=== PATIENT | male | born 1960 | race Hispanic/Latino ===

== ENCOUNTER 2017-04-28 13:05 | Inpatient (IN) | payer OTHER ==
--- NOTE | 2017-04-28 14:21 | ED PDOC ---
HPI:STROKE - Time Time: 14:00 - Historian Historian: Patient - Chief Complaint Chief Complaint: Weakness (Right hand weakness) - Onset Onset: This morning - Location Locate right:: Upper extremity - Notes: Notes:: 56y/o male (left hand dominant) presents to the ED complaining of right arm discomfort since he work up at around 7am. At first, patient thought he might have slept funny and it would wear off eventually but it didnt. States that he was planning to stay home today because of sore throat but came to the ED because of right hand weakness. Reports that he has difficulty picking a cup, holding his pants up or lifting anything. Denies weakness, numbness, difficulty in speaking or gait, visual deficits or any further medical complaints. NIHSS Stroke Scale - Date/Time Evaluation Performed Date Performed: 04/28/17 Time Performed: 14:00 When Was NIHSS Performed: Baseline - How Severe is the Stroke Level of Consciousness: 0=Alert LOC to Questions: 0=Both comments correct LOC to commands: 0=Obeys both correctly Best Gaze: 0=Normal Visual: 0=No visual loss Facial: 0=Normal Motor Arm - Left: 0=No drift Motor Arm - Right: 0=No drift Motor Leg - Left: 0=No drift Motor Leg - Right: 0=No drift Limb Ataxia: 1=Present Upper or Lower Sensory: 1=Mild to moderate loss Best Language: 0=No aphasia Dysarthia: 0=Normal articulation Extinction & Inattention (Neglect): 0=Normal, no object Score: 2 Past Medical History Reviewed: Historical Data, Nursing Documentation, Vital Signs Vital Signs: Last Vital Signs Temp 97.0 F L 04/28/17 13:39 Pulse 94 H 04/28/17 13:39 Resp 20 04/28/17 13:39 BP 175/105 H 04/28/17 13:39 Pulse Ox 96 04/28/17 13:39 - Medical History PMH: Hypercholesterolemia - Surgical History Other surgeries: Eye surgery as a toddler - Family History Family History: States: Hypertension Other Family History: Heart Disease - Social History Current smoker - smoking cessation education provided: No Alcohol: None Drugs: Denies - Home Medications Home Medications: Ambulatory Orders Medication Instructions Recorded Aspirin [Aspirin EC] 325 mg PO DAILY 04/28/17 Cholecalciferol [Vitamin D 1000 IU] 1 tab PO DAILY 04/28/17 Cyanocobalamin [Vitamin B12 1000 1 tab PO DAILY 04/28/17 mcg Tab] - Allergies Allergies/Adverse Reactions: Allergies Allergy/AdvReac Type Severity Reaction Status Date / Time No Known Allergies Allergy Verified 04/28/17 13:38 Review of Systems ROS Statement: Except As Marked, All Systems Reviewed And Found Negative (As per HPI, otherwise negative) Constitutional: Negative for: Fever Eyes: Negative for: Vision Change ENT: Positive for: Other (sore throat) Musculoskeletal: Positive for: Arm Pain (Right arm discomfort) Neurological: Negative for: Weakness (Right arm ), Numbness (right arm), Change in Speech Physical Exam - Reviewed Nursing Documentation Reviewed: Yes Vital Signs Reviewed: Yes - Physical Exam Appears: Positive for: Non-toxic, No Acute Distress Head Exam: Positive for: ATRAUMATIC, NORMOCEPHALIC Skin: Positive for: Warm, Dry Eye Exam: Positive for: EOMI, PERRL ENT: Negative for: Pharyngeal Erythema, Tonsillar Exudate Neck: Positive for: Painless ROM, Supple Cardiovascular/Chest: Positive for: Regular Rate, Rhythm, Chest Non Tender. Negative for: Murmur Respiratory: Positive for: Normal Breath Sounds. Negative for: Respiratory Distress Gastrointestinal/Abdominal: Positive for: Soft. Negative for: Tenderness Back: Positive for: Normal Inspection. Negative for: Decreased ROM Extremity: Negative for: Tenderness, Deformity, Swelling Neurologic/Psych: Positive for: Alert, pharmaceutical sales specialist II-XII (intact), Oriented (x3), Motor /Sensory Deficits (RIGHT hand apraxia and pronator drift), Mood/Affect (normal mood and affect), Cerebellar Tests (RIGHT upper extremity finger to nose abnormal (to finger). Normal bilateral HTS.), Gait (normal). Negative for: Aphasia, Facial Droop - Laboratory Results Result Diagrams: 04/28/17 14:20 04/28/17 14:20 - ECG O2 Sat by Pulse Oximetry: 96 (RA) Pulse Ox Interpretation: Normal Medical Decision Making Medical Decision Making: Time: 14:09 Initial Impression: Right hand apraxia Differential Diagnosis: CVA, brain mass, electrolyte abnormality Plan: Type and Screen Head w/o contrast EKG Drug Screen Hemoglobin A1C Neurology Consult Urine Dipstick Chest x-ray Furniture Cleaner IV Insertion (Saline lock) Glucose, Blood, POC Nursing Swallow Screen Influenza A B Rapid Strep Group -- Case discussed with neurologist supervisor electronics assembly (Dr. Montenegro) and will see him in ER for further evaluation. Time: 15:17 Chest x-ray FINDINGS: LUNGS: No active pulmonary disease. PLEURA: No significant pleural effusion identified, no pneumothorax apparent. CARDIOVASCULAR: No radiographic findings to suggest acute or significant cardiovascular disease. OSSEOUS STRUCTURES: No significant abnormalities. VISUALIZED UPPER ABDOMEN: Normal. OTHER FINDINGS: None. IMPRESSION: No active disease. Time: 15:[address] FINDINGS: HEMORRHAGE: The current study reveals a large elliptical shaped parenchymal hematoma within the left posterior frontoparietal low bladder that extends from the centrum semiovale superiorly into the vertex. This hemorrhage measures approximately 4.0 x 4 .2 x 2.2 cm. The medial of 1/3 of this large presumed hematoma exhibits slightly lower attenuation as compared to the lateral 2/3 which are more hyperdense . Findings could represent more acute hemorrhage within the lateral margin of this large hematoma. Rule out underlying lesion such is a cavernoma, AVM or possibly a hemorrhagic mass. Aneurysm less likely in this location despite what appears represent a small amount of overlying subarachnoid hemorrhage. The location is atypical for a hypertensive hemorrhage and therefore less likely. Amyloid angiography the would also be less likely amyloid angiography given this younger age group. Follow-up pre and post-contrast MRI may be helpful to assess for underlying lesion. The hematoma surrounded by a rim of low-attenuation edema or necrotic brain tissue. There is a surrounding mass effect with overlying local sulcal effacement and mild compression/inferior displacement of the posterior aspect of the right lateral ventricle. Note these findings were discussed with Dr. Edwards at approximately at 3 20 p.m. with written down and read back verification. There appears to be a punctate calcifications left anterior frontal region The ventricles are slightly prominent suggesting mild central volume loss. BRAIN: As above. VENTRICLES: No obstructive hydrocephalus. CALVARIUM: Calvarium intact. PARANASAL SINUSES: Unremarkable as visualized. No significant inflammatory changes. MASTOID AIR CELLS: Unremarkable as visualized. No inflammatory changes. OTHER FINDINGS: None. IMPRESSION: There is a relatively large parenchymal hematoma left posterior frontoparietal white matter with what appears represent small amount of overlying subarachnoid hemorrhage. Rule out underlying lesion such is a cavernoma, AVM or hemorrhagic mass. See above discussion, for additional details and findings. There is a surrounding rim of low-attenuation edema and or necrotic brain tissue. The hemorrhage and its attendant surrounding edema to exert mass effect as described. Follow-up pre and post-contrast MRI of the brain recommended. The emergency room attending aware these findings. --Case was discussed with Dr. Montenegro again and patient will undergo MRI for further evaluation for internal bleeding -- Patient will be placed in ICU, discussed with Dr. Guzman (Medical Service) Time: 17:30 --Case discussed with Dr. Orourke --neurosurgery recommendation --pending MR results Scribe Attestation: Documented by Joaquin Hubbard acting as a scribe for Keiry Edwards MD. Scribe Attestation: All medical record entries made by the Scribe were at my direction and personally dictated by me. I have reviewed the chart and agree that the record accurately reflects my personal performance of the history, physical exam, medical decision making, and the department course for this patient. I have also personally directed, reviewed, and agree with the discharge instructions and disposition. Disposition - Disposition
[2017-04-28 14:51] LABS: BASO # 0.1 K/uL (0.0-0.2); BASO % 0.5 % (0.0-2.0); EOS % 0.1 % (0.0-4.0); HEMOGLOBIN 15.8 g/dL (12.0-18.0); LYMPH # 1.6 K/uL (1.0-4.3); LYMPH % 11.7 % (20.0-40.0); MEAN CELL VOLUME 88.7 fl (80.0-94.0); MEAN CORPUSCULAR HEMOGLOBIN 30.6 pg (27.0-31.0); MEAN CORPUSCULAR HGB CONC 34.5 g/dL (33.0-37.0); MONO # 0.7 K/uL (0.0-0.8); MONO % 5.2 % (0.0-10.0); NEUT # 11.3 K/uL (1.8-7.0); NEUT % 82.5 % (50.0-75.0); RBC 5.17 Mil/uL (4.40-5.90); RED CELL DISTRIBUTION WIDTH 13.2 % (11.5-14.5); WHITE BLOOD COUNT 13.7 K/uL (4.8-10.8)
[2017-04-28 15:03] LABS: ALB/GLOB RATIO 1.2 (1.0-2.1); ALBUMIN 4.2 g/dL (3.5-5.0); ALT/SGPT 46 U/L (21-72); AST/SGOT 28 U/L (17-59); BLOOD UREA NITROGEN 19 mg/dl (9-20); CALCIUM 9.3 mg/dL (8.4-10.2); GFR AFRICAN-AMERICAN > 60; GFR NON-AFRICAN AMERICAN > 60; HDL CHOLESTEROL 48 MG/DL (30-70)
[2017-04-28 15:06] LABS: LDL CHOLESTEROL 256 mg/dL (0-129)
[2017-04-28 15:13] LABS: PROTHROMBIN TIME 11.5 Seconds (9.8-13.1)
--- NOTE | 2017-04-28 15:19 | RAD ---
HISTORY: Code Stroke COMPARISON: No prior. FINDINGS: LUNGS: No active pulmonary disease. PLEURA: No significant pleural effusion identified, no pneumothorax apparent. CARDIOVASCULAR: No radiographic findings to suggest acute or significant cardiovascular disease. OSSEOUS STRUCTURES: No significant abnormalities. VISUALIZED UPPER ABDOMEN: Normal. OTHER FINDINGS: None. IMPRESSION: No active disease.
--- NOTE | 2017-04-28 15:32 | CP.PCM.CON ---
History of Present Illness - History of Present Illness History of Present Illness: Mr. Almaraz is a 56-year-old man with a past medical history of hypertension , dyslipidemia (not on meds), who presented to the ED after he woke up this morning with right side difficulty with fine motor movements and sensory deficits. CT scan of the head showed a moderate sized left parietal lobe hemorrhage with surrounding edema. The patient denied headache, nausea, vomiting , or other neurologic deficits. Review of Systems - Review of Systems All systems: reviewed and no additional remarkable complaints except Past Patient History - Past Social History Alcohol: None Drugs: Denies - CARDIAC Hx Hypercholesterolemia: Yes - PSYCHIATRIC Hx Substance Use: No Meds Allergies/Adverse Reactions: Allergies Allergy/AdvReac Type Severity Reaction Status Date / Time No Known Allergies Allergy Verified 04/28/17 13:38 Physical Exam - Constitutional Appears: Well - Head Exam Head Exam: ATRAUMATIC, NORMAL INSPECTION, NORMOCEPHALIC - Eye Exam Eye Exam: EOMI, Normal appearance, PERRL - Respiratory Exam Respiratory Exam: Clear to Auscultation Bilateral, NORMAL BREATHING PATTERN - Cardiovascular Exam Cardiovascular Exam: REGULAR RHYTHM - Neurological Exam Neurological exam: Alert, CN II-XII Intact, Oriented x3 Additional comments: Reflexes were brisk on the right side, sensation was diminished to light touch on the right side as compared with the left, fine motor movements and coordination were impaired on the right side, with pronator drift. NIHSS = 3 Results - Vital Signs Recent Vital Signs: Last Vital Signs Temp 97.0 F L 04/28/17 13:39 Pulse 94 H 04/28/17 13:39 Resp 20 04/28/17 13:39 BP 175/105 H 04/28/17 13:39 Pulse Ox 96 04/28/17 15:19 - Labs Result Diagrams: 04/28/17 14:20 04/28/17 14:20 Labs: Laboratory Results - last 24 hr 04/28/17 04/28/17 04/28/17 14:20 14:20 14:20 WBC 13.7 H RBC 5.17 Hgb 15.8 Hct 45.9 MCV 88.7 MCH 30.6 MCHC 34.5 RDW 13.2 Plt Count 227 MPV 9.0 Neut % (Auto) 82.5 H Lymph % (Auto) 11.7 L [place] % (Auto) 5.2 Eos % (Auto) 0.1 Baso % (Auto) 0.5 Neut # (Auto) 11.3 H Lymph # (Auto) 1.6 [place] # (Auto) 0.7 Eos # (Auto) 0.0 Baso # (Auto) 0.1 PT 11.5 INR 1.0 APTT 32.0 Sodium 140 Potassium 3.5 L Chloride 104 Carbon Dioxide 25 Anion Gap 15 BUN 19 Creatinine 1.0 Est GFR ( Amer) > 60 Est GFR (Non-Af Amer) > 60 POC Glucose (mg/dL) Random Glucose 96 Calcium 9.3 Phosphorus 2.8 Magnesium 2.0 Total Bilirubin 0.8 AST 28 ALT 46 Alkaline Phosphatase 81 Troponin I 0.0200 Total Protein 7.7 Albumin 4.2 Globulin 3.5 Albumin/Globulin Ratio 1.2 Triglycerides 110 Cholesterol 330 H LDL Cholesterol Direct 256 H HDL Cholesterol 48 Influenza Typ A,B (EIA) Grp A Beta Strep Ag 04/28/17 04/28/17 04/28/17 14:20 14:20 15:19 WBC RBC Hgb Hct MCV MCH MCHC RDW Plt Count MPV Neut % (Auto) Lymph % (Auto) [place] % (Auto) Eos % (Auto) Baso % (Auto) Neut # (Auto) Lymph # (Auto) [place] # (Auto) Eos # (Auto) Baso # (Auto) PT INR APTT Sodium Potassium Chloride Carbon Dioxide Anion Gap BUN Creatinine Est GFR ( Amer) Est GFR (Non-Af Amer) POC Glucose (mg/dL) 89 Random Glucose Calcium Phosphorus Magnesium Total Bilirubin AST ALT Alkaline Phosphatase Troponin I Total Protein Albumin Globulin Albumin/Globulin Ratio Triglycerides Cholesterol LDL Cholesterol Direct HDL Cholesterol Influenza Typ A,B (EIA) Negative for flu a/b Grp A Beta Strep Ag Negative Assessment & Plan (1) ICH (intracerebral hemorrhage) Assessment and Plan: There is a mixed density with surrounding edema and the bleed is in an atypical location for hypertensive bleeds. There is concern that this may be a mass with hemorrhage or a possible cavernoma. Amyloid is unlikely. I recommend the followin. Telemetry 2. MRI brain with and without contrast and MRA of the head/neck without contrast 3. Echocardiogram with bubble study 4. Avoid anticoagulation or antiplatelet agents (use SCD for DVT Px) 5. Consult neurosurgery 6. PT/OT eval and treat 7. Check HbA1c, Lipid panel, TSH, T3, T4, B12, vitamin D levels 8. Repeat CT scan in 24 hours or STAT if there is worsening of neurological exam or mental status Thank you. Status: Acute Priority: High
--- NOTE | 2017-04-28 15:33 | CT ---
PROCEDURE: CT scan brain dated 05/26/2017 HISTORY: Right hand weakness COMPARISON: No prior study available comparison. TECHNIQUE: Contiguous helical/transaxial computed tomography images were obtained through the head/brain without intravenous contrast. Radiation dose: Total exam DLP = 1244.27 mGy - cm. . This CT exam was performed using one or more of the following dose reduction techniques: Automated exposure control, adjustment of the mA and/or kV according to patient size, and/or use of iterative reconstruction technique. FINDINGS: HEMORRHAGE: The current study reveals a large elliptical shaped parenchymal hematoma within the left posterior frontoparietal low bladder that extends from the centrum semiovale superiorly into the vertex. This hemorrhage measures approximately 4.0 x 4 .2 x 2.2 cm. The medial of 1/3 of this large presumed hematoma exhibits slightly lower attenuation as compared to the lateral 2/3 which are more hyperdense . Findings could represent more acute hemorrhage within the lateral margin of this large hematoma. Rule out underlying lesion such is a cavernoma, AVM or possibly a hemorrhagic mass. Aneurysm less likely in this location despite what appears represent a small amount of overlying subarachnoid hemorrhage. The location is atypical for a hypertensive hemorrhage and therefore less likely. Amyloid angiography the would also be less likely amyloid angiography given this younger age group. Follow-up pre and post-contrast MRI may be helpful to assess for underlying lesion. The hematoma surrounded by a rim of low-attenuation edema or necrotic brain tissue. There is a surrounding mass effect with overlying local sulcal effacement and mild compression/inferior displacement of the posterior aspect of the right lateral ventricle. Note these findings were discussed with Dr. Edwards at approximately at 3 20 p.m. with written down and read back verification. There appears to be a punctate calcifications left anterior frontal region The ventricles are slightly prominent suggesting mild central volume loss. BRAIN: As above. VENTRICLES: No obstructive hydrocephalus. CALVARIUM: Calvarium intact. PARANASAL SINUSES: Unremarkable as visualized. No significant inflammatory changes. MASTOID AIR CELLS: Unremarkable as visualized. No inflammatory changes. OTHER FINDINGS: None. IMPRESSION: There is a relatively large parenchymal hematoma left posterior frontoparietal white matter with what appears represent small amount of overlying subarachnoid hemorrhage. Rule out underlying lesion such is a cavernoma, AVM or hemorrhagic mass. See above discussion, for additional details and findings. There is a surrounding rim of low-attenuation edema and or necrotic brain tissue. The hemorrhage and its attendant surrounding edema to exert mass effect as described. Follow-up pre and post-contrast MRI of the brain recommended. The emergency room attending aware these findings.
[2017-04-28] MEDS ORDERED: Gadodiamide 287 MG/ML VIAL (15ML) IV ONE (16:15)
[2017-04-28] MEDS ORDERED: Labetalol 5mg/ml (4ml) IVP PRN (18:53)
[2017-04-28] MEDS ORDERED: Labetalol 5mg/ml (4ml) IVP STA (20:57)
[2017-04-28] MEDS ORDERED: Labetalol 5mg/ml (4ml) ONE (21:10)
[2017-04-28] MEDS ORDERED: Benzocaine/Menthol (Cepacol) Lozenge PO PRN (21:47)
[2017-04-29 00:39] LABS: BARBITURATES, UR NEGATIVE (NEGATIVE); BENZODIAZEPINES, UR NEGATIVE (NEGATIVE); OPIATES, UR NEGATIVE (NEGATIVE); PHENCYCLIDINE, UR NEGATIVE (NEGATIVE)
[2017-04-29 05:48] LABS: BLOOD UREA NITROGEN 18 mg/dl (9-20); CALCIUM 9.3 mg/dL (8.4-10.2); GFR AFRICAN-AMERICAN > 60; GFR NON-AFRICAN AMERICAN > 60; HDL CHOLESTEROL 46 MG/DL (30-70)
[2017-04-29 05:53] LABS: HEMOGLOBIN 15.1 g/dL (12.0-18.0); MEAN CELL VOLUME 89.1 fl (80.0-94.0); MEAN CORPUSCULAR HEMOGLOBIN 30.4 pg (27.0-31.0); MEAN CORPUSCULAR HGB CONC 34.1 g/dL (33.0-37.0); RBC 4.97 Mil/uL (4.40-5.90); RED CELL DISTRIBUTION WIDTH 13.3 % (11.5-14.5); WHITE BLOOD COUNT 12.7 K/uL (4.8-10.8)
[2017-04-29 05:59] LABS: LDL CHOLESTEROL 248 mg/dL (0-129); T4 8.35 ug/dl (5.5-11.0)
[2017-04-29 06:13] LABS: T3 1.23 nmol/L (1.49-2.60)
--- NOTE | 2017-04-29 08:15 | PN ---
DATE: 04/28/2017 CRITICAL CARE PROGRESS NOTE The patient in ER, being admitted to ICU. REASON FOR CONSULTATION: Weakness right hand. HISTORY OF PRESENT ILLNESS: Mr. Almaraz is a 56-year-old male, left-handed with no significant medical history in the past and I am not taking any medications at home. Presented to Emergency Room with complaining of right hand weakness since he got up this morning around 07:00 a.m. In the ER, the patient was noted to have apraxia of the right hand. A CT head obtained showed hemorrhage/hemorrhagic mass within the left posterior, frontoparietal that extends from the centrum semiovale superiorly into the vertex, seen by Neurology. Recommended for MRI and MRA of the brain, admitted to ICU for further evaluation and follow up. REVIEW OF SYSTEMS: Denies fever, chills, cough, shortness of breath. No headache. No unsteady gait, weakness of the right hand with apraxia. PHYSICAL EXAMINATION: VITAL SIGNS: Temperature 97, heart rate 94, respiratory rate 20, blood pressure 175/105, pulse oximetry 96% on room air. HEAD, EYES, EARS, NOSE AND THROAT: Pupils are reactive. Conjunctivae pink. Sclerae are white. NECK: Supple. Trachea central. CHEST: Bilateral breath sounds clear to auscultation. HEART: Rhythm regular. S1, S2, normal intensity. No S3, S4 gallop. No audible murmur. ABDOMEN: Bowel sounds are present. Soft. Liver and spleen not palpable. Bladder not distended. EXTREMITIES: No clubbing, cyanosis, edema. NEUROLOGIC: Alert and oriented x3. Cranial nerves intact. Motor sensory deficit right hand with apraxia and pronator drift. Gait normal. Chest x-ray shows no acute infiltrate. EKG showed normal sinus rhythm, normal electrical axis. No ischemic changes. CT head: A large elliptical shaped parenchymal hematoma within the left posterior, frontoparietal that extends from the centrum semiovale superiorly into the vertex measures 4 x 4.2 x 2.2 centimeters. ASSESSMENT AND PLAN: A 56-year-old male presenting with right arm weakness. CT head shows a mixed density lesion with surrounding edema and bleed in the frontoparietal area, concerned about hemorrhagic or a mass with hemorrhage. Follow MRI and MRA report with anticoagulation or antiplatelet agents. Deep venous thrombosis prophylaxis with sequential compressive device, maintain systolic pressure 140-160. Follow up with hemoglobin A1c, lipid panel, TSH and vitamin D level. Repeat CAT scan in 24 hours.. Follow up urine drug screen and thyroid profile, may use Tylenol for headache p.r.n., currently on atorvastatin 20 mg daily. Marcell Márquez MD
--- NOTE | 2017-04-29 10:09 | CARD ---
APPROVED REPORT EKG Measurement Heart [id number] <Conclusion> Normal sinus rhythm Normal ECG
--- NOTE | 2017-04-29 11:51 | CP.PCM.CON ---
History of Present Illness - History of Present Illness History of Present Illness: dictated ? underlying tumor/malformation MRI inconclusive suggest f/u MRI in 3 weeks rec OT PT Mobilization Past Patient History - Past Social History Smoking Status: Never Smoked - CARDIAC Hx Cardiac Disorders: Yes (HTN) Hx Hypercholesterolemia: Yes Hx Hypertension: Yes - MUSCULOSKELETAL/RHEUMATOLOGICAL Hx Falls: No - PSYCHIATRIC Hx Substance Use: No - SURGICAL HISTORY Other/Comment: Eye surgery as a toddler - ANESTHESIA Hx Anesthesia: Yes Hx Anesthesia Reactions: No Hx Malignant Hyperthermia: No Meds Allergies/Adverse Reactions: Allergies Allergy/AdvReac Type Severity Reaction Status Date / Time No Known Allergies Allergy Verified 04/28/17 13:38 - Medications Medications: Current Medications Amlodipine Besylate (Norvasc) 5 mg PO DAILY [facility] Last Admin: 04/29/17 11:39 Dose: 5 mg Atorvastatin Calcium (Lipitor) 20 mg PO DAILY [facility] Last Admin: 04/29/17 09:47 Dose: 20 mg Benzocaine/Menthol (Cepacol Sore Throat) 1 corazon PO Q2 PRN PRN Reason: Sore Throat Last Admin: 04/28/17 22:08 Dose: 1 corazon Labetalol HCl (Trandate) 20 mg IVP ONCE PRN PRN Reason: Systolic Blood Pressure Results - Vital Signs Recent Vital Signs: Last Vital Signs Temp 98.2 F 04/29/17 08:34 Pulse 77 04/29/17 11:39 Resp 25 H 04/29/17 10:00 BP 160/91 H 04/29/17 11:39 Pulse Ox 100 04/29/17 10:00 - Labs Result Diagrams: 04/29/17 04:40 04/29/17 04:40 Labs: Laboratory Results - last 24 hr 04/28/17 04/28/17 04/28/17 00:18 14:02 14:20 WBC 13.7 H RBC 5.17 Hgb 15.8 Hct 45.9 MCV 88.7 MCH 30.6 MCHC 34.5 RDW 13.2 Plt Count 227 MPV 9.0 Neut % (Auto) 82.5 H Lymph % (Auto) 11.7 L Gates % (Auto) 5.2 Eos % (Auto) 0.1 Baso % (Auto) 0.5 Neut # (Auto) 11.3 H Lymph # (Auto) 1.6 Gates # (Auto) 0.7 Eos # (Auto) 0.0 Baso # (Auto) 0.1 PT INR APTT Sodium Potassium Chloride Carbon Dioxide Anion Gap BUN Creatinine Est GFR ( Amer) Est GFR (Non-Af Amer) POC Glucose (mg/dL) Random Glucose Hemoglobin A1c 5.1 Calcium Phosphorus Magnesium Total Bilirubin AST ALT Alkaline Phosphatase Troponin I Total Protein Albumin Globulin Albumin/Globulin Ratio Triglycerides Cholesterol LDL Cholesterol Direct HDL Cholesterol Vitamin B12 Thyroxine (T4) Total T3 TSH 3rd Generation Urine Opiates Screen Negative Urine Methadone Screen Negative Ur Barbiturates Screen Negative Ur Phencyclidine Scrn Negative Ur Amphetamines Screen Negative U Benzodiazepines Scrn Negative U Oth Cocaine Metabols Negative U Cannabinoids Screen Negative Influenza Typ A,B (EIA) Grp A Beta Strep Ag Blood Type Antibody Screen BBK History Checked 04/28/17 04/28/17 04/28/17 14:20 14:20 14:20 WBC RBC Hgb Hct MCV MCH MCHC RDW Plt Count MPV Neut % (Auto) Lymph % (Auto) Gates % (Auto) Eos % (Auto) Baso % (Auto) Neut # (Auto) Lymph # (Auto) Gates # (Auto) Eos # (Auto) Baso # (Auto) PT 11.5 INR 1.0 APTT 32.0 Sodium 140 Potassium 3.5 L Chloride 104 Carbon Dioxide 25 Anion Gap 15 BUN 19 Creatinine 1.0 Est GFR ( Amer) > 60 Est GFR (Non-Af Amer) > 60 POC Glucose (mg/dL) Random Glucose 96 Hemoglobin A1c Calcium 9.3 Phosphorus 2.8 Magnesium 2.0 Total Bilirubin 0.8 AST 28 ALT 46 Alkaline Phosphatase 81 Troponin I 0.0200 Total Protein 7.7 Albumin 4.2 Globulin 3.5 Albumin/Globulin Ratio 1.2 Triglycerides 110 Cholesterol 330 H LDL Cholesterol Direct 256 H HDL Cholesterol 48 Vitamin B12 Thyroxine (T4) Total T3 TSH 3rd Generation Urine Opiates Screen Urine Methadone Screen Ur Barbiturates Screen Ur Phencyclidine Scrn Ur Amphetamines Screen U Benzodiazepines Scrn U Oth Cocaine Metabols U Cannabinoids Screen Influenza Typ A,B (EIA) Negative for flu a/b Grp A Beta Strep Ag Blood Type Antibody Screen BBK History Checked 04/28/17 04/28/17 04/28/17 14:20 15:15 15:19 WBC RBC Hgb Hct MCV MCH MCHC RDW Plt Count MPV Neut % (Auto) Lymph % (Auto) Gates % (Auto) Eos % (Auto) Baso % (Auto) Neut # (Auto) Lymph # (Auto) Gates # (Auto) Eos # (Auto) Baso # (Auto) PT INR APTT Sodium Potassium Chloride Carbon Dioxide Anion Gap BUN Creatinine Est GFR ( Amer) Est GFR (Non-Af Amer) POC Glucose (mg/dL) 89 Random Glucose Hemoglobin A1c Calcium Phosphorus Magnesium Total Bilirubin AST ALT Alkaline Phosphatase Troponin I Total Protein Albumin Globulin Albumin/Globulin Ratio Triglycerides Cholesterol LDL Cholesterol Direct HDL Cholesterol Vitamin B12 Thyroxine (T4) Total T3 TSH 3rd Generation Urine Opiates Screen Urine Methadone Screen Ur Barbiturates Screen Ur Phencyclidine Scrn Ur Amphetamines Screen U Benzodiazepines Scrn U Oth Cocaine Metabols U Cannabinoids Screen Influenza Typ A,B (EIA) Grp A Beta Strep Ag Negative Blood Type O NEGATIVE Antibody Screen Negative BBK History Checked No verified bt 04/28/17 04/29/17 04/29/17 17:30 04:40 04:40 WBC 12.7 H RBC 4.97 Hgb 15.1 Hct 44.3 MCV 89.1 MCH 30.4 MCHC 34.1 RDW 13.3 Plt Count 224 MPV Neut % (Auto) Lymph % (Auto) Gates % (Auto) Eos % (Auto) Baso % (Auto) Neut # (Auto) Lymph # (Auto) Gates # (Auto) Eos # (Auto) Baso # (Auto) PT INR APTT Sodium 141 Potassium 4.1 Chloride 105 Carbon Dioxide 27 Anion Gap 13 BUN 18 Creatinine 1.0 Est GFR ( Amer) > 60 Est GFR (Non-Af Amer) > 60 POC Glucose (mg/dL) Random Glucose 101 Hemoglobin A1c Calcium 9.3 Phosphorus Magnesium Total Bilirubin AST ALT Alkaline Phosphatase Troponin I Total Protein Albumin Globulin Albumin/Globulin Ratio Triglycerides 81 D Cholesterol 319 H LDL Cholesterol Direct 248 H HDL Cholesterol 46 Vitamin B12 756 566 Thyroxine (T4) 8.35 Total T3 1.23 L TSH 3rd Generation 0.65 1.04 Urine Opiates Screen Urine Methadone Screen Ur Barbiturates Screen Ur Phencyclidine Scrn Ur Amphetamines Screen U Benzodiazepines Scrn U Oth Cocaine Metabols U Cannabinoids Screen Influenza Typ A,B (EIA) Grp A Beta Strep Ag Blood Type Antibody Screen BBK History Checked
--- NOTE | 2017-04-29 14:39 | CP.PCM.PN ---
Subjective - Date & Time of Evaluation Date of Evaluation: 04/29/17 Time of Evaluation: 14:37 - Subjective Subjective: Mr. Almaraz was seen and examined today at bedside. He continues to have right arm, mostly hand, weakness. There were no acute events overnight. Objective - Vital Signs/Intake and Output Vital Signs (last 24 hours): Temp Pulse Resp BP Pulse Ox 98.0 F 85 19 160/91 H 99 04/29/17 13:42 04/29/17 13:42 04/29/17 13:42 04/29/17 13:42 04/29/17 13:42 Intake and Output: 04/29/17 04/29/17 06:59 18:59 Intake Total 240 Output Total 600 300 Balance -360 -300 - Medications Medications: Current Medications Amlodipine Besylate (Norvasc) 5 mg PO DAILY [facility] Last Admin: 04/29/17 11:39 Dose: 5 mg Atorvastatin Calcium (Lipitor) 20 mg PO DAILY [facility] Last Admin: 04/29/17 09:47 Dose: 20 mg Benzocaine/Menthol (Cepacol Sore Throat) 1 corazon PO Q2 PRN PRN Reason: Sore Throat Last Admin: 04/28/17 22:08 Dose: 1 corazon Labetalol HCl (Trandate) 20 mg IVP ONCE PRN PRN Reason: Systolic Blood Pressure - Labs Labs: 04/29/17 04:40 04/29/17 04:40 PT 11.5 Seconds (9.8-13.1) 04/28/17 14:20 INR 1.0 (0.9-1.2) 04/28/17 14:20 APTT 32.0 Seconds (25.6-37.1) 04/28/17 14:20 - Neurological Exam Additional comments: Exam is unchanged from yesterday's evaluation. Assessment and Plan (1) ICH (intracerebral hemorrhage) Assessment & Plan: There may be an underlying mass, but currently it is difficult to determine due to the bleed. A repeat MRI of the brain is recommended in 3-4 weeks. There has not been any reported seizure activity, so we will hold off on starting Keppra for now. Continue statin, control BP to normal range. Status: Acute
--- NOTE | 2017-04-29 15:38 | CT ---
PROCEDURE: CT HEAD WITHOUT CONTRAST. HISTORY: left lobe hemorrhage COMPARISON: CT head dated 04/28/2017. TECHNIQUE: Axial computed tomography images were obtained through the head/brain without intravenous contrast. Radiation dose: Total exam DLP = 2038.6 mGy-cm. This CT exam was performed using one or more of the following dose reduction techniques: Automated exposure control, adjustment of the mA and/or kV according to patient size, and/or use of iterative reconstruction technique. FINDINGS: There is similar appearance of the left parietal parenchymal hemorrhage and areas of adjacent subarachnoid hemorrhage. Surrounding edema has slightly increased. Mass effect from the hemorrhage/edema causes similar sulcal effacement and mild bowing of the posterior falx. No new hemorrhage or other significant interval change is identified. IMPRESSION: Slightly increased edema surrounding the grossly stable left parietal parenchymal hemorrhage. Focal areas of adjacent subarachnoid hemorrhage are similar. No new hemorrhage or other significant interval change is identified.
--- NOTE | 2017-04-29 16:09 | MRI ---
PROCEDURE: MRI BRAIN WITH AND WITHOUT CONTRAST HISTORY: Left parietal lobe hemorrhage COMPARISON: Noncontrast head CT 04/28/2017 TECHNIQUE: Multiplanar, multisequence MR images of the brain were obtained with and without intravenous contrast enhancement. FINDINGS: HEMORRHAGE: There is redemonstration of a 4.5 x 2.3 x 4.7 cm acute hematoma in the left parietal lobe with surrounding vasogenic edema and local mass effect with effacement of the cortical sulci without midline shift or herniation. There is also mild subarachnoid hemorrhage in the inferior parietal lobe. DWI: No evidence of an acute or early subacute infarction. BRAIN PARENCHYMA: There are scattered T2/FLAIR hyperintense foci in the right parietal and left inferior frontal subcortical white matter. There is no territorial infarction. The midline sagittal structures are normal. ENHANCEMENT: No abnormal intracranial enhancement. VENTRICLES: The ventricles are normal in size, shape and configuration. CRANIUM: There is normal bone marrow signal pattern. ORBITS: Grossly unremarkable. PARANASAL SINUSES/MASTOIDS: Predominantly clear. There is a small retention cyst/ polyp in the right maxillary sinus. VASCULAR SYSTEM: There are normal signal voids in the larger intracranial arteries. OTHER FINDINGS: None . IMPRESSION: 1. 4.5 x 2.3 x 4.7 cm acute hematoma with mild surrounding vasogenic edema and local mass effect in the left parietal lobe without evidence of midline shift or herniation. 2. Small left inferior parietal subarachnoid hemorrhage. 3. Right parietal subcortical and left inferior parietal subcortical white matter changes are strictly nonspecific and could represent gliosis or early chronic microangiopathic changes. A preliminary report was provided by [employer] [facility].
--- NOTE | 2017-04-29 16:10 | MRI ---
PROCEDURE: MR Angiography of the neck without contrast HISTORY: Left lobar hemorrhage. COMPARISON: None available. TECHNIQUE: 3D [id number] angiography of the neck was performed. Rotating maximum intensity projection images of the cervical carotid and vertebral arteries were generated. The origins of the common carotid arteries were not visualized, which is a limitation inherent to the non-contrast time of flight technique. FINDINGS: RIGHT CAROTID ARTERIES: Common Carotid Artery: Normal. Carotid Bifurcation: Normal. Internal Carotid Artery:Normal. External Carotid Artery (proximal branches): Normal. LEFT CAROTID ARTERIES: Common Carotid Artery: Normal. Carotid Bifurcation: Normal. Internal Carotid Artery:Normal. External Carotid Artery (proximal branches): Normal. VERTEBRAL ARTERIES: Right Vertebral Artery: The right vertebral artery is hypoplastic and patent, an anatomic variant. Left Vertebral Artery: Normal. OTHER FINDINGS: None. IMPRESSION: No hemodynamically significant stenosis in the internal carotid arteries. Hypoplastic right vertebral artery, an anatomic variant. A preliminary report was provided by [employer] [facility].
--- NOTE | 2017-04-29 16:11 | CP.CCUPN ---
CCU Subjective - Physician Review Events Since Last Encounter (Free Text): 04/29/17 16:10 feeling better today, right hand weakness. CCU Objective - Vital Signs / Intake & Output Vital Signs (Last 4 hours): Vital Signs Temp Pulse Resp BP Pulse Ox 04/29/17 16:00 98.2 F 78 15 152/90 H 97 04/29/17 14:00 76 13 151/88 H 97 04/29/17 13:42 98.0 F 85 19 160/91 H 99 Intake and Output (Last 8hrs): Intake & Output 04/29/17 04/29/17 04/29/17 06:59 14:59 22:59 Intake Total 0 Output Total 300 300 400 Balance -300 -300 -400 Weight 240 lb Intake: IV 0 Output: Urine 300 300 400 Urine, Voided 300 300 400 - Physical Exam Head: Positive for: Atraumatic, Normocephalic Pupils: Positive for: PERRL Extroacular Muscles: Positive for: EOMI Conjunctiva: Positive for: Normal Mouth: Positive for: Moist Mucous Membranes Respiratory/Chest: Positive for: Clear to Auscultation, Good Air Exchange Cardiovascular: Positive for: Regular Rate and Rhythm Abdomen: Negative for: Tenderness, Distention Neurological: Positive for: GCS=15, CN II-XII Intact Psychiatric: Positive for: Alert, Oriented x 3 - Medications Active Medications: Active Medications Generic Name Dose Route Start Last Admin Trade Name Freq PRN Reason Stop Dose Admin Amlodipine Besylate 5 mg 04/29/17 10:30 04/29/17 11:39 Norvasc PO 5 mg DAILY ALONDRA Administration Atorvastatin Calcium 20 mg 04/29/17 09:00 04/29/17 09:47 Lipitor PO 20 mg DAILY ALONDRA Administration Benzocaine/Menthol 1 corazon 04/28/17 21:47 04/28/17 22:08 Cepacol Sore Throat PO 1 corazon Q2 PRN Administration Sore Throat Labetalol HCl 20 mg 04/28/17 18:53 Trandate IVP ONCE PRN Systolic Blood Pressure - Patient Studies Lab Studies: Lab Studies 04/29/17 04/29/17 04/29/17 Range/Units 08:00 04:40 04:40 WBC (4.8-10.8) K/uL RBC (4.40-5.90) Mil/uL Hgb (12.0-18.0) g/dL Hct (35.0-51.0) % MCV (80.0-94.0) fl MCH (27.0-31.0) pg MCHC (33.0-37.0) g/dL RDW (11.5-14.5) % Plt Count (130-400) K/uL Sodium (132-148) mmol/l Potassium (3.6-5.0) MMOL/L Chloride (98-107) mmol/L Carbon Dioxide (22-30) mmol/L Anion Gap (10-20) BUN (9-20) mg/dl Creatinine (0.8-1.5) mg/dl Est GFR ( Amer) Est GFR (Non-Af Amer) Random Glucose (75-110) mg/dL Hemoglobin A1c 5.2 (4.2-6.5) % Calcium (8.4-10.2) mg/dL Triglycerides (0-149) mg/DL Cholesterol (0-199) mg/dL LDL Cholesterol Direct (0-129) mg/dL HDL Cholesterol (30-70) MG/DL Vitamin B12 (239-931) pg/mL 25-OH Vitamin D Total 28.7 L (30.0-100.0) NG/ML Thyroxine (T4) (5.5-11.0) ug/dl Total T3 (1.49-2.60) nmol/L TSH 3rd Generation (0.46-4.68) mIU/ML Urine Opiates Screen (NEGATIVE) Urine Methadone Screen (NEGATIVE) Ur Barbiturates Screen (NEGATIVE) Ur Phencyclidine Scrn (NEGATIVE) Ur Amphetamines Screen (NEGATIVE) U Benzodiazepines Scrn (NEGATIVE) U Oth Cocaine Metabols (NEGATIVE) U Cannabinoids Screen (NEGATIVE) Blood Type Blood Type Confirm O NEGATIVE Antibody Screen 04/29/17 04/29/17 04/28/17 Range/Units 04:40 04:40 17:30 WBC 12.7 H (4.8-10.8) K/uL RBC 4.97 (4.40-5.90) Mil/uL Hgb 15.1 (12.0-18.0) g/dL Hct 44.3 (35.0-51.0) % MCV 89.1 (80.0-94.0) fl MCH 30.4 (27.0-31.0) pg MCHC 34.1 (33.0-37.0) g/dL RDW 13.3 (11.5-14.5) % Plt Count 224 (130-400) K/uL Sodium 141 (132-148) mmol/l Potassium 4.1 (3.6-5.0) MMOL/L Chloride 105 (98-107) mmol/L Carbon Dioxide 27 (22-30) mmol/L Anion Gap 13 (10-20) BUN 18 (9-20) mg/dl Creatinine 1.0 (0.8-1.5) mg/dl Est GFR ( Amer) > 60 Est GFR (Non-Af Amer) > 60 Random Glucose 101 (75-110) mg/dL Hemoglobin A1c (4.2-6.5) % Calcium 9.3 (8.4-10.2) mg/dL Triglycerides 81 D (0-149) mg/DL Cholesterol 319 H (0-199) mg/dL LDL Cholesterol Direct 248 H (0-129) mg/dL HDL Cholesterol 46 (30-70) MG/DL Vitamin B12 566 756 (239-931) pg/mL 25-OH Vitamin D Total (30.0-100.0) NG/ML Thyroxine (T4) 8.35 (5.5-11.0) ug/dl Total T3 1.23 L (1.49-2.60) nmol/L TSH 3rd Generation 1.04 0.65 (0.46-4.68) mIU/ML Urine Opiates Screen (NEGATIVE) Urine Methadone Screen (NEGATIVE) Ur Barbiturates Screen (NEGATIVE) Ur Phencyclidine Scrn (NEGATIVE) Ur Amphetamines Screen (NEGATIVE) U Benzodiazepines Scrn (NEGATIVE) U Oth Cocaine Metabols (NEGATIVE) U Cannabinoids Screen (NEGATIVE) Blood Type Blood Type Confirm Antibody Screen 04/28/17 04/28/17 04/28/17 Range/Units 15:15 14:02 00:18 WBC (4.8-10.8) K/uL RBC (4.40-5.90) Mil/uL Hgb (12.0-18.0) g/dL Hct (35.0-51.0) % MCV (80.0-94.0) fl MCH (27.0-31.0) pg MCHC (33.0-37.0) g/dL RDW (11.5-14.5) % Plt Count (130-400) K/uL Sodium (132-148) mmol/l Potassium (3.6-5.0) MMOL/L Chloride (98-107) mmol/L Carbon Dioxide (22-30) mmol/L Anion Gap (10-20) BUN (9-20) mg/dl Creatinine (0.8-1.5) mg/dl Est GFR ( Amer) Est GFR (Non-Af Amer) Random Glucose (75-110) mg/dL Hemoglobin A1c 5.1 (4.2-6.5) % Calcium (8.4-10.2) mg/dL Triglycerides (0-149) mg/DL Cholesterol (0-199) mg/dL LDL Cholesterol Direct (0-129) mg/dL HDL Cholesterol (30-70) MG/DL Vitamin B12 (239-931) pg/mL 25-OH Vitamin D Total (30.0-100.0) NG/ML Thyroxine (T4) (5.5-11.0) ug/dl Total T3 (1.49-2.60) nmol/L TSH 3rd Generation (0.46-4.68) mIU/ML Urine Opiates Screen Negative (NEGATIVE) Urine Methadone Screen Negative (NEGATIVE) Ur Barbiturates Screen Negative (NEGATIVE) Ur Phencyclidine Scrn Negative (NEGATIVE) Ur Amphetamines Screen Negative (NEGATIVE) U Benzodiazepines Scrn Negative (NEGATIVE) U Oth Cocaine Metabols Negative (NEGATIVE) U Cannabinoids Screen Negative (NEGATIVE) Blood Type O NEGATIVE Blood Type Confirm Antibody Screen Negative Laboratory Results - last 24 hr 04/28/17 04/28/17 04/28/17 00:18 14:02 15:15 WBC RBC Hgb Hct MCV MCH MCHC RDW Plt Count Sodium Potassium Chloride Carbon Dioxide Anion Gap BUN Creatinine Est GFR ( Amer) Est GFR (Non-Af Amer) Random Glucose Hemoglobin A1c 5.1 Calcium Triglycerides Cholesterol LDL Cholesterol Direct HDL Cholesterol Vitamin B12 25-OH Vitamin D Total Thyroxine (T4) Total T3 TSH 3rd Generation Urine Opiates Screen Negative Urine Methadone Screen Negative Ur Barbiturates Screen Negative Ur Phencyclidine Scrn Negative Ur Amphetamines Screen Negative U Benzodiazepines Scrn Negative U Oth Cocaine Metabols Negative U Cannabinoids Screen Negative Blood Type O NEGATIVE Blood Type Confirm Antibody Screen Negative 04/28/17 04/29/17 04/29/17 17:30 04:40 04:40 WBC 12.7 H RBC 4.97 Hgb 15.1 Hct 44.3 MCV 89.1 MCH 30.4 MCHC 34.1 RDW 13.3 Plt Count 224 Sodium 141 Potassium 4.1 Chloride 105 Carbon Dioxide 27 Anion Gap 13 BUN 18 Creatinine 1.0 Est GFR ( Amer) > 60 Est GFR (Non-Af Amer) > 60 Random Glucose 101 Hemoglobin A1c Calcium 9.3 Triglycerides 81 D Cholesterol 319 H LDL Cholesterol Direct 248 H HDL Cholesterol 46 Vitamin B12 756 566 25-OH Vitamin D Total Thyroxine (T4) 8.35 Total T3 1.23 L TSH 3rd Generation 0.65 1.04 Urine Opiates Screen Urine Methadone Screen Ur Barbiturates Screen Ur Phencyclidine Scrn Ur Amphetamines Screen U Benzodiazepines Scrn U Oth Cocaine Metabols U Cannabinoids Screen Blood Type Blood Type Confirm Antibody Screen 04/29/17 04/29/17 04/29/17 04:40 04:40 08:00 WBC RBC Hgb Hct MCV MCH MCHC RDW Plt Count Sodium Potassium Chloride Carbon Dioxide Anion Gap BUN Creatinine Est GFR ( Amer) Est GFR (Non-Af Amer) Random Glucose Hemoglobin A1c 5.2 Calcium Triglycerides Cholesterol LDL Cholesterol Direct HDL Cholesterol Vitamin B12 25-OH Vitamin D Total 28.7 L Thyroxine (T4) Total T3 TSH 3rd Generation Urine Opiates Screen Urine Methadone Screen Ur Barbiturates Screen Ur Phencyclidine Scrn Ur Amphetamines Screen U Benzodiazepines Scrn U Oth Cocaine Metabols U Cannabinoids Screen Blood Type Blood Type Confirm O NEGATIVE Antibody Screen Fingerstick Blood Sugar Results: 89 Critical Care Progress Note - Nutrition Nutrition: Nutrition Category Date Time Status Heart Healthy Diet [DIET] Diets 04/28/17 Dinner Active Assessment/Plan (1) ICH (intracerebral hemorrhage) Assessment and plan: 56-year-old man with a past medical history of hypertension, dyslipidemia (not on meds). p/w moderate sized left parietal lobe hemorrhage with surrounding edema. Neuro: Alert and oriented 3. Intracerebral hemorrhage and left parietal lobe is currently stable based on repeat head CT. No neurosurgical intervention indicated currently. Patient will need follow-up MRI in 3-4 weeks to rule out suspected underlying mass. Pulm: Breathing spontaneously on room air CV: Hemodynamically stable. Controlling hypertension by starting low-dose Norvasc. Hem: No acute issues Renal: No acute issues Endo: Hemoglobin A1c indicative of diabetes. Start on short acting sliding scale for coverage. Will consult endocrinology for long-term management of diabetes. GI: heart healthy diet, carbohydrate consistent diet. ID: no acute issues DVT proph - SCD's, can start a/c DVT proph if no further changes in head CT. GI proph - not currently indicated Code status - full code Critical Care Time spent 35 minutes Multi-disciplinary rounds were performed with house staff, nursing, speech therapy, respiratory therapy, pharmacy and nutrition with integrated input from the primary team/attending and other consulting services. The documented time is cumulative and includes review of patient data/exams/labs/chart review and examination of the patient on rounds and throughout the day; time is exclusive of any procedures or teaching time. Current Visit: Yes Status: Acute Priority: High
--- NOTE | 2017-04-29 16:14 | MRI ---
PROCEDURE: Magnetic Resonance Angiography Brain HISTORY: Left lobar hemorrhage COMPARISON: None available. TECHNIQUE: 3D time of flight MR angiography of the intracranial arteries was performed. Rotating maximum intensity projection images were generated. FINDINGS: INTERNAL CAROTID ARTERIES: Normal flow related signal. The skull base, petrous, cavernous and supraclinoid segments are bilaterally widely patient. ANTERIOR CEREBRAL ARTERIES: Normal flow related signal. The left A1 segment is hypoplastic, an anatomic variant. A1 and A2 segments are widely patent. Smaller distal branches unremarkable, as visualized. MIDDLE CEREBRAL ARTERIES: Normal flow related signal. M1 and M2 segments are widely patent. Perisylvian branches grossly symmetric. POSTERIOR CIRCULATION: Basilar Artery: Normal flow related signal. Distal Vertebral Arteries: Normal flow related signal. The right vertebral artery is hypoplastic, an anatomic variant. Posterior Cerebral Arteries: Normal flow related signal. Posterior Inferior Cerebellar Arteries: Normal flow related signal. ANEURYSM/ VASCULAR MALFORMATIONS: None. OTHER FINDINGS: None. IMPRESSION: No evidence of occlusion, definite significant stenosis or saccular aneurysm. A preliminary report was provided by [employer] [facility].
--- NOTE | 2017-04-29 20:04 | CP.PCM.HP ---
<Alvaro Schmitz - Last Filed: 04/29/17 20:12> History of Present Illness - History of Present Illness History of Present Illness: 56 YO M w/ h/o DM, HLD presented to the ED after he started having problems with fine movements of his right hand and some sensory deficits. He was found to have moderate sized left parietal lobe hemorrhage. Patient denies chest headache, nausea, vomiting, head trauma. Present on Admission - Present on Admission Any Indicators Present on Admission: No Past Patient History - Past Social History Smoking Status: Never Smoked - CARDIAC Hx Cardiac Disorders: Yes (HTN) Hx Hypercholesterolemia: Yes Hx Hypertension: Yes - MUSCULOSKELETAL/RHEUMATOLOGICAL Hx Falls: No - PSYCHIATRIC Hx Substance Use: No - SURGICAL HISTORY Other/Comment: Eye surgery as a toddler - ANESTHESIA Hx Anesthesia: Yes Hx Anesthesia Reactions: No Hx Malignant Hyperthermia: No Meds Home Medications: Home Medication List Medication Instructions Recorded Confirmed Type Atorvastatin [Lipitor] 20 mg PO DAILY tab 05/02/17 Rx Benzocaine/Menthol [Cepacol Sore 1 corazon PO Q2 PRN corazon 05/02/17 Rx Throat] Heparin 5,000 units SC Q12 vial 05/02/17 Rx amLODIPine [Norvasc] 10 mg PO DAILY tab 05/02/17 Rx Allergies/Adverse Reactions: Allergies Allergy/AdvReac Type Severity Reaction Status Date / Time No Known Allergies Allergy Verified 05/02/17 15:29 Physical Exam - Constitutional Appears: No Acute Distress - Head Exam Head Exam: NORMAL INSPECTION - Eye Exam Eye Exam: Normal appearance - Respiratory Exam Respiratory Exam: Clear to Auscultation Bilateral, NORMAL BREATHING PATTERN. absent: Rhonchi, Wheezes - Cardiovascular Exam Cardiovascular Exam: REGULAR RHYTHM, +S1, +S2 - GI/Abdominal Exam GI & Abdominal Exam: Normal Bowel Sounds, Soft. absent: Tenderness - Extremities Exam Extremities exam: Negative for: calf tenderness - Neurological Exam Neurological exam: Alert, CN II-XII Intact, Oriented x3 Additional comments: Decreased sensation over right side. Decreased fine motor skill and coordination Results - Vital Signs Recent Vital Signs: Last Vital Signs Temp 98.1 F 04/29/17 16:00 Pulse 75 04/29/17 16:00 Resp 15 04/29/17 16:00 BP 146/108 H 04/29/17 16:00 Pulse Ox 97 04/29/17 16:00 - Labs Result Diagrams: 04/29/17 04:40 04/29/17 04:40 Labs: Laboratory Results - last 24 hr 04/28/17 04/29/17 04/29/17 00:18 04:40 04:40 WBC 12.7 H RBC 4.97 Hgb 15.1 Hct 44.3 MCV 89.1 MCH 30.4 MCHC 34.1 RDW 13.3 Plt Count 224 Sodium 141 Potassium 4.1 Chloride 105 Carbon Dioxide 27 Anion Gap 13 BUN 18 Creatinine 1.0 Est GFR ( Amer) > 60 Est GFR (Non-Af Amer) > 60 Random Glucose 101 Hemoglobin A1c Calcium 9.3 Triglycerides 81 D Cholesterol 319 H LDL Cholesterol Direct 248 H HDL Cholesterol 46 Vitamin B12 566 25-OH Vitamin D Total Thyroxine (T4) 8.35 Total T3 1.23 L TSH 3rd Generation 1.04 Urine Opiates Screen Negative Urine Methadone Screen Negative Ur Barbiturates Screen Negative Ur Phencyclidine Scrn Negative Ur Amphetamines Screen Negative U Benzodiazepines Scrn Negative U Oth Cocaine Metabols Negative U Cannabinoids Screen Negative Blood Type Confirm 04/29/17 04/29/17 04/29/17 04:40 04:40 08:00 WBC RBC Hgb Hct MCV MCH MCHC RDW Plt Count Sodium Potassium Chloride Carbon Dioxide Anion Gap BUN Creatinine Est GFR ( Amer) Est GFR (Non-Af Amer) Random Glucose Hemoglobin A1c 5.2 Calcium Triglycerides Cholesterol LDL Cholesterol Direct HDL Cholesterol Vitamin B12 25-OH Vitamin D Total 28.7 L Thyroxine (T4) Total T3 TSH 3rd Generation Urine Opiates Screen Urine Methadone Screen Ur Barbiturates Screen Ur Phencyclidine Scrn Ur Amphetamines Screen U Benzodiazepines Scrn U Oth Cocaine Metabols U Cannabinoids Screen Blood Type Confirm O NEGATIVE Assessment & Plan - Assessment and Plan (Free Text) Assessment: 56-year-old man with a past medical history of hypertension, hyperlipidemia presents with moderate sized left parietal lobe hemorrhage with surrounding edema. 1) Intracerebral hemorrhage - C/W ICU recommendations - Neurology consult appreciated - MRI recommended in 3-4 weeks to r/o mass under the area of bleeding. - BP control with Norvasc 5mg - Lipitor 20mg daily - F/U with Echo and bubble study 2) DVT prophylaxis - Only SCD for now <Guzman,Carrillo K - Last Filed: 05/02/17 16:34> Results - Vital Signs Recent Vital Signs: Last Vital Signs Temp 98 F 05/02/17 12:00 Pulse 98 H 05/02/17 12:00 Resp 16 05/02/17 12:00 BP 118/97 H 05/02/17 12:00 Pulse Ox 95 05/02/17 12:00 - Labs Result Diagrams: 05/01/17 04:30 05/01/17 04:30 Assessment & Plan - Assessment and Plan (Free Text) Assessment: Patient was personally seen and examined by me in rounds with residents. Available labs and diagnostic data reviewed. Case, Patient's condition and management plan discussed with residents in rounds. Agree with resident's documentation. Plan: As ordered. Carrillo Guzman MD Plan: Patient was personally seen and examined by me in rounds with residents. Available labs and diagnostic data reviewed. Case, Patient's condition and management plan discussed with residents in rounds. Agree with resident's documentation. Plan: As ordered. Carrillo Guzman MD
[2017-04-30 05:24] LABS: HEMOGLOBIN 15.3 g/dL (12.0-18.0); MEAN CELL VOLUME 90.4 fl (80.0-94.0); MEAN CORPUSCULAR HEMOGLOBIN 30.5 pg (27.0-31.0); MEAN CORPUSCULAR HGB CONC 33.7 g/dL (33.0-37.0); RBC 5.01 Mil/uL (4.40-5.90); RED CELL DISTRIBUTION WIDTH 13.3 % (11.5-14.5); WHITE BLOOD COUNT 12.6 K/uL (4.8-10.8)
[2017-04-30 05:47] LABS: ALB/GLOB RATIO 1.1 (1.0-2.1); ALBUMIN 3.9 g/dL (3.5-5.0); ALT/SGPT 36 U/L (21-72); AST/SGOT 27 U/L (17-59); BLOOD UREA NITROGEN 19 mg/dl (9-20); CALCIUM 9.2 mg/dL (8.4-10.2); GFR AFRICAN-AMERICAN > 60; GFR NON-AFRICAN AMERICAN > 60
--- NOTE | 2017-04-30 09:04 | CP.PCM.PN ---
<Alvaro Schmitz - Last Filed: 04/30/17 09:10> Subjective - Date & Time of Evaluation Date of Evaluation: 04/30/17 Time of Evaluation: 08:51 - Subjective Subjective: - 56 YO M seen resting comfortably in the chair. States he is feeling well. He is optimistic. Denies any chest pain, headache, nausea, or vomiting. Objective - Vital Signs/Intake and Output Vital Signs (last 24 hours): Temp Pulse Resp BP Pulse Ox 98.2 F 86 19 167/90 H 95 04/30/17 08:49 04/30/17 08:49 04/30/17 08:49 04/30/17 08:49 04/30/17 08:49 Intake and Output: 04/30/17 04/30/17 06:59 18:59 Intake Total 10 Balance 10 - Medications Medications: Current Medications Amlodipine Besylate (Norvasc) 5 mg PO DAILY [facility] Last Admin: 04/30/17 08:33 Dose: 5 mg Atorvastatin Calcium (Lipitor) 20 mg PO DAILY [facility] Last Admin: 04/30/17 08:33 Dose: 20 mg Benzocaine/Menthol (Cepacol Sore Throat) 1 corazon PO Q2 PRN PRN Reason: Sore Throat Last Admin: 04/28/17 22:08 Dose: 1 corazon Labetalol HCl (Trandate) 20 mg IVP ONCE PRN PRN Reason: Systolic Blood Pressure - Labs Labs: 04/30/17 04:50 04/30/17 04:50 PT 11.5 Seconds (9.8-13.1) 04/28/17 14:20 INR 1.0 (0.9-1.2) 04/28/17 14:20 APTT 32.0 Seconds (25.6-37.1) 04/28/17 14:20 - Constitutional Appears: No Acute Distress - Head Exam Head Exam: NORMAL INSPECTION - Respiratory Exam Respiratory Exam: Clear to Ausculation Bilateral. absent: Rhonchi, Wheezes - Cardiovascular Exam Cardiovascular Exam: REGULAR RHYTHM, +S1, +S2 - GI/Abdominal Exam GI & Abdominal Exam: Soft, Normal Bowel Sounds. absent: Tenderness - Extremities Exam Extremities Exam: Normal Capillary Refill, Normal Inspection - Neurological Exam Neurological Exam: Alert, Awake, CN II-XII Intact, Oriented x3 Additional comments: Decreased sensation over right side. Decreased fine motor skills and coordination - Skin Skin Exam: Normal Color, Warm Assessment and Plan - Assessment and Plan (Free Text) Assessment: 56-year-old man with a past medical history of hypertension, hyperlipidemia presents with moderate sized left parietal lobe hemorrhage with surrounding edema. 1) Intracerebral hemorrhage - C/W ICU recommendations - Neurology consult appreciated - MRI recommended in 3-4 weeks to r/o mass under the area of bleeding. - BP control with Norvasc 5mg - Lipitor 20mg daily - F/U with Echo and bubble study - C/W PT, possible transfer out of ICU. 2) DVT prophylaxis - Only SCD for now <Guzman,Carrillo K - Last Filed: 05/02/17 16:35> Objective - Vital Signs/Intake and Output Vital Signs (last 24 hours): Temp Pulse Resp BP Pulse Ox 98 F 98 H 16 118/97 H 95 05/02/17 12:00 05/02/17 12:00 05/02/17 12:00 05/02/17 12:00 05/02/17 12:00 Intake and Output: 05/02/17 05/02/17 06:59 18:59 Intake Total 10 240 Output Total 300 Balance -290 240 - Medications Medications: Current Medications Amlodipine Besylate (Norvasc) 10 mg PO DAILY [facility] Last Admin: 05/02/17 08:39 Dose: 10 mg Atorvastatin Calcium (Lipitor) 20 mg PO DAILY [facility] Last Admin: 05/02/17 08:40 Dose: 20 mg Benzocaine/Menthol (Cepacol Sore Throat) 1 corazon PO Q2 PRN PRN Reason: Sore Throat Last Admin: 04/28/17 22:08 Dose: 1 corazon Heparin Sodium (Porcine) (Heparin) 5,000 units SC Q12 ALONDRA PRN Reason: Protocol Last Admin: 05/02/17 08:40 Dose: 5,000 units Labetalol HCl (Trandate) 20 mg IVP Q6 PRN PRN Reason: Other - Labs Labs: 05/01/17 04:30 05/01/17 04:30 PT 11.5 Seconds (9.8-13.1) 04/28/17 14:20 INR 1.0 (0.9-1.2) 04/28/17 14:20 APTT 32.0 Seconds (25.6-37.1) 04/28/17 14:20 Assessment and Plan - Assessment and Plan (Free Text) Assessment: Patient was personally seen and examined by me in rounds with residents. Available labs and diagnostic data reviewed. Case, Patient's condition and management plan discussed with residents in rounds. Agree with resident's documentation. Plan: As ordered. Carrillo Guzman MD
--- NOTE | 2017-04-30 09:04 | CON ---
DATE: 04/29/2017 HISTORY OF PRESENT ILLNESS: Mr. Almaraz is a 56-year-old gentleman really with no past medical history, who woke up yesterday morning and noted weakness and apraxia of his right upper extremity. When it was not going away, he presented himself to the [place] ER, there he was found to have a left intracerebral hemorrhage. Neurosurgical evaluation was requested. Interviewing him today, he confirmed the above history. Really at this point, other than the obvious right upper extremity problems, reports no problems. No nausea, vomiting, or headache etc. PAST MEDICAL HISTORY: Basically negative. Medications, allergies, social history are reviewed in the chart. PHYSICAL EXAMINATION: GENERAL: He is bright, awake, and alert. Speech and mental status are basically normal. HEENT: Pupils are equal and reactive. EOMs are full. NEUROLOGIC: Cranial nerves are intact. He does have a profound right-sided pronator drift. He does have probably 4+/5 weakness throughout the right upper extremity. He has severe apraxia of the right hand. Right lower extremity is actually not too bad and certainly the left side is intact. He has increased reflexes on the right, upgoing plantar. CT and subsequently MRI confirmed a moderate size left intraparenchymal hemorrhage. Unfortunately, probably right the motor strip. There is no significant mass effect. At the best of my reading, the gadolinium images and the MRA were basically negative. IMPRESSION AND PLAN: As far as treating the hemorrhages certainly recommend expected management, the initiation of aggressive Physical Therapy, Occupational Therapy, mobilization etc. The other issue of course is the etiology certainly there could be either an underlying malformation or a tumor. My recommendation would be to repeat the MRI with gadolinium in 3 weeks' time, this could give hopefully enough time for the flap to liquefy and somewhat resorb and give us a chance to evaluate any possibility of an underlying lesion. All the above was explained to the patient. Olaf Orourke MD
[2017-04-30] MEDS ORDERED: Labetalol 5mg/ml (4ml) IVP PRN (09:24)
--- NOTE | 2017-04-30 10:52 | CP.PCM.PN ---
Subjective - Date & Time of Evaluation Date of Evaluation: 04/30/17 Time of Evaluation: 10:50 - Subjective Subjective: Mr. Almaraz was seen and examined at the bedside in ICU. He is alert, oriented in all spheres. He denies any headache, dizziness, lightheadedness, nause, or vomiting. He is able to follow simple commands with right arm weakness improved with strength of 4/5 with no arm drift. His blood pressure was elevated 169/110. repeat blood pressure was 169/105. CT scan of the head showed slightly increased edema surrounding grossly stable left parietal parenchymal hemorrhage. Focal areas of adjacent subarachnoid hemorrhage is similar. There is no new hemorrhage or other signifies interval change identified. There was no untoward events overnight. Objective - Vital Signs/Intake and Output Vital Signs (last 24 hours): Temp Pulse Resp BP Pulse Ox 98.2 F 86 19 167/90 H 95 04/30/17 08:49 04/30/17 08:49 04/30/17 08:49 04/30/17 08:49 04/30/17 08:49 Intake and Output: 04/30/17 04/30/17 06:59 18:59 Intake Total 10 Balance 10 - Medications Medications: Current Medications Amlodipine Besylate (Norvasc) 10 mg PO DAILY [facility] Atorvastatin Calcium (Lipitor) 20 mg PO DAILY [facility] Last Admin: 04/30/17 08:33 Dose: 20 mg Benzocaine/Menthol (Cepacol Sore Throat) 1 corazon PO Q2 PRN PRN Reason: Sore Throat Last Admin: 04/28/17 22:08 Dose: 1 corazon Labetalol HCl (Trandate) 20 mg IVP Q6 PRN PRN Reason: Other - Labs Labs: 04/30/17 04:50 04/30/17 04:50 PT 11.5 Seconds (9.8-13.1) 04/28/17 14:20 INR 1.0 (0.9-1.2) 04/28/17 14:20 APTT 32.0 Seconds (25.6-37.1) 04/28/17 14:20 - Constitutional Appears: No Acute Distress - Head Exam Head Exam: NORMAL INSPECTION - Neurological Exam Neurological Exam: Alert, Awake, CN II-XII Intact, Oriented x3 Neuro motor strength exam: Left Upper Extremity: 5, Right Upper Extremity: 4, Left Lower Extremity: 5, Right Lower Extremity: 4 Additional comments: Right side weakness improve with sensation remains intact. Assessment and Plan (1) ICH (intracerebral hemorrhage) Assessment & Plan: Case discussed with Dr. Montenegro, continue all current medical, physical, and occupational therapies. Recommend to increase Amlodipine 5 mg PO daily to 10 mg PO daily with Labetatlol 20 mg IVP Q 6 hrs PRN for systolic above 160 and diastolic above 110. Recommend repeat CT scan of the head without contrast today. Status: Acute
--- NOTE | 2017-04-30 11:29 | CARD ---
APPROVED REPORT EXAM: Three-dimensional, Two-dimensional and M-mode echocardiogram with Doppler and color Doppler. Other Information Quality : GoodRhythm : PVC's INDICATION ICD: CERBRAL HEMORRAGE Echo Enhancing Agent Indication: Rule Out Septal Defect Agent/Amount Used: Agitated Saline 2D DIMENSIONS IVSd1.44 (0.7-1.1cm)LVDd4.42 (3.9-5.9cm) LVOT Diameter2.43 (1.8-2.4cm)PWd1.15 (0.7-1.1cm) IVSs1.67 (0.8-1.2cm)LVDs3.65 (2.5-4.0cm) FS (%) 17.5 %PWs1.50 (0.8-1.2cm) M-Mode DIMENSIONS Left Atrium (MM)3.81 (2.5-4.0cm)IVSd1.54 (0.7-1.1cm) Aortic Root3.42 (2.2-3.7cm)LVDd6.15 (4.0-5.6cm) Aortic Cusp Exc.2.06 (1.5-2.0cm)PWd1.12 (0.7-1.1cm) IVSs2.03 cmFS (%) 32 % LVDs4.16 (2.0-3.8cm)PWs1.96 cm Mitral Valve MV E Mnxwdnqr13.2cm/sMV DECEL [id number] A Zuiesxcp43.2cm/s MV UNR23csO/A ratio0.9MVA (PHT)2.29cm2 TDI Lateral E' Peak V12.39cm/sMedial E' Peak V8.39cm/sE/Lateral E'4.4 E/Medial E'6.5 LEFT VENTRICLE The left ventricle is normal in size. There is normal left ventricular wall thickness. Left ventricle systolic function is low normal. The Ejection Fraction is 50-55%. The anterior and septal bryan appear mildly hypokinetic. The other segments of the left ventricle have good contraction. Transmitral Doppler flow pattern is Grade I-abnormal relaxation pattern. No left ventricle thrombus noted on this study. There is no ventricular septal defect visualized. There is no left ventricular aneurysm. There is no mass noted in the left ventricle. RIGHT VENTRICLE The right ventricle is normal size. There is normal right ventricular wall thickness. The right ventricular systolic function is normal. ATRIA The left atrium size is normal. There is no thrombus suspected in the left atrium. The right atrium size is normal. The interatrial septum is intact with no evidence for an atrial septal defect. Agitated saline bubbles and color doppler studies did not show an atrial septal defect. AORTIC VALVE The aortic valve is normal in structure. No aortic regurgitation is present. There is no aortic valvular stenosis. MITRAL VALVE The mitral valve is normal in structure. There is no evidence of mitral valve prolapse. There is no mitral valve stenosis. There is no mitral valve regurgitation noted. TRICUSPID VALVE The tricuspid valve is normal in structure. There is no tricuspid valve regurgitation noted. There is no tricuspid valve prolapse or vegetation. There is no tricuspid valve stenosis. PULMONIC VALVE The pulmonic valve is not well visualized. doppler studies of the left ventricle were not performed GREAT VESSELS The aortic root is normal in size. The IVC was not visualized. PERICARDIAL EFFUSION The pericardium appears normal. There is no pleural effusion. <Conclusion> The study is of fair quality. The left ventricle is normal in size and wall thickness. Left ventricle systolic function is low normal. The Ejection Fraction is 50-55%. The left atrium, right ventricle and right atrium are normal in size. The mitral, aortic and tricuspid valves are normal.
--- NOTE | 2017-04-30 14:50 | CP.CCUPN ---
CCU Subjective - Physician Review Subjective (Free Text): All Physician notes ad Nursing notes reviewed: Awake and responsive, observed sitting OOB in chair and able to ambulate ab out the ICU without difficulty. Denies any headaches, dizziness, new focal weakness , palpitations, nausea or visual changes. e remains on Levophed at 15 mcg/min. Other Vitals and I/Os reviewed. SBP still high at times , up to 160-170, with HR 80s; no fever spikes noted. ROS: No other pertinent negs or positives on 10+ system review PMSFH: All other historical Nursing and physician documentation reviewed to date; no new pertinent info noted relevant to current medical problems. CT Brain yesterday reviewed: no new change in the hemorrhagic area, but area of edema appears slightly larger. IMPRESSION / MAJOR PROBLEMS NOW: 1. ICH 2 occult Tumor vs AVM 2. Cerebral edema 3. Accelerated HTN PLAN: 1. Serial Brain imaging; Neurochecks, HOB elevation, BP control to avoid SBP levels over 140-150. 2. Physical Therapy as tolerated. 3. Stable for Tele bed for further observation and mgmt. CCU Objective - Vital Signs / Intake & Output Vital Signs (Last 4 hours): Vital Signs Temp Pulse Resp BP Pulse Ox 04/30/17 12:00 97.7 F 70 17 133/82 98 Intake and Output (Last 8hrs): Intake & Output 04/29/17 04/30/17 04/30/17 22:59 06:59 14:59 Intake Total 10 0 Output Total 400 Balance -390 0 Intake: IV 10 0 Output: Urine 400 Urine, Voided 400 Other: # Voids Urine, Voided 1 # Bowel Movements 1 - Physical Exam Head: Positive for: Atraumatic, Normocephalic Pupils: Positive for: PERRL Extroacular Muscles: Positive for: EOMI Conjunctiva: Positive for: Normal Mouth: Positive for: Moist Mucous Membranes Respiratory/Chest: Positive for: Clear to Auscultation, Good Air Exchange Cardiovascular: Positive for: Regular Rate and Rhythm Abdomen: Negative for: Tenderness, Distention Lower Extremity: Positive for: NORMAL PULSES. Negative for: Edema, CALF TENDERNESS, Cyanosis Neurological: Positive for: GCS=15, CN II-XII Intact. Negative for: Motor Func Grossly Intact (RUE Motor 3-4 over 5.) Psychiatric: Positive for: Alert, Oriented x 3 - Medications Active Medications: Active Medications Generic Name Dose Route Start Last Admin Trade Name Freq PRN Reason Stop Dose Admin Amlodipine Besylate 10 mg 05/01/17 09:00 Norvasc PO DAILY ALONDRA Atorvastatin Calcium 20 mg 04/29/17 09:00 04/30/17 08:33 Lipitor PO 20 mg DAILY ALONDRA Administration Benzocaine/Menthol 1 corazon 04/28/17 21:47 04/28/17 22:08 Cepacol Sore Throat PO 1 corazon Q2 PRN Administration Sore Throat Labetalol HCl 20 mg 04/30/17 09:24 Trandate IVP Q6 PRN Other - Patient Studies Lab Studies: Microbiology Studies 04/28/17 14:20 Group A Strep Throat Culture - Final Throat NORMAL SAPROPHYTIC CLAUDINE. CULTURE NEGATIVE FOR BETA STREP GROUP A. Lab Studies 04/30/17 04/30/17 Range/Units 04:50 04:50 WBC 12.6 H (4.8-10.8) K/uL RBC 5.01 (4.40-5.90) Mil/uL Hgb 15.3 (12.0-18.0) g/dL Hct 45.3 (35.0-51.0) % MCV 90.4 (80.0-94.0) fl MCH 30.5 (27.0-31.0) pg MCHC 33.7 (33.0-37.0) g/dL RDW 13.3 (11.5-14.5) % Plt Count 203 (130-400) K/uL Sodium 139 (132-148) mmol/l Potassium 4.0 (3.6-5.0) MMOL/L Chloride 104 (98-107) mmol/L Carbon Dioxide 26 (22-30) mmol/L Anion Gap 13 (10-20) BUN 19 (9-20) mg/dl Creatinine 0.9 (0.8-1.5) mg/dl Est GFR ( Amer) > 60 Est GFR (Non-Af Amer) > 60 Random Glucose 99 (75-110) mg/dL Calcium 9.2 (8.4-10.2) mg/dL Total Bilirubin 1.5 H (0.2-1.3) mg/dl AST 27 (17-59) U/L ALT 36 (21-72) U/L Alkaline Phosphatase 67 (38-126) U/L Total Protein 7.3 (6.3-8.2) G/DL Albumin 3.9 (3.5-5.0) g/dL Globulin 3.4 (2.2-3.9) gm/dL Albumin/Globulin Ratio 1.1 (1.0-2.1) Laboratory Results - last 24 hr 04/30/17 04/30/17 04:50 04:50 WBC 12.6 H RBC 5.01 Hgb 15.3 Hct 45.3 MCV 90.4 MCH 30.5 MCHC 33.7 RDW 13.3 Plt Count 203 Sodium 139 Potassium 4.0 Chloride 104 Carbon Dioxide 26 Anion Gap 13 BUN 19 Creatinine 0.9 Est GFR ( Amer) > 60 Est GFR (Non-Af Amer) > 60 Random Glucose 99 Calcium 9.2 Total Bilirubin 1.5 H AST 27 ALT 36 Alkaline Phosphatase 67 Total Protein 7.3 Albumin 3.9 Globulin 3.4 Albumin/Globulin Ratio 1.1 Fingerstick Blood Sugar Results: 89 Review of Systems - Review of Systems All systems: reviewed and no additional remarkable complaints except (as above) Critical Care Progress Note - Nutrition Nutrition: Nutrition Category Date Time Status Heart Healthy Diet [DIET] Diets 04/28/17 Dinner Active
--- NOTE | 2017-04-30 15:54 | CT ---
PROCEDURE: CT HEAD WITHOUT CONTRAST. HISTORY: Follow -up intracranial hemorrhage COMPARISON: 04/29/2017. TECHNIQUE: Axial computed tomography images were obtained through the head/brain without intravenous contrast. This CT exam was performed using one or more of the following dose reduction techniques: Automated exposure control, adjustment of the mA and/or kV according to patient size, and/or use of iterative reconstruction technique. FINDINGS: HEMORRHAGE: Since the prior examination, there has been no significant interval change in the size and appearance of known 4.6 x 2.8 cm acute parenchymal hematoma in the left posterior parietal lobe with significant surrounding vasogenic edema, effacement of ipsilateral cortical sulci and 2 mm shift from left to right. There is also mass effect on the atrium of the left lateral ventricle. BRAIN: There is no extra-axial fluid collection or territorial infarction. VENTRICLES: No hydrocephalus. CALVARIUM: There is no calvarial fracture or extracranial soft tissue swelling.. PARANASAL SINUSES: Predominantly clear. MASTOID AIR CELLS: Predominantly clear. OTHER FINDINGS: None. IMPRESSION: Little interval change in the size and appearance of known 4.6 x 2.8 cm acute parenchymal hematoma in the left posterior parietal lobe with significant surrounding vasogenic edema, regional mass effect and 2 mm midline shift from left to right. No hydrocephalus.
[2017-05-01 05:38] LABS: MEAN CELL VOLUME 90.1 fl (80.0-94.0); MEAN CORPUSCULAR HGB CONC 33.3 g/dL (33.0-37.0); RED CELL DISTRIBUTION WIDTH 13.1 % (11.5-14.5); WHITE BLOOD COUNT 10.4 K/uL (4.8-10.8)
[2017-05-01 05:47] LABS: ALB/GLOB RATIO 1.3 (1.0-2.1); ALBUMIN 3.8 g/dL (3.5-5.0); ALT/SGPT 40 U/L (21-72); AST/SGOT 23 U/L (17-59); BLOOD UREA NITROGEN 22 mg/dl (9-20); GFR AFRICAN-AMERICAN > 60; GFR NON-AFRICAN AMERICAN > 60
--- NOTE | 2017-05-01 08:34 | CP.PCM.PN ---
<Alvaro Schmitz - Last Filed: 05/01/17 11:57> Subjective - Date & Time of Evaluation Date of Evaluation: 05/01/17 Time of Evaluation: 08:34 - Subjective Subjective: Patient seen and doing well. Denies chest pain, SOB, nausea, vomiting, diarrhea. - CT from, yesterday showed very little change in size of the parenchymal hematoma 4.5 x 2.8 cm Objective - Vital Signs/Intake and Output Vital Signs (last 24 hours): Temp Pulse Resp BP Pulse Ox 98.5 F 74 18 136/88 97 05/01/17 06:00 05/01/17 06:00 05/01/17 06:00 05/01/17 06:00 05/01/17 06:00 Intake and Output: 05/01/17 05/01/17 06:59 18:59 Intake Total 60 Balance 60 - Medications Medications: Current Medications Amlodipine Besylate (Norvasc) 10 mg PO DAILY [facility] Atorvastatin Calcium (Lipitor) 20 mg PO DAILY [facility] Last Admin: 04/30/17 08:33 Dose: 20 mg Benzocaine/Menthol (Cepacol Sore Throat) 1 corazon PO Q2 PRN PRN Reason: Sore Throat Last Admin: 04/28/17 22:08 Dose: 1 corazon Heparin Sodium (Porcine) (Heparin) 5,000 units SC Q12 ALONDRA PRN Reason: Protocol Labetalol HCl (Trandate) 20 mg IVP Q6 PRN PRN Reason: Other - Labs Labs: 05/01/17 04:30 05/01/17 04:30 PT 11.5 Seconds (9.8-13.1) 04/28/17 14:20 INR 1.0 (0.9-1.2) 04/28/17 14:20 APTT 32.0 Seconds (25.6-37.1) 04/28/17 14:20 - Constitutional Appears: No Acute Distress - Head Exam Head Exam: NORMAL INSPECTION - Eye Exam Eye Exam: Normal appearance - Respiratory Exam Respiratory Exam: Clear to Ausculation Bilateral, NORMAL BREATHING PATTERN. absent: Rhonchi, Wheezes - GI/Abdominal Exam GI & Abdominal Exam: Soft, Normal Bowel Sounds. absent: Tenderness - Extremities Exam Extremities Exam: Normal Inspection. absent: Calf Tenderness - Back Exam Back Exam: NORMAL INSPECTION - Neurological Exam Neurological Exam: Alert, Awake, Oriented x3 Additional comments: Decreased sensation over right side. Decreased fine motor skill and coordination Assessment and Plan - Assessment and Plan (Free Text) Assessment: 56-year-old man with a past medical history of hypertension, hyperlipidemia presents with moderate sized left parietal lobe hemorrhage with surrounding edema. 1) Intracerebral hemorrhage - C/W ICU recommendations - Neurology consult appreciated - MRI recommended in 3-4 weeks to r/o mass under the area of bleeding. - BP control with Norvasc 10 mg daily. Avoid SBP level over 140-150 - Lipitor 20mg daily -Echo : EF of 50-55% No thrombi noted. - C/W PT, possible transfer to telemetry 2) DVT prophylaxis - Heparin 5,000 Q12 <Carrillo Guzman K - Last Filed: 05/02/17 16:48> Objective - Vital Signs/Intake and Output Vital Signs (last 24 hours): Temp Pulse Resp BP Pulse Ox 98 F 98 H 16 118/97 H 95 05/02/17 12:00 05/02/17 12:00 05/02/17 12:00 05/02/17 12:00 05/02/17 12:00 Intake and Output: 05/02/17 05/02/17 06:59 18:59 Intake Total 10 240 Output Total 300 Balance -290 240 - Medications Medications: Current Medications Amlodipine Besylate (Norvasc) 10 mg PO DAILY [facility] Last Admin: 05/02/17 08:39 Dose: 10 mg Atorvastatin Calcium (Lipitor) 20 mg PO DAILY [facility] Last Admin: 05/02/17 08:40 Dose: 20 mg Benzocaine/Menthol (Cepacol Sore Throat) 1 corazon PO Q2 PRN PRN Reason: Sore Throat Last Admin: 04/28/17 22:08 Dose: 1 corazon Heparin Sodium (Porcine) (Heparin) 5,000 units SC Q12 ALONDRA PRN Reason: Protocol Last Admin: 05/02/17 08:40 Dose: 5,000 units Labetalol HCl (Trandate) 20 mg IVP Q6 PRN PRN Reason: Other - Labs Labs: 05/01/17 04:30 05/01/17 04:30 PT 11.5 Seconds (9.8-13.1) 04/28/17 14:20 INR 1.0 (0.9-1.2) 04/28/17 14:20 APTT 32.0 Seconds (25.6-37.1) 04/28/17 14:20 Assessment and Plan - Assessment and Plan (Free Text) Assessment: Patient was personally seen and examined by me in rounds with residents. Available labs and diagnostic data reviewed. Case, Patient's condition and management plan discussed with residents in rounds. Agree with resident's documentation. Plan: As ordered. Carrillo Guzman MD
--- NOTE | 2017-05-01 09:21 | CP.PCM.PN ---
Subjective - Date & Time of Evaluation Date of Evaluation: 05/01/17 Time of Evaluation: 09:19 - Subjective Subjective: Mr. Almaraz was seen and examined at the bedside in ICU. He is alert, oriented in all spheres. He denies any headache, dizziness, lightheadedness, blurred vision, or diplopia. He still has a lazy eyes on his right eye. He is able to follow all commands with his right side weaker than the left. He is able to sit up on a chair in stable posture. CT of the head 04/30/2017 showed little interval change in the size and appearance of known 4.6x 2.8 cm acute parenchymal hematoma in the left posterior parietal lobe with significant surrounding vasogenic edema, regional mass effect, and 2 mm midline shift from left to right, No hydrocephalus. There was no untoward events overnight. Objective - Vital Signs/Intake and Output Vital Signs (last 24 hours): Temp Pulse Resp BP Pulse Ox 97.7 F 80 15 128/85 97 05/01/17 08:00 05/01/17 08:53 05/01/17 08:00 05/01/17 08:53 05/01/17 08:00 Intake and Output: 05/01/17 05/01/17 06:59 18:59 Intake Total 60 120 Balance 60 120 - Medications Medications: Current Medications Amlodipine Besylate (Norvasc) 10 mg PO DAILY [facility] Last Admin: 05/01/17 08:53 Dose: 10 mg Atorvastatin Calcium (Lipitor) 20 mg PO DAILY [facility] Last Admin: 05/01/17 08:53 Dose: 20 mg Benzocaine/Menthol (Cepacol Sore Throat) 1 corazon PO Q2 PRN PRN Reason: Sore Throat Last Admin: 04/28/17 22:08 Dose: 1 corazon Heparin Sodium (Porcine) (Heparin) 5,000 units SC Q12 ALONDRA PRN Reason: Protocol Labetalol HCl (Trandate) 20 mg IVP Q6 PRN PRN Reason: Other - Labs Labs: 05/01/17 04:30 05/01/17 04:30 PT 11.5 Seconds (9.8-13.1) 04/28/17 14:20 INR 1.0 (0.9-1.2) 04/28/17 14:20 APTT 32.0 Seconds (25.6-37.1) 04/28/17 14:20 - Constitutional Appears: No Acute Distress - Head Exam Head Exam: NORMAL INSPECTION - Neurological Exam Neurological Exam: Alert, Awake, Oriented x3 Neuro motor strength exam: Left Upper Extremity: 5, Right Upper Extremity: 4, Left Lower Extremity: 5, Right Lower Extremity: 4 Additional comments: Neurological unchanged from previous examination. Assessment and Plan (1) ICH (intracerebral hemorrhage) Assessment & Plan: Case discussed with Dr. Montenegro, continue all current medical, physical, and occupational therapies. With the intracerebral hematoma stable, patient can be downgraded to telemetry. Status: Acute
--- NOTE | 2017-05-02 09:40 | CP.PCM.PN ---
Subjective - Date & Time of Evaluation Date of Evaluation: 05/02/17 Time of Evaluation: 09:40 - Subjective Subjective: Mr. Almaraz was seen and examined at the bedside in ICU. He is alert, oriented in all spheres. He denies any headache, dizziness, lightheadedness, blurred vision, or diplopia. He still has a lazy eyes on his right eye. He is able to answer questions appropriately with a clear speech.He is able to follow all commands with his right arm drift which was not present yesterday. He is able to sit up on a chair in stable posture.There was no untoward events overnight. Objective - Vital Signs/Intake and Output Vital Signs (last 24 hours): Temp Pulse Resp BP Pulse Ox 97.0 F L 88 10 L 138/80 94 L 05/02/17 08:00 05/02/17 08:39 05/02/17 08:00 05/02/17 08:39 05/02/17 08:00 Intake and Output: 05/02/17 05/02/17 06:59 18:59 Intake Total 10 240 Output Total 300 Balance -290 240 - Medications Medications: Current Medications Amlodipine Besylate (Norvasc) 10 mg PO DAILY [facility] Last Admin: 05/02/17 08:39 Dose: 10 mg Atorvastatin Calcium (Lipitor) 20 mg PO DAILY [facility] Last Admin: 05/02/17 08:40 Dose: 20 mg Benzocaine/Menthol (Cepacol Sore Throat) 1 corazon PO Q2 PRN PRN Reason: Sore Throat Last Admin: 04/28/17 22:08 Dose: 1 corazon Heparin Sodium (Porcine) (Heparin) 5,000 units SC Q12 ALONDRA PRN Reason: Protocol Last Admin: 05/02/17 08:40 Dose: 5,000 units Labetalol HCl (Trandate) 20 mg IVP Q6 PRN PRN Reason: Other - Labs Labs: 05/01/17 04:30 05/01/17 04:30 PT 11.5 Seconds (9.8-13.1) 04/28/17 14:20 INR 1.0 (0.9-1.2) 04/28/17 14:20 APTT 32.0 Seconds (25.6-37.1) 04/28/17 14:20 - Constitutional Appears: No Acute Distress - Head Exam Head Exam: NORMAL INSPECTION - Neurological Exam Neurological Exam: Alert, Awake, Oriented x3 Neuro motor strength exam: Left Upper Extremity: 5, Right Upper Extremity: 3, Left Lower Extremity: 5, Right Lower Extremity: 4 Additional comments: He is able to answer questions appropriately with a clear speech.He is able to follow all commands with his right arm drift which was not present yesterday. He is able to sit up on a chair in stable posture. Assessment and Plan (1) ICH (intracerebral hemorrhage) Assessment & Plan: Case discussed with Dr. Montenegro, continue all current medical, physical, and occupational therapies. Recommend repeat CT scan of the head without contrast due to right arm drift. Recommend blood pressure control and if repeat CT scan is stable , may transfer patient to a rehab. Status: Acute
--- NOTE | 2017-05-02 10:42 | CT ---
PROCEDURE: CT HEAD WITHOUT CONTRAST. HISTORY: follow up ICH, new onset of arm drift COMPARISON: CT head dated 04/30/2017. TECHNIQUE: Axial computed tomography images were obtained through the head/brain without intravenous contrast. Radiation dose: Total exam DLP = 1036.6 mGy-cm. This CT exam was performed using one or more of the following dose reduction techniques: Automated exposure control, adjustment of the mA and/or kV according to patient size, and/or use of iterative reconstruction technique. FINDINGS: HEMORRHAGE: No significant change in size in appearance of known left parietal parenchymal hematoma with surrounding vasogenic edema and effacement of the ipsilateral cortical sulci. Stable trace [id number] midline shift. BRAIN: No extra-axial fluid collection or territorial infarction. VENTRICLES: No hydrocephalus. CALVARIUM: Unremarkable. PARANASAL SINUSES: Unremarkable as visualized. No significant inflammatory changes. MASTOID AIR CELLS: Unremarkable as visualized. No inflammatory changes. OTHER FINDINGS: None. IMPRESSION: No significant interval change in size in appearance of left parietal parenchymal hematoma with surrounding edema.
--- NOTE | 2017-05-02 11:51 | CP.PCM.DIS ---
<Bryant Zuniga - Last Filed: 05/02/17 15:54> Provider - Provider Date of Admission: 04/28/17 15:29 Attending physician: Carrillo Guzman MD Time Spent in preparation of Discharge (in minutes): 30 Diagnosis - Discharge Diagnosis (1) ICH (intracerebral hemorrhage) Status: Chronic Priority: High Comment: Likely chronic. Stable. Control BP (2) Right arm weakness Status: Chronic Comment: Needs OT/PT (3) HTN (hypertension) Status: Chronic Comment: Control HBP. C/W Current treatment Hospital Course - Lab Results Lab Results: Micro Results 04/28/17 19:37 Naris MRSA Culture (Admit) - Final MRSA NOT DETECTED 04/28/17 14:20 Throat Group A Strep Throat Culture - Final NORMAL SAPROPHYTIC CLAUDINE. CULTURE NEGATIVE FOR BETA STREP GROUP A. Most Recent Lab Values WBC 10.4 K/uL (4.8-10.8) 05/01/17 04:30 RBC 5.00 Mil/uL (4.40-5.90) 05/01/17 04:30 Hgb 15.0 g/dL (12.0-18.0) 05/01/17 04:30 Hct 45.1 % (35.0-51.0) 05/01/17 04:30 MCV 90.1 fl (80.0-94.0) 05/01/17 04:30 MCH 30.0 pg (27.0-31.0) 05/01/17 04:30 MCHC 33.3 g/dL (33.0-37.0) 05/01/17 04:30 RDW 13.1 % (11.5-14.5) 05/01/17 04:30 Plt Count 192 K/uL (130-400) 05/01/17 04:30 MPV 9.0 fl (7.2-11.7) 04/28/17 14:20 Neut % (Auto) 82.5 % (50.0-75.0) H 04/28/17 14:20 Lymph % (Auto) 11.7 % (20.0-40.0) L 04/28/17 14:20 Howard % (Auto) 5.2 % (0.0-10.0) 04/28/17 14:20 Eos % (Auto) 0.1 % (0.0-4.0) 04/28/17 14:20 Baso % (Auto) 0.5 % (0.0-2.0) 04/28/17 14:20 Neut # (Auto) 11.3 K/uL (1.8-7.0) H 04/28/17 14:20 Lymph # (Auto) 1.6 K/uL (1.0-4.3) 04/28/17 14:20 Howard # (Auto) 0.7 K/uL (0.0-0.8) 04/28/17 14:20 Eos # (Auto) 0.0 K/uL (0.0-0.7) 04/28/17 14:20 Baso # (Auto) 0.1 K/uL (0.0-0.2) 04/28/17 14:20 PT 11.5 Seconds (9.8-13.1) 04/28/17 14:20 INR 1.0 (0.9-1.2) 04/28/17 14:20 APTT 32.0 Seconds (25.6-37.1) 04/28/17 14:20 Sodium 139 mmol/l (132-148) 05/01/17 04:30 Potassium 4.0 MMOL/L (3.6-5.0) 05/01/17 04:30 Chloride 104 mmol/L (98-107) 05/01/17 04:30 Carbon Dioxide 24 mmol/L (22-30) 05/01/17 04:30 Anion Gap 15 (10-20) 05/01/17 04:30 BUN 22 mg/dl (9-20) H 05/01/17 04:30 Creatinine 1.0 mg/dl (0.8-1.5) 05/01/17 04:30 Est GFR ( Amer) > 60 05/01/17 04:30 Est GFR (Non-Af Amer) > 60 05/01/17 04:30 POC Glucose (mg/dL) 89 mg/dL (65-110) 04/28/17 15:19 Random Glucose 92 mg/dL (75-110) 05/01/17 04:30 Hemoglobin A1c 5.2 % (4.2-6.5) 04/29/17 04:40 Calcium 9.0 mg/dL (8.4-10.2) 05/01/17 04:30 Phosphorus 2.8 mg/dl (2.5-4.5) 04/28/17 14:20 Magnesium 2.0 MG/DL (1.6-2.3) 04/28/17 14:20 Total Bilirubin 1.6 mg/dl (0.2-1.3) H 05/01/17 04:30 AST 23 U/L (17-59) 05/01/17 04:30 ALT 40 U/L (21-72) 05/01/17 04:30 Alkaline Phosphatase 63 U/L (38-126) 05/01/17 04:30 Troponin I 0.0200 ng/mL (0.00-0.120) 04/28/17 14:20 Total Protein 6.7 G/DL (6.3-8.2) 05/01/17 04:30 Albumin 3.8 g/dL (3.5-5.0) 05/01/17 04:30 Globulin 2.9 gm/dL (2.2-3.9) 05/01/17 04:30 Albumin/Globulin Ratio 1.3 (1.0-2.1) 05/01/17 04:30 Triglycerides 81 mg/DL (0-149) D 04/29/17 04:40 Cholesterol 319 mg/dL (0-199) H 04/29/17 04:40 LDL Cholesterol Direct 248 mg/dL (0-129) H 04/29/17 04:40 HDL Cholesterol 46 MG/DL (30-70) 04/29/17 04:40 Vitamin B12 566 pg/mL (239-931) 04/29/17 04:40 25-OH Vitamin D Total 28.7 NG/ML (30.0-100.0) L 04/29/17 04:40 Thyroxine (T4) 8.35 ug/dl (5.5-11.0) 04/29/17 04:40 Total T3 1.23 nmol/L (1.49-2.60) L 04/29/17 04:40 TSH 3rd Generation 1.04 mIU/ML (0.46-4.68) 04/29/17 04:40 Urine Opiates Screen Negative (NEGATIVE) 04/28/17 00:18 Urine Methadone Screen Negative (NEGATIVE) 04/28/17 00:18 Ur Barbiturates Screen Negative (NEGATIVE) 04/28/17 00:18 Ur Phencyclidine Scrn Negative (NEGATIVE) 04/28/17 00:18 Ur Amphetamines Screen Negative (NEGATIVE) 04/28/17 00:18 U Benzodiazepines Scrn Negative (NEGATIVE) 04/28/17 00:18 U Oth Cocaine Metabols Negative (NEGATIVE) 04/28/17 00:18 U Cannabinoids Screen Negative (NEGATIVE) 04/28/17 00:18 Influenza Typ A,B (EIA) Negative for flu a/b (NEGATIVE) 04/28/17 14:20 Grp A Beta Strep Ag Negative (NEGATIVE) 04/28/17 14:20 Blood Type O NEGATIVE 04/28/17 15:15 Blood Type Confirm O NEGATIVE 04/29/17 08:00 Antibody Screen Negative 04/28/17 15:15 BBK History Checked No verified bt 04/28/17 15:15 - Hospital Course Hospital Course: 56-year-old man with a past medical history of hypertension, dyslipidemia, who presented to the ED with c/o right side difficulty with fine motor movements and sensory deficits. CT scan of the head showed a moderate sized left parietal lobe hemorrhage with surrounding edema. Patient remained stable during his hosp stayed and was evaluated by Neurology. Follow up CT Head today showed a stable hemorrhage that is not increasing in size and patient is stable to transfer to acute rehab unit for rehabilitation OT/PT. Discharge Exam - Head Exam Head Exam: NORMAL INSPECTION - Eye Exam Eye Exam: EOMI, PERRL - Neck Exam Neck exam: Full Rom - Respiratory Exam Respiratory Exam: Clear to PA & Lateral, NORMAL BREATHING PATTERN - Cardiovascular Exam Cardiovascular Exam: REGULAR RHYTHM, +S1, +S2 - GI/Abdominal Exam GI & Abdominal Exam: Normal Bowel Sounds, Unremarkable - Extremities Exam Extremities exam: normal capillary refill - Neurological Exam Neurological exam: Alert, Motor Sensory Deficit (R/foreamr and hand), Oriented x3 - Psychiatric Exam Psychiatric exam: Normal Affect, Normal Mood - Skin Skin Exam: Normal Color, Warm Discharge Plan - Follow Up Plan Condition: GOOD Disposition: REHAB FACILITY/REHAB UNIT Patient education suggested?: Yes Additional Instructions: Patient transferred to acute rehab for further treatment. <Carrillo Guzman - Last Filed: 05/02/17 16:56> Provider - Provider Date of Admission: 04/28/17 15:29 Attending physician: Carrillo Guzman MD Hospital Course - Lab Results Lab Results: Micro Results 04/28/17 19:37 Naris MRSA Culture (Admit) - Final MRSA NOT DETECTED 04/28/17 14:20 Throat Group A Strep Throat Culture - Final NORMAL SAPROPHYTIC CLAUDINE. CULTURE NEGATIVE FOR BETA STREP GROUP A. Most Recent Lab Values WBC 10.4 K/uL (4.8-10.8) 05/01/17 04:30 RBC 5.00 Mil/uL (4.40-5.90) 05/01/17 04:30 Hgb 15.0 g/dL (12.0-18.0) 05/01/17 04:30 Hct 45.1 % (35.0-51.0) 05/01/17 04:30 MCV 90.1 fl (80.0-94.0) 05/01/17 04:30 MCH 30.0 pg (27.0-31.0) 05/01/17 04:30 MCHC 33.3 g/dL (33.0-37.0) 05/01/17 04:30 RDW 13.1 % (11.5-14.5) 05/01/17 04:30 Plt Count 192 K/uL (130-400) 05/01/17 04:30 MPV 9.0 fl (7.2-11.7) 04/28/17 14:20 Neut % (Auto) 82.5 % (50.0-75.0) H 04/28/17 14:20 Lymph % (Auto) 11.7 % (20.0-40.0) L 04/28/17 14:20 Howard % (Auto) 5.2 % (0.0-10.0) 04/28/17 14:20 Eos % (Auto) 0.1 % (0.0-4.0) 04/28/17 14:20 Baso % (Auto) 0.5 % (0.0-2.0) 04/28/17 14:20 Neut # (Auto) 11.3 K/uL (1.8-7.0) H 04/28/17 14:20 Lymph # (Auto) 1.6 K/uL (1.0-4.3) 04/28/17 14:20 Howard # (Auto) 0.7 K/uL (0.0-0.8) 04/28/17 14:20 Eos # (Auto) 0.0 K/uL (0.0-0.7) 04/28/17 14:20 Baso # (Auto) 0.1 K/uL (0.0-0.2) 04/28/17 14:20 PT 11.5 Seconds (9.8-13.1) 04/28/17 14:20 INR 1.0 (0.9-1.2) 04/28/17 14:20 APTT 32.0 Seconds (25.6-37.1) 04/28/17 14:20 Sodium 139 mmol/l (132-148) 05/01/17 04:30 Potassium 4.0 MMOL/L (3.6-5.0) 05/01/17 04:30 Chloride 104 mmol/L (98-107) 05/01/17 04:30 Carbon Dioxide 24 mmol/L (22-30) 05/01/17 04:30 Anion Gap 15 (10-20) 05/01/17 04:30 BUN 22 mg/dl (9-20) H 05/01/17 04:30 Creatinine 1.0 mg/dl (0.8-1.5) 05/01/17 04:30 Est GFR ( Amer) > 60 05/01/17 04:30 Est GFR (Non-Af Amer) > 60 05/01/17 04:30 POC Glucose (mg/dL) 89 mg/dL (65-110) 04/28/17 15:19 Random Glucose 92 mg/dL (75-110) 05/01/17 04:30 Hemoglobin A1c 5.2 % (4.2-6.5) 04/29/17 04:40 Calcium 9.0 mg/dL (8.4-10.2) 05/01/17 04:30 Phosphorus 2.8 mg/dl (2.5-4.5) 04/28/17 14:20 Magnesium 2.0 MG/DL (1.6-2.3) 04/28/17 14:20 Total Bilirubin 1.6 mg/dl (0.2-1.3) H 05/01/17 04:30 AST 23 U/L (17-59) 05/01/17 04:30 ALT 40 U/L (21-72) 05/01/17 04:30 Alkaline Phosphatase 63 U/L (38-126) 05/01/17 04:30 Troponin I 0.0200 ng/mL (0.00-0.120) 04/28/17 14:20 Total Protein 6.7 G/DL (6.3-8.2) 05/01/17 04:30 Albumin 3.8 g/dL (3.5-5.0) 05/01/17 04:30 Globulin 2.9 gm/dL (2.2-3.9) 05/01/17 04:30 Albumin/Globulin Ratio 1.3 (1.0-2.1) 05/01/17 04:30 Triglycerides 81 mg/DL (0-149) D 04/29/17 04:40 Cholesterol 319 mg/dL (0-199) H 04/29/17 04:40 LDL Cholesterol Direct 248 mg/dL (0-129) H 04/29/17 04:40 HDL Cholesterol 46 MG/DL (30-70) 04/29/17 04:40 Vitamin B12 566 pg/mL (239-931) 04/29/17 04:40 25-OH Vitamin D Total 28.7 NG/ML (30.0-100.0) L 04/29/17 04:40 Thyroxine (T4) 8.35 ug/dl (5.5-11.0) 04/29/17 04:40 Total T3 1.23 nmol/L (1.49-2.60) L 04/29/17 04:40 TSH 3rd Generation 1.04 mIU/ML (0.46-4.68) 04/29/17 04:40 Urine Opiates Screen Negative (NEGATIVE) 04/28/17 00:18 Urine Methadone Screen Negative (NEGATIVE) 04/28/17 00:18 Ur Barbiturates Screen Negative (NEGATIVE) 04/28/17 00:18 Ur Phencyclidine Scrn Negative (NEGATIVE) 04/28/17 00:18 Ur Amphetamines Screen Negative (NEGATIVE) 04/28/17 00:18 U Benzodiazepines Scrn Negative (NEGATIVE) 04/28/17 00:18 U Oth Cocaine Metabols Negative (NEGATIVE) 04/28/17 00:18 U Cannabinoids Screen Negative (NEGATIVE) 04/28/17 00:18 Influenza Typ A,B (EIA) Negative for flu a/b (NEGATIVE) 04/28/17 14:20 Grp A Beta Strep Ag Negative (NEGATIVE) 04/28/17 14:20 Blood Type O NEGATIVE 04/28/17 15:15 Blood Type Confirm O NEGATIVE 04/29/17 08:00 Antibody Screen Negative 04/28/17 15:15 BBK History Checked No verified bt 04/28/17 15:15
[2017-05-02 14:28] VITALS: BP 118/97; PULSE 98; RESP 16; TEMP 98; O2SAT 95
== END 2017-05-02 14:25 | DRG 64 ==
LOC: H.ER 13:05 → H.ERHOLD 15:29 → H.ICU/CCU 18:44
PROVIDERS: ADMIT Internal Medicine; ATTEND Internal Medicine
DX: I61.1 Nontraumatic intracerebral hemorrhage in hemisphere, cortical (principal); G93.6 Cerebral edema; I60.9 Nontraumatic subarachnoid hemorrhage, unspecified; E78.00 Pure hypercholesterolemia, unspecified; E78.5 Hyperlipidemia, unspecified; I10 Essential (primary) hypertension; J02.9 Acute pharyngitis, unspecified; R48.2 Apraxia

== ENCOUNTER 2017-05-02 14:38 | Inpatient (IN) | payer OTHER ==
[2017-05-02 14:57] VITALS: BMI 30.8
[2017-05-02] MEDS ORDERED: Benzocaine/Menthol (Cepacol) Lozenge PO PRN (15:59)
--- NOTE | 2017-05-02 16:33 | CP.PCM.CON ---
History of Present Illness - History of Present Illness History of Present Illness: Dr Zapata PMR consultation on Jose Almaraz born 1960 who has been admitted to [facility] acute inpatient rehabilitation following a left CVA with right HP, predominantly UE. He has had no other similar events in the past. He is left hand dominant. He works and is active. Denies toxic habits as well. Risk factors included HTN, DM, HLD Review of Systems - Constitutional Constitutional: absent: Anorexia, Chills, Daytime Sleepiness - EENT Eyes: absent: Blurred Vision, Change in Vision Ears: absent: Ear Discharge, Ear Pain Nose/Mouth/Throat: absent: Nasal Congestion - Cardiovascular Cardiovascular: absent: Chest Pain - Respiratory Respiratory: absent: Dyspnea, Hemoptysis - Gastrointestinal Gastrointestinal: absent: Abdominal Pain - Musculoskeletal Musculoskeletal: absent: Arthralgias, Back Pain - Integumentary Integumentary: absent: Bleeding Lesions - Neurological Neurological: Abnormal Gait, Weakness (right UE). absent: Abnormal Hearing, Abnormal Movements, Confusion Past Patient History - Past Medical History & Family History Past Medical History?: Yes - Past Social History Smoking Status: Never Smoked Drugs: Denies Home Situation {Lives}: With Family - CARDIAC Hx Hypercholesterolemia: Yes Hx Hypertension: Yes - PULMONARY Hx Respiratory Disorders: No - NEUROLOGICAL Hx Neurological Disorder: No - HEENT Hx HEENT Problems: No - RENAL Hx Chronic Kidney Disease: No - ENDOCRINE/METABOLIC Hx Endocrine Disorders: No - HEMATOLOGICAL/ONCOLOGICAL Hx Blood Disorders: No - INTEGUMENTARY Hx Dermatological Problems: No - MUSCULOSKELETAL/RHEUMATOLOGICAL Hx Musculoskeletal Disorders: No Hx Falls: No - GASTROINTESTINAL Hx Gastrointestinal Disorders: No - GENITOURINARY/GYNECOLOGICAL Hx Genitourinary Disorders: No - PSYCHIATRIC Hx Psychophysiologic Disorder: No Hx Substance Use: No - SURGICAL HISTORY Hx Surgeries: Yes Other/Comment: Eye surgery as a toddler - ANESTHESIA Hx Anesthesia: Yes Hx Anesthesia Reactions: No Hx Malignant Hyperthermia: No Meds Allergies/Adverse Reactions: Allergies Allergy/AdvReac Type Severity Reaction Status Date / Time No Known Allergies Allergy Verified 05/02/17 15:29 - Medications Medications: Current Medications Amlodipine Besylate (Norvasc) 10 mg PO DAILY [facility] Atorvastatin Calcium (Lipitor) 20 mg PO DAILY [facility] Benzocaine/Menthol (Cepacol Sore Throat) 1 corazon PO Q2 PRN PRN Reason: Sore Throat Heparin Sodium (Porcine) (Heparin) 5,000 units SC Q12 ALON[facility] PRN Reason: Protocol Physical Exam - Constitutional Appears: Well, Non-toxic, No Acute Distress - Head Exam Head Exam: ATRAUMATIC, NORMAL INSPECTION, NORMOCEPHALIC - Eye Exam Eye Exam: EOMI - ENT Exam ENT Exam: Mucous Membranes Moist - Respiratory Exam Respiratory Exam: NORMAL BREATHING PATTERN - Cardiovascular Exam Cardiovascular Exam: REGULAR RHYTHM - GI/Abdominal Exam GI & Abdominal Exam: absent: Distended, Firm - Extremities Exam Extremities exam: Positive for: full ROM, normal inspection. Negative for: pedal edema - Neurological Exam Neurological exam: Alert, CN II-XII Intact, Oriented x3 - Psychiatric Exam Psychiatric exam: Normal Affect, Normal Mood - Skin Skin Exam: Dry Results - Vital Signs Recent Vital Signs: Last Vital Signs Temp 97.3 F L 05/02/17 15:41 Pulse 84 05/02/17 15:41 Resp 18 05/02/17 15:41 BP 147/90 05/02/17 15:41 Pulse Ox 95 05/02/17 15:41 Assessment & Plan - Assessment and Plan (Free Text) Assessment: PT/OT to continue to help increase functional independence Team conference for d/c planning Pain: controlled Vascular: no evidence of DVT GI: No evidence of constipation or diarrhea Patient is an excellent acute rehabilitation candidate and will have focused PT , OT and recreational therapy to help facilitate a safe and appropriate d/c plan impairment code: 02.1
--- NOTE | 2017-05-02 16:51 | PCM.OPOC ---
Physiatry Overall Plan of Care - Overall Plan of Care Estimated Length of Stay in Weeks: 2 Rehab Impairment: Mobility, Gait Etiologic Diagnosis: Cerebrovascular Accident Rehab/Medical Prognosis: Good - Anticipated Interventions Physical Therapy:: Yes Occupational Therapy:: Yes Speech Therapy:: No Recreational Therapy:: Yes - Therapy Goals Bed Mobility: Independent Ambulation: Independent Functional Positional Changes:: Independent - Discharge Plan Discharge Destination: Home
[2017-05-03] MEDS: Pantoprazole 40 mg EC Tab PO SCH (08:34)
--- NOTE | 2017-05-03 11:34 | HP ---
CHIEF COMPLAINT: Admitted from medical floor ICU after suffering intracranial bleed. HISTORY OF PRESENT ILLNESS: This is a 56-year-old male known case of hypertension who was admitted to Intensive Care Unit with intraparenchymal intracranial bleed and also subdural bleed. The patient was monitored in the Intensive Care Unit, multiple CAT scan and Neurology, Neurosurgery consultations were done. The patient was observed and then the patient was transferred to acute rehab unit for further optimization. REVIEW OF SYSTEMS: Positive for weakness of right side with incoordination of movement. Review of systems otherwise is negative for headache, dizziness, syncope, loss of consciousness, chest pain, shortness of breath, nausea, vomiting, diarrhea, constipation or any new joint or extremity pain. Review of systems for all other organ system is unremarkable. PAST MEDICAL HISTORY: Remarkable for hypertension and intracranial bleed. PAST SURGICAL HISTORY: Unremarkable. PERSONAL HISTORY: The patient is currently nonsmoker, nondrinker, no substance abuse. MEDICATIONS: The patient is on medications as per reconciliation sheet, which was reviewed and ordered. ALLERGIES: THE PATIENT IS NOT ALLERGIC TO ANY MEDICATION. FAMILY HISTORY: Noncontributory. PHYSICAL EXAMINATION: GENERAL: A well-built, well-nourished 56-year-old male, in no acute distress. VITAL SIGNS: Temperature afebrile, pulse 77, respirations 18, and blood pressure 130/80. HEENT: Pupils reactive to light. No JVD. No thyromegaly. No lymphadenopathy. No nystagmus. Normocephalic, atraumatic skull. HEART: S1 and S2. Normal and regular. No significant murmur, gallop or rub is heard. LUNGS: Shows good bilateral air entry. No rales or rhonchi. ABDOMEN: Soft, nontender. No organomegaly. No fluid. Bowel sounds are plus and normal. EXTREMITIES: No edema. No calf swelling. No tenderness. No acute ischemia. CENTRAL NERVOUS SYSTEM: The patient has persistent right-sided weakness. CHART CHANGER exam is essentially unchanged. DIAGNOSTIC DATA: Available diagnostic data reviewed. ADMITTING IMPRESSION: Acute intracranial bleed and hypertension. PLAN: Plan as ordered. Case and plan discussed with the patient. Carrillo Guzman MD
--- NOTE | 2017-05-03 16:20 | CP.PCM.CON ---
History of Present Illness - History of Present Illness History of Present Illness: Neurology Consultation Note: Mr. Almaraz is a 56-year-old man with a past medical history of hypertension , dyslipidemia (not on meds), who is currently in acute rehab, but initially was seen by me during his hospital admission for intracerebral hemorrhage. He had woken up with with right side difficulty with fine motor movements and sensory deficits. CT scan of the head showed a moderate sized left parietal lobe hemorrhage with surrounding edema. Review of Systems - Review of Systems All systems: reviewed and no additional remarkable complaints except Past Patient History - Past Medical History & Family History Past Medical History?: Yes - Past Social History Smoking Status: Never Smoked Drugs: Denies Home Situation {Lives}: With Family - CARDIAC Hx Hypercholesterolemia: Yes Hx Hypertension: Yes - PULMONARY Hx Respiratory Disorders: No - NEUROLOGICAL Hx Neurological Disorder: No - HEENT Hx HEENT Problems: No - RENAL Hx Chronic Kidney Disease: No - ENDOCRINE/METABOLIC Hx Endocrine Disorders: No - HEMATOLOGICAL/ONCOLOGICAL Hx Blood Disorders: No - INTEGUMENTARY Hx Dermatological Problems: No - MUSCULOSKELETAL/RHEUMATOLOGICAL Hx Musculoskeletal Disorders: No Hx Falls: No - GASTROINTESTINAL Hx Gastrointestinal Disorders: No - GENITOURINARY/GYNECOLOGICAL Hx Genitourinary Disorders: No - PSYCHIATRIC Hx Psychophysiologic Disorder: No Hx Substance Use: No - SURGICAL HISTORY Hx Surgeries: Yes Other/Comment: Eye surgery as a toddler - ANESTHESIA Hx Anesthesia: Yes Hx Anesthesia Reactions: No Hx Malignant Hyperthermia: No Meds Allergies/Adverse Reactions: Allergies Allergy/AdvReac Type Severity Reaction Status Date / Time No Known Allergies Allergy Verified 05/02/17 15:29 - Medications Medications: Current Medications Amlodipine Besylate (Norvasc) 10 mg PO DAILY [facility] Last Admin: 05/03/17 08:34 Dose: 10 mg Atorvastatin Calcium (Lipitor) 20 mg PO DAILY [facility] Last Admin: 18 08:34 Dose: 20 mg Benzocaine/Menthol (Cepacol Sore Throat) 1 corazon PO Q2 PRN PRN Reason: Sore Throat Heparin Sodium (Porcine) (Heparin) 5,000 units SC Q12 [facility] PRN Reason: Protocol Last Admin: 05/03/17 08:34 Dose: 5,000 units Labetalol HCl (Trandate) 200 mg PO Q6 PRN PRN Reason: SBP >160, DBP >105. Pantoprazole Sodium (Protonix Ec Tab) 40 mg PO DAILY [facility] Last Admin: 05/03/17 08:34 Dose: 40 mg Physical Exam - Constitutional Appears: Well - Head Exam Head Exam: ATRAUMATIC, NORMAL INSPECTION, NORMOCEPHALIC - Eye Exam Eye Exam: EOMI, Normal appearance, PERRL - ENT Exam ENT Exam: Mucous Membranes Moist, Normal Exam - Respiratory Exam Respiratory Exam: Clear to Auscultation Bilateral, NORMAL BREATHING PATTERN - Cardiovascular Exam Cardiovascular Exam: REGULAR RHYTHM, +S1, +S2 - Rectal Exam Rectal Exam: Deferred - Neurological Exam Neurological exam: Abnormal Gait, Alert, CN II-XII Intact, Oriented x3 Additional comments: Reflexes brisk in RUE and RLE. Fine motor deficits and difficulty with coordination on the RUE. Upgoing plantar response on the right. - Psychiatric Exam Psychiatric exam: Normal Affect, Normal Mood - Skin Skin Exam: Dry, Intact, Normal Color, Warm Results - Vital Signs Recent Vital Signs: Last Vital Signs Temp 97.5 F L 05/03/17 09:29 Pulse 81 05/03/17 09:29 Resp 21 05/03/17 09:29 BP 148/87 05/03/17 10:12 Pulse Ox 98 05/03/17 09:29 Assessment & Plan (1) ICH (intracerebral hemorrhage) Assessment and Plan: Continue current medications for risk factor control. Treat underlying medical conditions (HTN), per primary care. SCD for DVT Px. PT/OT treatment plans. Thank you. Status: Chronic Priority: High
[2017-05-04] MEDS: Pantoprazole 40 mg EC Tab PO SCH (08:54)
--- NOTE | 2017-05-04 10:26 | PN ---
DATE: 05/04/2017 SUBJECTIVE: The patient is seen and examined. Interim events noted. The patient remains in acute rehab unit. The patient feels okay. Denies any specific complaint. No chest pain. No shortness of breath. Right arm weakness persist. PHYSICAL EXAMINATION: GENERAL: The patient is in no acute distress. VITAL SIGNS: Stable. HEART: S1 and S2, normal and regular. LUNGS: Good bilateral air exchange. ABDOMEN: Soft and nontender. EXTREMITIES: No edema. No calf swelling. No tenderness. No acute ischemia. CENTRAL NERVOUS SYSTEM: Essentially unchanged. The patient has persistent right-sided weakness. DIAGNOSTIC DATA: Available diagnostic data reviewed. Neurology consult and followup noted and appreciated. PLAN: Overall, the patient is essentially same. in acute rehab unit. Plan as ordered. Carrillo Guzman MD
[2017-05-05] MEDS: Pantoprazole 40 mg EC Tab PO SCH (09:08)
--- NOTE | 2017-05-05 10:39 | PN ---
DATE: 05/05/2017 SUBJECTIVE: The patient is seen and examined. Interim events noted. Consults noted and appreciated. Neurology followup and intervention noted and appreciated. The patient remains in Acute Rehab Unit. Feels okay. Denies any specific complaint. Feels that he has sensation while in his right upper extremity. PHYSICAL EXAMINATION: GENERAL: The patient is in no acute distress. VITAL SIGNS: Stable. HEART: S1 and S2, normal and regular. LUNGS: Good bilateral air exchange. GASTROINTESTINAL: Abdomen is soft and nontender. EXTREMITIES: No edema and no calf swelling. No tenderness. No acute ischemia. CENTRAL NERVOUS SYSTEM: Exam is essentially unchanged. DIAGNOSTIC DATA: Available diagnostic data reviewed. IMPRESSION AND PLAN: Overall, the patient's general medical condition is slowly improving. Plan as ordered. Crarillo Guzman MD
--- NOTE | 2017-05-05 12:50 | CP.PCM.PN ---
Subjective - Date & Time of Evaluation Date of Evaluation: 05/05/17 Time of Evaluation: 12:45 - Subjective Subjective: Ms. Almaraz was seen and examined at the bedside. He is alert, oriented in all spheres. He denies any headache, dizziness, lightheadedness, nausea, or vomiting. He remains with right arm drift. He is able to participate during his therapy session. There was no untoward events overnight. Objective - Vital Signs/Intake and Output Vital Signs (last 24 hours): Temp Pulse Resp BP Pulse Ox 98.1 F 90 19 150/90 95 05/05/17 09:37 05/05/17 09:37 05/05/17 09:37 05/05/17 09:37 05/05/17 09:37 - Medications Medications: Current Medications Amlodipine Besylate (Norvasc) 10 mg PO DAILY [facility] Last Admin: 05/05/17 09:08 Dose: 10 mg Atorvastatin Calcium (Lipitor) 20 mg PO HS [facility] Benzocaine/Menthol (Cepacol Sore Throat) 1 corazon PO Q2 PRN PRN Reason: Sore Throat Heparin Sodium (Porcine) (Heparin) 5,000 units SC Q12 [facility] PRN Reason: Protocol Last Admin: 05/05/17 09:07 Dose: 5,000 units Labetalol HCl (Trandate) 200 mg PO Q6 PRN PRN Reason: SBP >160, DBP >105. Pantoprazole Sodium (Protonix Ec Tab) 40 mg PO DAILY [facility] Last Admin: 05/05/17 09:08 Dose: 40 mg - Constitutional Appears: No Acute Distress - Head Exam Head Exam: NORMAL INSPECTION - Neurological Exam Neurological Exam: Alert, Awake Neuro motor strength exam: Left Upper Extremity: 5, Right Upper Extremity: 3, Left Lower Extremity: 5, Right Lower Extremity: 5 Additional comments: Neurological unchanged from previous examination. Assessment and Plan (1) ICH (intracerebral hemorrhage) Assessment & Plan: Case discussed with Dr. Lomeli, continue all current medical, physical, and occupational therapies. Recommend blood pressure control. Status: Chronic
[2017-05-06] MEDS: Pantoprazole 40 mg EC Tab PO SCH (08:19)
--- NOTE | 2017-05-06 10:18 | PN ---
DATE: 05/06/2017 SUBJECTIVE: The patient is seen and examined. Interim events noted. Consults noted and appreciated. Neurology followup and interventions noted and appreciated. The patient feels okay. No new complaint. Physical therapy . PHYSICAL EXAMINATION: GENERAL: The patient is in no acute distress. VITAL SIGNS: Stable. Exam is essentially unchanged. LABORATORY DATA: Available diagnostic data is reviewed. IMPRESSION AND PLAN: Overall, the patient is clinically stable. Plan as ordered. Carrillo Guzman MD
--- NOTE | 2017-05-06 13:16 | PSY.TMCNF ---
Nursing - Vital Signs Vital Signs (Last 8 hours): Vital Signs 05/06/17 05/06/17 05/06/17 07:56 08:19 08:33 Temperature 96.8 F L Pulse Rate 69 69 83 Respiratory 20 Rate Blood Pressure 159/96 H 159/96 H O2 Sat by Pulse 97 98 Oximetry Pain: 0 - Medications/Other Issues Comment: Pt at low nutritional risk. no goals. Follow-up due on 05/14/2017 - Bladder Management Bladder Pattern: Normal Voiding Method: Toilet, Urinal - Bowel Management Bowel Pattern: Normal - Goals/Time Frame Comments: Pt was seen awake and alert sitting in his wheelchair in his room. Pt agreeable to go to the recreation room. Pt was brought to the room and agreeable to evaluation session. Pt was able to identify his leisure interests such as reading, watching television, and working. 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 Pt reported that he works inconsistent hours and does not have much leisure interests. Pt agreeable to participate in leisure task and was oriented to connect four task. Pt required contact guard assist throughout the entire task for fine motor control and stability as pt was encouraged to utilize R hand to complete task. Pt demonstrated decrease fine motor gripping and picking up connect four pieces with R hand. Pt completed task and returned back to his room. Placed call eugene within reach. Physical Therapy - Bed Mobility Bed Mobility: Supervision, Verbal Cues Comment: occ vc for sequencing w/ RUE/RLE during bed mob, manish w/o rails for support CS - Transfers Sit to Stand: Supervision, Verbal Cues, Contact Guard - Ambulation Level of Assistance: Verbal Cues, Contact Guard Distance (ft.): 150 Assistive Devices: N/A - Stair Negotiation Stairs: Level of Assistance: Verbal Cues, Contact Guard Number of Stairs: 12 Stairs: Assistive Devices: Left Handrail - Standing Balance Static Stand: Supervision Dynamic Stand: Contact Guard Assist, Minimal Assistance - Pain Pain (assessed during therapy session): 0 Comment: N/A - Insight/Carryover Insight/Carryover: Fair - Patient/Family Education Comment: CVA recovery related topics, activity pacing, safety, fxnl mob, balance , rehab goals, POC - Assessment/Plan Assessment: Pt was oriented to the benefits and purpose of participating in recreation therapy sessions throughout stay on unit. Pt presents with decrease hand-eye coordination and fine motor skills with the R hand. Pt required CGA during connect four task for stability. Pt would benefit from participating in recreation therapy sessions throughout stay on unit. - Goals Timeframe: 10 days Goals: mod I x 2 flight of steps with single rail. 500 feet on all surfaces with mod I without device. I without device with all transfers including car. I with all bed/mat mobility - Provider Therapist: Rosa M Breen PT DPT License Number: [id number] Occupational Therapy - Arousal/Attention/Orientation Patient Orientation: Person, Place, Time, Appropriate to Age, Appropriate to Situation - ADL/IADL Self Feeding: Verbal Cues, Set-up Help Grooming: Verbal Cues, Set-up Help, Moderate Assistance Dressing-Upper Extremity: Moderate Assistance Dressing-Lower Extremity: Maximum Assistance - Sitting Balance Static Sitting: Supervision Dynamic Sitting: Requires supervision, Contact Guard Assist - Transfers Wheelchair to Bed Transfers: Verbal Cues, Set-up Help, Contact Guard - Pain Pain (assessed during therapy session): 0 Comment: N/A - Insight/Carryover Insight/Carryover: Fair - Patient/Family Education Comment: CVA recovery related topics, activity pacing, safety, fxnl mob, balance , rehab goals, POC - Assessment/Plan Assessment: Pt was oriented to the benefits and purpose of participating in recreation therapy sessions throughout stay on unit. Pt presents with decrease hand-eye coordination and fine motor skills with the R hand. Pt required CGA during connect four task for stability. Pt would benefit from participating in recreation therapy sessions throughout stay on unit. - Goals Timeframe: 10 days Goals: mod I x 2 flight of steps with single rail. 500 feet on all surfaces with mod I without device. I without device with all transfers including car. I with all bed/mat mobility - Provider Therapist: Nicole Fay Speech Therapy - Plan Assessment: Pt was oriented to the benefits and purpose of participating in recreation therapy sessions throughout stay on unit. Pt presents with decrease hand-eye coordination and fine motor skills with the R hand. Pt required CGA during connect four task for stability. Pt would benefit from participating in recreation therapy sessions throughout stay on unit. Recreational Therapy - Participation Participation: Participates in Individual and/or Group Sessions - Attendance Attendance: 3-5 times per week - Activities Leisure Activities: Television - Socialization Level of Socialization: Initiates/interacts freely with care givers and peer - Diversional Time Diversional Time: television, reading - Assessment Assessment/Plan: Pt was oriented to the benefits and purpose of participating in recreation therapy sessions throughout stay on unit. Pt presents with decrease hand-eye coordination and fine motor skills with the R hand. Pt required CGA during connect four task for stability. Pt would benefit from participating in recreation therapy sessions throughout stay on unit. Problems Currently Limiting Participation: decrease R hand-eye coordination, decrease R fine motor control, decrease leisure awareness level Goals and Time Frame: Pt will be encouraged to participate in 1:1 and group recreation therapy sessions 3-5x week to improve R hand fine motor, leisure awareness level, arousal level, and command following. - Provider Therapist: Kira Figueroa, FORESTRY SUPERVISOR #[id number] Nutrition - Current Diet Current Diet/ Supplement/ Feedings: Heart healthy diet - Appetite Percent Meal Consumed: 75-100% - Assessment/Goals/Time Frame Assessment/Goals/Time Frame: Pt at low nutritional risk. no goals. Follow-up due on 05/14/2017 - Provider Provider: Alanna Leigh RD Case Management - Discharge Plan Discharge Plan: Home alone Rehabilitation Plan - Treatment Plan Treatment Plan: Physical Therapy, Occupational Therapy, Dietary, Patient/Family Education - Discharge Plan Estimated Date of Discharge: 05/14/17 Discharge to: Home
--- NOTE | 2017-05-06 13:56 | CP.PCM.PN ---
Subjective - Date & Time of Evaluation Date of Evaluation: 05/06/17 Time of Evaluation: 13:55 - Subjective Subjective: Patient seen in the PT gym, remains doing well, strong, but with a decrease in function pending insurance authorization for hopefully a few more days prior to d/c home Objective - Vital Signs/Intake and Output Vital Signs (last 24 hours): Temp Pulse Resp BP Pulse Ox 96.8 F L 69 20 159/96 H 98 05/06/17 09:00 05/06/17 09:00 05/06/17 09:00 05/06/17 09:00 05/06/17 08:33 - Medications Medications: Current Medications Amlodipine Besylate (Norvasc) 10 mg PO DAILY [facility] Last Admin: 05/06/17 08:19 Dose: 10 mg Atorvastatin Calcium (Lipitor) 20 mg PO HS [facility] Last Admin: 05/05/17 21:27 Dose: 20 mg Benzocaine/Menthol (Cepacol Sore Throat) 1 corazon PO Q2 PRN PRN Reason: Sore Throat Heparin Sodium (Porcine) (Heparin) 5,000 units SC Q12 [facility] PRN Reason: Protocol Last Admin: 05/06/17 08:19 Dose: 5,000 units Labetalol HCl (Trandate) 200 mg PO Q6 PRN PRN Reason: SBP >160, DBP >105. Pantoprazole Sodium (Protonix Ec Tab) 40 mg PO DAILY [facility] Last Admin: 05/06/17 08:19 Dose: 40 mg
[2017-05-07 07:57] VITALS: BP 154/93; RESP 18; TEMP 97.9; O2SAT 97
[2017-05-07] MEDS: Pantoprazole 40 mg EC Tab PO SCH (08:48)
--- NOTE | 2017-05-07 10:33 | PN ---
DATE: 05/07/2017 SUBJECTIVE: The patient seen and examined. Interim events noted. Consults noted and appreciated. Rehab consult and followup and team conference report reviewed. The patient essentially feel same. Still has incoordination on right side. No new complaint. No chest pain or shortness of breath. No specific issue reported by nursing staff. PHYSICAL EXAMINATION: GENERAL: The patient is in no acute distress. VITAL SIGNS: Stable. HEART: S1 and S2, normal and regular. LUNGS: Good bilateral air exchange. ABDOMEN: Soft and nontender. EXTREMITIES: No edema. No calf swelling. No tenderness. No acute ischemia. CENTRAL NERVOUS SYSTEM: Exam is essentially unchanged. DIAGNOSTIC DATA: Available diagnostic data reviewed. ASSESSMENT AND PLAN: Overall, the patient's general medical condition is essentially . Plan as ordered. Carrillo Guzman MD
--- NOTE | 2017-05-07 11:52 | CP.PCM.PN ---
Subjective - Date & Time of Evaluation Date of Evaluation: 05/07/17 Time of Evaluation: 11:49 - Subjective Subjective: Mr. Almaraz was seen and examined during therapy session. He is alert, oriented in all spheres. He is able to answer questions appropriately and follow commands. He remains with Right arm drift and weakness. He was able to dress independently but unable to do so this morning. he participates during his therapy. There was no untoward events overnight. Objective - Vital Signs/Intake and Output Vital Signs (last 24 hours): Temp Pulse Resp BP Pulse Ox 97.9 F 74 18 154/93 H 97 05/07/17 07:56 05/07/17 08:48 05/07/17 07:56 05/07/17 08:48 05/07/17 07:56 - Medications Medications: Current Medications Amlodipine Besylate (Norvasc) 10 mg PO DAILY [facility] Last Admin: 05/07/17 08:48 Dose: 10 mg Atorvastatin Calcium (Lipitor) 20 mg PO HS [facility] Last Admin: 05/06/17 21:27 Dose: 20 mg Benzocaine/Menthol (Cepacol Sore Throat) 1 corazon PO Q2 PRN PRN Reason: Sore Throat Heparin Sodium (Porcine) (Heparin) 5,000 units SC Q12 [facility] PRN Reason: Protocol Last Admin: 05/07/17 08:48 Dose: 5,000 units Labetalol HCl (Trandate) 200 mg PO Q6 PRN PRN Reason: SBP >160, DBP >105. Pantoprazole Sodium (Protonix Ec Tab) 40 mg PO DAILY [facility] Last Admin: 05/07/17 08:48 Dose: 40 mg - Constitutional Appears: No Acute Distress - Head Exam Head Exam: NORMAL INSPECTION - Neurological Exam Neurological Exam: Alert, Awake, Oriented x3 Neuro motor strength exam: Left Upper Extremity: 5, Right Upper Extremity: 3, Left Lower Extremity: 5, Right Lower Extremity: 4 Additional comments: He is alert, oriented, but with a decline of his right upper extremity strength. Sensation remain intact. Assessment and Plan (1) ICH (intracerebral hemorrhage) Assessment & Plan: Case discussed with Dr. Lomeli, continue all current medical, physical, and occupational therapies. Recommend to repeat CT of the head without contrast to evaluate brain pathology. Status: Chronic
--- NOTE | 2017-05-07 16:35 | CP.PCM.PN ---
Subjective - Date & Time of Evaluation Date of Evaluation: 05/07/17 Time of Evaluation: 16:34 - Subjective Subjective: Patient seen in the room family present making good gains, still with functional apraxic issues with ADL and gait continue current care Objective - Vital Signs/Intake and Output Vital Signs (last 24 hours): Temp Pulse Resp BP Pulse Ox 97.9 F 74 18 154/93 H 97 05/07/17 07:56 05/07/17 08:48 05/07/17 07:56 05/07/17 08:48 05/07/17 07:56 - Medications Medications: Current Medications Amlodipine Besylate (Norvasc) 10 mg PO DAILY [facility] Last Admin: 05/07/17 08:48 Dose: 10 mg Atorvastatin Calcium (Lipitor) 20 mg PO HS [facility] Last Admin: 05/06/17 21:27 Dose: 20 mg Benzocaine/Menthol (Cepacol Sore Throat) 1 corazon PO Q2 PRN PRN Reason: Sore Throat Heparin Sodium (Porcine) (Heparin) 5,000 units SC Q12 [facility] PRN Reason: Protocol Last Admin: 05/07/17 08:48 Dose: 5,000 units Labetalol HCl (Trandate) 200 mg PO Q6 PRN PRN Reason: SBP >160, DBP >105. Pantoprazole Sodium (Protonix Ec Tab) 40 mg PO DAILY [facility] Last Admin: 05/07/17 08:48 Dose: 40 mg
[2017-05-07 16:53] VITALS: PULSE 88
[2017-05-07] MEDS ORDERED: levETIRAcetam 1,000 MG in Sodium Chloride 0.9% 100 ML IVPB STA (17:36)
--- NOTE | 2017-05-07 17:42 | CT ---
PROCEDURE: CT HEAD WITHOUT CONTRAST. HISTORY: change of neuro status COMPARISON: None available. TECHNIQUE: Axial computed tomography images were obtained through the head/brain without intravenous contrast. Radiation dose: Total exam DLP = 882.23 mGy-cm. This CT exam was performed using one or more of the following dose reduction techniques: Automated exposure control, adjustment of the mA and/or kV according to patient size, and/or use of iterative reconstruction technique. FINDINGS: HEMORRHAGE: Left frontoparietal intraparenchymal hemorrhage is reduced in volume measuring 3.8 x 2.1 x 3.8 cm (transverse by anteroposterior by superoinferior dimensions) as compared to 3.9 x 2.6 x 4.4 cm. A significant volume of the hemorrhage is markedly diminished in density with a core remaining hyperdense measuring 2.3 cm greatest dimension. No definitive new intracranial hemorrhage is appreciable. Local edema has likely slightly increased with no interval change in a minimal rightward midline shift. Effacement of the of the majority left cerebral sulci is stable. Basilar cisterns remain widely patent. BRAIN: Remaining brain parenchyma is unremarkable exclusive of hemorrhage noted above. VENTRICLES: Unremarkable. No hydrocephalus. CALVARIUM: Unremarkable. PARANASAL SINUSES: Unremarkable as visualized. No significant inflammatory changes. MASTOID AIR CELLS: Unremarkable as visualized. No inflammatory changes. OTHER FINDINGS: None. IMPRESSION: Diminishing left frontal parietal intracranial hemorrhage with minimal rightward midline shift stable. Slight increase in overall local edema surrounding the hemorrhage. Continued clinical and CT monitoring advised.
[2017-05-07] MEDS ORDERED: Valproate 1,000 MG in Sodium Chloride 0.9% 100 ML IVPB ONE (17:51)
[2017-05-07 18:03] LABS: HEMOGLOBIN 14.9 g/dL (12.0-18.0); MEAN CELL VOLUME 89.4 fl (80.0-94.0); MEAN CORPUSCULAR HEMOGLOBIN 30.7 pg (27.0-31.0); MEAN CORPUSCULAR HGB CONC 34.4 g/dL (33.0-37.0); RBC 4.86 Mil/uL (4.40-5.90); RED CELL DISTRIBUTION WIDTH 13.2 % (11.5-14.5); WHITE BLOOD COUNT 11.8 K/uL (4.8-10.8)
--- NOTE | 2017-05-07 18:19 | PCM.RRT ---
<Meron Hubbard - Last Filed: 05/07/17 18:41> TRUCK SALES REPRESENTATIVE Nurse Assessment - Situation TRUCK SALES REPRESENTATIVE Responder Arrival Time: 17:35 Location: 6th Floor Room Number: [id number] TRUCK SALES REPRESENTATIVE Reason for Call: Hypertension (Seizure activity ) TRUCK SALES REPRESENTATIVE Called By: RN - IV IV Inserted during TRUCK SALES REPRESENTATIVE?: No - Respiratory Oxygen Delivery Method: Room Air - Stat Labs Ordered TRUCK SALES REPRESENTATIVE Stat Labs Ordered: CBC TRUCK SALES REPRESENTATIVE Other Labs Ordered: CMP, Mg, Phos, CPK CPR started during TRUCK SALES REPRESENTATIVE?: No I.Reason for TRUCK SALES REPRESENTATIVE - A) Acute Change in Patient: Subjective: TRUCK SALES REPRESENTATIVE was called due to Acute Seizure for 56 y/o male with moderate sized left parietal lobe hemorrhage with surrounding edema. Upon arrival, patient is having seizure, predominantly on right side but patient is alert, and awake. Patient was given stat dose of Ativan 2mg, Dexamethasone 8mg, Valporate 1000mg, keppra 1000mg. Patient's seizure stopped after 2mins and Ativan dose. Patient's recent CT head reviewed which shows improved hematoma but worsening edema and midline shift noted. Patient was transferred to ER-->ICU for overnight observation. End of TRUCK SALES REPRESENTATIVE Vs: 158/98, HR 96, Spo2 98, 97.3Tm. - Neurological Status (Select all that apply): Alert, Responsive, Oriented, Verbal, Follows Commands - Respiratory Oxygen Delivery Method: Room Air - Constitutional Additional Comments: Seizure, Partial tonic-clonic - Head Head Exam: ATRAUMATIC, NORMAL INSPECTION - Eyes Eye Exam: EOMI, Normal appearance, PERRL - Respiratory Exam Respiratory Exam: Clear to Ausculation Bilateral, NORMAL BREATHING PATTERN - Cardiovascular Exam Cardiovascular Exam: REGULAR RHYTHM - GI/Abdominal Exam GI & Abdominal Exam: Soft, Normal Bowel Sounds - Neurological Exam Neurological Exam: Alert, Awake, Oriented x3 - Extremities Exam Extremities Exam: Normal Capillary Refill <Teri Singer - Last Filed: 05/07/17 19:17> TRUCK SALES REPRESENTATIVE Nurse Assessment - Vital Signs Vital Signs: Rapid Response Vital Sign Blood Pressure 213/119 Pulse Rate 105 Respiratory Rate 18 Temperature 96.3 F Oxygen Saturation 100 - Vital Signs at end of TRUCK SALES REPRESENTATIVE Vital Signs at end of TRUCK SALES REPRESENTATIVE: Rapid Response End Vital Sign Blood Pressure 158/98 Pulse Rate 105 Respiratory Rate 18 Temperature 96.3 F O2 Sat by Pulse Oximetry 99 Attending/Attestation - Attestation I have personally seen and examined this patient.: Yes I have fully participated in the care of the patient.: Yes I have reviewed all pertinent clinical information, including history, physical exam and plan: Yes Notes (Text): TRUCK SALES REPRESENTATIVE called because of seizure. Pt is a 56 y/o gent with hx of Left Frontoparietal Hemorrhage , was in Acute Rehab for physical therapy, was doing fine until he suddenly had a seizure. Seizure was tonic clonic more on the right side of the body. Seizure lasted almost 2 minutes , resolved with Ativan 2mg IV Keppra [address] scan of brain showed decrease in size of the hemorrhage however noted increased edema and sl midline shift Discussed the case with Dr Lomeli ( Neurology) -rec loading pt with Depakote 1gram IV then 750mg q12, also rec to load Decadron 8mg IV then 2 mg q 12 She also rec that pt be transferred to ICU for monitoring overnight. I spoke with Dr Carrillo Guzman and notified him of event. Signed off case to Dr Traylor ED physician
[2017-05-07 18:38] LABS: ALB/GLOB RATIO 1.2 (1.0-2.1); ALT/SGPT 70 U/L (21-72); AST/SGOT 54 U/L (17-59); BLOOD UREA NITROGEN 23 mg/dl (9-20); CALCIUM 8.8 mg/dL (8.4-10.2); GFR AFRICAN-AMERICAN > 60; GFR NON-AFRICAN AMERICAN > 60
[2017-05-08] MEDS ORDERED: levETIRAcetam 500 MG in Sodium Chloride 0.9% 100 ML IVPB SCH (06:00)
== END 2017-05-07 18:20 | disposition short-term general hospital (02) | DRG 56 ==
PROVIDERS: ADMIT Internal Medicine; ATTEND Internal Medicine
PROC: F07Z9FZ Gait Training/Functional Ambulation Treatment using Assistive, Adaptive, Supportive or Protective Equipment (ICD-10-PCS; principal; 2017-05-02)
PROC: F08Z4FZ Home Management Treatment using Assistive, Adaptive, Supportive or Protective Equipment (ICD-10-PCS; 2017-05-02)
PROC: F07M6FZ Therapeutic Exercise Treatment of Musculoskeletal System - Whole Body using Assistive, Adaptive, Supportive or Protective Equipment (ICD-10-PCS; 2017-05-02)
DX: I69.151 Hemiplegia and hemiparesis following nontraumatic intracerebral hemorrhage affecting right dominant side (principal); G93.6 Cerebral edema; E78.00 Pure hypercholesterolemia, unspecified; I10 Essential (primary) hypertension; E78.5 Hyperlipidemia, unspecified; R27.8 Other lack of coordination

== ENCOUNTER 2017-05-07 18:28 | Inpatient (IN) | payer OTHER ==
[2017-05-07 18:28] VITALS: BMI 30.8
--- NOTE | 2017-05-07 19:32 | ED PDOC ---
HPI: Seizure Time Seen by Provider: 05/07/17 18:38 Chief Complaint (Provider): Seizure History Per: Patient History/Exam Limitations: no limitations Additional Complaint(s): Pt transferred to ED after DRILLING INSPECTOR was called secondary to seizure activity. Pt states he felt twitching in his face then seizure activity in his RUE. Repeat head CT and medication given prior to ED arrival. Pt denies JACKSON at this time. Past Medical History Reviewed: Nursing Documentation, Vital Signs - Medical History PMH: HTN, Hypercholesterolemia Denies: Chronic Kidney Disease - Family History Family History: States: Hypertension - Living Arrangements Living Arrangements: With Family - Home Medications Home Medications: Ambulatory Orders Medication Instructions Recorded Atorvastatin [Lipitor] 20 mg PO DAILY tab 05/02/17 Benzocaine/Menthol [Cepacol Sore 1 corazon PO Q2 PRN corazon 05/02/17 Throat] Heparin 5,000 units SC Q12 vial 05/02/17 Labetalol [Trandate] 5 mg IV Q6 PRN 05/02/17 amLODIPine [Norvasc] 10 mg PO DAILY tab 05/02/17 - Allergies Allergies/Adverse Reactions: Allergies Allergy/AdvReac Type Severity Reaction Status Date / Time No Known Allergies Allergy Verified 05/02/17 15:29 Review of Systems Constitutional: Negative for: Fever Eyes: Negative for: Vision Change Cardiovascular: Negative for: Chest Pain Respiratory: Negative for: Cough Gastrointestinal: Negative for: Vomiting Skin: Negative for: Rash, Lesions Neurological: Positive for: Seizures. Negative for: Weakness, Numbness, Incoordination, Change in Speech, Confusion, Altered Mental Status, Headache, Dizziness Physical Exam - Reviewed Nursing Documentation Reviewed: Yes Vital Signs Reviewed: Yes - Physical Exam Appears: Positive for: Well, No Acute Distress Head Exam: Positive for: ATRAUMATIC, NORMAL INSPECTION Skin: Positive for: Normal Color, Warm, Dry Eye Exam: Positive for: Normal appearance, EOMI, PERRL Neurologic/Psych: Positive for: Alert, in school suspension coordinator II-XII, Oriented Medical Decision Making Medical Decision Makin yo wiht new onset seizure. Accession No. : [id number] Patient Name / ID : BALLARDSILAS Eden / [id number] Exam Date : 05/07/2017 16:41:48 ( Approved ) Study Comment : Sex / Age : M / 56Y Creator : Jose Gloria MD Dictator : Jose Gloria MD Shellfish Grower : Sightseeing Guide : Jose Gloria MD Approver2 : Report Date : 05/07/2017 17:35:58 My Comment : PROCEDURE: CT HEAD WITHOUT CONTRAST. HISTORY: change of neuro status COMPARISON: None available. TECHNIQUE: Axial computed tomography images were obtained through the head/brain without intravenous contrast. Radiation dose: Total exam DLP = 882.23 mGy-cm. This CT exam was performed using one or more of the following dose reduction techniques: Automated exposure control, adjustment of the mA and/or kV according to patient size, and/or use of iterative reconstruction technique. FINDINGS: HEMORRHAGE: Left frontoparietal intraparenchymal hemorrhage is reduced in volume measuring 3.8 x 2.1 x 3.8 cm (transverse by anteroposterior by superoinferior dimensions) as compared to 3.9 x 2.6 x 4.4 cm. A significant volume of the hemorrhage is markedly diminished in density with a core remaining hyperdense measuring 2.3 cm greatest dimension. No definitive new intracranial hemorrhage is appreciable. Local edema has likely slightly increased with no interval change in a minimal rightward midline shift. Effacement of the of the majority left cerebral sulci is stable. Basilar cisterns remain widely patent. BRAIN: Remaining brain parenchyma is unremarkable exclusive of hemorrhage noted above. VENTRICLES: Unremarkable. No hydrocephalus. CALVARIUM: Unremarkable. PARANASAL SINUSES: Unremarkable as visualized. No significant inflammatory changes. MASTOID AIR CELLS: Unremarkable as visualized. No inflammatory changes. OTHER FINDINGS: None. IMPRESSION: Diminishing left frontal parietal intracranial hemorrhage with minimal rightward midline shift stable. Slight increase in overall local edema surrounding the hemorrhage. Continued clinical and CT monitoring advised. Disposition - Clinical Impression Clinical Impression: New onset seizure - Patient ED Disposition Is Patient to be Admitted: Yes - Disposition Disposition Time: 19:39 Condition: GUARDED - Pt Status Changed To: Hospital Disposition Of: Inpatient - Admit Certification Admit to Inpatient:: After my assessment, the patient will require hospitalization for at least two midnights. This is because of the severity of symptoms shown, intensity of services needed, and/or the medical risk in this patient being treated as an outpatient. - POA Present On Arrival: None
--- NOTE | 2017-05-07 20:42 | CP.PCM.CON ---
History of Present Illness - History of Present Illness History of Present Illness: CC/Reason for ICU: new onset seizures in setting of prior L parietal hemorrhage HPI: This is a 56 y/o male that was admitted ~2/13 with R sided weakness and found to have a L parietal lobe hemorrhage. He was treated in the hospital and was in acute rehab for past several days. This evening, patient was noted to have what appears to be a simple partial seizure. He was having twitching of the R side of the face. When assessed by SECOND WATCH SERGEANT team, he was alert and awake. He was given Ativan IV, dexamthasone IV, and loaded with Valproate. Patient seizures resolved, and he was transferred to ER. Currently he has no c/c. Denies prior history of seizures. No new focal weakness (still has R hand weakness). No JACKSON. No CP, no SOB. MHx/SHx: HTN, HLD, DM2, hemorrhagic CVA; eye surg in the past Allergies: NDKA Medications: Per med rec Family Hx: HTN in family Social Hx: Lives with family, no tobacco currently, no significant EtOH Past Patient History - Past Medical History & Family History Past Medical History?: Yes - Past Social History Smoking Status: Never Smoked - CARDIAC Hx Hypercholesterolemia: Yes Hx Hypertension: Yes - PULMONARY Hx Respiratory Disorders: No - NEUROLOGICAL Hx Neurological Disorder: No - HEENT Hx HEENT Problems: No - RENAL Hx Chronic Kidney Disease: No - ENDOCRINE/METABOLIC Hx Diabetes Mellitus Type 2: Yes - HEMATOLOGICAL/ONCOLOGICAL Hx Blood Disorders: No - INTEGUMENTARY Hx Dermatological Problems: No - MUSCULOSKELETAL/RHEUMATOLOGICAL Hx Musculoskeletal Disorders: No Hx Falls: No - GASTROINTESTINAL Hx Gastrointestinal Disorders: No - GENITOURINARY/GYNECOLOGICAL Hx Genitourinary Disorders: No - PSYCHIATRIC Hx Psychophysiologic Disorder: No Hx Substance Use: No - SURGICAL HISTORY Hx Surgeries: Yes Other/Comment: Eye surgery as a toddler - ANESTHESIA Hx Anesthesia: Yes Hx Anesthesia Reactions: No Hx Malignant Hyperthermia: No Meds Allergies/Adverse Reactions: Allergies Allergy/AdvReac Type Severity Reaction Status Date / Time No Known Allergies Allergy Verified 05/02/17 15:29 - Medications Medications: Current Medications Acetaminophen (Tylenol 325mg Tab) 650 mg PO Q6H PRN PRN Reason: Fever >100.4 F Amlodipine Besylate (Norvasc) 10 mg PO DAILY [facility] Atorvastatin Calcium (Lipitor) 20 mg PO DAILY [facility] Dexamethasone (Decadron Inj) 2 mg IV Q12H ALON[facility] Valproate Sodium 750 mg/ (Sodium Chloride) 107.5 mls @ 100 mls/hr IVPB Q12H [facility] Pantoprazole Sodium (Protonix Inj) 40 mg IVP DAILY ALON[facility]A Physical Exam - Constitutional Appears: No Acute Distress - Head Exam Head Exam: ATRAUMATIC, NORMOCEPHALIC - Eye Exam Eye Exam: EOMI, PERRL - ENT Exam ENT Exam: Mucous Membranes Moist - Neck Exam Neck exam: Positive for: Full Rom - Respiratory Exam Respiratory Exam: Clear to Auscultation Bilateral, NORMAL BREATHING PATTERN - Cardiovascular Exam Cardiovascular Exam: REGULAR RHYTHM, +S1, +S2 - GI/Abdominal Exam GI & Abdominal Exam: Normal Bowel Sounds, Soft - Extremities Exam Extremities exam: Positive for: normal inspection Additional comments: RUE weakness pronounced, in RLE - Neurological Exam Neurological exam: Alert, CN II-XII Intact, Oriented x3 - Psychiatric Exam Psychiatric exam: Normal Affect, Normal Mood - Skin Skin Exam: Dry, Warm Results - Vital Signs Recent Vital Signs: Last Vital Signs Temp 98.7 F 05/07/17 20:19 Pulse 97 H 05/07/17 19:00 Resp 20 05/07/17 19:00 BP Pulse Ox 98 05/07/17 19:00 - Imaging and Cardiology CT scan - head Status: Image reviewed by me, Report reviewed by me Additional comment: L hemorrhage; some increase in edema Assessment & Plan (1) New onset seizure Assessment and Plan: 56 y/o male with recent hemorrhagic CVA (L) with weakness who is being admitted from rehab with new onset seizures. -ICU for o/n observation -Cont IV Valproate -PRN Ativan for breakthrough seizures IV -accucheck/SSI for ser gluc control -Cont scheduled medications for HTN, HLD -Neuro consult (Lomeli) in AM -SCD for DVT PPx Status: Acute
--- NOTE | 2017-05-07 20:43 | CP.PCM.HP ---
History of Present Illness - History of Present Illness History of Present Illness: 56 YO M w/ h/o DM, HLD presented to the ED after he started having problems with fine movements of his right hand and some sensory deficits. He was found to have moderate sized left parietal lobe hemorrhage. Patient denies chest headache, nausea, vomiting, head trauma. Past Patient History - Past Medical History & Family History Past Medical History?: Yes - Past Social History Smoking Status: Never Smoked - CARDIAC Hx Hypercholesterolemia: Yes Hx Hypertension: Yes - PULMONARY Hx Respiratory Disorders: No - NEUROLOGICAL Hx Neurological Disorder: No - HEENT Hx HEENT Problems: No - RENAL Hx Chronic Kidney Disease: No - ENDOCRINE/METABOLIC Hx Diabetes Mellitus Type 2: Yes - HEMATOLOGICAL/ONCOLOGICAL Hx Blood Disorders: No - INTEGUMENTARY Hx Dermatological Problems: No - MUSCULOSKELETAL/RHEUMATOLOGICAL Hx Musculoskeletal Disorders: No Hx Falls: No - GASTROINTESTINAL Hx Gastrointestinal Disorders: No - GENITOURINARY/GYNECOLOGICAL Hx Genitourinary Disorders: No - PSYCHIATRIC Hx Psychophysiologic Disorder: No Hx Substance Use: No - SURGICAL HISTORY Hx Surgeries: Yes Other/Comment: Eye surgery as a toddler - ANESTHESIA Hx Anesthesia: Yes Hx Anesthesia Reactions: No Hx Malignant Hyperthermia: No Meds Allergies/Adverse Reactions: Allergies Allergy/AdvReac Type Severity Reaction Status Date / Time No Known Allergies Allergy Verified 05/02/17 15:29 Results - Vital Signs Recent Vital Signs: Last Vital Signs Temp 98.7 F 05/07/17 20:19 Pulse 97 H 05/07/17 19:00 Resp 20 05/07/17 19:00 BP Pulse Ox 98 05/07/17 19:00
[2017-05-07] MEDS ORDERED: Dexamethasone 2 MG in Sodium Chloride 0.9% 50 ML IVPB SCH (21:00)
[2017-05-07] MEDS: Insulin Lispro (humaLOG) 100 Units/ml Inj SC SCH (22:09)
[2017-05-07] MEDS: Dexamethasone 4 mg/1 ml IV SCH (22:16)
[2017-05-08 05:41] LABS: BASO % 0.2 % (0.0-2.0); HEMOGLOBIN 15.2 g/dL (12.0-18.0); LYMPH % 11.6 % (20.0-40.0); MEAN CELL VOLUME 88.9 fl (80.0-94.0); MEAN CORPUSCULAR HEMOGLOBIN 31.1 pg (27.0-31.0); MEAN CORPUSCULAR HGB CONC 34.9 g/dL (33.0-37.0); MEAN PLATELET VOLUME 9.3 fl (7.2-11.7); MONO # 0.1 K/uL (0.0-0.8); MONO % 1.4 % (0.0-10.0); NEUT # 7.4 K/uL (1.8-7.0); NEUT % 86.8 % (50.0-75.0); NRBC % 0.2 % (0.0-0.0); RBC 4.89 Mil/uL (4.40-5.90); RED CELL DISTRIBUTION WIDTH 12.9 % (11.5-14.5); WHITE BLOOD COUNT 8.5 K/uL (4.8-10.8)
[2017-05-08 05:50] LABS: BLOOD UREA NITROGEN 23 mg/dl (9-20); CALCIUM 9.2 mg/dL (8.4-10.2); GFR AFRICAN-AMERICAN > 60; GFR NON-AFRICAN AMERICAN > 60
[2017-05-08] MEDS: Insulin Lispro (humaLOG) 100 Units/ml Inj SC SCH ×4 (06:54→22:17)
--- NOTE | 2017-05-08 08:27 | CP.PCM.PN ---
Subjective - Date & Time of Evaluation Date of Evaluation: 05/08/17 Time of Evaluation: 07:10 - Subjective Subjective: Patient evaluated with Dr Guzman during morning rounds. Overnight events noted. Patient had to be transferred to ICU from Rehab after 1 episode of seizures. As per patient he was alert and aware of everything during seizure. He noticed mostly right side involuntary movement of arm and leg. Denies dizziness, sphincter relaxation ,headache, CP, SOB. No acute distress at this time. Objective - Vital Signs/Intake and Output Vital Signs (last 24 hours): Temp Pulse Resp BP Pulse Ox 98.2 F 86 17 117/67 95 05/08/17 08:00 05/08/17 08:00 05/08/17 08:00 05/08/17 08:00 05/08/17 08:00 Intake and Output: 05/08/17 05/08/17 06:59 18:59 Intake Total 0 Output Total 250 Balance -250 - Medications Medications: Current Medications Acetaminophen (Tylenol 325mg Tab) 650 mg PO Q6H PRN PRN Reason: Fever >100.4 F Amlodipine Besylate (Norvasc) 10 mg PO DAILY [facility] Atorvastatin Calcium (Lipitor) 20 mg PO DAILY [facility] Dexamethasone (Decadron Inj) 2 mg IV Q12H [facility] Last Admin: 05/07/17 22:16 Dose: Not Given Valproate Sodium 750 mg/ (Sodium Chloride) 107.5 mls @ 100 mls/hr IVPB Q12H [facility] Insulin Human Lispro (Humalog) 0 units SC ACHS ALONDRA PRN Reason: Protocol Last Admin: 05/08/17 06:54 Dose: Not Given Lorazepam (Ativan) 2 mg IVP Q6 PRN PRN Reason: seizures Pantoprazole Sodium (Protonix Ec Tab) 40 mg PO DAILY ALONDRA - Labs Labs: 05/08/17 04:25 05/08/17 04:25 - Constitutional Appears: Non-toxic, No Acute Distress - Eye Exam Eye Exam: EOMI, PERRL - ENT Exam ENT Exam: Mucous Membranes Moist - Respiratory Exam Respiratory Exam: Clear to Ausculation Bilateral, NORMAL BREATHING PATTERN - Cardiovascular Exam Cardiovascular Exam: REGULAR RHYTHM, +S1, +S2. absent: Gallop - GI/Abdominal Exam GI & Abdominal Exam: Soft, Normal Bowel Sounds. absent: Tenderness - Neurological Exam Neurological Exam: Alert, Awake, Motor Sensory Deficit (R/UE weakness) - Psychiatric Exam Psychiatric exam: Normal Affect, Normal Mood - Skin Skin Exam: Normal Color, Warm Assessment and Plan - Assessment and Plan (Free Text) Assessment: 56 y/o transferred to ICU overnight after episode of seizure. Seizure episode Likely due to cerebral edema/hematoma c/w Depakote Repeat CT head showed slightly worsening edema, improved hematoma C/W Current plan Neurology consult appreciated Cerebral hemorrhage C/W Current plan Neuro consult appreciated
[2017-05-08] MEDS: Dexamethasone 4 mg/1 ml IV SCH ×2 (09:49→22:15)
[2017-05-08] MEDS: Pantoprazole 40 mg EC Tab PO SCH (09:52)
--- NOTE | 2017-05-08 10:13 | CP.CCUPN ---
CCU Subjective - Physician Review Subjective (Free Text): All Physician notes ad Nursing notes reviewed: Awake and responsive, no recurrent seizure activity noted overnight. Other Vitals and I/Os reviewed. ROS: No other pertinent negs or positives on 10+ system review PMSFH: All other historical Nursing and physician documentation reviewed to date; no new pertinent info noted relevant to current medical problems. CT Brain yesterday reviewed: no new change in the hemorrhagic area, but area of edema appears slightly larger. IMPRESSION / MAJOR PROBLEMS NOW: 1. New onset Seizure Disorder 2' to ICH 2. Localized Cerebral edema with midline shift 3. ICH 2 occult Tumor vs AVM 4. Recent Accelerated HTN during last admission. PLAN: 1. AED therapy with Depakote as per Neurology. Discuss Mannitol use with Neurology. 2. HOB elevation, neurochecks, Seizure precautions. 3. Serial Brain imaging, EEG. 2. Physical Therapy as tolerated. 3. Stable for Tele bed for further observation and mgmt. CCU Objective - Vital Signs / Intake & Output Vital Signs (Last 4 hours): Vital Signs Temp Pulse Resp BP Pulse Ox 05/08/17 09:52 89 126/84 05/08/17 08:00 98.2 F 86 17 117/67 95 Intake and Output (Last 8hrs): Intake & Output 05/07/17 05/08/17 05/08/17 22:59 06:59 14:59 Intake Total 0 Output Total 250 Balance -250 Weight 245 lb Intake: IV 0 Output: Urine 250 Urine, Voided 250 - Physical Exam Head: Positive for: Normocephalic Pupils: Positive for: PERRL Extroacular Muscles: Positive for: EOMI. Negative for: Gaze Palsy Conjunctiva: Positive for: Normal. Negative for: Icteric Mouth: Positive for: Moist Mucous Membranes Neck: Negative for: JVD Respiratory/Chest: Positive for: Clear to Auscultation Cardiovascular: Positive for: Regular Rate and Rhythm Abdomen: Positive for: Normal Bowel Sounds. Negative for: Tenderness, Distention, Mass/Organomegaly Lower Extremity: Positive for: NORMAL PULSES. Negative for: CALF TENDERNESS, Cyanosis Neurological: Positive for: GCS=15, CN II-XII Intact, Motor Func Grossly Intact (mild R leg weaker than RUE strength) Psychiatric: Positive for: Alert, Oriented x 3 - Medications Active Medications: Active Medications Generic Name Dose Route Start Last Admin Trade Name Freq PRN Reason Stop Dose Admin Acetaminophen 650 mg 05/07/17 20:11 Tylenol 325mg Tab PO Q6H PRN Fever >100.4 F Amlodipine Besylate 10 mg 05/08/17 09:00 05/08/17 09:52 Norvasc PO 10 mg DAILY ALONDRA Administration Atorvastatin Calcium 20 mg 05/08/17 09:00 05/08/17 09:53 Lipitor PO 20 mg DAILY ALONDRA Administration Dexamethasone 2 mg 05/07/17 21:00 05/08/17 09:49 Decadron Inj IV 2 mg Q12H ALONDRA Administration Valproate Sodium 750 mg/ 107.5 mls @ 100 mls/hr 05/08/17 09:00 Sodium Chloride IVPB Q12H [facility] Insulin Human Lispro 0 units 05/07/17 22:00 05/08/17 06:54 Humalog SC Not Given ACHS [facility] Protocol Lorazepam 2 mg 05/07/17 21:06 Ativan IVP Q6 PRN seizures Pantoprazole Sodium 40 mg 05/08/17 09:00 05/08/17 09:52 Protonix Ec Tab PO 40 mg DAILY ALONDRA Administration - Patient Studies Lab Studies: Lab Studies 05/08/17 05/08/17 05/08/17 Range/Units 06:24 04:25 04:25 WBC 8.5 (4.8-10.8) K/uL RBC 4.89 (4.40-5.90) Mil/uL Hgb 15.2 (12.0-18.0) g/dL Hct 43.5 (35.0-51.0) % MCV 88.9 (80.0-94.0) fl MCH 31.1 H (27.0-31.0) pg MCHC 34.9 (33.0-37.0) g/dL RDW 12.9 (11.5-14.5) % Plt Count 207 (130-400) K/uL MPV 9.3 (7.2-11.7) fl Neut % (Auto) 86.8 H (50.0-75.0) % Lymph % (Auto) 11.6 L (20.0-40.0) % [place] % (Auto) 1.4 (0.0-10.0) % Eos % (Auto) 0.0 (0.0-4.0) % Baso % (Auto) 0.2 (0.0-2.0) % Neut # (Auto) 7.4 H (1.8-7.0) K/uL Lymph # (Auto) 1.0 (1.0-4.3) K/uL [place] # (Auto) 0.1 (0.0-0.8) K/uL Eos # (Auto) 0.0 (0.0-0.7) K/uL Baso # (Auto) 0.0 (0.0-0.2) K/uL Sodium 139 (132-148) mmol/l Potassium 4.1 (3.6-5.0) MMOL/L Chloride 105 (98-107) mmol/L Carbon Dioxide 24 (22-30) mmol/L Anion Gap 14 (10-20) BUN 23 H (9-20) mg/dl Creatinine 0.9 (0.8-1.5) mg/dl Est GFR ( Amer) > 60 Est GFR (Non-Af Amer) > 60 POC Glucose (mg/dL) 109 (65-110) mg/dL Random Glucose 127 H (75-110) mg/dL Calcium 9.2 (8.4-10.2) mg/dL 05/07/17 Range/Units 21:46 WBC (4.8-10.8) K/uL RBC (4.40-5.90) Mil/uL Hgb (12.0-18.0) g/dL Hct (35.0-51.0) % MCV (80.0-94.0) fl MCH (27.0-31.0) pg MCHC (33.0-37.0) g/dL RDW (11.5-14.5) % Plt Count (130-400) K/uL MPV (7.2-11.7) fl Neut % (Auto) (50.0-75.0) % Lymph % (Auto) (20.0-40.0) % [place] % (Auto) (0.0-10.0) % Eos % (Auto) (0.0-4.0) % Baso % (Auto) (0.0-2.0) % Neut # (Auto) (1.8-7.0) K/uL Lymph # (Auto) (1.0-4.3) K/uL [place] # (Auto) (0.0-0.8) K/uL Eos # (Auto) (0.0-0.7) K/uL Baso # (Auto) (0.0-0.2) K/uL Sodium (132-148) mmol/l Potassium (3.6-5.0) MMOL/L Chloride (98-107) mmol/L Carbon Dioxide (22-30) mmol/L Anion Gap (10-20) BUN (9-20) mg/dl Creatinine (0.8-1.5) mg/dl Est GFR ( Amer) Est GFR (Non-Af Amer) POC Glucose (mg/dL) 107 (65-110) mg/dL Random Glucose (75-110) mg/dL Calcium (8.4-10.2) mg/dL Laboratory Results - last 24 hr 05/07/17 05/08/17 05/08/17 21:46 04:25 04:25 WBC 8.5 RBC 4.89 Hgb 15.2 Hct 43.5 MCV 88.9 MCH 31.1 H MCHC 34.9 RDW 12.9 Plt Count 207 MPV 9.3 Neut % (Auto) 86.8 H Lymph % (Auto) 11.6 L [place] % (Auto) 1.4 Eos % (Auto) 0.0 Baso % (Auto) 0.2 Neut # (Auto) 7.4 H Lymph # (Auto) 1.0 [place] # (Auto) 0.1 Eos # (Auto) 0.0 Baso # (Auto) 0.0 Sodium 139 Potassium 4.1 Chloride 105 Carbon Dioxide 24 Anion Gap 14 BUN 23 H Creatinine 0.9 Est GFR ( Amer) > 60 Est GFR (Non-Af Amer) > 60 POC Glucose (mg/dL) 107 Random Glucose 127 H Calcium 9.2 05/08/17 06:24 WBC RBC Hgb Hct MCV MCH MCHC RDW Plt Count MPV Neut % (Auto) Lymph % (Auto) [place] % (Auto) Eos % (Auto) Baso % (Auto) Neut # (Auto) Lymph # (Auto) [place] # (Auto) Eos # (Auto) Baso # (Auto) Sodium Potassium Chloride Carbon Dioxide Anion Gap BUN Creatinine Est GFR ( Amer) Est GFR (Non-Af Amer) POC Glucose (mg/dL) 109 Random Glucose Calcium Fingerstick Blood Sugar Results: 109 Review of Systems - Review of Systems All systems: reviewed and no additional remarkable complaints except (as above) Critical Care Progress Note - Nutrition Nutrition: Nutrition Category Date Time Status Diabetic [Consistent Carbohydrate] [DIET] Diets 05/07/17 Breakfast Active
--- NOTE | 2017-05-08 10:28 | CP.PCM.PN ---
Subjective - Date & Time of Evaluation Date of Evaluation: 05/08/17 Time of Evaluation: 10:23 - Subjective Subjective: Mr. Almaraz was seen and examined at the bedside in ICU. He is alert, oriented in all spheres. He denies any headache, dizziness, lightheadedness, nausea, or vomiting. He is able to follow simple commands. He claims of experiencing the rapid eye blinking prior to his seizure episode. DOCUMENT CONTROL MANAGER was called and was transferred to ICU for close monitoring. He remains with right arm weakness and arm drift, but the same strength with all three extremities. He is able to feed himself independently. CT scan of thew head showed diminishing left frontal parietal intracranial hemorrhage with minimal rightward midline shift stable. Slight increase in overall local edema surrounding the hemorrhage. Objective - Vital Signs/Intake and Output Vital Signs (last 24 hours): Temp Pulse Resp BP Pulse Ox 98.2 F 89 17 126/84 95 05/08/17 08:00 05/08/17 09:52 05/08/17 08:00 05/08/17 09:52 05/08/17 08:00 Intake and Output: 05/08/17 05/08/17 06:59 18:59 Intake Total 0 Output Total 250 Balance -250 - Medications Medications: Current Medications Acetaminophen (Tylenol 325mg Tab) 650 mg PO Q6H PRN PRN Reason: Fever >100.4 F Amlodipine Besylate (Norvasc) 10 mg PO DAILY [facility] Last Admin: 05/08/17 09:52 Dose: 10 mg Atorvastatin Calcium (Lipitor) 20 mg PO DAILY [facility] Last Admin: 05/08/17 09:53 Dose: 20 mg Dexamethasone (Decadron Inj) 2 mg IV Q12H [facility] Last Admin: 05/08/17 09:49 Dose: 2 mg Valproate Sodium 750 mg/ (Sodium Chloride) 107.5 mls @ 100 mls/hr IVPB Q12H [facility] Insulin Human Lispro (Humalog) 0 units SC ACHS [facility] PRN Reason: Protocol Last Admin: 05/08/17 06:54 Dose: Not Given Lorazepam (Ativan) 2 mg IVP Q6 PRN PRN Reason: seizures Pantoprazole Sodium (Protonix Ec Tab) 40 mg PO DAILY [facility] Last Admin: 05/08/17 09:52 Dose: 40 mg - Labs Labs: 05/08/17 04:25 05/08/17 04:25 - Constitutional Appears: Well, No Acute Distress - Head Exam Head Exam: NORMAL INSPECTION - Neurological Exam Neurological Exam: Alert, Awake, Oriented x3 Neuro motor strength exam: Left Upper Extremity: 5, Right Upper Extremity: 3, Left Lower Extremity: 5, Right Lower Extremity: 5 Additional comments: Neurological unchanged from previous examination. Assessment and Plan - Assessment and Plan (Free Text) Assessment: Seizure Case discussed with Dr. Lomeli, continue all current medical, physical, and occupational therapies. Pending EEG results. Recommend seizure precautions.
[2017-05-08] MEDS: Valproate 750 MG in Sodium Chloride 0.9% 100 ML IVPB SCH ×2 (10:46→22:16)
[2017-05-09 05:42] LABS: HEMOGLOBIN 14.5 g/dL (12.0-18.0); MEAN CELL VOLUME 88.9 fl (80.0-94.0); MEAN CORPUSCULAR HEMOGLOBIN 30.5 pg (27.0-31.0); MEAN CORPUSCULAR HGB CONC 34.3 g/dL (33.0-37.0); RBC 4.74 Mil/uL (4.40-5.90); RED CELL DISTRIBUTION WIDTH 13.3 % (11.5-14.5); WHITE BLOOD COUNT 12.1 K/uL (4.8-10.8)
[2017-05-09 06:02] LABS: BLOOD UREA NITROGEN 22 mg/dl (9-20); GFR AFRICAN-AMERICAN > 60; GFR NON-AFRICAN AMERICAN > 60
[2017-05-09] MEDS: Insulin Lispro (humaLOG) 100 Units/ml Inj SC SCH ×2 (07:45→11:58)
[2017-05-09] MEDS: Pantoprazole 40 mg EC Tab PO SCH (08:49)
[2017-05-09] MEDS: Valproate 750 MG in Sodium Chloride 0.9% 100 ML IVPB SCH (09:44)
[2017-05-09] MEDS: Dexamethasone 4 mg/1 ml IV SCH (09:45)
--- NOTE | 2017-05-09 10:02 | CP.PCM.PN ---
Subjective - Date & Time of Evaluation Date of Evaluation: 05/09/17 Time of Evaluation: 09:59 - Subjective Subjective: Mr. Almaraz was seen and examined at the bedside in ICU. He is alert, oriented in all spheres. He is able to answer all questions and follow simple commands. He denies any headache, dizziness, lightheadedness, nausea, or vomiting. He remains with right arm drift and good strength x 3 extremities. There was no untoward events overnight. Objective - Vital Signs/Intake and Output Vital Signs (last 24 hours): Temp Pulse Resp BP Pulse Ox 98.2 F 73 13 129/79 97 05/09/17 08:00 05/09/17 08:00 05/09/17 08:00 05/09/17 08:49 05/09/17 08:00 Intake and Output: 05/09/17 05/09/17 06:59 18:59 Intake Total 133 460 Output Total 1000 Balance -867 460 - Medications Medications: Current Medications Acetaminophen (Tylenol 325mg Tab) 650 mg PO Q6H PRN PRN Reason: Fever >100.4 F Amlodipine Besylate (Norvasc) 10 mg PO DAILY [facility] Last Admin: 05/09/17 08:49 Dose: 10 mg Atorvastatin Calcium (Lipitor) 20 mg PO DAILY [facility] Last Admin: 05/09/17 08:49 Dose: 20 mg Dexamethasone (Decadron) 2 mg PO Q12 [facility] Divalproex Sodium (Depakote Dr(*Bid*)) 750 mg PO BID [facility] Insulin Human Lispro (Humalog) 0 units SC ACHS [facility] PRN Reason: Protocol Last Admin: 05/09/17 07:45 Dose: Not Given Lorazepam (Ativan) 2 mg IVP Q6 PRN PRN Reason: seizures Pantoprazole Sodium (Protonix Ec Tab) 40 mg PO DAILY [facility] Last Admin: 05/09/17 08:49 Dose: 40 mg - Labs Labs: 05/09/17 04:20 05/09/17 04:20 - Constitutional Appears: No Acute Distress - Head Exam Head Exam: NORMAL INSPECTION - Neurological Exam Neurological Exam: Alert, Awake, Oriented x3 Neuro motor strength exam: Left Upper Extremity: 5, Right Upper Extremity: 2/1, Left Lower Extremity: 5, Right Lower Extremity: 5 Additional comments: Neurological unchanged from previous examination. Assessment and Plan (1) New onset seizure Assessment & Plan: Case discussed with Dr. Lomeli, continue all current medical, physical, and occupational therapies including AED. May transfer patient back to acute rehab. Recommend to monitor depakote level as needed. Status: Acute
--- NOTE | 2017-05-09 11:00 | CP.PCM.DIS ---
Provider - Provider Date of Admission: 05/07/17 19:27 Attending physician: Carrillo Guzman MD Consults: Neurology Time Spent in preparation of Discharge (in minutes): 30 Diagnosis - Discharge Diagnosis (1) New onset seizure Status: Acute Comment: C/W Depakote. Stable (2) Hemiparesis Status: Chronic Comment: Stable. Unchanged (3) HTN (hypertension) Status: Chronic Comment: Controlled (4) ICH (intracerebral hemorrhage) Status: Chronic Priority: High Comment: Stable. Decreased in size. Hospital Course - Lab Results Lab Results: Most Recent Lab Values WBC 12.1 K/uL (4.8-10.8) H 05/09/17 04:20 RBC 4.74 Mil/uL (4.40-5.90) 05/09/17 04:20 Hgb 14.5 g/dL (12.0-18.0) 05/09/17 04:20 Hct 42.2 % (35.0-51.0) 05/09/17 04:20 MCV 88.9 fl (80.0-94.0) 05/09/17 04:20 MCH 30.5 pg (27.0-31.0) 05/09/17 04:20 MCHC 34.3 g/dL (33.0-37.0) 05/09/17 04:20 RDW 13.3 % (11.5-14.5) 05/09/17 04:20 Plt Count 198 K/uL (130-400) 05/09/17 04:20 MPV 9.3 fl (7.2-11.7) 05/08/17 04:25 Neut % (Auto) 86.8 % (50.0-75.0) H 05/08/17 04:25 Lymph % (Auto) 11.6 % (20.0-40.0) L 05/08/17 04:25 [place] % (Auto) 1.4 % (0.0-10.0) 05/08/17 04:25 Eos % (Auto) 0.0 % (0.0-4.0) 05/08/17 04:25 Baso % (Auto) 0.2 % (0.0-2.0) 05/08/17 04:25 Neut # (Auto) 7.4 K/uL (1.8-7.0) H 05/08/17 04:25 Lymph # (Auto) 1.0 K/uL (1.0-4.3) 05/08/17 04:25 [place] # (Auto) 0.1 K/uL (0.0-0.8) 05/08/17 04:25 Eos # (Auto) 0.0 K/uL (0.0-0.7) 05/08/17 04:25 Baso # (Auto) 0.0 K/uL (0.0-0.2) 05/08/17 04:25 Sodium 141 mmol/l (132-148) 05/09/17 04:20 Potassium 4.0 MMOL/L (3.6-5.0) 05/09/17 04:20 Chloride 104 mmol/L (98-107) 05/09/17 04:20 Carbon Dioxide 26 mmol/L (22-30) 05/09/17 04:20 Anion Gap 15 (10-20) 05/09/17 04:20 BUN 22 mg/dl (9-20) H 05/09/17 04:20 Creatinine 0.9 mg/dl (0.8-1.5) 05/09/17 04:20 Est GFR ( Amer) > 60 05/09/17 04:20 Est GFR (Non-Af Amer) > 60 05/09/17 04:20 POC Glucose (mg/dL) 102 mg/dL (65-110) 05/08/17 16:41 Random Glucose 108 mg/dL (75-110) 05/09/17 04:20 Calcium 9.0 mg/dL (8.4-10.2) 05/09/17 04:20 - Hospital Course Hospital Course: 56 y/o M admitted for seizure episode to ICU. Patient repeat CT showed improvement of intracraneal hemorrhage with slightly worsening surrounding edema. No new motorsensory impairment developed. Patient stayed stable during this admission. Was started on seizure prophylaxis with Depakote, evaluated by Neurology who cleared patient to return to rehab today after medically stable and will c/w treatment. Discharge Exam - Head Exam Head Exam: NORMAL INSPECTION - Eye Exam Eye Exam: EOMI, PERRL - ENT Exam ENT Exam: Mucous Membranes Moist - Respiratory Exam Respiratory Exam: Clear to PA & Lateral, NORMAL BREATHING PATTERN, UNREMARKABLE. absent: Rhonchi - Cardiovascular Exam Cardiovascular Exam: REGULAR RHYTHM, +S1, +S2. absent: Gallop - GI/Abdominal Exam GI & Abdominal Exam: Normal Bowel Sounds, Soft. absent: Tenderness - Neurological Exam Neurological exam: Alert, Motor Sensory Deficit (R/arm weakness and drift), Oriented x3 - Psychiatric Exam Psychiatric exam: Normal Affect, Normal Mood - Skin Skin Exam: Normal Color, Warm Discharge Plan - Follow Up Plan Condition: STABLE Disposition: REHAB FACILITY/REHAB UNIT Instructions: Hypertension (DC), Seizures, Adult (DC), Intracerebral Hemorrhage (DC)
[2017-05-09 12:08] VITALS: TEMP 98.3; O2SAT 98
[2017-05-09 14:09] VITALS: BP 117/70; PULSE 84; RESP 16
[2017-05-09] MEDS ORDERED: Divalproex 250 mg DR(BID formulation) PO SCH (17:00)
== END 2017-05-09 15:00 | DRG 100 ==
LOC: H.ER 18:28 → H.ERHOLD 19:27 → H.ICU/CCU 22:30
PROVIDERS: ADMIT Internal Medicine; ATTEND Internal Medicine
DX: G40.109 Localization-related (focal) (partial) symptomatic epilepsy and epileptic syndromes with simple partial seizures, not intractable, without status epilepticus (principal); G93.6 Cerebral edema; E78.00 Pure hypercholesterolemia, unspecified; I10 Essential (primary) hypertension; I69.331 Monoplegia of upper limb following cerebral infarction affecting right dominant side

== ENCOUNTER 2017-05-12 18:41 | Inpatient (IN) | payer OTHER ==
[2017-05-12 18:41] VITALS: BMI 30.8
[2017-05-12 19:21] LABS: BASO % 0.2 % (0.0-2.0); HEMOGLOBIN 16.3 g/dL (12.0-18.0); LYMPH # 1.3 K/uL (1.0-4.3); LYMPH % 6.6 % (20.0-40.0); MEAN CELL VOLUME 88.7 fl (80.0-94.0); MEAN CORPUSCULAR HEMOGLOBIN 30.8 pg (27.0-31.0); MEAN CORPUSCULAR HGB CONC 34.8 g/dL (33.0-37.0); MEAN PLATELET VOLUME 9.5 fl (7.2-11.7); MONO # 1.4 K/uL (0.0-0.8); MONO % 7.3 % (0.0-10.0); NEUT % 85.9 % (50.0-75.0); NRBC % 0.1 % (0.0-0.0); PLATELET COUNT 154 K/uL (130-400); RED CELL DISTRIBUTION WIDTH 13.1 % (11.5-14.5); WHITE BLOOD COUNT 19.8 K/uL (4.8-10.8)
[2017-05-12 19:23] LABS: ALB/GLOB RATIO 1.1 (1.0-2.1); ALBUMIN 3.6 g/dL (3.5-5.0); ALT/SGPT 63 U/L (21-72); AST/SGOT 35 U/L (17-59); BLOOD UREA NITROGEN 22 mg/dl (9-20); CALCIUM 9.4 mg/dL (8.4-10.2); GFR AFRICAN-AMERICAN > 60; GFR NON-AFRICAN AMERICAN > 60
[2017-05-12 19:35] LABS: INR 1.1 (0.9-1.2); PARTIAL THROMBOPLASTIN TIME 27.6 Seconds (25.6-37.1); PROTHROMBIN TIME 12.6 Seconds (9.8-13.1)
[2017-05-12 19:45] LABS: B-TYPE NATRIURETIC PEPTIDE 334 pg/ml (0-900)
[2017-05-12] MEDS ORDERED: Heparin 25,000units in D5W 25,000 UNITS/250 ML BAG IV SCH ×2 (20:00→21:15)
[2017-05-12] MEDS ORDERED: Heparin 25,000units in D5W 25,000 UNITS/250 ML BAG IV ONE (20:13)
--- NOTE | 2017-05-12 20:21 | ED PDOC ---
HPI: Chest Pain Time Seen by Provider: 05/12/17 18:46 Chief Complaint (Nursing): Abnormal Labs History Per: Patient, Family History/Exam Limitations: no limitations Onset/Duration Of Symptoms: Days (1), Gradual Current Symptoms Are (Timing): Still Present Severity: Moderate Quality: Sharp Associated Symptoms: denies: Nausea, Dyspnea, Diaphoresis, Syncope Modifying Factors: None Exacerbating Factors: None Alleviating Factors: None Additional History Per: Patient, Family Additional Complaint(s): Patient transferred from acute rehab (6floor). Patient had a CT scan done that resulted positive for PE. Patient transferred to ED for admission to ICU. Patient denies any SOB or any medical complaints. Past Medical History Reviewed: Historical Data, Nursing Documentation, Vital Signs Vital Signs: Last Vital Signs Temp 97.9 F 05/12/17 20:08 Pulse 112 H 05/12/17 20:08 Resp 18 05/12/17 20:08 BP 129/75 05/12/17 20:08 Pulse Ox 98 05/12/17 20:59 - Medical History PMH: HTN, Hypercholesterolemia, Seizures Denies: Chronic Kidney Disease - Family History Family History: States: Unknown Family Hx, Hypertension - Living Arrangements Living Arrangements: With Family - Social History Current smoker - smoking cessation education provided: No - Home Medications Home Medications: Ambulatory Orders Medication Instructions Recorded amLODIPine [Norvasc] 10 mg PO DAILY tab 05/02/17 Dexamethasone [Decadron] 2 mg PO Q12 tab 05/09/17 Pantoprazole [Protonix EC Tab] 40 mg PO DAILY ect 05/09/17 Acetaminophen [Tylenol 325mg tab] 325 mg PO Q6 PRN 05/12/17 Atorvastatin [Lipitor] 20 mg PO HS 05/12/17 Divalproex [Depakote DR(*BID*)] 500 mg PO Q12 05/12/17 Heparin [Heparin (RENAL)] 5,000 unit SC Q12 05/12/17 LORazepam [Ativan] 2 mg PO Q6 PRN 05/12/17 Labetalol [Trandate] 100 mg PO Q8 PRN 05/12/17 - Allergies Allergies/Adverse Reactions: Allergies Allergy/AdvReac Type Severity Reaction Status Date / Time No Known Allergies Allergy Verified 05/12/17 20:15 Review of Systems ROS Statement: Except As Marked, All Systems Reviewed And Found Negative Constitutional: Negative for: Fever, Chills Cardiovascular: Positive for: Chest Pain. Negative for: Palpitations Respiratory: Positive for: Shortness of Breath. Negative for: Cough Gastrointestinal: Negative for: Nausea, Vomiting, Abdominal Pain Skin: Negative for: Rash Neurological: Negative for: Weakness, Numbness, Altered Mental Status, Headache Physical Exam - Reviewed Nursing Documentation Reviewed: Yes Vital Signs Reviewed: Yes - Physical Exam Appears: Positive for: No Acute Distress, Uncomfortable Head Exam: Positive for: ATRAUMATIC, NORMAL INSPECTION, NORMOCEPHALIC Eye Exam: Positive for: Normal appearance, EOMI, PERRL Neck: Positive for: Normal, Painless ROM, Supple Cardiovascular/Chest: Positive for: Chest Non Tender, Tachycardia. Negative for : Edema, Gallop, Murmur, Bradycardia, Irregularly Irregular Respiratory: Positive for: Normal Breath Sounds. Negative for: Decreased Breath Sounds, Accessory Muscle Use, Crackles, Rales, Rhonchi, Stridor, Wheezing , Respiratory Distress Pulses-Radial (L): 2+ Pulses-Radial (R): 2+ Gastrointestinal/Abdominal: Positive for: Normal Exam, Bowel Sounds, Soft. Negative for: Tenderness Back: Positive for: Normal Inspection. Negative for: L CVA Tenderness, R CVA Tenderness Extremity: Positive for: Normal ROM. Negative for: Tenderness, Pedal Edema, Calf Tenderness, Capillary Refill, Deformity, Swelling Neurologic/Psych: Positive for: Alert, projection engineer II-XII, Oriented, Mood/Affect (calm) . Negative for: Motor/Sensory Deficits, Cerebellar Tests, Aphasia, Facial Droop - Laboratory Results Result Diagrams: 05/12/17 19:05 05/12/17 19:05 - ECG ECG: Positive for: Interpreted By Me ECG Rhythm: Positive for: Normal QRS, Normal ST Segment, Sinus Tachycardia (115) . Negative for: ST/T Changes Interpretation Of Abn EKG: no evidence of ischemia O2 Sat by Pulse Oximetry: 98 Pulse Ox Interpretation: Normal - Progress ED Course And Treament: discussed with case with Dr guerra, Dr Almaraz and Dr moctezuma. given pt has a pe and cerebral bleed approx 2 weeks ago will start low dose heparin gtt no bolus per Dr guerra will keep aptt at 70. do neuro checks q1 and admit to icu, pt and family discussed the risks including life threatening bleeding in the brain but they agree to the treatment plan agreed to by Dr moctezuma, Dr galvez and Dr Almaraz. Re-evaluation Time: 20:22 Condition: Unchanged Disposition - Clinical Impression Clinical Impression: ICH (intracerebral hemorrhage), Pulmonary embolism - Patient ED Disposition Is Patient to be Admitted: Yes Counseled Patient/Family Regarding: Studies Performed, Diagnosis - Disposition Disposition Time: 20:24 Condition: CRITICAL - POA Present On Arrival: Deep Vein Thrombosis / PE
[2017-05-12 20:28] LABS: LYMPHOCYTE 7 % (20-50); MONOCYTE 5 % (0-10); NEUTROPHIL 88 % (42-75); PLATELET ESTIMATE NORMAL (NORMAL); TOTAL CELLS COUNTED 100
--- NOTE | 2017-05-12 21:09 | CP.PCM.CON ---
History of Present Illness - History of Present Illness History of Present Illness: CC/Reason for ICU: large b/l PE in setting of recent ICH HPI: This is a 56 y/o male that was admitted ~2/ with R sided weakness and found to have a L parietal lobe hemorrhage. He was in the TCU when he developed seizures over a week ago, and was transferred to ER. From there he was started on AEDs and IV steroids and admitted to ICU. He remained stable and was eventually transferred back to TCU. This afternoon, patient developed CP and SOB , and was found to have a b/l PE and was again sent to ED where he was eval by neurology and neurosurg, and decision was made to admit to ICU on heparin gtt. Currently, patient without CP/SOB. MHx/SHx: HTN, HLD, DM2, hemorrhagic CVA; eye surg in the past Allergies: NDKA Medications: Per med rec Family Hx: HTN in family Social Hx: Lives with family, no tobacco currently, no significant EtOH Past Patient History - Past Medical History & Family History Past Medical History?: Yes - Past Social History Smoking Status: Never Smoked - CARDIAC Hx Hypercholesterolemia: Yes Hx Hypertension: Yes - PULMONARY Hx Respiratory Disorders: No - NEUROLOGICAL Hx Seizures: Yes - HEENT Hx HEENT Problems: No - RENAL Hx Chronic Kidney Disease: No - ENDOCRINE/METABOLIC Hx Diabetes Mellitus Type 2: Yes - HEMATOLOGICAL/ONCOLOGICAL Hx Blood Disorders: No - INTEGUMENTARY Hx Dermatological Problems: No - MUSCULOSKELETAL/RHEUMATOLOGICAL Hx Musculoskeletal Disorders: No Hx Falls: No - GASTROINTESTINAL Hx Gastrointestinal Disorders: No - GENITOURINARY/GYNECOLOGICAL Hx Genitourinary Disorders: No - PSYCHIATRIC Hx Psychophysiologic Disorder: No Hx Substance Use: No - SURGICAL HISTORY Hx Surgeries: Yes Other/Comment: Eye surgery as a toddler - ANESTHESIA Hx Anesthesia: Yes Hx Anesthesia Reactions: No Hx Malignant Hyperthermia: No Meds Allergies/Adverse Reactions: Allergies Allergy/AdvReac Type Severity Reaction Status Date / Time No Known Allergies Allergy Verified 05/12/17 20:15 - Medications Medications: Current Medications Acetaminophen (Tylenol 325mg Tab) 650 mg PO Q6H PRN PRN Reason: Fever >100.4 F Amlodipine Besylate (Norvasc) 10 mg PO DAILY [facility] Atorvastatin Calcium (Lipitor) 20 mg PO HS [facility] Dexamethasone (Decadron) 2 mg PO Q12 [facility] Divalproex Sodium (Depakote Dr(*Bid*)) 500 mg PO Q12 [facility] Heparin Sodium/Dextrose (Heparin 25,000 Units/250ml In D5w) 25,000 units in 250 mls @ 10 mls/hr IV .Q24H [facility] PRN Reason: Protocol Last Admin: 05/12/17 20:18 Dose: 10 mls/hr Labetalol HCl (Trandate) 100 mg PO Q8 PRN PRN Reason: SBP above 160 mmhg Pantoprazole Sodium (Protonix Ec Tab) 40 mg PO DAILY [facility] Physical Exam - Constitutional Appears: No Acute Distress - Head Exam Head Exam: ATRAUMATIC - Eye Exam Eye Exam: EOMI, PERRL - ENT Exam ENT Exam: Mucous Membranes Moist - Neck Exam Neck exam: Positive for: Full Rom - Respiratory Exam Respiratory Exam: Clear to Auscultation Bilateral, NORMAL BREATHING PATTERN - Cardiovascular Exam Cardiovascular Exam: REGULAR RHYTHM, +S1, +S2 - GI/Abdominal Exam GI & Abdominal Exam: Normal Bowel Sounds, Soft - Extremities Exam Extremities exam: Positive for: full ROM Additional comments: R sided weakness - Neurological Exam Neurological exam: Alert, CN II-XII Intact, Oriented x3 Additional comments: R sided weakness in comparison to L side, but still 4+ - 5/5 - Psychiatric Exam Psychiatric exam: Normal Affect, Normal Mood - Skin Skin Exam: Dry, Warm Results - Vital Signs Recent Vital Signs: Last Vital Signs Temp 97.9 F 05/12/17 20:08 Pulse 112 H 05/12/17 20:08 Resp 18 05/12/17 20:08 BP 129/75 05/12/17 20:08 Pulse Ox 98 05/12/17 20:59 - Labs Result Diagrams: 05/12/17 19:05 05/12/17 19:05 Labs: Laboratory Results - last 24 hr 05/12/17 05/12/17 05/12/17 19:05 19:05 19:05 WBC 19.8 H D RBC 5.30 Hgb 16.3 Hct 47.0 MCV 88.7 MCH 30.8 MCHC 34.8 RDW 13.1 Plt Count 154 MPV 9.5 Neut % (Auto) 85.9 H Lymph % (Auto) 6.6 L [place] % (Auto) 7.3 Eos % (Auto) 0.0 Baso % (Auto) 0.2 Neut # (Auto) 17.0 H Lymph # (Auto) 1.3 [place] # (Auto) 1.4 H Eos # (Auto) 0.0 Baso # (Auto) 0.0 Neutrophils % (Manual) 88 H Lymphocytes % (Manual) 7 L Monocytes % (Manual) 5 Platelet Estimate Normal RBC Morphology Normal PT 12.6 INR 1.1 APTT 27.6 Sodium 141 Potassium 4.0 Chloride 100 Carbon Dioxide 25 Anion Gap 20 BUN 22 H Creatinine 1.1 Est GFR ( Amer) > 60 Est GFR (Non-Af Amer) > 60 Random Glucose 147 H Calcium 9.4 Total Bilirubin 1.2 AST 35 ALT 63 Alkaline Phosphatase 68 Troponin I 0.7400 H* NT-Pro-B Natriuret Pep 334 Total Protein 6.9 Albumin 3.6 Globulin 3.2 Albumin/Globulin Ratio 1.1 - EKG Data EKG Interpreted by: Myself EKG shows normal: Sinus rhythm Rate: Tachycardia - Imaging and Cardiology CT scan - chest Status: Report reviewed by me (b/l PE) Assessment & Plan (1) Pulmonary embolism Assessment and Plan: Assessment and Plan: 56 y/o male with 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 -ICU for o/n observation -Cont heparin IV with goal PTT of 70 -[place] neurochecks -Cont IV Valproate -Cont IV decadron q12h -accucheck/SSI for ser gluc control -Cont scheduled medications for HTN, HLD -Consult with Haven Sawyer in AM (notified) -GI PPx with Protonix, on treatment dose heparin Status: Acute Status: Acute (2) ICH (intracerebral hemorrhage) Status: Chronic Priority: High (3) Hemiparesis Status: Chronic (4) DM2 (diabetes mellitus, type 2) Status: Acute (5) HTN (hypertension) Status: Chronic (6) DVT prophylaxis Status: Acute
--- NOTE | 2017-05-12 22:03 | US ---
EXAM: US Duplex Right Lower Extremity Veins CLINICAL HISTORY: 56 years old, male; Signs and symptoms; Swelling of limb; Lower extremity, bilateral; Additional info: Pain and swelling TECHNIQUE: Real-time ultrasound scan of the veins of the right lower extremity with color Doppler flow, spectral waveform analysis and compression. COMPARISON: No relevant prior studies available. FINDINGS: Deep veins: Incomplete compressibility of mid to distal superficial femoral vein. Partial flow on color or spectral Doppler imaging. Superficial veins: No thrombosis. Soft tissues: No popliteal cyst. IMPRESSION: 1. DVT of RIGHT mid to distal superficial femoral vein. EXAM: US Duplex Left Lower Extremity Veins CLINICAL HISTORY: 56 years old, male; Signs and symptoms; Swelling of limb; Lower extremity, bilateral; Additional info: Pain and swelling TECHNIQUE: Real-time ultrasound scan of the veins of the left lower extremity with color Doppler flow, spectral waveform analysis and compression. COMPARISON: No relevant prior studies available. FINDINGS: Deep veins: Normal color and spectral Doppler flow. Normal compressibility. No deep vein thrombosis from common femoral to popliteal vein. Superficial veins: No thrombosis. Soft tissues: No popliteal cyst. IMPRESSION: 1. No evidence of DVT within LEFT lower extremity.
[2017-05-12] MEDS: Insulin Lispro (humaLOG) 100 Units/ml Inj SC SCH (23:00)
[2017-05-13 05:26] LABS: HEMOGLOBIN 16.3 g/dL (12.0-18.0); MEAN CELL VOLUME 89.7 fl (80.0-94.0); MEAN CORPUSCULAR HEMOGLOBIN 30.9 pg (27.0-31.0); MEAN CORPUSCULAR HGB CONC 34.5 g/dL (33.0-37.0); RBC 5.26 Mil/uL (4.40-5.90); RED CELL DISTRIBUTION WIDTH 13.3 % (11.5-14.5); WHITE BLOOD COUNT 15.5 K/uL (4.8-10.8)
[2017-05-13 05:37] LABS: BLOOD UREA NITROGEN 24 mg/dl (9-20); CALCIUM 9.2 mg/dL (8.4-10.2); GFR AFRICAN-AMERICAN > 60; GFR NON-AFRICAN AMERICAN > 60
[2017-05-13] MEDS: Divalproex 500 mg DR(BID formulation) PO SCH ×2 (08:14→21:30)
[2017-05-13] MEDS: Pantoprazole 40 mg EC Tab PO SCH (08:14)
--- NOTE | 2017-05-13 08:52 | CP.PCM.HP ---
History of Present Illness - History of Present Illness History of Present Illness: Patient seen at bedside with Dr Guzman during morning rounds. 56 y/o male PMHx of HTN, HLD, DM2 and CVA was transferred from [place] to ED with c/o new onset SOB and CP. Patient was found to have B/L PE and R/leg DVT on imaging studies and he was admitted to ICU. Previously patient was admitted ~2/13 with R sided weakness and found to have a L parietal lobe hemorrhage. He was in the acute Rehab when he developed seizures over a week ago, and was readmitted to ICU and he was started on AEDs and IV steroids. He remained stable and was eventually transferred back to rehab. Yesterday he was evaluated by Cardio and Neuro and was started on heparin gtt. Today patient is Currently in not acute distress and denies CP/SOB, calf pain, headaches, paresthesias. MHx/SHx: HTN, HLD, DM2, hemorrhagic CVA; eye surg in the past Allergies: NDKA Medications: Per med rec Family Hx: HTN in family Social Hx: Lives with family, no tobacco currently, no significant EtOH Present on Admission - Present on Admission Any Indicators Present on Admission: Yes History of DVT/PE: Yes Review of Systems - Review of Systems All systems: reviewed and no additional remarkable complaints except - Respiratory Respiratory: Dyspnea - Neurological Neurological: Focal Weakness (Chronic) Past Patient History - Past Medical History & Family History Past Medical History?: Yes - Past Social History Smoking Status: Never Smoked - CARDIAC Hx Cardiac Disorders: Yes Hx Hypercholesterolemia: Yes Hx Hypertension: Yes - PULMONARY Hx Respiratory Disorders: No - NEUROLOGICAL Hx Neurological Disorder: Yes Hx Seizures: Yes - HEENT Hx HEENT Problems: No - RENAL Hx Chronic Kidney Disease: No - ENDOCRINE/METABOLIC Hx Endocrine Disorders: Yes Hx Diabetes Mellitus Type 2: Yes - HEMATOLOGICAL/ONCOLOGICAL Hx Blood Disorders: No - INTEGUMENTARY Hx Dermatological Problems: No - MUSCULOSKELETAL/RHEUMATOLOGICAL Hx Musculoskeletal Disorders: No Hx Falls: No - GASTROINTESTINAL Hx Gastrointestinal Disorders: No - GENITOURINARY/GYNECOLOGICAL Hx Genitourinary Disorders: No - PSYCHIATRIC Hx Psychophysiologic Disorder: No - SURGICAL HISTORY Hx Surgeries: Yes Other/Comment: Eye surgery as a toddler - ANESTHESIA Hx Anesthesia: Yes Hx Anesthesia Reactions: No Hx Malignant Hyperthermia: No Meds Allergies/Adverse Reactions: Allergies Allergy/AdvReac Type Severity Reaction Status Date / Time No Known Allergies Allergy Verified 05/12/17 20:15 Physical Exam - Constitutional Appears: Non-toxic, No Acute Distress - Eye Exam Eye Exam: EOMI, PERRL - ENT Exam ENT Exam: Mucous Membranes Moist - Respiratory Exam Respiratory Exam: Clear to Auscultation Bilateral, NORMAL BREATHING PATTERN. absent: Decreased Breath Sounds, Rales, Wheezes - Cardiovascular Exam Cardiovascular Exam: REGULAR RHYTHM, +S1, +S2. absent: Gallop - GI/Abdominal Exam GI & Abdominal Exam: Normal Bowel Sounds, Soft. absent: Distended, Tenderness - Extremities Exam Extremities exam: Negative for: calf tenderness, joint swelling, pedal edema - Neurological Exam Neurological exam: Alert, Motor Sensory Deficit (R/arm drift and weakness present since previous admission), Normal Gait, Oriented x3 - Psychiatric Exam Psychiatric exam: Normal Affect, Normal Mood - Skin Skin Exam: Normal Color, Warm Results - Vital Signs Recent Vital Signs: Last Vital Signs Temp 97.9 F 05/13/17 08:00 Pulse 82 05/13/17 08:14 Resp 19 05/13/17 08:00 BP 126/93 H 05/13/17 08:14 Pulse Ox 99 05/13/17 08:00 - Labs Result Diagrams: 05/13/17 04:20 05/13/17 04:20 Labs: Laboratory Results - last 24 hr 05/12/17 05/12/17 05/12/17 19:05 19:05 19:05 WBC 19.8 H D RBC 5.30 Hgb 16.3 Hct 47.0 MCV 88.7 MCH 30.8 MCHC 34.8 RDW 13.1 Plt Count 154 MPV 9.5 Neut % (Auto) 85.9 H Lymph % (Auto) 6.6 L [place] % (Auto) 7.3 Eos % (Auto) 0.0 Baso % (Auto) 0.2 Neut # (Auto) 17.0 H Lymph # (Auto) 1.3 [place] # (Auto) 1.4 H Eos # (Auto) 0.0 Baso # (Auto) 0.0 Neutrophils % (Manual) 88 H Lymphocytes % (Manual) 7 L Monocytes % (Manual) 5 Platelet Estimate Normal RBC Morphology Normal PT 12.6 INR 1.1 APTT 27.6 Sodium 141 Potassium 4.0 Chloride 100 Carbon Dioxide 25 Anion Gap 20 BUN 22 H Creatinine 1.1 Est GFR ( Amer) > 60 Est GFR (Non-Af Amer) > 60 POC Glucose (mg/dL) Random Glucose 147 H Calcium 9.4 Total Bilirubin 1.2 AST 35 ALT 63 Alkaline Phosphatase 68 Troponin I 0.7400 H* NT-Pro-B Natriuret Pep 334 Total Protein 6.9 Albumin 3.6 Globulin 3.2 Albumin/Globulin Ratio 1.1 05/12/17 05/13/17 05/13/17 23:56 02:31 04:20 WBC 15.5 H RBC 5.26 Hgb 16.3 Hct 47.2 MCV 89.7 MCH 30.9 MCHC 34.5 RDW 13.3 Plt Count 145 MPV Neut % (Auto) Lymph % (Auto) [place] % (Auto) Eos % (Auto) Baso % (Auto) Neut # (Auto) Lymph # (Auto) [place] # (Auto) Eos # (Auto) Baso # (Auto) Neutrophils % (Manual) Lymphocytes % (Manual) Monocytes % (Manual) Platelet Estimate RBC Morphology PT INR APTT 61.0 H D Sodium Potassium Chloride Carbon Dioxide Anion Gap BUN Creatinine Est GFR ( Amer) Est GFR (Non-Af Amer) POC Glucose (mg/dL) 109 Random Glucose Calcium Total Bilirubin AST ALT Alkaline Phosphatase Troponin I NT-Pro-B Natriuret Pep Total Protein Albumin Globulin Albumin/Globulin Ratio 05/13/17 05/13/17 04:20 05:44 WBC RBC Hgb Hct MCV MCH MCHC RDW Plt Count MPV Neut % (Auto) Lymph % (Auto) [place] % (Auto) Eos % (Auto) Baso % (Auto) Neut # (Auto) Lymph # (Auto) [place] # (Auto) Eos # (Auto) Baso # (Auto) Neutrophils % (Manual) Lymphocytes % (Manual) Monocytes % (Manual) Platelet Estimate RBC Morphology PT INR APTT Sodium 142 Potassium 3.8 Chloride 102 Carbon Dioxide 29 Anion Gap 15 BUN 24 H Creatinine 1.0 Est GFR ( Amer) > 60 Est GFR (Non-Af Amer) > 60 POC Glucose (mg/dL) 86 Random Glucose 101 Calcium 9.2 Total Bilirubin AST ALT Alkaline Phosphatase Troponin I NT-Pro-B Natriuret Pep Total Protein Albumin Globulin Albumin/Globulin Ratio Assessment & Plan - Assessment and Plan (Free Text) Assessment: Pulmonary embolism/DVT Acute trponins elevated CT/LE US reports B/L PE and R/leg DVT ICU Cardio consult Neuro Consult C/W Heparin APTT today 40s F/U Lupus anticoagulant, AMY, RF Intracraneal hemorrhage/Edema C/W Current treatment No new neurologic signs F/U Neuro recs: Patient now on anticoag therapy for PE
[2017-05-13] MEDS ORDERED: Pantoprazole 40 mg EC Tab PO SCH (09:00)
--- NOTE | 2017-05-13 10:38 | CP.PCM.CON ---
History of Present Illness - History of Present Illness History of Present Illness: Asked to evaluate this 56 year old male who was in acute rehab subsequent to having had a hemorrhagic stroke which was followed by a seizure. He had noted a vague feeling of unusual fatigue without any chest or leg discomfort or shortness of breath. A CTA of the chest was performed which revealed multiple pulmonary emboli in the upper and lower lobes of both lungs. A subsequent venous duplex scan of the legs revealed residual clot present in the superficial femoral vein of the RLE. He has been started on heparin anticoagulation w/o the use of a bolus dose and placed in the ICU for close monitoring. He denies any other significant past history except for hypertension many years ago, but he had stopped taking medication for a number of years now. He denies any past history of lung disease and has never smoked cigarettes, but did have secondhand exposure growing up in a household with smoking parents. Past Patient History - Past Medical History & Family History Past Medical History?: Yes Pertinent Family History: Hypertension. No family history of bleeding disorder or blood clots. - Past Social History Smoking Status: Never Smoked Chewing Tobacco Use: No Cigar Use: No Alcohol: Social Drugs: Denies - CARDIAC Hx Hypercholesterolemia: Yes Hx Hypertension: Yes - PULMONARY Hx Respiratory Disorders: No - NEUROLOGICAL HX Cerebrovascular Accident: Yes (hemorrhagic) Hx Seizures: Yes - HEENT Hx HEENT Problems: No - RENAL Hx Chronic Kidney Disease: No - ENDOCRINE/METABOLIC Hx Diabetes Mellitus Type 2: Yes - HEMATOLOGICAL/ONCOLOGICAL Hx Blood Disorders: No - INTEGUMENTARY Hx Dermatological Problems: No - MUSCULOSKELETAL/RHEUMATOLOGICAL Hx Musculoskeletal Disorders: No Hx Falls: No - GASTROINTESTINAL Hx Gastrointestinal Disorders: No - GENITOURINARY/GYNECOLOGICAL Hx Genitourinary Disorders: No - PSYCHIATRIC Hx Psychophysiologic Disorder: No - SURGICAL HISTORY Other/Comment: Eye surgery as a toddler - ANESTHESIA Hx Anesthesia: Yes Hx Anesthesia Reactions: No Hx Malignant Hyperthermia: No Meds Allergies/Adverse Reactions: Allergies Allergy/AdvReac Type Severity Reaction Status Date / Time No Known Allergies Allergy Verified 05/12/17 20:15 - Medications Medications: Current Medications Acetaminophen (Tylenol 325mg Tab) 650 mg PO Q6H PRN PRN Reason: Fever >100.4 F Amlodipine Besylate (Norvasc) 10 mg PO DAILY [facility] Last Admin: 05/13/17 08:14 Dose: 10 mg Atorvastatin Calcium (Lipitor) 20 mg PO HS ALONDAR Dexamethasone (Decadron) 2 mg PO Q12 [facility] Last Admin: 05/13/17 08:13 Dose: 2 mg Divalproex Sodium (Depakote Dr(*Bid*)) 500 mg PO Q12 [facility] Last Admin: 05/13/17 08:14 Dose: 500 mg Heparin Sodium/Dextrose (Heparin 25,000 Units/250ml In D5w) 25,000 units in 250 mls @ 10 mls/hr IV .Q24H [facility]ON[facility]A PRN Reason: Protocol Last Admin: 05/12/17 20:18 Dose: 10 mls/hr Heparin Sodium/Dextrose (Heparin 25,000 Units/250ml In D5w) 25,000 units in 250 mls @ 10 mls/hr IV .Q24H [facility] PRN Reason: Protocol Insulin Human Lispro (Humalog) 0 units SC ACHS [facility] PRN Reason: Protocol Last Admin: 05/12/17 23:00 Dose: Not Given Labetalol HCl (Trandate) 100 mg PO Q8 PRN PRN Reason: SBP above 160 mmhg Pantoprazole Sodium (Protonix Ec Tab) 40 mg PO DAILY [facility] Last Admin: 05/13/17 08:14 Dose: 40 mg Physical Exam - Additional Findings Additional findings: Well nourished, well developed, in no acute distress. Appears comfortable during the exam. Cooperative with exam, memory is intact, speech is fluent. Pharynx is pink and moist. Neck is supple and trachea midline. No JVD or carotid bruit. No palpable lymphadenopathy. No dullness on chest percussion, no subcut emphysema, equal expansion. Breath sounds are well heard bilaterally w/o rales or rhonchi. No audible wheezing or bronchial breathing. No rub. Heart sounds are well heard, regular, w/o increased P2. Abdomen is soft and non-tender. Normal bowel sopunds. N o CVA tenderness. Peripheral pulses are present in all 4 extremities, slightly diminished in the RLE. No Gio's sign, no calf tenderness, no visible venous dilation. No edema or cyanosis. Results - Vital Signs Recent Vital Signs: Last Vital Signs Temp 97.9 F 05/13/17 08:00 Pulse 82 05/13/17 08:14 Resp 19 05/13/17 08:00 BP 126/93 H 02/27/18 08:14 Pulse Ox 99 05/13/17 08:00 - Labs Result Diagrams: 05/13/17 04:20 05/13/17 04:20 Labs: Laboratory Results - last 24 hr 05/12/17 05/12/17 05/12/17 19:05 19:05 19:05 WBC 19.8 H D RBC 5.30 Hgb 16.3 Hct 47.0 MCV 88.7 MCH 30.8 MCHC 34.8 RDW 13.1 Plt Count 154 MPV 9.5 Neut % (Auto) 85.9 H Lymph % (Auto) 6.6 L [place] % (Auto) 7.3 Eos % (Auto) 0.0 Baso % (Auto) 0.2 Neut # (Auto) 17.0 H Lymph # (Auto) 1.3 [place] # (Auto) 1.4 H Eos # (Auto) 0.0 Baso # (Auto) 0.0 Neutrophils % (Manual) 88 H Lymphocytes % (Manual) 7 L Monocytes % (Manual) 5 Platelet Estimate Normal RBC Morphology Normal PT 12.6 INR 1.1 APTT 27.6 Sodium 141 Potassium 4.0 Chloride 100 Carbon Dioxide 25 Anion Gap 20 BUN 22 H Creatinine 1.1 Est GFR ( Amer) > 60 Est GFR (Non-Af Amer) > 60 POC Glucose (mg/dL) Random Glucose 147 H Calcium 9.4 Total Bilirubin 1.2 AST 35 ALT 63 Alkaline Phosphatase 68 Troponin I 0.7400 H* NT-Pro-B Natriuret Pep 334 Total Protein 6.9 Albumin 3.6 Globulin 3.2 Albumin/Globulin Ratio 1.1 05/12/17 05/13/17 05/13/17 23:56 02:31 04:20 WBC 15.5 H RBC 5.26 Hgb 16.3 Hct 47.2 MCV 89.7 MCH 30.9 MCHC 34.5 RDW 13.3 Plt Count 145 MPV Neut % (Auto) Lymph % (Auto) [place] % (Auto) Eos % (Auto) Baso % (Auto) Neut # (Auto) Lymph # (Auto) [place] # (Auto) Eos # (Auto) Baso # (Auto) Neutrophils % (Manual) Lymphocytes % (Manual) Monocytes % (Manual) Platelet Estimate RBC Morphology PT INR APTT 61.0 H D Sodium Potassium Chloride Carbon Dioxide Anion Gap BUN Creatinine Est GFR ( Amer) Est GFR (Non-Af Amer) POC Glucose (mg/dL) 109 Random Glucose Calcium Total Bilirubin AST ALT Alkaline Phosphatase Troponin I NT-Pro-B Natriuret Pep Total Protein Albumin Globulin Albumin/Globulin Ratio 05/13/17 05/13/17 05/13/17 04:20 05:44 08:40 WBC RBC Hgb Hct MCV MCH MCHC RDW Plt Count MPV Neut % (Auto) Lymph % (Auto) [place] % (Auto) Eos % (Auto) Baso % (Auto) Neut # (Auto) Lymph # (Auto) [place] # (Auto) Eos # (Auto) Baso # (Auto) Neutrophils % (Manual) Lymphocytes % (Manual) Monocytes % (Manual) Platelet Estimate RBC Morphology PT INR APTT 45.2 H D Sodium 142 Potassium 3.8 Chloride 102 Carbon Dioxide 29 Anion Gap 15 BUN 24 H Creatinine 1.0 Est GFR ( Amer) > 60 Est GFR (Non-Af Amer) > 60 POC Glucose (mg/dL) 86 Random Glucose 101 Calcium 9.2 Total Bilirubin AST ALT Alkaline Phosphatase Troponin I NT-Pro-B Natriuret Pep Total Protein Albumin Globulin Albumin/Globulin Ratio 05/13/17 08:40 WBC RBC Hgb Hct MCV MCH MCHC RDW Plt Count MPV Neut % (Auto) Lymph % (Auto) [place] % (Auto) Eos % (Auto) Baso % (Auto) Neut # (Auto) Lymph # (Auto) [place] # (Auto) Eos # (Auto) Baso # (Auto) Neutrophils % (Manual) Lymphocytes % (Manual) Monocytes % (Manual) Platelet Estimate RBC Morphology PT INR APTT Sodium Potassium Chloride Carbon Dioxide Anion Gap BUN Creatinine Est GFR ( Amer) Est GFR (Non-Af Amer) POC Glucose (mg/dL) Random Glucose Calcium Total Bilirubin AST ALT Alkaline Phosphatase Troponin I 0.3520 H* NT-Pro-B Natriuret Pep Total Protein Albumin Globulin Albumin/Globulin Ratio Assessment & Plan (1) Pulmonary embolism Status: Acute Priority: High Comment: Multiple defects in both lungs. Sub-massive. No evidence of pulmonary infarction. Recommend echocardiogram. Troponins have been elevated. (2) Deep vein blood clot of right lower extremity Status: Acute Priority: High Comment: Residual clot found in superficial femoral vein of ther RLE. Recommenr IVC filter placement. - Date & Time Date: 05/13/17 Time: 10:37
--- NOTE | 2017-05-13 10:58 | CP.PCM.CON ---
History of Present Illness - History of Present Illness History of Present Illness: dictated no current rec from our sta,dpoint agree with IVC filter F/U MRI with gay 1 month Past Patient History - Past Medical History & Family History Past Medical History?: Yes - Past Social History Smoking Status: Never Smoked Chewing Tobacco Use: No Cigar Use: No Alcohol: Social Drugs: Denies - CARDIAC Hx Hypercholesterolemia: Yes Hx Hypertension: Yes - PULMONARY Hx Respiratory Disorders: No - NEUROLOGICAL HX Cerebrovascular Accident: Yes (hemorrhagic) Hx Seizures: Yes - HEENT Hx HEENT Problems: No - RENAL Hx Chronic Kidney Disease: No - ENDOCRINE/METABOLIC Hx Endocrine Disorders: Yes Hx Diabetes Mellitus Type 2: Yes - HEMATOLOGICAL/ONCOLOGICAL Hx Blood Disorders: No - INTEGUMENTARY Hx Dermatological Problems: No - MUSCULOSKELETAL/RHEUMATOLOGICAL Hx Musculoskeletal Disorders: No Hx Falls: No - GASTROINTESTINAL Hx Gastrointestinal Disorders: No - GENITOURINARY/GYNECOLOGICAL Hx Genitourinary Disorders: No - PSYCHIATRIC Hx Psychophysiologic Disorder: No - SURGICAL HISTORY Hx Surgeries: Yes Other/Comment: Eye surgery as a toddler - ANESTHESIA Hx Anesthesia: Yes Hx Anesthesia Reactions: No Hx Malignant Hyperthermia: No Meds Allergies/Adverse Reactions: Allergies Allergy/AdvReac Type Severity Reaction Status Date / Time No Known Allergies Allergy Verified 05/12/17 20:15 - Medications Medications: Current Medications Acetaminophen (Tylenol 325mg Tab) 650 mg PO Q6H PRN PRN Reason: Fever >100.4 F Amlodipine Besylate (Norvasc) 10 mg PO DAILY [facility] Last Admin: 05/13/17 08:14 Dose: 10 mg Atorvastatin Calcium (Lipitor) 20 mg PO HS ALONDRA Dexamethasone (Decadron) 2 mg PO Q12 [facility] Last Admin: 05/13/17 08:13 Dose: 2 mg Divalproex Sodium (Depakote Dr(*Bid*)) 500 mg PO Q12 [facility] Last Admin: 05/13/17 08:14 Dose: 500 mg Heparin Sodium/Dextrose (Heparin 25,000 Units/250ml In D5w) 25,000 units in 250 mls @ 10 mls/hr IV .Q24H [facility] PRN Reason: Protocol Last Admin: 05/12/17 20:18 Dose: 10 mls/hr Heparin Sodium/Dextrose (Heparin 25,000 Units/250ml In D5w) 25,000 units in 250 mls @ 10 mls/hr IV .Q24H [facility] PRN Reason: Protocol Insulin Human Lispro (Humalog) 0 units SC ACHS [facility] PRN Reason: Protocol Last Admin: 05/12/17 23:00 Dose: Not Given Labetalol HCl (Trandate) 100 mg PO Q8 PRN PRN Reason: SBP above 160 mmhg Pantoprazole Sodium (Protonix Ec Tab) 40 mg PO DAILY [facility] Last Admin: 05/13/17 08:14 Dose: 40 mg Results - Vital Signs Recent Vital Signs: Last Vital Signs Temp 97.9 F 05/13/17 08:00 Pulse 82 05/13/17 08:14 Resp 19 05/13/17 08:00 BP 126/93 H 05/13/17 08:14 Pulse Ox 99 05/13/17 08:00 - Labs Result Diagrams: 05/13/17 04:20 05/13/17 04:20 Labs: Laboratory Results - last 24 hr 05/12/17 05/12/17 05/12/17 19:05 19:05 19:05 WBC 19.8 H D RBC 5.30 Hgb 16.3 Hct 47.0 MCV 88.7 MCH 30.8 MCHC 34.8 RDW 13.1 Plt Count 154 MPV 9.5 Neut % (Auto) 85.9 H Lymph % (Auto) 6.6 L [place] % (Auto) 7.3 Eos % (Auto) 0.0 Baso % (Auto) 0.2 Neut # (Auto) 17.0 H Lymph # (Auto) 1.3 [place] # (Auto) 1.4 H Eos # (Auto) 0.0 Baso # (Auto) 0.0 Neutrophils % (Manual) 88 H Lymphocytes % (Manual) 7 L Monocytes % (Manual) 5 Platelet Estimate Normal RBC Morphology Normal PT 12.6 INR 1.1 APTT 27.6 Sodium 141 Potassium 4.0 Chloride 100 Carbon Dioxide 25 Anion Gap 20 BUN 22 H Creatinine 1.1 Est GFR ( Amer) > 60 Est GFR (Non-Af Amer) > 60 POC Glucose (mg/dL) Random Glucose 147 H Calcium 9.4 Total Bilirubin 1.2 AST 35 ALT 63 Alkaline Phosphatase 68 Troponin I 0.7400 H* NT-Pro-B Natriuret Pep 334 Total Protein 6.9 Albumin 3.6 Globulin 3.2 Albumin/Globulin Ratio 1.1 05/12/17 05/13/17 05/13/17 23:56 02:31 04:20 WBC 15.5 H RBC 5.26 Hgb 16.3 Hct 47.2 MCV 89.7 MCH 30.9 MCHC 34.5 RDW 13.3 Plt Count 145 MPV Neut % (Auto) Lymph % (Auto) [place] % (Auto) Eos % (Auto) Baso % (Auto) Neut # (Auto) Lymph # (Auto) [place] # (Auto) Eos # (Auto) Baso # (Auto) Neutrophils % (Manual) Lymphocytes % (Manual) Monocytes % (Manual) Platelet Estimate RBC Morphology PT INR APTT 61.0 H D Sodium Potassium Chloride Carbon Dioxide Anion Gap BUN Creatinine Est GFR ( Amer) Est GFR (Non-Af Amer) POC Glucose (mg/dL) 109 Random Glucose Calcium Total Bilirubin AST ALT Alkaline Phosphatase Troponin I NT-Pro-B Natriuret Pep Total Protein Albumin Globulin Albumin/Globulin Ratio 05/13/17 05/13/17 05/13/17 04:20 05:44 08:40 WBC RBC Hgb Hct MCV MCH MCHC RDW Plt Count MPV Neut % (Auto) Lymph % (Auto) [place] % (Auto) Eos % (Auto) Baso % (Auto) Neut # (Auto) Lymph # (Auto) [place] # (Auto) Eos # (Auto) Baso # (Auto) Neutrophils % (Manual) Lymphocytes % (Manual) Monocytes % (Manual) Platelet Estimate RBC Morphology PT INR APTT 45.2 H D Sodium 142 Potassium 3.8 Chloride 102 Carbon Dioxide 29 Anion Gap 15 BUN 24 H Creatinine 1.0 Est GFR ( Amer) > 60 Est GFR (Non-Af Amer) > 60 POC Glucose (mg/dL) 86 Random Glucose 101 Calcium 9.2 Total Bilirubin AST ALT Alkaline Phosphatase Troponin I NT-Pro-B Natriuret Pep Total Protein Albumin Globulin Albumin/Globulin Ratio 05/13/17 08:40 WBC RBC Hgb Hct MCV MCH MCHC RDW Plt Count MPV Neut % (Auto) Lymph % (Auto) [place] % (Auto) Eos % (Auto) Baso % (Auto) Neut # (Auto) Lymph # (Auto) [place] # (Auto) Eos # (Auto) Baso # (Auto) Neutrophils % (Manual) Lymphocytes % (Manual) Monocytes % (Manual) Platelet Estimate RBC Morphology PT INR APTT Sodium Potassium Chloride Carbon Dioxide Anion Gap BUN Creatinine Est GFR ( Amer) Est GFR (Non-Af Amer) POC Glucose (mg/dL) Random Glucose Calcium Total Bilirubin AST ALT Alkaline Phosphatase Troponin I 0.3520 H* NT-Pro-B Natriuret Pep Total Protein Albumin Globulin Albumin/Globulin Ratio
[2017-05-13] MEDS: Insulin Lispro (humaLOG) 100 Units/ml Inj SC SCH ×3 (12:00→21:35)
[2017-05-13] MEDS ORDERED: Heparin 25,000units in D5W 25,000 UNITS/250 ML BAG IV SCH (12:55)
--- NOTE | 2017-05-13 13:19 | CP.PCM.CON ---
History of Present Illness - History of Present Illness History of Present Illness: This is a 56 yrs old male who had a hemorrhagic stroke about 2 weeks ago.At the time his blood pressure was very high. He was placed in acute rehab for physical therapy. He then had shortness of breath and some chest pain, and chest CT found him to have diffuse pulmonary thrombi, but no infarction. He also had a venous doppler of the lower extremities and found to have DVT in the the right lower extremity. He was transferred back to the ICU and started on a iv heparin drip without a loading dose,. He seems stable at this time. He has not had any past h/o thombotic episodes, (but his sister had seperation of the placenta 2 times. ). Plans are being made to place a [place]me[place] filter on him. He had a past h/o htn, was given medications, but stopped taking them because his pressure was good for a while Past Patient History - Past Medical History & Family History Past Medical History?: Yes - Past Social History Smoking Status: Never Smoked Chewing Tobacco Use: No Cigar Use: No Alcohol: Social Drugs: Denies - CARDIAC Hx Hypercholesterolemia: Yes Hx Hypertension: Yes - PULMONARY Hx Respiratory Disorders: No - NEUROLOGICAL HX Cerebrovascular Accident: Yes (hemorrhagic) Hx Seizures: Yes - HEENT Hx HEENT Problems: No - RENAL Hx Chronic Kidney Disease: No - ENDOCRINE/METABOLIC Hx Diabetes Mellitus Type 2: Yes - HEMATOLOGICAL/ONCOLOGICAL Hx Blood Disorders: No - INTEGUMENTARY Hx Dermatological Problems: No - MUSCULOSKELETAL/RHEUMATOLOGICAL Hx Musculoskeletal Disorders: No Hx Falls: No - GASTROINTESTINAL Hx Gastrointestinal Disorders: No - GENITOURINARY/GYNECOLOGICAL Hx Genitourinary Disorders: No - PSYCHIATRIC Hx Psychophysiologic Disorder: No - SURGICAL HISTORY Other/Comment: Eye surgery as a toddler - ANESTHESIA Hx Anesthesia: Yes Hx Anesthesia Reactions: No Hx Malignant Hyperthermia: No Meds Allergies/Adverse Reactions: Allergies Allergy/AdvReac Type Severity Reaction Status Date / Time No Known Allergies Allergy Verified 05/12/17 20:15 - Medications Medications: Current Medications Acetaminophen (Tylenol 325mg Tab) 650 mg PO Q6H PRN PRN Reason: Fever >100.4 F Amlodipine Besylate (Norvasc) 10 mg PO DAILY [facility] Last Admin: 05/13/17 08:14 Dose: 10 mg Atorvastatin Calcium (Lipitor) 20 mg PO HS ALONDRA Dexamethasone (Decadron) 2 mg PO Q12 [facility] Last Admin: 05/13/17 08:13 Dose: 2 mg Divalproex Sodium (Depakote Dr(*Bid*)) 500 mg PO Q12 [facility] Last Admin: 05/13/17 08:14 Dose: 500 mg Heparin Sodium/Dextrose (Heparin 25,000 Units/250ml In D5w) 25,000 units in 250 mls @ 12 mls/hr IV .[id number] ALONDRA PRN Reason: Protocol Insulin Human Lispro (Humalog) 0 units SC ACHS [facility] PRN Reason: Protocol Last Admin: 05/12/17 23:00 Dose: Not Given Labetalol HCl (Trandate) 100 mg PO Q8 PRN PRN Reason: SBP above 160 mmhg Pantoprazole Sodium (Protonix Ec Tab) 40 mg PO DAILY [facility] Last Admin: 05/13/17 08:14 Dose: 40 mg Physical Exam - Additional Findings Additional findings: Physical exam; Alert, well oriented, in no acute distress. neck; Supple, no adenopath hest; Clear, no rales or rhonchi Heart; RSR, no murmur Lower extremities do not show swelling or increased temp. Results - Vital Signs Recent Vital Signs: Last Vital Signs Temp 98.2 F 05/13/17 12:00 Pulse 90 05/13/17 12:00 Resp 17 05/13/17 12:00 BP 146/110 H 05/13/17 12:00 Pulse Ox 95 05/13/17 12:00 - Labs Result Diagrams: 05/13/17 04:20 05/13/17 04:20 Labs: Laboratory Results - last 24 hr 05/12/17 05/12/17 05/12/17 19:05 19:05 19:05 WBC 19.8 H D RBC 5.30 Hgb 16.3 Hct 47.0 MCV 88.7 MCH 30.8 MCHC 34.8 RDW 13.1 Plt Count 154 MPV 9.5 Neut % (Auto) 85.9 H Lymph % (Auto) 6.6 L [place] % (Auto) 7.3 Eos % (Auto) 0.0 Baso % (Auto) 0.2 Neut # (Auto) 17.0 H Lymph # (Auto) 1.3 [place] # (Auto) 1.4 H Eos # (Auto) 0.0 Baso # (Auto) 0.0 Neutrophils % (Manual) 88 H Lymphocytes % (Manual) 7 L Monocytes % (Manual) 5 Platelet Estimate Normal RBC Morphology Normal PT 12.6 INR 1.1 APTT 27.6 Sodium 141 Potassium 4.0 Chloride 100 Carbon Dioxide 25 Anion Gap 20 BUN 22 H Creatinine 1.1 Est GFR ( Amer) > 60 Est GFR (Non-Af Amer) > 60 POC Glucose (mg/dL) Random Glucose 147 H Calcium 9.4 Total Bilirubin 1.2 AST 35 ALT 63 Alkaline Phosphatase 68 Troponin I 0.7400 H* NT-Pro-B Natriuret Pep 334 Total Protein 6.9 Albumin 3.6 Globulin 3.2 Albumin/Globulin Ratio 1.1 05/12/17 05/13/17 05/13/17 23:56 02:31 04:20 WBC 15.5 H RBC 5.26 Hgb 16.3 Hct 47.2 MCV 89.7 MCH 30.9 MCHC 34.5 RDW 13.3 Plt Count 145 MPV Neut % (Auto) Lymph % (Auto) [place] % (Auto) Eos % (Auto) Baso % (Auto) Neut # (Auto) Lymph # (Auto) [place] # (Auto) Eos # (Auto) Baso # (Auto) Neutrophils % (Manual) Lymphocytes % (Manual) Monocytes % (Manual) Platelet Estimate RBC Morphology PT INR APTT 61.0 H D Sodium Potassium Chloride Carbon Dioxide Anion Gap BUN Creatinine Est GFR ( Amer) Est GFR (Non-Af Amer) POC Glucose (mg/dL) 109 Random Glucose Calcium Total Bilirubin AST ALT Alkaline Phosphatase Troponin I NT-Pro-B Natriuret Pep Total Protein Albumin Globulin Albumin/Globulin Ratio 05/13/17 05/13/17 05/13/17 04:20 05:44 08:40 WBC RBC Hgb Hct MCV MCH MCHC RDW Plt Count MPV Neut % (Auto) Lymph % (Auto) [place] % (Auto) Eos % (Auto) Baso % (Auto) Neut # (Auto) Lymph # (Auto) [place] # (Auto) Eos # (Auto) Baso # (Auto) Neutrophils % (Manual) Lymphocytes % (Manual) Monocytes % (Manual) Platelet Estimate RBC Morphology PT INR APTT 45.2 H D Sodium 142 Potassium 3.8 Chloride 102 Carbon Dioxide 29 Anion Gap 15 BUN 24 H Creatinine 1.0 Est GFR ( Amer) > 60 Est GFR (Non-Af Amer) > 60 POC Glucose (mg/dL) 86 Random Glucose 101 Calcium 9.2 Total Bilirubin AST ALT Alkaline Phosphatase Troponin I NT-Pro-B Natriuret Pep Total Protein Albumin Globulin Albumin/Globulin Ratio 05/13/17 05/13/17 08:40 11:26 WBC RBC Hgb Hct MCV MCH MCHC RDW Plt Count MPV Neut % (Auto) Lymph % (Auto) [place] % (Auto) Eos % (Auto) Baso % (Auto) Neut # (Auto) Lymph # (Auto) [place] # (Auto) Eos # (Auto) Baso # (Auto) Neutrophils % (Manual) Lymphocytes % (Manual) Monocytes % (Manual) Platelet Estimate RBC Morphology PT INR APTT Sodium Potassium Chloride Carbon Dioxide Anion Gap BUN Creatinine Est GFR ( Amer) Est GFR (Non-Af Amer) POC Glucose (mg/dL) 103 Random Glucose Calcium Total Bilirubin AST ALT Alkaline Phosphatase Troponin I 0.3520 H* NT-Pro-B Natriuret Pep Total Protein Albumin Globulin Albumin/Globulin Ratio Assessment & Plan - Assessment and Plan (Free Text) Assessment: Impression; CVA hemorrhagic DVT right lower [id number] Diffuse pulmonary embolism Plan: Plan; I agree with the IVC filter placement as long as it is a retrievable filter. 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
[2017-05-13] MEDS: Heparin 25,000units in D5W 25,000 UNITS/250 ML BAG IV SCH ×2 (15:10→21:32)
--- NOTE | 2017-05-13 15:40 | CT ---
PROCEDURE: CT scan of the brain dated 05/07/2017 HISTORY: Evaluate bleeding. COMPARISON: Comparison made with prior study dated 05/07/2017 TECHNIQUE: Contiguous helical/transaxial computed tomography images were obtained through the head/brain without intravenous contrast. Radiation dose: Total exam DLP = 956.71 mGy-cm. This CT exam was performed using one or more of the following dose reduction techniques: Automated exposure control, adjustment of the mA and/or kV according to patient size, and/or use of iterative reconstruction technique. FINDINGS: HEMORRHAGE: The at current study reveals interval evolution previously noted parenchymal hematoma in the left posterior superior frontoparietal region. The hematoma has diminished in size and contents be acuity slightly. The hematoma surrounded by a large margin of vasogenic white matter edema which has increased in size and also undergone further demarcation. The hematoma and attendant edema continue to exert overlying mass effect with sulcal and effacement and fairly significant at inferior and medial compression of the right lateral ventricle more so along the posterior margin of. No significant midline shift. Note evidence of hydrocephalus. No new hemorrhages are seen. Re- demonstrated is a punctate density -calcification left anterior frontal region unchanged. . Previously noted few scattered tiny at deep and subcortical white matter lacunar type infarcts are less well seen as compared to high-resolution MRI. Additionally, there also appears to be some very minimal periventricular white matter ischemic changes also less well seen compared the prior MRI. Mild to moderate central volume loss not withstanding at aforementioned mass-effect. IMPRESSION: Interval slight on evolution left posterior superior frontoparietal hematoma which has diminished in size and common spicule leading slightly. The surrounding edema has increased in size and has undergone further demarcation. Moderate to fairly significant surrounding mass effect as detailed above. No new hemorrhages or hydrocephalus.
--- NOTE | 2017-05-13 17:38 | CP.PCM.CON ---
History of Present Illness - History of Present Illness History of Present Illness: Mr. Almaraz is a 56-year-old man, who is well known to me from his previous inpatient admission for the diagnosis of intracerebral hemorrhage. He was doing well in acute rehab, when he developed shortness of breath. CTA of the chest showed bilateral PE. He was taken to the ED and admitted to ICU on low dose heparin drip, with a plan for an IVC filter. Today, I saw the patient in the ICU and he was not complaining of headache, shortness of breath, chest pain , new weakness or new focal neurological deficits. There were no acute events overnight. Review of Systems - Review of Systems All systems: reviewed and no additional remarkable complaints except Past Patient History - Past Medical History & Family History Past Medical History?: Yes - Past Social History Smoking Status: Never Smoked Chewing Tobacco Use: No Cigar Use: No Alcohol: Social Drugs: Denies - CARDIAC Hx Hypercholesterolemia: Yes Hx Hypertension: Yes - PULMONARY Hx Respiratory Disorders: No - NEUROLOGICAL HX Cerebrovascular Accident: Yes (hemorrhagic) Hx Seizures: Yes - HEENT Hx HEENT Problems: No - RENAL Hx Chronic Kidney Disease: No - ENDOCRINE/METABOLIC Hx Diabetes Mellitus Type 2: Yes - HEMATOLOGICAL/ONCOLOGICAL Hx Blood Disorders: No - INTEGUMENTARY Hx Dermatological Problems: No - MUSCULOSKELETAL/RHEUMATOLOGICAL Hx Musculoskeletal Disorders: No Hx Falls: No - GASTROINTESTINAL Hx Gastrointestinal Disorders: No - GENITOURINARY/GYNECOLOGICAL Hx Genitourinary Disorders: No - PSYCHIATRIC Hx Psychophysiologic Disorder: No - SURGICAL HISTORY Other/Comment: Eye surgery as a toddler - ANESTHESIA Hx Anesthesia: Yes Hx Anesthesia Reactions: No Hx Malignant Hyperthermia: No Meds Allergies/Adverse Reactions: Allergies Allergy/AdvReac Type Severity Reaction Status Date / Time No Known Allergies Allergy Verified 05/12/17 20:15 - Medications Medications: Current Medications Acetaminophen (Tylenol 325mg Tab) 650 mg PO Q6H PRN PRN Reason: Fever >100.4 F Amlodipine Besylate (Norvasc) 10 mg PO DAILY [facility] Last Admin: 05/13/17 08:14 Dose: 10 mg Atorvastatin Calcium (Lipitor) 20 mg PO HS ALONDRA Dexamethasone (Decadron) 2 mg PO Q12 [facility] Last Admin: 05/13/17 08:13 Dose: 2 mg Divalproex Sodium (Depakote Dr(*Bid*)) 500 mg PO Q12 [facility] Last Admin: 05/13/17 08:14 Dose: 500 mg Heparin Sodium/Dextrose (Heparin 25,000 Units/250ml In D5w) 25,000 units in 250 mls @ 15 mls/hr IV .[id number] ALONDR[facility] PRN Reason: Protocol Last Admin: 05/13/17 15:10 Dose: 15 mls/hr Insulin Human Lispro (Humalog) 0 units SC ACHS [facility] PRN Reason: Protocol Last Admin: 05/13/17 17:05 Dose: Not Given Labetalol HCl (Trandate) 100 mg PO Q8 PRN PRN Reason: SBP above 160 mmhg Pantoprazole Sodium (Protonix Ec Tab) 40 mg PO DAILY [facility] Last Admin: 05/13/17 08:14 Dose: 40 mg Physical Exam - Neurological Exam Neurological exam: Abnormal Gait, Alert, CN II-XII Intact, Oriented x3 Additional comments: Right upper extremity pronator drift and fine motor deficits, similar to previous examination. Mild sensory changes. Otherwise exam is unchanged compared to previous inpatient exam. Reflexes are brisk on the right side. Results - Vital Signs Recent Vital Signs: Last Vital Signs Temp 97.6 F 05/13/17 16:00 Pulse 90 05/13/17 16:00 Resp 18 05/13/17 16:00 BP 137/107 H 05/13/17 16:00 Pulse Ox 98 05/13/17 16:00 - Labs Result Diagrams: 05/13/17 04:20 05/13/17 04:20 Labs: Laboratory Results - last 24 hr 05/12/17 05/12/17 05/12/17 19:05 19:05 19:05 WBC 19.8 H D RBC 5.30 Hgb 16.3 Hct 47.0 MCV 88.7 MCH 30.8 MCHC 34.8 RDW 13.1 Plt Count 154 MPV 9.5 Neut % (Auto) 85.9 H Lymph % (Auto) 6.6 L [place] % (Auto) 7.3 Eos % (Auto) 0.0 Baso % (Auto) 0.2 Neut # (Auto) 17.0 H Lymph # (Auto) 1.3 [place] # (Auto) 1.4 H Eos # (Auto) 0.0 Baso # (Auto) 0.0 Neutrophils % (Manual) 88 H Lymphocytes % (Manual) 7 L Monocytes % (Manual) 5 Platelet Estimate Normal RBC Morphology Normal PT 12.6 INR 1.1 APTT 27.6 Sodium 141 Potassium 4.0 Chloride 100 Carbon Dioxide 25 Anion Gap 20 BUN 22 H Creatinine 1.1 Est GFR ( Amer) > 60 Est GFR (Non-Af Amer) > 60 POC Glucose (mg/dL) Random Glucose 147 H Calcium 9.4 Total Bilirubin 1.2 AST 35 ALT 63 Alkaline Phosphatase 68 Troponin I 0.7400 H* NT-Pro-B Natriuret Pep 334 Total Protein 6.9 Albumin 3.6 Globulin 3.2 Albumin/Globulin Ratio 1.1 05/12/17 05/13/17 05/13/17 23:56 02:31 04:20 WBC 15.5 H RBC 5.26 Hgb 16.3 Hct 47.2 MCV 89.7 MCH 30.9 MCHC 34.5 RDW 13.3 Plt Count 145 MPV Neut % (Auto) Lymph % (Auto) [place] % (Auto) Eos % (Auto) Baso % (Auto) Neut # (Auto) Lymph # (Auto) [place] # (Auto) Eos # (Auto) Baso # (Auto) Neutrophils % (Manual) Lymphocytes % (Manual) Monocytes % (Manual) Platelet Estimate RBC Morphology PT INR APTT 61.0 H D Sodium Potassium Chloride Carbon Dioxide Anion Gap BUN Creatinine Est GFR ( Amer) Est GFR (Non-Af Amer) POC Glucose (mg/dL) 109 Random Glucose Calcium Total Bilirubin AST ALT Alkaline Phosphatase Troponin I NT-Pro-B Natriuret Pep Total Protein Albumin Globulin Albumin/Globulin Ratio 05/13/17 05/13/17 05/13/17 04:20 05:44 08:40 WBC RBC Hgb Hct MCV MCH MCHC RDW Plt Count MPV Neut % (Auto) Lymph % (Auto) [place] % (Auto) Eos % (Auto) Baso % (Auto) Neut # (Auto) Lymph # (Auto) [place] # (Auto) Eos # (Auto) Baso # (Auto) Neutrophils % (Manual) Lymphocytes % (Manual) Monocytes % (Manual) Platelet Estimate RBC Morphology PT INR APTT 45.2 H D Sodium 142 Potassium 3.8 Chloride 102 Carbon Dioxide 29 Anion Gap 15 BUN 24 H Creatinine 1.0 Est GFR ( Amer) > 60 Est GFR (Non-Af Amer) > 60 POC Glucose (mg/dL) 86 Random Glucose 101 Calcium 9.2 Total Bilirubin AST ALT Alkaline Phosphatase Troponin I NT-Pro-B Natriuret Pep Total Protein Albumin Globulin Albumin/Globulin Ratio 05/13/17 05/13/17 05/13/17 08:40 11:26 13:47 WBC RBC Hgb Hct MCV MCH MCHC RDW Plt Count MPV Neut % (Auto) Lymph % (Auto) [place] % (Auto) Eos % (Auto) Baso % (Auto) Neut # (Auto) Lymph # (Auto) [place] # (Auto) Eos # (Auto) Baso # (Auto) Neutrophils % (Manual) Lymphocytes % (Manual) Monocytes % (Manual) Platelet Estimate RBC Morphology PT INR APTT 36.7 D Sodium Potassium Chloride Carbon Dioxide Anion Gap BUN Creatinine Est GFR ( Amer) Est GFR (Non-Af Amer) POC Glucose (mg/dL) 103 Random Glucose Calcium Total Bilirubin AST ALT Alkaline Phosphatase Troponin I 0.3520 H* NT-Pro-B Natriuret Pep Total Protein Albumin Globulin Albumin/Globulin Ratio 05/13/17 16:50 WBC RBC Hgb Hct MCV MCH MCHC RDW Plt Count MPV Neut % (Auto) Lymph % (Auto) [place] % (Auto) Eos % (Auto) Baso % (Auto) Neut # (Auto) Lymph # (Auto) [place] # (Auto) Eos # (Auto) Baso # (Auto) Neutrophils % (Manual) Lymphocytes % (Manual) Monocytes % (Manual) Platelet Estimate RBC Morphology PT INR APTT Sodium Potassium Chloride Carbon Dioxide Anion Gap BUN Creatinine Est GFR ( Amer) Est GFR (Non-Af Amer) POC Glucose (mg/dL) 106 Random Glucose Calcium Total Bilirubin AST ALT Alkaline Phosphatase Troponin I NT-Pro-B Natriuret Pep Total Protein Albumin Globulin Albumin/Globulin Ratio - Imaging and Cardiology CT scan - head Status: Image reviewed by me, Report reviewed by me (CT head does not show worsening of bleed. There is slight improvement in hematoma, but more edema and more demarcation of edema. ) Assessment & Plan (1) ICH (intracerebral hemorrhage) Assessment and Plan: Will continue seizure prophylaxis with depakote. I discussed continuing heparin with no bolus and lower PTT goal, as the patient awaits possible IVC filter. Will repeat CT head to evaluate if there is any worsening in neurologic function, or the patient complains of headache. Will continue following along with the primary team. Status: Chronic Priority: High (2) Pulmonary embolism Assessment and Plan: Plan outlined by ICU team and will continue following from a neurological standpoint. Status: Acute Priority: High
--- NOTE | 2017-05-13 23:30 | PN ---
CRITICAL CARE PROGRESS NOTE DATE: 05/13/2017 LOCATION: The patient in ICU bed 421. TIME SPENT: 40 minutes. SUBJECTIVE: The patient is seen and evaluated at the bedside. Past medical, surgical, family and social history noted. A 56-year-old male with history of hypertension, admitted to [facility] with hemorrhagic stroke which was followed by a seizure episode. The patient has been worse in the TCU, noted being uncomfortable, but not associated with chest pain, palpitation or shortness of breath. Transferred to ER and CT angio showed bilateral multiple pulmonary emboli involving upper and lower extremities as per consultation with Neurology and Neuro surgery. The patient was started on IV heparin at 1000 units to maintain PTT rate control, admitted to ICU over night on IV heparin drip, remained normotensive, afebrile. This morning alert and awake, follows commands appropriate. Denies some headache, shortness of breath. No chest pain or palpitation, some abdominal discomfort and no diarrhea, no dysuria, no hematuria remains without residual weakness of upper and lower extremities. PHYSICAL EXAMINATION VITAL SIGNS: Temperature 98.2, heart rate of 90-94 regular, blood pressure 146/110 with mean arterial pressure 112, respiratory rate of 12-17 thoracoabdominal and saturation 95% to 98% on 2 liters nasal cannula. Intake and output not documented. Weight 245 pounds. HEAD, EYES, EARS, NOSE AND THROAT: Pupils reactive. Conjunctivae pink. Sclerae white. NECK: Supple. Trachea is central. CHEST: Bilateral breath sounds clear to auscultation. HEART: Rhythm regular. S1 and S2 normal intensity. No S3, S4, or gallop. No audible murmur. ABDOMEN: Bowel sounds are present. Soft. Liver and spleen not palpable. Bladder not distended. EXTREMITIES: No clubbing, cyanosis or edema. No palpable cord. DP palpable. NEUROLOGIC: Non-focal. LABORATORY DATA: WBC 15.5, hemoglobin 16.3, hematocrit 47.2 and platelet count of 145. PT 12.6, INR 1.1 and PTT 45.2 and 261 on heparin protocol. SMA-7; sodium 142, potassium 3.8, chloride 102, CO2 of 29, blood urea nitrogen 24, creatinine 1 and glucose 103. Troponin 0.7400 and 0.352, repeat, the third set pending. CURRENT MEDICATIONS: Heparin 25,000 units in 250 mL at 10 mL/hour, Tylenol 650 q. 6 p.r.n., Norvasc 10 mg p.o. daily, Lipitor 20 mg daily, Decadron 2 mg p.o. q. 12 hours, Accu-Chek with regular insulin coverage, labetalol 100 mg p.o. q. 8 p.r.n. for systolic pressure above 160, and 40 mg daily. Microbiology none reported. Echocardiogram report pending. Ultrasound of the extremity; DVT right mid to distal superficial femoral vein, evidence of DVT with in the left lower extremity with some pain. EKG; normal sinus rhythm. Tachycardia rate of 115. Normal electrical axis. No ST-T changes. IMPRESSION: 1. Neuro: Status post hemorrhagic stroke recent, remains without residual weakness alert and awake, oriented to name, place and time. 2. Pulmonary: Bilateral pulmonary emboli. Deep venous thrombosis of right leg, currently on heparin drip, seen by Pulmonary consult. Recommend inferior vena cava filter, discussed with family. Awaiting for input from interventional radiology. 3. Cardiac: Hypertension, controlled. Tachycardia stable. Elevated troponin, probably related to submassive myocardial infarction, awaiting echo report. Continue current medications. Maintain blood pressure below 160. 4. GI: No acute issues noted. 5. Hematology: Mild borderline leukocytosis probably reactive monitor further trend of leukocytosis. 6. Renal: No acute issues noted. Continue gastrointestinal prophylaxis. Marcell Márquez MD
--- NOTE | 2017-05-14 00:45 | CON ---
DATE: CARDIOLOGY CONSULTATION HISTORY OF PRESENT ILLNESS: The patient is a 56-year-old male who has a history of hypertension, was initially admitted on 04/28/2017 with left frontoparietal hemorrhagic stroke who was later sent to rehab and I was asked to evaluate the patient yesterday because of sinus tachycardia. The D-dimer was significantly elevated and the patient underwent CT angio of the chest, which was possible for bilateral pulmonary emboli. The patient was then transferred to the ER to be readmitted to the ICU. I have discussed the case with the primary physician, the neurologist as well as the emergency room team yesterday. The patient was started on intravenous heparin in a therapeutic regimen for PE without a bolus. The patient has no neuro symptoms. The patient denies any retrosternal chest pain. MEDICATIONS: Decadron 2 mg p.o. q.12 hours, Depakote 500 mg twice a day, intravenous heparin infusion and therapeutic regimen for PE, Lipitor 20 mg once a day, Norvasc 10 mg once a day, Protonix 40 mg p.o. once a day and labetalol 100 mg p.o. q. 8 hours p.r.n. REVIEW OF SYSTEMS: No reported tachycardia. No reported hypotension. In fact, the patient is still persistently hypertensive. PHYSICAL EXAMINATION: GENERAL: The patient is a middle-aged male who does not appear to be in acute distress. VITAL SIGNS: Most recent blood pressure 146/110, heart rate 90, temperature 98.2 and respirations 17. HEENT: No pallor or icterus. NECK: No JVD. CHEST: Clear. HEART: S1 and S2 regular. ABDOMEN: Soft. EXTREMITIES: No edema. NEUROLOGIC: Right hemiparesis. LABORATORY DATA: Today's CBC, WBC 15.5, hemoglobin 16.3, hematocrit 47.2 and platelet count 145,000. SMA-7, sodium 142, potassium 3.8, chloride 102, CO2 of 29, glucose 101, BUN 24 and creatinine 1.1. Troponin 0.74 and 0.352. EKG revealed sinus tachycardia at rate of 115. No ischemic EKG changes. Venous Doppler of lower extremity, no DVT within the left lower extremity. DVT of the right [id number] superficial femoral vein. ASSESSMENT: 1. Bilateral pulmonary embolism. 2. Hemorrhagic left frontoparietal cerebrovascular accident. 3. Uncontrolled hypertension. 4. Borderline troponin elevation most likely related to the acute pulmonary infarct rather than to myocardial injury. RECOMMENDATIONS: Continue current Decadron, Lipitor, Norvasc and labetalol. The patient will undergo repeat CT scan without contrast. In the meantime, I recommend IVC filter placement. Flakito Ruff MD
[2017-05-14 05:28] LABS: HEMOGLOBIN 16.7 g/dL (12.0-18.0); MEAN CELL VOLUME 89.6 fl (80.0-94.0); MEAN CORPUSCULAR HEMOGLOBIN 30.7 pg (27.0-31.0); MEAN CORPUSCULAR HGB CONC 34.3 g/dL (33.0-37.0); RBC 5.43 Mil/uL (4.40-5.90); RED CELL DISTRIBUTION WIDTH 13.5 % (11.5-14.5); WHITE BLOOD COUNT 14.7 K/uL (4.8-10.8)
[2017-05-14 05:39] LABS: ALBUMIN 3.6 g/dL (3.5-5.0); ALT/SGPT 74 U/L (21-72); AST/SGOT 37 U/L (17-59); BLOOD UREA NITROGEN 25 mg/dl (9-20); CALCIUM 9.4 mg/dL (8.4-10.2); GFR AFRICAN-AMERICAN > 60; GFR NON-AFRICAN AMERICAN > 60
[2017-05-14] MEDS: Insulin Lispro (humaLOG) 100 Units/ml Inj SC SCH ×4 (06:53→21:42)
--- NOTE | 2017-05-14 08:04 | CP.PCM.PN ---
Subjective - Date & Time of Evaluation Date of Evaluation: 05/14/17 Time of Evaluation: 07:00 - Subjective Subjective: Patient evaluated at bedside with Dr Guzman this morning. No acute distress. Only event overnight as per patient he started bleeding from IV ports after "blood thinner" dose was slightly increased yesterday. Disucssed with patient in detail today about the IVC filter procedure. Patient verbalized understanding. He has no new complains today Objective - Vital Signs/Intake and Output Vital Signs (last 24 hours): Temp Pulse Resp BP Pulse Ox 96 F L 88 16 137/94 H 100 05/14/17 04:00 05/14/17 06:00 05/14/17 06:00 05/14/17 06:00 05/14/17 06:00 Intake and Output: 05/14/17 05/14/17 06:59 18:59 Intake Total 430 Balance 430 - Medications Medications: Current Medications Acetaminophen (Tylenol 325mg Tab) 650 mg PO Q6H PRN PRN Reason: Fever >100.4 F Amlodipine Besylate (Norvasc) 10 mg PO DAILY [facility] Last Admin: 05/13/17 08:14 Dose: 10 mg Atorvastatin Calcium (Lipitor) 20 mg PO HS [facility] Last Admin: 05/13/17 21:30 Dose: 20 mg Dexamethasone (Decadron) 2 mg PO Q12 [facility] Last Admin: 05/13/17 21:30 Dose: 2 mg Divalproex Sodium (Depakote Dr(*Bid*)) 500 mg PO Q12 [facility] Last Admin: 05/13/17 21:30 Dose: 500 mg Heparin Sodium/Dextrose (Heparin 25,000 Units/250ml In D5w) 25,000 units in 250 mls @ 15 mls/hr IV .[id number] [facility] PRN Reason: Protocol Last Titration: 05/14/17 06:54 Dose: 16 mls/hr Insulin Human Lispro (Humalog) 0 units SC ACHS [facility] PRN Reason: Protocol Last Admin: 05/14/17 06:53 Dose: Not Given Labetalol HCl (Trandate) 100 mg PO Q8 PRN PRN Reason: SBP above 160 mmhg Pantoprazole Sodium (Protonix Ec Tab) 40 mg PO DAILY [facility] Last Admin: 05/13/17 08:14 Dose: 40 mg - Labs Labs: 05/14/17 04:30 05/14/17 04:30 PT 12.6 Seconds (9.8-13.1) 05/12/17 19:05 INR 1.1 (0.9-1.2) 05/12/17 19:05 APTT 81.3 Seconds (25.6-37.1) H D 05/14/17 04:30 - Constitutional Appears: Non-toxic, No Acute Distress - Eye Exam Eye Exam: EOMI, PERRL - ENT Exam ENT Exam: Mucous Membranes Moist - Respiratory Exam Respiratory Exam: Clear to Ausculation Bilateral, NORMAL BREATHING PATTERN. absent: Decreased Breath Sounds, Rales - Cardiovascular Exam Cardiovascular Exam: REGULAR RHYTHM, +S1, +S2. absent: Gallop - GI/Abdominal Exam GI & Abdominal Exam: Soft, Normal Bowel Sounds. absent: Tenderness - Extremities Exam Extremities Exam: absent: Calf Tenderness, Pedal Edema - Neurological Exam Neurological Exam: Alert, Awake, Motor Sensory Deficit (Chronic R/arm drift/ weakness), Oriented x3 - Psychiatric Exam Psychiatric exam: Normal Affect, Normal Mood - Skin Skin Exam: Normal Color, Warm Assessment and Plan - Assessment and Plan (Free Text) Assessment: B/L PE with R/leg DVT On heparin therapeutic dose APTT therapeutic at this time Elevated troponins improving For temporary IVC filter today placed by IR Pulmonology consult appreciated Hem-onc consult appreciated Intracraneal hemorrhage/edema Stable Repeat CT showed improvement of hemorrhage and slight worsening of edema. Please see full report Neuro on board. Will continue following recs No new motorsensory impairment
--- NOTE | 2017-05-14 08:49 | CP.PCM.PN ---
Subjective - Date & Time of Evaluation Date of Evaluation: 05/14/17 Time of Evaluation: 08:44 - Subjective Subjective: Discussed reason for IVC filter with the patient and his sister this morning. He remains clinically stable and on heparin drip. PTT is therapeutic, and there have been no untoward effects regarding his ICH as noted in his repeat CT done yesterday. He is comfortable at rest w/o and chest pain or SOB. SpO2 [id number]%, HR 80s RSR. No discomfort in the lower extremities. No swelling or cyanosis. No Gio's sign, pulses are slightly diminished on the right. He did have elevated troponin levels which have been decreasing. An echocardiogram has been completed yesterday, report is pending. He understands the reason for insertion of a temporary IVC filter and agrees to the procedure. Interventional radiology has been notified and will proceed. Objective - Vital Signs/Intake and Output Vital Signs (last 24 hours): Temp Pulse Resp BP Pulse Ox 97.4 F L 79 17 134/98 H 97 05/14/17 08:00 05/14/17 08:00 05/14/17 08:00 05/14/17 08:00 05/14/17 08:00 Intake and Output: 05/13/17 05/14/17 23:59 11:59 Intake Total 250 180 Balance 250 180 - Medications Medications: Current Medications Acetaminophen (Tylenol 325mg Tab) 650 mg PO Q6H PRN PRN Reason: Fever >100.4 F Amlodipine Besylate (Norvasc) 10 mg PO DAILY [facility] Last Admin: 05/13/17 08:14 Dose: 10 mg Atorvastatin Calcium (Lipitor) 20 mg PO HS [facility] Last Admin: 05/13/17 21:30 Dose: 20 mg Dexamethasone (Decadron) 2 mg PO Q12 [facility] Last Admin: 05/13/17 21:30 Dose: 2 mg Divalproex Sodium (Depakote Dr(*Bid*)) 500 mg PO Q12 [facility] Last Admin: 05/13/17 21:30 Dose: 500 mg Heparin Sodium/Dextrose (Heparin 25,000 Units/250ml In D5w) 25,000 units in 250 mls @ 15 mls/hr IV .[id number] [facility] PRN Reason: Protocol Last Titration: 05/14/17 06:54 Dose: 16 mls/hr Insulin Human Lispro (Humalog) 0 units SC ACHS [facility] PRN Reason: Protocol Last Admin: 05/14/17 06:53 Dose: Not Given Labetalol HCl (Trandate) 100 mg PO Q8 PRN PRN Reason: SBP above 160 mmhg Pantoprazole Sodium (Protonix Ec Tab) 40 mg PO DAILY [facility] Last Admin: 05/13/17 08:14 Dose: 40 mg - Labs Labs: 05/14/17 04:30 05/14/17 04:30 PT 12.6 Seconds (9.8-13.1) 05/12/17 19:05 INR 1.1 (0.9-1.2) 05/12/17 19:05 APTT 81.3 Seconds (25.6-37.1) H D 05/14/17 04:30 Assessment and Plan (1) Pulmonary embolism Status: Acute (2) Deep vein blood clot of right lower extremity Status: Acute
--- NOTE | 2017-05-14 09:35 | CON ---
DATE: 05/13/2017 HISTORY OF PRESENT ILLNESS: This is a patient known to me 56-year-old gentleman that presented 3 weeks ago with a left frontal intraparenchymal hemorrhage, who presented with right hemiparesis and incoordination. He had a workup to deduce the etiology, which was basically negative. Went to rehab, had a seizure, was returned back to rehab and now admitted for a DVT and questionable pulmonary embolism. Interviewing him today, there really has been no neurological changes that he feels little bit stronger, more coordination in his right upper extremity, walking, really nothing new from a neurological standpoint. Past medical history, medications, allergies, etc., are all reviewed in the EMR. PHYSICAL EXAMINATION: GENERAL: He is bright, awake, and alert. His speech is slightly slurred, slightly off, little bit of dysphasia, but certainly not very terrible and has little bit of right-sided dysmetria and apraxia, but fairly gross strength throughout. Gait of course is not tested. IMPRESSION AND PLAN: He is now being setup for an IVC filter, which I fully agree with. I do not think it is great idea to anticoagulate him. As I indicated before, I would recommended obtaining a new MRI in probably 3 or 4 weeks from now. He just had MRI done about a week ago, which unsurprisingly showed nothing other than a clot, which was essentially unchanged. Again, no evidence of underlying lesion. Thus again, I reiterate the recommendation for MRI of the brain with and without gadolinium to be performed in 3 or 4 weeks' time. Olaf Orourke MD
[2017-05-14] MEDS: Divalproex 500 mg DR(BID formulation) PO SCH ×2 (09:41→20:14)
[2017-05-14] MEDS: Pantoprazole 40 mg EC Tab PO SCH (09:41)
--- NOTE | 2017-05-14 09:51 | CP.PCM.PN ---
Subjective - Date & Time of Evaluation Date of Evaluation: 05/14/17 Time of Evaluation: 09:47 - Subjective Subjective: Pt is in no pain or shortness of breath. He is going to have a shelley filter placed today I suggest we start him on lovenox after the filter is placed. Objective - Vital Signs/Intake and Output Vital Signs (last 24 hours): Temp Pulse Resp BP Pulse Ox 97.4 F L 92 H 17 131/89 97 05/14/17 08:00 05/14/17 09:41 05/14/17 08:00 05/14/17 09:41 05/14/17 08:00 Intake and Output: 05/14/17 05/14/17 06:59 18:59 Intake Total 430 Balance 430 - Medications Medications: Current Medications Acetaminophen (Tylenol 325mg Tab) 650 mg PO Q6H PRN PRN Reason: Fever >100.4 F Amlodipine Besylate (Norvasc) 10 mg PO DAILY [facility] Last Admin: 05/14/17 09:41 Dose: 10 mg Atorvastatin Calcium (Lipitor) 20 mg PO HS [facility] Last Admin: 05/13/17 21:30 Dose: 20 mg Dexamethasone (Decadron) 2 mg PO Q12 [facility] Last Admin: 05/14/17 09:41 Dose: 2 mg Divalproex Sodium (Depakote Dr(*Bid*)) 500 mg PO Q12 [facility] Last Admin: 05/14/17 09:41 Dose: 500 mg Heparin Sodium/Dextrose (Heparin 25,000 Units/250ml In D5w) 25,000 units in 250 mls @ 15 mls/hr IV .[id number] [facility] PRN Reason: Protocol Last Titration: 05/14/17 06:54 Dose: 16 mls/hr Insulin Human Lispro (Humalog) 0 units SC ACHS [facility] PRN Reason: Protocol Last Admin: 05/14/17 06:53 Dose: Not Given Labetalol HCl (Trandate) 100 mg PO Q8 PRN PRN Reason: SBP above 160 mmhg Pantoprazole Sodium (Protonix Ec Tab) 40 mg PO DAILY [facility] Last Admin: 05/14/17 09:41 Dose: 40 mg - Labs Labs: 05/14/17 04:30 05/14/17 04:30 PT 12.6 Seconds (9.8-13.1) 05/12/17 19:05 INR 1.1 (0.9-1.2) 05/12/17 19:05 APTT 81.3 Seconds (25.6-37.1) H D 05/14/17 04:30
--- NOTE | 2017-05-14 09:52 | CP.PCM.PN ---
Subjective - Date & Time of Evaluation Date of Evaluation: 05/14/17 Time of Evaluation: 09:49 - Subjective Subjective: Mr. Almaraz was seen and examined at the bedside in ICU. He is alert, oriented in all spheres. He denies any headache, dizziness, lightheadedness. He is able to follow simple instructions, but remains with right upper extremity weakness, improving. He remains on Heparin drip for PE treatment with PTT within therapeutic. The patient is schedule for IVC filter today. He has ecchymosis noted in his right lower extremity, but able to move and sensation remains intact. CT of the head 05/13/2017 showed slight interval on evolution of the left posterior superiro frontoparietal hematoma which has diminished in size and common spicule leading slightly. The surrounding edema has increased in size and has undergone further demarcation. Moderate to fairly significant surrounding mass effect. No new hemorrhage or hydrocephalus There was no untoward events overnight. Objective - Vital Signs/Intake and Output Vital Signs (last 24 hours): Temp Pulse Resp BP Pulse Ox 97.4 F L 92 H 17 131/89 97 05/14/17 08:00 05/14/17 09:41 05/14/17 08:00 05/14/17 09:41 05/14/17 08:00 Intake and Output: 05/14/17 05/14/17 06:59 18:59 Intake Total 430 Balance 430 - Medications Medications: Current Medications Acetaminophen (Tylenol 325mg Tab) 650 mg PO Q6H PRN PRN Reason: Fever >100.4 F Amlodipine Besylate (Norvasc) 10 mg PO DAILY [facility] Last Admin: 05/14/17 09:41 Dose: 10 mg Atorvastatin Calcium (Lipitor) 20 mg PO HS [facility] Last Admin: 05/13/17 21:30 Dose: 20 mg Dexamethasone (Decadron) 2 mg PO Q12 [facility] Last Admin: 05/14/17 09:41 Dose: 2 mg Divalproex Sodium (Depakote Dr(*Bid*)) 500 mg PO Q12 [facility] Last Admin: 05/14/17 09:41 Dose: 500 mg Heparin Sodium/Dextrose (Heparin 25,000 Units/250ml In D5w) 25,000 units in 250 mls @ 15 mls/hr IV .[id number] [facility] PRN Reason: Protocol Last Titration: 05/14/17 06:54 Dose: 16 mls/hr Insulin Human Lispro (Humalog) 0 units SC ACHS [facility] PRN Reason: Protocol Last Admin: 05/14/17 06:53 Dose: Not Given Labetalol HCl (Trandate) 100 mg PO Q8 PRN PRN Reason: SBP above 160 mmhg Pantoprazole Sodium (Protonix Ec Tab) 40 mg PO DAILY [facility] Last Admin: 05/14/17 09:41 Dose: 40 mg - Labs Labs: 05/14/17 04:30 05/14/17 04:30 PT 12.6 Seconds (9.8-13.1) 05/12/17 19:05 INR 1.1 (0.9-1.2) 05/12/17 19:05 APTT 81.3 Seconds (25.6-37.1) H D 05/14/17 04:30 - Constitutional Appears: No Acute Distress - Head Exam Head Exam: NORMAL INSPECTION - Neurological Exam Neurological Exam: Alert, Awake, Oriented x3 Neuro motor strength exam: Left Upper Extremity: 5, Right Upper Extremity: 3, Left Lower Extremity: 5, Right Lower Extremity: 5 Additional comments: Neurological unchanged form previous examination. Assessment and Plan (1) ICH (intracerebral hemorrhage) Assessment & Plan: Case discussed with Dr. Montenegro, continue all current medical regimen including AED. Recommend to repeat CT of the head if there is change in mental status and after hematology order any anti- coagulants. Status: Chronic (2) Pulmonary embolism Assessment & Plan: Case discussed with Dr. Montenegro, continue all current medical regimen. WE will defer to hematology for managing anti- coagulants post IVC filter placement. Status: Acute
--- NOTE | 2017-05-14 11:16 | CARD ---
APPROVED REPORT EXAM: Two-dimensional and M-mode echocardiogram with Doppler and color Doppler. Other Information Quality : GoodRhythm : NSR INDICATION Pulmonary Embolism RV and LV function 2D DIMENSIONS IVSd1.16 (0.7-1.1cm)LVDd4.52 (3.9-5.9cm) LVOT Diameter2.50 (1.8-2.4cm)PWd0.96 (0.7-1.1cm) IVSs1.69 (0.8-1.2cm)LVDs3.19 (2.5-4.0cm) FS (%) 29.5 %PWs1.72 (0.8-1.2cm) M-Mode DIMENSIONS Left Atrium (MM)3.14 (2.5-4.0cm)IVSd1.75 (0.7-1.1cm) Aortic Root3.67 (2.2-3.7cm)LVDd3.74 (4.0-5.6cm) Aortic Cusp Exc.1.82 (1.5-2.0cm)PWd1.36 (0.7-1.1cm) IVSs2.06 cmFS (%) 30 % LVDs2.62 (2.0-3.8cm)PWs1.68 cm Mitral Valve E/A ratio0.0 TDI E/Lateral E'0.0E/Medial E'0.0 Tricuspid Valve TR Peak [id number] Peak Gr.25mmHg [id number] LEFT VENTRICLE The left ventricle is normal size. There is normal left ventricular wall thickness. The left ventricular function is normal. The left ventricular ejection fraction is 60% There is normal LV segmental wall motion. The left ventricular diastolic function is normal. No left ventricle thrombus noted on this study. There is no ventricular septal defect visualized. There is no left ventricular aneurysm. There is no mass noted in the left ventricle. RIGHT VENTRICLE The right ventricle is severely dilated. There is normal right ventricular wall thickness. Systolic function is severely reduced. ATRIA The left atrium size is normal. The right atrium size is normal. The interatrial septum is intact with no evidence for an atrial septal defect. AORTIC VALVE The aortic valve is normal in structure. No aortic regurgitation is present. There is no aortic valvular stenosis. There is no aortic valvular vegetation. MITRAL VALVE The mitral valve is normal in structure. There is no evidence of mitral valve prolapse. There is no mitral valve stenosis. There is no mitral valve regurgitation noted. TRICUSPID VALVE The tricuspid valve is normal in structure. There is mild tricuspid regurgitation. Right ventricular systolic pressure is estimated at 30-40 mmHg. There is no tricuspid valve prolapse or vegetation. There is no tricuspid valve stenosis. PULMONIC VALVE The pulmonary valve is normal in structure. There is no pulmonic valvular regurgitation. There is no pulmonic valvular stenosis. GREAT VESSELS The aortic root is normal in size. The ascending aorta is normal in size. not well seen PERICARDIAL EFFUSION The pericardium appears normal. There is no pleural effusion. <Conclusion> Normal LV systolic function Dilated Right Ventricle Severely Reduced RV Function Normal PA Pressure
--- NOTE | 2017-05-14 14:05 | CP.CCUPN ---
CCU Subjective - Physician Review Subjective (Free Text): MARKET RESEARCH ASSISTANT PROGRESS NOTE Patient examined, bloodwork and interim events reviewed: Awake and alert, denies any SOB or chest discomfort, hemodynamics have been stable and acceptable, no periods of hypoxemia noted on nasal oxygen. On heparin drip at 1800 Units this AM per hour. Other vitals and I/O s reviewed: afebrile, no fever spikes since admission. Allergies: NKDA Meds: Norvasc, Lipitor, Decadron, Depakote, Protonix ROS: No other pertinent negs or positives on 10+ system review. PMSFH: All other Nursing and physician documentation reviewed to date; no new pertinent info noted relevant to current medical problems. LABS: WBC= 14.7 HGB= 16.7 PLTs= 132K Na= 141 K= 4.2 HCO3=25 CL= 102 BUN/Cr= 25/0.9 BS= 115 IMPRESSION / MAJOR PROBLEMS NOW: 1. Acute bilateral PTE 2. New onset Seizure Disorder 2' to ICH 3. Localized Cerebral edema with midline shift 4. Recent Accelerated HTN during initial admission prior to Rehab PLAN: 1. Retrievable IVC filter placement with ongoing [id number] heparin drip. 2. AED therapy with Depakote as per Neurology. Discuss Mannitol use with Neurology in neuromental status worsens. 3. HOB elevation, neurochecks, Seizure precautions. CCU Objective - Vital Signs / Intake & Output Vital Signs (Last 4 hours): Vital Signs Temp Pulse Resp BP Pulse Ox 05/14/17 12:00 97.9 F 95 H 15 124/86 99 Intake and Output (Last 8hrs): Intake & Output 05/13/17 05/14/17 05/14/17 22:59 06:59 14:59 Intake Total 250 180 Balance 250 180 Intake: IV 250 180 - Physical Exam Head: Positive for: Normocephalic Pupils: Positive for: PERRL Extroacular Muscles: Positive for: EOMI Conjunctiva: Positive for: Normal. Negative for: Icteric Mouth: Positive for: Moist Mucous Membranes Neck: Positive for: Normal Range of Motion. Negative for: JVD Respiratory/Chest: Positive for: Clear to Auscultation. Negative for: Wheezes Cardiovascular: Positive for: Regular Rate and Rhythm, Normal S1, S2. Negative for: Murmurs, Rub Abdomen: Positive for: Normal Bowel Sounds. Negative for: Tenderness, Distention, Mass/Organomegaly Upper Extremity: Positive for: Other (mild RUE weakness) Lower Extremity: Negative for: Edema, CALF TENDERNESS, NORMAL PULSES, Cyanosis, Swelling, Erythema Neurological: Positive for: Speech Normal Skin: Positive for: Warm, Dry. Negative for: Rashes - Medications Active Medications: Active Medications Generic Name Dose Route Start Last Admin Trade Name Freq PRN Reason Stop Dose Admin Acetaminophen 650 mg 05/12/17 21:05 Tylenol 325mg Tab PO Q6H PRN Fever >100.4 F Amlodipine Besylate 10 mg 05/13/17 09:00 05/14/17 09:41 Norvasc PO 10 mg DAILY [facility]ONDRA Administration Atorvastatin Calcium 20 mg 05/12/17 22:00 05/13/17 21:30 Lipitor PO 20 mg HS ALONDRA Administration Dexamethasone 2 mg 05/13/17 09:00 05/14/17 09:41 Decadron PO 2 mg Q12 ALONDRA Administration Divalproex Sodium 500 mg 05/13/17 09:00 05/14/17 09:41 Depakote (*Bid*) PO 500 mg Q12 ALONDRA Administration Heparin Sodium/Dextrose 25,000 units in 250 mls @ 15 mls/hr 05/13/17 15:10 06:54 Heparin 25,000 Units/250ml In D5w IV 16 mls/hr .[id number] ALONDRA Titration Protocol Insulin Human Lispro 0 units 05/12/17 22:00 05/14/17 06:53 Humalog SC Not Given ACHS [facility] Protocol Labetalol HCl 100 mg 05/12/17 21:04 Trandate PO Q8 PRN SBP above 160 mmhg Pantoprazole Sodium 40 mg 05/13/17 09:00 05/14/17 09:41 Protonix Ec Tab PO 40 mg DAILY ALONDRA Administration - Patient Studies Lab Studies: Lab Studies 05/14/17 05/14/17 05/14/17 Range/Units 11:23 05:46 04:30 WBC (4.8-10.8) K/uL RBC (4.40-5.90) Mil/uL Hgb (12.0-18.0) g/dL Hct (35.0-51.0) % MCV (80.0-94.0) fl MCH (27.0-31.0) pg MCHC (33.0-37.0) g/dL RDW (11.5-14.5) % Plt Count (130-400) K/uL APTT 81.3 H D (25.6-37.1) Seconds Sodium (132-148) mmol/l Potassium (3.6-5.0) MMOL/L Chloride (98-107) mmol/L Carbon Dioxide (22-30) mmol/L Anion Gap (10-20) BUN (9-20) mg/dl Creatinine (0.8-1.5) mg/dl Est GFR ( Amer) Est GFR (Non-Af Amer) POC Glucose (mg/dL) 102 96 (65-110) mg/dL Random Glucose (75-110) mg/dL Calcium (8.4-10.2) mg/dL Total Bilirubin (0.2-1.3) mg/dl AST (17-59) U/L ALT (21-72) U/L Alkaline Phosphatase (38-126) U/L Total Protein (6.3-8.2) G/DL Albumin (3.5-5.0) g/dL Globulin (2.2-3.9) gm/dL Albumin/Globulin Ratio (1.0-2.1) AMY Screen (Negative) 05/14/17 05/14/17 05/13/17 Range/Units 04:30 04:30 20:37 WBC 14.7 H (4.8-10.8) K/uL RBC 5.43 (4.40-5.90) Mil/uL Hgb 16.7 (12.0-18.0) g/dL Hct 48.6 (35.0-51.0) % MCV 89.6 (80.0-94.0) fl MCH 30.7 (27.0-31.0) pg MCHC 34.3 (33.0-37.0) g/dL RDW 13.5 (11.5-14.5) % Plt Count 132 (130-400) K/uL APTT (25.6-37.1) Seconds Sodium 141 (132-148) mmol/l Potassium 4.2 (3.6-5.0) MMOL/L Chloride 102 (98-107) mmol/L Carbon Dioxide 25 (22-30) mmol/L Anion Gap 18 (10-20) BUN 25 H (9-20) mg/dl Creatinine 0.9 (0.8-1.5) mg/dl Est GFR ( Amer) > 60 Est GFR (Non-Af Amer) > 60 POC Glucose (mg/dL) 96 (65-110) mg/dL Random Glucose 115 H (75-110) mg/dL Calcium 9.4 (8.4-10.2) mg/dL Total Bilirubin 1.1 (0.2-1.3) mg/dl AST 37 (17-59) U/L ALT 74 H (21-72) U/L Alkaline Phosphatase 71 (38-126) U/L Total Protein 7.1 (6.3-8.2) G/DL Albumin 3.6 (3.5-5.0) g/dL Globulin 3.4 (2.2-3.9) gm/dL Albumin/Globulin Ratio 1.0 (1.0-2.1) AMY Screen (Negative) 05/13/17 05/13/17 05/13/17 Range/Units 20:30 16:50 13:47 WBC (4.8-10.8) K/uL RBC (4.40-5.90) Mil/uL Hgb (12.0-18.0) g/dL Hct (35.0-51.0) % MCV (80.0-94.0) fl MCH (27.0-31.0) pg MCHC (33.0-37.0) g/dL RDW (11.5-14.5) % Plt Count (130-400) K/uL APTT 57.7 H D 36.7 D (25.6-37.1) Seconds Sodium (132-148) mmol/l Potassium (3.6-5.0) MMOL/L Chloride (98-107) mmol/L Carbon Dioxide (22-30) mmol/L Anion Gap (10-20) BUN (9-20) mg/dl Creatinine (0.8-1.5) mg/dl Est GFR ( Amer) Est GFR (Non-Af Amer) POC Glucose (mg/dL) 106 (65-110) mg/dL Random Glucose (75-110) mg/dL Calcium (8.4-10.2) mg/dL Total Bilirubin (0.2-1.3) mg/dl AST (17-59) U/L ALT (21-72) U/L Alkaline Phosphatase (38-126) U/L Total Protein (6.3-8.2) G/DL Albumin (3.5-5.0) g/dL Globulin (2.2-3.9) gm/dL Albumin/Globulin Ratio (1.0-2.1) AMY Screen (Negative) 05/13/17 Range/Units 09:35 WBC (4.8-10.8) K/uL RBC (4.40-5.90) Mil/uL Hgb (12.0-18.0) g/dL Hct (35.0-51.0) % MCV (80.0-94.0) fl MCH (27.0-31.0) pg MCHC (33.0-37.0) g/dL RDW (11.5-14.5) % Plt Count (130-400) K/uL APTT (25.6-37.1) Seconds Sodium (132-148) mmol/l Potassium (3.6-5.0) MMOL/L Chloride (98-107) mmol/L Carbon Dioxide (22-30) mmol/L Anion Gap (10-20) BUN (9-20) mg/dl Creatinine (0.8-1.5) mg/dl Est GFR ( Amer) Est GFR (Non-Af Amer) POC Glucose (mg/dL) (65-110) mg/dL Random Glucose (75-110) mg/dL Calcium (8.4-10.2) mg/dL Total Bilirubin (0.2-1.3) mg/dl AST (17-59) U/L ALT (21-72) U/L Alkaline Phosphatase (38-126) U/L Total Protein (6.3-8.2) G/DL Albumin (3.5-5.0) g/dL Globulin (2.2-3.9) gm/dL Albumin/Globulin Ratio (1.0-2.1) AMY Screen Negative (Negative) Laboratory Results - last 24 hr 05/13/17 05/13/17 05/13/17 09:35 13:47 16:50 WBC RBC Hgb Hct MCV MCH MCHC RDW Plt Count APTT 36.7 D Sodium Potassium Chloride Carbon Dioxide Anion Gap BUN Creatinine Est GFR ( Amer) Est GFR (Non-Af Amer) POC Glucose (mg/dL) 106 Random Glucose Calcium Total Bilirubin AST ALT Alkaline Phosphatase Total Protein Albumin Globulin Albumin/Globulin Ratio AMY Screen Negative 05/13/17 05/13/17 05/14/17 20:30 20:37 04:30 WBC 14.7 H RBC 5.43 Hgb 16.7 Hct 48.6 MCV 89.6 MCH 30.7 MCHC 34.3 RDW 13.5 Plt Count 132 APTT 57.7 H D Sodium Potassium Chloride Carbon Dioxide Anion Gap BUN Creatinine Est GFR ( Amer) Est GFR (Non-Af Amer) POC Glucose (mg/dL) 96 Random Glucose Calcium Total Bilirubin AST ALT Alkaline Phosphatase Total Protein Albumin Globulin Albumin/Globulin Ratio AMY Screen 05/14/17 05/14/17 05/14/17 04:30 04:30 05:46 WBC RBC Hgb Hct MCV MCH MCHC RDW Plt Count APTT 81.3 H D Sodium 141 Potassium 4.2 Chloride 102 Carbon Dioxide 25 Anion Gap 18 BUN 25 H Creatinine 0.9 Est GFR ( Amer) > 60 Est GFR (Non-Af Amer) > 60 POC Glucose (mg/dL) 96 Random Glucose 115 H Calcium 9.4 Total Bilirubin 1.1 AST 37 ALT 74 H Alkaline Phosphatase 71 Total Protein 7.1 Albumin 3.6 Globulin 3.4 Albumin/Globulin Ratio 1.0 AMY Screen 05/14/17 11:23 WBC RBC Hgb Hct MCV MCH MCHC RDW Plt Count APTT Sodium Potassium Chloride Carbon Dioxide Anion Gap BUN Creatinine Est GFR ( Amer) Est GFR (Non-Af Amer) POC Glucose (mg/dL) 102 Random Glucose Calcium Total Bilirubin AST ALT Alkaline Phosphatase Total Protein Albumin Globulin Albumin/Globulin Ratio AMY Screen Fingerstick Blood Sugar Results: 96 Review of Systems - Review of Systems All systems: reviewed and no additional remarkable complaints except (as above) Critical Care Progress Note - Nutrition Nutrition: Nutrition Category Date Time Status Diabetic [Consistent Carbohydrate] [DIET] Diets 05/12/17 Breakfast Active Heart Healthy Diet [DIET] Diets 05/14/17 Dinner Active
[2017-05-14] MEDS ORDERED: Lidocaine 1% Inj (20ml) ONE (14:12)
[2017-05-14] MEDS ORDERED: Iodixanol 320 MG/ML 100 ML BOTTLE IV ONE ×3 (14:12→14:58)
--- NOTE | 2017-05-14 15:27 | PCM.SURG1 ---
Surgeon's Initial Post Op Note - Surgeon's Notes Surgeon: Antonino Hoffman MD Job Press Operator: None Type of Anesthesia: Local Pre-Operative Diagnosis: submassive PE/DVT, hemorrhagic stroke Operative Findings: patent right IJ vein. infrarenal retrievable filter placed Post-Operative Diagnosis: same Operation Performed: IVC filter insertion Specimen/Specimens Removed: n/a Estimated Blood Loss: EBL {In ML}: 25 Post-Op Condition: Good (follow up with IR in 3 months to discuss filter removal ) Date of Surgery/Procedure: 05/14/17 Time of Surgery/Procedure: 15:26
[2017-05-14] MEDS: Enoxaparin 80 mg Syringe SC SCH ×2 (16:52→20:14)
[2017-05-15 05:46] LABS: HEMOGLOBIN 16.2 g/dL (12.0-18.0); MEAN CELL VOLUME 89.6 fl (80.0-94.0); MEAN CORPUSCULAR HEMOGLOBIN 30.6 pg (27.0-31.0); MEAN CORPUSCULAR HGB CONC 34.1 g/dL (33.0-37.0); RBC 5.29 Mil/uL (4.40-5.90); RED CELL DISTRIBUTION WIDTH 13.3 % (11.5-14.5); WHITE BLOOD COUNT 14.4 K/uL (4.8-10.8)
[2017-05-15 05:55] LABS: ALB/GLOB RATIO 1.1 (1.0-2.1); ALBUMIN 3.5 g/dL (3.5-5.0); ALT/SGPT 77 U/L (21-72); AST/SGOT 33 U/L (17-59); BLOOD UREA NITROGEN 24 mg/dl (9-20); CALCIUM 9.2 mg/dL (8.4-10.2); GFR AFRICAN-AMERICAN > 60; GFR NON-AFRICAN AMERICAN > 60
--- NOTE | 2017-05-15 08:45 | CP.PCM.PN ---
Subjective - Date & Time of Evaluation Date of Evaluation: 05/15/17 Time of Evaluation: 08:40 - Subjective Subjective: Mr. Almaraz was seen and examined at the bedside in ICU. He remains alert, oriented in all spheres. He denies any headache, dizziness, lightheadedness, blurred vision, SOB. He does not have any new neuro deficits of any seizure activity. He is able to follow simple commands and dressing in his right jugular area is clean and dry. There was no untoward events overnight Objective - Vital Signs/Intake and Output Vital Signs (last 24 hours): Temp Pulse Resp BP Pulse Ox 98.1 F 74 8 L 123/77 99 05/15/17 08:00 05/15/17 08:00 05/15/17 08:00 05/15/17 08:00 05/15/17 08:00 - Medications Medications: Current Medications Acetaminophen (Tylenol 325mg Tab) 650 mg PO Q6H PRN PRN Reason: Fever >100.4 F Amlodipine Besylate (Norvasc) 10 mg PO DAILY [facility] Last Admin: 05/14/17 09:41 Dose: 10 mg Atorvastatin Calcium (Lipitor) 20 mg PO HS [facility] Last Admin: 05/14/17 21:00 Dose: 20 mg Dexamethasone (Decadron) 2 mg PO Q12 [facility] Last Admin: 05/14/17 20:14 Dose: 2 mg Divalproex Sodium (Depakote Dr(*Bid*)) 500 mg PO Q12 [facility] Last Admin: 05/14/17 20:14 Dose: 500 mg Enoxaparin Sodium (Lovenox) 80 mg SC Q12 [facility]ON[facility]A PRN Reason: Protocol Last Admin: 05/14/17 20:14 Dose: 80 mg Insulin Human Lispro (Humalog) 0 units SC ACHS [facility] PRN Reason: Protocol Last Admin: 05/14/17 21:42 Dose: Not Given Labetalol HCl (Trandate) 100 mg PO Q8 PRN PRN Reason: SBP above 160 mmhg Pantoprazole Sodium (Protonix Ec Tab) 40 mg PO DAILY [facility] Last Admin: 05/14/17 09:41 Dose: 40 mg - Labs Labs: 05/15/17 04:30 05/15/17 04:30 PT 12.6 Seconds (9.8-13.1) 05/12/17 19:05 INR 1.1 (0.9-1.2) 05/12/17 19:05 APTT 25.8 Seconds (25.6-37.1) D 05/14/17 16:31 - Constitutional Appears: No Acute Distress - Head Exam Head Exam: NORMAL INSPECTION - Neurological Exam Neurological Exam: Alert, Awake, Oriented x3 Neuro motor strength exam: Left Upper Extremity: 5, Right Upper Extremity: 3, Left Lower Extremity: 5, Right Lower Extremity: 5 Additional comments: Neurological unchanged from previous examination. Assessment and Plan (1) ICH (intracerebral hemorrhage) Assessment & Plan: Case discussed with Dr. Montenegro, continue all current medical regimen including AED's. Recommend blood pressure control and repeat CT of the head with any mental change or increase dose of anticoagulants. Status: Chronic (2) Pulmonary embolism Assessment & Plan: Case discussed with Dr. Montenegro,continue current dose of anticoagulant and follow any recommendations by hematology. Status: Acute
[2017-05-15] MEDS: Enoxaparin 80 mg Syringe SC SCH ×2 (09:04→21:13)
[2017-05-15] MEDS: Divalproex 500 mg DR(BID formulation) PO SCH ×2 (09:04→21:53)
[2017-05-15] MEDS: Pantoprazole 40 mg EC Tab PO SCH (09:06)
--- NOTE | 2017-05-15 09:09 | CP.PCM.PN ---
Subjective - Date & Time of Evaluation Date of Evaluation: 05/15/17 Time of Evaluation: 09:06 - Subjective Subjective: Pt's was started on lovenox at a slightly lower dose because of the h/o hemorrhagic CVA 2 weeks ago. He had a shelley filter placed yesterday. He has no symptoms related to the procedure and s stable from a neurology point of view. Objective - Vital Signs/Intake and Output Vital Signs (last 24 hours): Temp Pulse Resp BP Pulse Ox 98.1 F 82 8 L 139/99 H 99 05/15/17 08:00 05/15/17 09:04 05/15/17 08:00 05/15/17 09:04 05/15/17 08:00 - Medications Medications: Current Medications Acetaminophen (Tylenol 325mg Tab) 650 mg PO Q6H PRN PRN Reason: Fever >100.4 F Amlodipine Besylate (Norvasc) 10 mg PO DAILY [facility] Last Admin: 05/15/17 09:04 Dose: 10 mg Atorvastatin Calcium (Lipitor) 20 mg PO HS [facility] Last Admin: 05/14/17 21:00 Dose: 20 mg Dexamethasone (Decadron) 2 mg PO Q12 [facility] Last Admin: 05/15/17 09:04 Dose: 2 mg Divalproex Sodium (Depakote Dr(*Bid*)) 500 mg PO Q12 [facility] Last Admin: 05/15/17 09:04 Dose: 500 mg Enoxaparin Sodium (Lovenox) 80 mg SC Q12 [facility] PRN Reason: Protocol Last Admin: 05/15/17 09:04 Dose: 80 mg Insulin Human Lispro (Humalog) 0 units SC ACHS [facility] PRN Reason: Protocol Last Admin: 05/14/17 21:42 Dose: Not Given Labetalol HCl (Trandate) 100 mg PO Q8 PRN PRN Reason: SBP above 160 mmhg Pantoprazole Sodium (Protonix Ec Tab) 40 mg PO DAILY [facility] Last Admin: 05/15/17 09:06 Dose: 40 mg - Labs Labs: 05/15/17 04:30 05/15/17 04:30 PT 12.6 Seconds (9.8-13.1) 05/12/17 19:05 INR 1.1 (0.9-1.2) 05/12/17 19:05 APTT 25.8 Seconds (25.6-37.1) D 05/14/17 16:31
--- NOTE | 2017-05-15 09:24 | VASCULAR ---
PROCEDURE: INFERIOR VENA CAVA FILTER INSERTION CLINICAL HISTORY: 56-year-old male with sub massive PE/DVT and hemorrhagic stroke is referred to interventional radiology for inferior vena cava filter insertion. COMPARISON: Correlation is made to CT angiography of the pulmonary artery is and bilateral lower extremity duplex ultrasound performed 05/12/2017. PROCEDURE: 1. Insertion of IVC filter. PRE-PROCEDURE FINDINGS: 1. Patent right internal jugular vein. 2. Patent inferior vena cava without filling defects, IVC duplication or other caval anomaly. POST-PROCEDURE FINDINGS: 1. Successful deployment of infrarenal retrievable IVC filter. INTERVENTIONAL RADIOLOGIST: Antonino Hoffman M.D. (the attending was present for the entire procedure) ANESTHESIA: None. MEDICATION: Lidocaine 1% for local subcutaneous analgesia. CONTRAST: 100 mL contrast (Visipaque 320). COMPLICATIONS: None. RADIATION DOSE: Fluoroscopy Time: 226.9 seconds DAP: 139.29 mGy PROCEDURE DESCRIPTION AND FINDINGS: The risks, benefits, alternatives and possible complications of the procedure were fully discussed; all questions were answered and informed consent was obtained. The patient was brought into the interventional suite and a pre-procedure 'time-out' was performed. The patient was placed on the fluoroscopy table in the supine position. The right neck was prepped and draped in the usual sterile fashion. Maximum sterile barrier precautions were maintained throughout the entire procedure. Preliminary ultrasound images of the right neck vasculature demonstrate patency of the right internal jugular vein. Following subcutaneous infiltration of 1% lidocaine for local analgesia, under ultrasound guidance, a 21-gauge needle was advanced into the right internal jugular vein with real-time visualization of needle entry. The ultrasound images were permanently recorded and submitted to the PACS. A 0.018 guidewire was advanced centrally. A 5 Danish micropuncture sheath was advanced over the guidewire. The inner portion of the sheath and guidewire were removed and exchanged for a 0.035 guidewire. The outer micropuncture sheath was exchanged over the guidewire for a 5 Danish pigtail catheter. The right common iliac vein was selected and digital subtraction venography was performed which demonstrated a patent inferior vena cava without filling defects, evidence of IVC duplication or other caval anomaly. The renal vein inflow was identified bilaterally. The 5 Danish pigtail catheter was exchanged for the filter delivery sheath over the guidewire. The filter was deployed below the renal vein inflow. The sheath was then removed. Adequate hemostasis was achieved utilizing manual compression. A sterile adhesive dressing was applied. The patient tolerated the procedure well without immediate post-procedure complications and was transferred back to the floor in stable condition. IMPRESSION: SUCCESSFUL INSERTION OF INFRARENAL RETRIEVABLE IVC FILTER (ARGON OPTION ELITE)
--- NOTE | 2017-05-15 10:12 | PN ---
DATE: 05/15/2017 SUBJECTIVE: The patient is seen and examined. Interims events noted. Consults noted and appreciated. The patient . Denies any specific complaints. No chest pain. No shortness of breath. Right-sided weakness persists. PHYSICAL EXAMINATION: GENERAL: The patient is in no acute distress. VITAL SIGNS: Stable. HEART: S1 and S2, normal and regular. LUNGS: Good bilateral air exchange. ABDOMEN: Soft and nontender. No organomegaly. No fluids. Bowel sounds are plus and normal. EXTREMITIES: No edema. No calf swelling. No tenderness. No acute ischemia. QUANTITATIVE SOFTWARE ENGINEER: Essentially unchanged. DIAGNOSTIC DATA: Available diagnostic data is reviewed. Upon telemetry monitoring, there is not any significant arrhythmias. PLAN: Overall, the patient's medical condition is stable. Neurology . Cardiology followup and interventions noted and appreciated. Plan as ordered. Carrillo Guzman MD
[2017-05-15] MEDS: Insulin Lispro (humaLOG) 100 Units/ml Inj SC SCH ×3 (11:32→21:55)
--- NOTE | 2017-05-15 19:02 | PN ---
DATE: SUBJECTIVE: The patient underwent IVC filter placement today. He denies any headache or dizziness. PHYSICAL EXAMINATION: VITAL SIGNS: Blood pressure , heart rate 91, temperature 98.2 and respirations 19. HEENT: Normocephalic. CHEST: Clear. HEART: S1 and S2 regular. EXTREMITIES: No edema. LABORATORY DATA: Hemoglobin and hematocrit 16.1 and 47.4, white count 14.4 and platelet count 143,000. SMA-7 within normal limits except for BUN of 24. ASSESSMENT: 1. Hemorrhagic left parietal lobe cerebrovascular accident. 2. Bilateral pulmonary embolism status post inferior vena cava placement. RECOMMENDATIONS: Continue current Decadron 2 mg p.o. twice a day, Lipitor 20 mg once a day, therapeutic subcutaneous Lovenox 50 mg twice a day, Norvasc 10 mg once a day and labetalol at 100 mg p.o. q.8 hours. Flakito Ruff MD
[2017-05-16 06:24] LABS: BASO % 0.2 % (0.0-2.0); EOS % 0.1 % (0.0-4.0); HEMOGLOBIN 15.5 g/dL (12.0-18.0); LYMPH # 1.4 K/uL (1.0-4.3); LYMPH % 10.8 % (20.0-40.0); MEAN CELL VOLUME 88.2 fl (80.0-94.0); MEAN CORPUSCULAR HEMOGLOBIN 31.2 pg (27.0-31.0); MEAN CORPUSCULAR HGB CONC 35.3 g/dL (33.0-37.0); MEAN PLATELET VOLUME 10.2 fl (7.2-11.7); MONO % 7.4 % (0.0-10.0); NEUT # 10.7 K/uL (1.8-7.0); NEUT % 81.5 % (50.0-75.0); RBC 4.99 Mil/uL (4.40-5.90); RED CELL DISTRIBUTION WIDTH 13.3 % (11.5-14.5); WHITE BLOOD COUNT 13.1 K/uL (4.8-10.8)
[2017-05-16] MEDS: Insulin Lispro (humaLOG) 100 Units/ml Inj SC SCH ×3 (06:30→16:56)
--- NOTE | 2017-05-16 09:08 | CP.PCM.PN ---
Subjective - Date & Time of Evaluation Date of Evaluation: 05/16/17 Time of Evaluation: 09:05 - Subjective Subjective: Mr. Almaraz was seen and examined at the bedside. He remains alert, oriented in all spheres. He denies any headache, dizziness, lightheadedness, blurred vision, SOB. He does not have any new neuro deficits of any seizure activity. He is able to follow simple commands and able to feed himself.The dressing in his right jugular area is clean and dry. There was no untoward events overnight Objective - Vital Signs/Intake and Output Vital Signs (last 24 hours): Temp Pulse Resp BP Pulse Ox 97.7 F 75 18 134/67 97 05/16/17 08:36 05/16/17 08:36 05/16/17 08:36 05/16/17 08:36 05/16/17 08:36 - Medications Medications: Current Medications Acetaminophen (Tylenol 325mg Tab) 650 mg PO Q6H PRN PRN Reason: Fever >100.4 F Amlodipine Besylate (Norvasc) 10 mg PO DAILY [facility] Last Admin: 05/15/17 09:04 Dose: 10 mg Atorvastatin Calcium (Lipitor) 20 mg PO HS [facility] Last Admin: 05/15/17 21:12 Dose: 20 mg Dexamethasone (Decadron) 2 mg PO Q12 [facility] Last Admin: 05/15/17 21:12 Dose: 2 mg Divalproex Sodium (Depakote Dr(*Bid*)) 500 mg PO Q12 [facility] Last Admin: 05/15/17 21:53 Dose: 500 mg Enoxaparin Sodium (Lovenox) 80 mg SC Q12 [facility] PRN Reason: Protocol Last Admin: 05/15/17 21:13 Dose: 80 mg Insulin Human Lispro (Humalog) 0 units SC ACHS [facility] PRN Reason: Protocol Last Admin: 05/16/17 06:30 Dose: Not Given Labetalol HCl (Trandate) 100 mg PO Q8 PRN PRN Reason: SBP above 160 mmhg Pantoprazole Sodium (Protonix Ec Tab) 40 mg PO DAILY [facility] Last Admin: 05/15/17 09:06 Dose: 40 mg - Labs Labs: 05/16/17 04:45 05/15/17 04:30 PT 12.6 Seconds (9.8-13.1) 05/12/17 19:05 INR 1.1 (0.9-1.2) 05/12/17 19:05 APTT 34.6 Seconds (25.6-37.1) D 05/16/17 04:45 - Constitutional Appears: No Acute Distress - Head Exam Head Exam: NORMAL INSPECTION - Neurological Exam Neurological Exam: Alert, Awake, Oriented x3 Neuro motor strength exam: Left Upper Extremity: 5, Right Upper Extremity: 3, Left Lower Extremity: 5, Right Lower Extremity: 5 Additional comments: Neurological unchanged from previous examination. Assessment and Plan (1) ICH (intracerebral hemorrhage) Assessment & Plan: Case discussed with Dr. Montenegro, continue all current medica, physical, and occupational therapies. Recommend to repeat CT of the head once oral anticoagulant will be started or any change in mental status. Status: Chronic (2) Pulmonary embolism Assessment & Plan: Case discussed with Dr. Montenegro, continue current anticoagulant therapy and please defer to hematology all treatment for his anti-coagulant. Status: Acute
--- NOTE | 2017-05-16 09:24 | CP.PCM.PN ---
Subjective - Date & Time of Evaluation Date of Evaluation: 05/16/17 Time of Evaluation: 09:24 Objective - Vital Signs/Intake and Output Vital Signs (last 24 hours): Temp Pulse Resp BP Pulse Ox 97.7 F 75 18 134/67 97 05/16/17 08:36 05/16/17 08:36 05/16/17 08:36 05/16/17 08:36 05/16/17 08:36 - Medications Medications: Current Medications Acetaminophen (Tylenol 325mg Tab) 650 mg PO Q6H PRN PRN Reason: Fever >100.4 F Amlodipine Besylate (Norvasc) 10 mg PO DAILY [facility] Last Admin: 05/15/17 09:04 Dose: 10 mg Atorvastatin Calcium (Lipitor) 20 mg PO HS [facility] Last Admin: 05/15/17 21:12 Dose: 20 mg Dexamethasone (Decadron) 2 mg PO Q12 [facility] Last Admin: 05/15/17 21:12 Dose: 2 mg Divalproex Sodium (Depakote Dr(*Bid*)) 500 mg PO Q12 [facility] Last Admin: 05/15/17 21:53 Dose: 500 mg Enoxaparin Sodium (Lovenox) 80 mg SC Q12 [facility] PRN Reason: Protocol Last Admin: 05/15/17 21:13 Dose: 80 mg Insulin Human Lispro (Humalog) 0 units SC ACHS [facility] PRN Reason: Protocol Last Admin: 05/16/17 06:30 Dose: Not Given Labetalol HCl (Trandate) 100 mg PO Q8 PRN PRN Reason: SBP above 160 mmhg Pantoprazole Sodium (Protonix Ec Tab) 40 mg PO DAILY [facility] Last Admin: 05/15/17 09:06 Dose: 40 mg - Labs Labs: 05/16/17 04:45 05/15/17 04:30 PT 12.6 Seconds (9.8-13.1) 05/12/17 19:05 INR 1.1 (0.9-1.2) 05/12/17 19:05 APTT 34.6 Seconds (25.6-37.1) D 05/16/17 04:45 Assessment and Plan (1) Pulmonary embolism Status: Acute (2) Deep vein blood clot of right lower extremity Status: Acute
--- NOTE | 2017-05-16 10:03 | CP.PCM.PN ---
Subjective - Date & Time of Evaluation Date of Evaluation: 05/16/17 Time of Evaluation: 10:00 - Subjective Subjective: Pt is not in any distress at this time. no pain, no dizziness. he seems stable with the current dose of lovenox. I feel tomorrow we should start him on coumadin for a few days while he is in rehab. If he has no more intracranial blled he can be switched to eliquis.bleeding Objective - Vital Signs/Intake and Output Vital Signs (last 24 hours): Temp Pulse Resp BP Pulse Ox 97.7 F 75 18 134/67 97 05/16/17 08:36 05/16/17 08:36 05/16/17 08:36 05/16/17 08:36 05/16/17 08:36 - Medications Medications: Current Medications Acetaminophen (Tylenol 325mg Tab) 650 mg PO Q6H PRN PRN Reason: Fever >100.4 F Amlodipine Besylate (Norvasc) 10 mg PO DAILY [facility] Last Admin: 05/15/17 09:04 Dose: 10 mg Atorvastatin Calcium (Lipitor) 20 mg PO HS [facility] Last Admin: 05/15/17 21:12 Dose: 20 mg Dexamethasone (Decadron) 2 mg PO Q12 [facility] Last Admin: 05/15/17 21:12 Dose: 2 mg Divalproex Sodium (Depakote Dr(*Bid*)) 500 mg PO Q12 [facility] Last Admin: 05/15/17 21:53 Dose: 500 mg Enoxaparin Sodium (Lovenox) 80 mg SC Q12 [facility] PRN Reason: Protocol Last Admin: 05/15/17 21:13 Dose: 80 mg Insulin Human Lispro (Humalog) 0 units SC ACHS [facility] PRN Reason: Protocol Last Admin: 05/16/17 06:30 Dose: Not Given Labetalol HCl (Trandate) 100 mg PO Q8 PRN PRN Reason: SBP above 160 mmhg Pantoprazole Sodium (Protonix Ec Tab) 40 mg PO DAILY [facility] Last Admin: 05/15/17 09:06 Dose: 40 mg - Labs Labs: 05/16/17 04:45 05/15/17 04:30 PT 12.6 Seconds (9.8-13.1) 05/12/17 19:05 INR 1.1 (0.9-1.2) 05/12/17 19:05 APTT 34.6 Seconds (25.6-37.1) D 05/16/17 04:45
[2017-05-16] MEDS: Divalproex 500 mg DR(BID formulation) PO SCH (10:06)
[2017-05-16] MEDS: Enoxaparin 80 mg Syringe SC SCH (10:07)
[2017-05-16] MEDS: Pantoprazole 40 mg EC Tab PO SCH (10:08)
--- NOTE | 2017-05-16 10:43 | CP.PCM.DIS ---
Provider - Provider Date of Admission: 05/12/17 20:25 Attending physician: Carrillo Guzman MD Consults: Neurology Hem-Onc Pulmonology Cardiology IR Critical care Time Spent in preparation of Discharge (in minutes): 35 Diagnosis - Discharge Diagnosis (1) Deep vein blood clot of right lower extremity Status: Acute Priority: High Comment: Stable. C/W Anticaogulation (2) Pulmonary embolism Status: Acute Priority: High Comment: C/W Anticoagulation. Stable (3) ICH (intracerebral hemorrhage) Status: Chronic Priority: High Comment: Stable. c/w PT Hospital Course - Lab Results Lab Results: Micro Results 05/12/17 10:00 Nose MRSA Culture (Admit) - Final MRSA NOT DETECTED Most Recent Lab Values WBC 13.1 K/uL (4.8-10.8) H 05/16/17 04:45 RBC 4.99 Mil/uL (4.40-5.90) 05/16/17 04:45 Hgb 15.5 g/dL (12.0-18.0) 05/16/17 04:45 Hct 44.0 % (35.0-51.0) 05/16/17 04:45 MCV 88.2 fl (80.0-94.0) 05/16/17 04:45 MCH 31.2 pg (27.0-31.0) H 05/16/17 04:45 MCHC 35.3 g/dL (33.0-37.0) 05/16/17 04:45 RDW 13.3 % (11.5-14.5) 05/16/17 04:45 Plt Count 134 K/uL (130-400) 05/16/17 04:45 MPV 10.2 fl (7.2-11.7) 05/16/17 04:45 Neut % (Auto) 81.5 % (50.0-75.0) H 05/16/17 04:45 Lymph % (Auto) 10.8 % (20.0-40.0) L 05/16/17 04:45 Bartholomew % (Auto) 7.4 % (0.0-10.0) 05/16/17 04:45 Eos % (Auto) 0.1 % (0.0-4.0) 05/16/17 04:45 Baso % (Auto) 0.2 % (0.0-2.0) 05/16/17 04:45 Neut # (Auto) 10.7 K/uL (1.8-7.0) H 05/16/17 04:45 Lymph # (Auto) 1.4 K/uL (1.0-4.3) 05/16/17 04:45 Bartholomew # (Auto) 1.0 K/uL (0.0-0.8) H 05/16/17 04:45 Eos # (Auto) 0.0 K/uL (0.0-0.7) 05/16/17 04:45 Baso # (Auto) 0.0 K/uL (0.0-0.2) 05/16/17 04:45 Neutrophils % (Manual) 88 % (42-75) H 05/12/17 19:05 Lymphocytes % (Manual) 7 % (20-50) L 05/12/17 19:05 Monocytes % (Manual) 5 % (0-10) 05/12/17 19:05 Platelet Estimate Normal (NORMAL) 05/12/17 19:05 RBC Morphology Normal (NORMAL) 05/12/17 19:05 PT 12.6 Seconds (9.8-13.1) 05/12/17 19:05 INR 1.1 (0.9-1.2) 05/12/17 19:05 APTT 34.6 Seconds (25.6-37.1) D 05/16/17 04:45 Lupus Anticoagulant see note 05/13/17 09:35 LA PTT Screen 65 sec (<=40) H 05/13/17 09:35 dRVVT Mixing Study 64 sec (<=45) H 05/13/17 09:35 dRVVT Mix Interpret see note H 05/13/17 09:35 Hexagonal Phase Confirm Negative (Negative) 05/13/17 09:35 Sodium 139 mmol/l (132-148) 05/15/17 04:30 Potassium 4.2 MMOL/L (3.6-5.0) 05/15/17 04:30 Chloride 100 mmol/L (98-107) 05/15/17 04:30 Carbon Dioxide 27 mmol/L (22-30) 05/15/17 04:30 Anion Gap 16 (10-20) 05/15/17 04:30 BUN 24 mg/dl (9-20) H 05/15/17 04:30 Creatinine 1.0 mg/dl (0.8-1.5) 05/15/17 04:30 Est GFR ( Amer) > 60 05/15/17 04:30 Est GFR (Non-Af Amer) > 60 05/15/17 04:30 POC Glucose (mg/dL) 110 mg/dL (65-110) 05/15/17 21:21 Random Glucose 104 mg/dL (75-110) 05/15/17 04:30 Calcium 9.2 mg/dL (8.4-10.2) 05/15/17 04:30 Total Bilirubin 1.3 mg/dl (0.2-1.3) 05/15/17 04:30 AST 33 U/L (17-59) 05/15/17 04:30 ALT 77 U/L (21-72) H 05/15/17 04:30 Alkaline Phosphatase 62 U/L (38-126) 05/15/17 04:30 Troponin I 0.3520 ng/mL (0.00-0.120) H* 05/13/17 08:40 NT-Pro-B Natriuret Pep 334 pg/ml (0-900) 05/12/17 19:05 Total Protein 6.8 G/DL (6.3-8.2) 05/15/17 04:30 Albumin 3.5 g/dL (3.5-5.0) 05/15/17 04:30 Globulin 3.3 gm/dL (2.2-3.9) 05/15/17 04:30 Albumin/Globulin Ratio 1.1 (1.0-2.1) 05/15/17 04:30 Valproic Acid 69.9 ug/mL (50.0-100.0) 05/14/17 16:31 Rheumatoid Factor IgG <5 U (<=6) 05/13/17 09:35 Rheumatoid Factor IgA <5 U (<=6) 05/13/17 09:35 Rheumatoid Factor IgM <5 U (<=6) 05/13/17 09:35 AMY Screen Negative (Negative) 05/13/17 09:35 - Hospital Course Hospital Course: Patient evaluated with Dr Guzman during rounds. 57 y/o M was readmitted to hosp from rehab for R/leg DVT and B/L pulm embolism. Patient was treated with therapeutic dose of anticoagulation and reamined stable during his admission to ICU and Telemetry unit. He was revaluated by Neuro, Cardio, Pulm and evaluated by Hem-Onc. Patient underwent ICV filter as per presales consultant recs and no new IC bleeding or neuro deficit was observed. Today after cleared by consultants patient is going to be transferred back to rehab unit to continue PT, anticoagulation management and monitoring. Discharge Exam - Head Exam Head Exam: NORMAL INSPECTION - Eye Exam Eye Exam: EOMI, PERRL - ENT Exam ENT Exam: Mucous Membranes Moist - Respiratory Exam Respiratory Exam: Clear to PA & Lateral, NORMAL BREATHING PATTERN, UNREMARKABLE - Cardiovascular Exam Cardiovascular Exam: REGULAR RHYTHM, +S1, +S2. absent: Gallop - GI/Abdominal Exam GI & Abdominal Exam: Normal Bowel Sounds, Soft, Unremarkable. absent: Guarding , Rigid, Tenderness - Neurological Exam Neurological exam: Alert, Motor Sensory Deficit (R/arm drift/weakness unchanged) , Oriented x3 - Psychiatric Exam Psychiatric exam: Normal Affect, Normal Mood - Skin Skin Exam: Normal Color, Warm Discharge Plan - Follow Up Plan Condition: STABLE Disposition: REHAB FACILITY/REHAB UNIT Patient education suggested?: Yes
[2017-05-16 16:29] VITALS: BP 123/77; PULSE 80; RESP 20; TEMP 98.1; O2SAT 93
--- NOTE | 2017-05-16 18:28 | CARD ---
APPROVED REPORT EKG Measurement Heart [id number] <Conclusion> Sinus tachycardia Otherwise normal ECG
--- NOTE | 2017-05-16 19:12 | PN ---
DATE: SUBJECTIVE: The patient denies any dizziness, headache or chest pain. PHYSICAL EXAMINATION VITAL SIGNS: Blood pressure 143/80, heart rate 88, temperature 97.3 and respirations 18. HEENT: Normocephalic. CHEST: Clear. HEART: S1 and S2 regular. EXTREMITIES: No edema. LABORATORY DATA: Today's blood sugars are 95 and 140. Today's hemoglobin and hematocrit 15.5 and 44.0, white count 15.1 and platelet count 134,000. ASSESSMENT: 1. Hemorrhagic left parietal lobe cerebrovascular accident. 2. Bilateral pulmonary embolism. 3. Hypertension. 4. Seizure disorder. RECOMMENDATIONS: Continue current oral Decadron at 2 mg p.o. q. 12 hours. Continue Depakote 500 mg twice a day, Lipitor 20 mg once a day, Lovenox 50 mg subcutaneous twice a day, Trandate 100 mg p.o. q. 8 hours for systolic blood pressure of 160 and Norvasc 10 mg once a day. Flakito Ruff MD
== END 2017-05-16 19:25 | DRG 40 ==
LOC: H.ER 18:41 → H.ERHOLD 20:25 → H.ICU/CCU 22:40 → H.TEL 05-15 18:44
PROVIDERS: ADMIT Internal Medicine; ATTEND Internal Medicine
PROC: 06H03DZ Insertion of Intraluminal Device into Inferior Vena Cava, Percutaneous Approach (ICD-10-PCS; principal; 2017-05-14)
DX: I61.1 Nontraumatic intracerebral hemorrhage in hemisphere, cortical (principal); I26.99 Other pulmonary embolism without acute cor pulmonale; I82.411 Acute embolism and thrombosis of right femoral vein; G81.91 Hemiplegia, unspecified affecting right dominant side; E11.9 Type 2 diabetes mellitus without complications; D72.828 Other elevated white blood cell count; E78.00 Pure hypercholesterolemia, unspecified; E78.5 Hyperlipidemia, unspecified; G40.909 Epilepsy, unspecified, not intractable, without status epilepticus; I10 Essential (primary) hypertension; Z79.899 Other long term (current) drug therapy

== ENCOUNTER 2017-05-16 18:47 | Inpatient (IN) | payer OTHER ==
[2017-05-16 19:59] VITALS: BMI 32.3
[2017-05-16] MEDS: Insulin Lispro (humaLOG) 100 Units/ml Inj SC SCH (22:19)
[2017-05-16] MEDS: Enoxaparin 80 mg Syringe SC SCH (22:23)
[2017-05-16] MEDS: Divalproex 500 mg DR(BID formulation) PO SCH (22:23)
[2017-05-17] MEDS: Insulin Lispro (humaLOG) 100 Units/ml Inj SC SCH ×4 (06:31→21:31)
[2017-05-17] MEDS: Enoxaparin 80 mg Syringe SC SCH ×2 (10:00→21:18)
[2017-05-17] MEDS: Pantoprazole 40 mg EC Tab PO SCH (10:00)
[2017-05-17] MEDS: Divalproex 500 mg DR(BID formulation) PO SCH ×2 (10:00→21:17)
--- NOTE | 2017-05-17 10:40 | HP ---
ACUTE REHAB ADMISSION NOTE CHIEF COMPLAINT: Transfer from Intensive Care Unit and Telemetry Unit doctor being treated for pulmonary embolism and DVT. HISTORY OF PRESENT ILLNESS: This is 57-year-old male who previously had a history of hypertension was initially admitted to Intensive Care Unit with acute intracerebellar hemorrhage for which multiple consultations were done. The patient was stabilized and was transferred for acute rehab unit. The patient did have a seizure disorder and the patient was returned back to Intensive Care Unit and after stabilized and multiple other consultations the patient was stabilized and was transferred back to acute rehab unit. The patient developed DVT and pulmonary embolism. The patient was transferred back to Intensive Care Unit where the patient was evaluated, managed and treated and stabilized and transferred to Telemetry Unit and also for another day and now is transferred to acute rehab unit for further optimization of his condition and rehabilitation. REVIEW OF SYSTEMS: At this time is negative for headache, dizziness, syncope, loss of consciousness, chest pain, shortness of breath, nausea, vomiting, diarrhea, constipation, or knee, joint, or extremity pain. Review of systems is positive for persistent right-sided stroke. Review of systems of all other organ system is unremarkable. PAST MEDICAL HISTORY: Significant for hypertension, intracerebellar leak, pulmonary embolism, deep venous thrombosis, and seizure disorder. PAST SURGICAL HISTORY: Unremarkable. PERSONAL HISTORY: The patient is currently nonsmoker, nondrinker, and no substance abuse. CURRENT MEDICATIONS: The patient is on multiple medications, which is as per reconciliation sheet, which was reviewed and ordered. ALLERGIES: THE PATIENT IS NOT ALLERGIC TO ANY MEDICATION. FAMILY HISTORY: Noncontributory. PHYSICAL EXAMINATION GENERAL: A well-developed and well-nourished 57-year-old male in no acute distress. VITAL SIGNS: Temperature is afebrile, pulse is 77, respirations are 16, and blood pressure is 130/80. HEENT: Pupils are reactive to light. No JVD. No thyromegaly. No lymphadenopathy. No nystagmus. Normocephalic and atraumatic. HEART: S1 and S2 normal and regular. No significant murmur, gallop, or rub is heard. LUNGS: Good bilateral air exchange. No rales or rhonchi. ABDOMEN: Soft and nontender. No organomegaly. No bruits. Bowel sounds are normal. EXTREMITIES: No edema, no calf swelling, tenderness, or acute ischemia. CENTRAL NERVOUS SYSTEM: Exam is essentially unchanged. There is no new sign of any acute gross focal, motor or sensory deficit. The patient has persistent right-sided weakness mainly for fine motor movements. DIAGNOSTIC DATA: Available diagnostic data reviewed. ASSESSMENT: Overall the patient is medically stable, admitting depression, pulmonary embolism, deep venous thrombosis, seizure disorder of unknown origin, acute intracerebellar hemorrhage, and hypertension. PLAN: As ordered. Treatment plan discussed with the patient. Carrillo Guzman MD
--- NOTE | 2017-05-17 14:19 | CP.PCM.PN ---
Subjective - Date & Time of Evaluation Date of Evaluation: 05/17/17 Time of Evaluation: 14:16 - Subjective Subjective: Pt appears to be stable at this time. He is on lovenox and will be started on coumadin. Lovenox will be d/c as soon as coumadin is in the therapeutic level Pt has no complaints of weakness or pain Objective - Vital Signs/Intake and Output Vital Signs (last 24 hours): Temp Pulse Resp BP Pulse Ox 97.5 F L 84 20 143/80 97 05/17/17 08:21 05/17/17 10:00 05/17/17 08:21 05/17/17 10:00 05/17/17 08:21 - Medications Medications: Current Medications Acetaminophen (Tylenol 325mg Tab) 325 mg PO Q6 PRN PRN Reason: Fever >100.4 F Amlodipine Besylate (Norvasc) 10 mg PO DAILY [facility] Last Admin: 05/17/17 10:00 Dose: 10 mg Atorvastatin Calcium (Lipitor) 20 mg PO HS [facility] Last Admin: 05/16/17 22:23 Dose: 20 mg Dexamethasone (Decadron) 2 mg PO Q12 [facility] Last Admin: 05/17/17 10:00 Dose: 2 mg Divalproex Sodium (Depakote Dr(*Bid*)) 500 mg PO Q12 [facility] Last Admin: 05/17/17 10:00 Dose: 500 mg Enoxaparin Sodium (Lovenox) 80 mg SC Q12 [facility] PRN Reason: Protocol Last Admin: 05/17/17 10:00 Dose: 80 mg Insulin Human Lispro (Humalog) 0 units SC ACHS [facility] PRN Reason: Protocol Last Admin: 05/17/17 11:30 Dose: Not Given Labetalol HCl (Trandate) 100 mg PO Q8 PRN PRN Reason: SBP above 160 mmhg Pantoprazole Sodium (Protonix Ec Tab) 40 mg PO DAILY [facility] Last Admin: 05/17/17 10:00 Dose: 40 mg
--- NOTE | 2017-05-17 14:50 | CP.PCM.CON ---
History of Present Illness - History of Present Illness History of Present Illness: This 57 year old male was discharged from acute medicine to rehab. He had an ICH with subsequent seizure which was followed a short time later by pulmonary embolism. He had bilateral peripheral emboli and was cautiously started on heparin without any bolus dose. He has done well with this regimen and has been followed closely by neurology and hematology as well as myself. He has improved enough to be discharged back to rehab and appears comfortable, alert and gaining strength steadily. There has been no chest discomfort, cough or hemoptysis. His labs have been stable and a repeat CT of the brain appears to indicate a stable course thus far. Past Patient History - Past Medical History & Family History Past Medical History?: Yes - Past Social History Smoking Status: Never Smoked Chewing Tobacco Use: No Cigar Use: No Alcohol: Social Drugs: Denies - CARDIAC Hx Hypercholesterolemia: Yes Hx Hypertension: Yes - PULMONARY Hx Pulmonary Embolism: Yes (05/12/2017 upper/lower lobe) Other/Comment: 05/14/2017- IVC filter placed - NEUROLOGICAL HX Cerebrovascular Accident: Yes (hemorrhagic) Hx Seizures: Yes (05/07/17 - new onset) - HEENT Hx HEENT Problems: No - RENAL Hx Chronic Kidney Disease: No - ENDOCRINE/METABOLIC Hx Diabetes Mellitus Type 2: Yes - HEMATOLOGICAL/ONCOLOGICAL Hx Blood Disorders: No Hx Human Immunodeficiency Virus (HIV): No - INTEGUMENTARY Hx Dermatological Problems: No - MUSCULOSKELETAL/RHEUMATOLOGICAL Hx Musculoskeletal Disorders: No Hx Falls: No - GASTROINTESTINAL Hx Gastrointestinal Disorders: No - GENITOURINARY/GYNECOLOGICAL Hx Genitourinary Disorders: No - PSYCHIATRIC Hx Psychophysiologic Disorder: No Hx Substance Use: No - SURGICAL HISTORY Other/Comment: Eye surgery as a toddler. Retrievable IVC filter placement. - ANESTHESIA Hx Anesthesia: Yes Hx Anesthesia Reactions: No Hx Malignant Hyperthermia: No Meds Allergies/Adverse Reactions: Allergies Allergy/AdvReac Type Severity Reaction Status Date / Time No Known Allergies Allergy Verified 05/12/17 20:15 - Medications Medications: Current Medications Acetaminophen (Tylenol 325mg Tab) 325 mg PO Q6 PRN PRN Reason: Fever >100.4 F Amlodipine Besylate (Norvasc) 10 mg PO DAILY [facility] Last Admin: 05/17/17 10:00 Dose: 10 mg Atorvastatin Calcium (Lipitor) 20 mg PO HS [facility] Last Admin: 03/02/18 22:23 Dose: 20 mg Dexamethasone (Decadron) 2 mg PO Q12 [facility] Last Admin: 05/17/17 10:00 Dose: 2 mg Divalproex Sodium (Depakote Dr(*Bid*)) 500 mg PO Q12 [facility] Last Admin: 05/17/17 10:00 Dose: 500 mg Enoxaparin Sodium (Lovenox) 80 mg SC Q12 [facility] PRN Reason: Protocol Last Admin: 05/17/17 10:00 Dose: 80 mg Insulin Human Lispro (Humalog) 0 units SC ACHS [facility] PRN Reason: Protocol Last Admin: 05/17/17 11:30 Dose: Not Given Labetalol HCl (Trandate) 100 mg PO Q8 PRN PRN Reason: SBP above 160 mmhg Pantoprazole Sodium (Protonix Ec Tab) 40 mg PO DAILY [facility] Last Admin: 05/17/17 10:00 Dose: 40 mg Physical Exam - Additional Findings Additional findings: Weel nourished, well developed, in no distress. Awake, alert, cooperative with the exam. Pharynx is pink and moist. Neck is supple and trachea midline. No JVD. No dullness on chest percussion, equal expansion. Breath sounds are well heard in both lungs. No audible rales or wheezes. Rare rhonchi in dependant regions. No bronchial breath sounds, no egophony, no rub. Heart sounds well heard, regular rhythm. Abdomen soft and non-tender. No dependant edema, no calf tenderness or palpable venous cords. No cyanosis, peripheral pulses fairly well felt in all 4 extremities. Results - Vital Signs Recent Vital Signs: Last Vital Signs Temp 97.5 F L 05/17/17 08:21 Pulse 84 05/17/17 10:00 Resp 20 05/17/17 08:21 BP 143/80 05/17/17 10:00 Pulse Ox 97 05/17/17 08:21 - Labs Result Diagrams: 05/19/17 05:30 05/19/17 05:30 Labs: Laboratory Results - last 24 hr 05/16/17 05/17/17 21:26 05:47 POC Glucose (mg/dL) 138 H 95 Assessment & Plan (1) Deep vein blood clot of right lower extremity Status: Acute Priority: High (2) Pulmonary embolism Status: Acute Priority: High - Assessment and Plan (Free Text) Plan: Deiscussed with hematology and I am in agreement; warfarin may be a better choice for oral anticoagulation since there is a reversal agent if ever needed. - Date & Time Date: 05/17/17 Time: 14:47
[2017-05-17 14:54] LABS: INR 1.2 (0.9-1.2); PROTHROMBIN TIME 13.2 Seconds (9.8-13.1)
--- NOTE | 2017-05-17 15:19 | CP.PCM.CON ---
History of Present Illness - History of Present Illness History of Present Illness: Mr. Almaraz is a 57-year-old man, who is well known to me from the inpatient side, who was recently re-admitted to acute rehab after developing bilateral PE last week. The patient had recently suffered from a left frontal lobe intraparenchymal hemorrhage. There was suspected underlying mass effect as well, which was suspicious for an underlying tumor, but this was not present on MRI, when we repeated it. The degree of edema was out of proportion for a new intraparenchymal hemorrhage and the patient did not have significant risk factors for a bleed in an atypical location. However, the patient was stable and was started on low intensity heparin IV, and later transition to subcutaneous Lovenox prophylactic dose. The patient tolerated the anticoagulation well, and repeat CT head did not show expansion of the bleed. He was then transferred back to acute rehab, where I was reconsulted to evaluate the patient. Today, the patient states that he has improved in regards to the weakness on the right side and had some improvement in the coordination as well. He denied headache, visual changes, or other focal neurological deficits. Review of Systems - Review of Systems All systems: reviewed and no additional remarkable complaints except Past Patient History - Past Medical History & Family History Past Medical History?: Yes - Past Social History Smoking Status: Never Smoked - CARDIAC Hx Hypercholesterolemia: Yes Hx Hypertension: Yes - PULMONARY Hx Respiratory Disorders: No Hx Pulmonary Embolism: Yes (05/12/2017 upper/lower lobe) Other/Comment: 05/14/2017- IVC filter placed - NEUROLOGICAL HX Cerebrovascular Accident: Yes (hemorrhagic) Hx Seizures: Yes (05/07/17 - new onset) - HEENT Hx HEENT Problems: No - RENAL Hx Chronic Kidney Disease: No - ENDOCRINE/METABOLIC Hx Diabetes Mellitus Type 2: Yes - HEMATOLOGICAL/ONCOLOGICAL Hx Blood Disorders: No Hx AIDS: No Hx Human Immunodeficiency Virus (HIV): No - INTEGUMENTARY Hx Dermatological Problems: No - MUSCULOSKELETAL/RHEUMATOLOGICAL Hx Falls: No - GASTROINTESTINAL Hx Gastrointestinal Disorders: No - GENITOURINARY/GYNECOLOGICAL Hx Genitourinary Disorders: No - PSYCHIATRIC Hx Substance Use: No - SURGICAL HISTORY Other/Comment: Eye surgery as a toddler - ANESTHESIA Hx Anesthesia: Yes Hx Anesthesia Reactions: No Hx Malignant Hyperthermia: No Meds Allergies/Adverse Reactions: Allergies Allergy/AdvReac Type Severity Reaction Status Date / Time No Known Allergies Allergy Verified 05/12/17 20:15 - Medications Medications: Current Medications Acetaminophen (Tylenol 325mg Tab) 325 mg PO Q6 PRN PRN Reason: Fever >100.4 F Amlodipine Besylate (Norvasc) 10 mg PO DAILY [facility] Last Admin: 05/17/17 10:00 Dose: 10 mg Atorvastatin Calcium (Lipitor) 20 mg PO HS [facility] Last Admin: 05/16/17 22:23 Dose: 20 mg Dexamethasone (Decadron) 2 mg PO Q12 [facility] Last Admin: 05/17/17 10:00 Dose: 2 mg Divalproex Sodium (Depakote Dr(*Bid*)) 500 mg PO Q12 [facility] Last Admin: 05/17/17 10:00 Dose: 500 mg Enoxaparin Sodium (Lovenox) 80 mg SC Q12 [facility] PRN Reason: Protocol Last Admin: 05/17/17 10:00 Dose: 80 mg Insulin Human Lispro (Humalog) 0 units SC ACHS [facility] PRN Reason: Protocol Last Admin: 05/17/17 11:30 Dose: Not Given Labetalol HCl (Trandate) 100 mg PO Q8 PRN PRN Reason: SBP above 160 mmhg Pantoprazole Sodium (Protonix Ec Tab) 40 mg PO DAILY [facility] Last Admin: 05/17/17 10:00 Dose: 40 mg Physical Exam - Neurological Exam Neurological exam: Abnormal Gait, Altered, CN II-XII Intact, Oriented x3 Additional comments: Fine motor deficits noted of RUE. Reflexes are brisk with upgoing plantar responses on the right. Results - Vital Signs Recent Vital Signs: Last Vital Signs Temp 97.5 F L 05/17/17 08:21 Pulse 84 05/17/17 10:00 Resp 20 05/17/17 08:21 BP 143/80 05/17/17 10:00 Pulse Ox 97 05/17/17 08:21 - Labs Labs: Laboratory Results - last 24 hr 05/16/17 05/17/17 05/17/17 21:26 05:47 14:31 PT 13.2 H INR 1.2 POC Glucose (mg/dL) 138 H 95 Assessment & Plan (1) ICH (intracerebral hemorrhage) Assessment and Plan: The risk for expansion of the bleed is still present, and it may be dangerous to start full dose anticoagulation with coumadin; however, the situation may warrant starting anticoagulation at a lower dose to avoid re-aggravation of the injured parenchymal tissue. We may consider starting Eliquis (lower risk of ICH ) at a lower dose for DVT Px (2.5 mg BID). The problem with Eliquis may be that it is not as easily monitored as coumadin. I will discuss this with hematology. In the mean time, we will continue frequent neurological examinations and the patient will be closely observed during rehab. Status: Chronic Priority: High (2) New onset seizure Assessment and Plan: Continue current AED regimen with Depakote 500 mg Q12. Continue decadron at 2 mg BID and plan on tapering down to 1 mg BID, if tolerated. Will repeat CT head to ensure there is not a significant amount of increasing edema. Status: Acute
--- NOTE | 2017-05-17 15:47 | CON ---
DATE: CARDIOLOGY CONSULTATION REASON FOR CONSULTATION: Sinus tachycardia and bilateral pulmonary embolus. HISTORY OF PRESENT ILLNESS: The patient is a 57-year-old male who has a history of hypertension, who was initially admitted on 05/02/2017 because of left parietal lobe hemorrhage. I was consulted on 05/12/2017 because of sinus tachycardia. A diagnosis of bilateral pulmonary embolism was made on CT angio of the chest as well as venous thrombosis of the superficial system on the right leg. The patient was placed on therapeutic anticoagulation regimen for pulmonary embolism and underwent IVC filter placement and was transferred to acute rehab yesterday. The patient denies any chest pain. His sinus tachycardia has improved and he denies any worsening of his neuro symptoms including right upper and right lower extremity weakness. He denies any dizziness or headache and did not experience any speech difficulty. SOCIAL HISTORY: Nonsmoker. MEDICATIONS: Decadron 2 mg p.o. q.12 hours, Depakote 500 mg p.o. twice a day, Lipitor 20 mg once a day, Lovenox 80 mg subcutaneous twice a day, Norvasc 10 mg once a day, and Trandate 100 mg p.o. q.8 hours p.r.n. PHYSICAL EXAMINATION: GENERAL: The patient is a middle-aged male who does not appear to be in any distress. VITAL SIGNS: Blood pressure , pulse 84, temperature 97.5, and respirations 20. HEENT: Normocephalic. CHEST: Clear. HEART: S1 and S2 regular. ABDOMEN: Soft. EXTREMITIES: No edema. No calf tenderness. LABORATORY DATA: Yesterday's hemoglobin and hematocrit are 15.5 and 44.0, white count 15.1, and platelet count 134,000. The most recent SMA-7 on was within normal limits except for BUN of 24. Echocardiography study repeated yesterday with diagnosis of pulmonary embolus revealed normal left ventricular systolic function with dilated right ventricle and severely reduced right ventricular systolic function. ASSESSMENT: 1. Recent acute pulmonary embolus. 2. Severely reduced right ventricular systolic function. 3. Mild pulmonary hypertension. 4. Hemorrhagic left parietal lobe cerebrovascular accident. 5. Hypertension. RECOMMENDATIONS: Continue current Decadron 2 mg p.o. q.12 hours, Lipitor 20 mg once a day, subcutaneous Lovenox at 80 mg twice a day, Norvasc 10 mg once a day, and Trandate 100 mg q.8 hours. Continue current acute rehab. Flakito Ruff MD
[2017-05-18] MEDS: Insulin Lispro (humaLOG) 100 Units/ml Inj SC SCH ×4 (06:44→21:40)
--- NOTE | 2017-05-18 08:13 | PN ---
DATE: 05/18/2017 SUBJECTIVE: The patient is seen and examined. Interim events noted. Consults noted and appreciated. Hematology, Pulmonology, and Neurology consults and interventions noted and appreciated. The patient remains in Acute Rehab Unit. Feels okay. No new complaints. No chest pain. No shortness of breath. No dizziness . PHYSICAL EXAMINATION: GENERAL: The patient is in no acute distress. VITAL SIGNS: Stable. HEART: S1 and S2, normal and regular. LUNGS: Good bilateral air exchange. ABDOMEN: Soft and nontender. EXTREMITIES: No edema. No calf swelling. No tenderness. No acute ischemia. HEAD PASTRY CHEF: Essentially unchanged. DIAGNOSTIC DATA: Available diagnostic data reviewed. INR is 1.2. PLAN: Overall, the patient is clinically stable. Plan as ordered. Carrillo Guzman MD
[2017-05-18] MEDS: Pantoprazole 40 mg EC Tab PO SCH (08:33)
[2017-05-18] MEDS: Divalproex 500 mg DR(BID formulation) PO SCH ×2 (08:33→21:29)
[2017-05-18] MEDS: Enoxaparin 80 mg Syringe SC SCH ×2 (08:34→21:30)
--- NOTE | 2017-05-18 08:52 | CP.PCM.PN ---
Subjective - Date & Time of Evaluation Date of Evaluation: 05/18/17 Time of Evaluation: 08:50 - Subjective Subjective: Spoke with Dr Montenegro yesterday,andhe feels that since we are not yet sure if there is a tumor under the bleed hre would like the pt to be on parenteral anticoagulants. Will continue lovenox. Objective - Vital Signs/Intake and Output Vital Signs (last 24 hours): Temp Pulse Resp BP Pulse Ox 96.4 F L 56 L 19 132/83 97 05/18/17 08:16 05/18/17 08:16 05/18/17 08:16 05/18/17 08:34 05/18/17 08:16 - Medications Medications: Current Medications Acetaminophen (Tylenol 325mg Tab) 325 mg PO Q6 PRN PRN Reason: Fever >100.4 F Amlodipine Besylate (Norvasc) 10 mg PO DAILY [facility] Last Admin: 05/18/17 08:34 Dose: 10 mg Atorvastatin Calcium (Lipitor) 20 mg PO HS [facility] Last Admin: 05/17/17 21:17 Dose: 20 mg Dexamethasone (Decadron) 2 mg PO Q12 [facility] Last Admin: 05/18/17 08:33 Dose: 2 mg Divalproex Sodium (Depakote Dr(*Bid*)) 500 mg PO Q12 [facility] Last Admin: 05/18/17 08:33 Dose: 500 mg Enoxaparin Sodium (Lovenox) 80 mg SC Q12 [facility] PRN Reason: Protocol Last Admin: 05/18/17 08:34 Dose: 80 mg Insulin Human Lispro (Humalog) 0 units SC ACHS [facility] PRN Reason: Protocol Last Admin: 05/18/17 06:44 Dose: Not Given Labetalol HCl (Trandate) 100 mg PO Q8 PRN PRN Reason: SBP above 160 mmhg Pantoprazole Sodium (Protonix Ec Tab) 40 mg PO DAILY [facility] Last Admin: 05/18/17 08:33 Dose: 40 mg - Labs Labs: PT 13.2 Seconds (9.8-13.1) H 05/17/17 14:31 INR 1.2 (0.9-1.2) 05/17/17 14:31
--- NOTE | 2017-05-18 09:51 | CP.PCM.CON ---
History of Present Illness - History of Present Illness History of Present Illness: 57 year old readmitted for acute stroke, after intracranial Hge, Review of Systems - Musculoskeletal Musculoskeletal: Abnormal Gait, Limited Range of Motion Past Patient History - Past Medical History & Family History Past Medical History?: Yes - Past Social History Smoking Status: Never Smoked - CARDIAC Hx Hypercholesterolemia: Yes Hx Hypertension: Yes - PULMONARY Hx Respiratory Disorders: No Hx Pulmonary Embolism: Yes (05/12/2017 upper/lower lobe) Other/Comment: 05/14/2017- IVC filter placed - NEUROLOGICAL HX Cerebrovascular Accident: Yes (hemorrhagic) Hx Seizures: Yes (05/07/17 - new onset) - HEENT Hx HEENT Problems: No - RENAL Hx Chronic Kidney Disease: No - ENDOCRINE/METABOLIC Hx Diabetes Mellitus Type 2: Yes - HEMATOLOGICAL/ONCOLOGICAL Hx Blood Disorders: No Hx AIDS: No Hx Human Immunodeficiency Virus (HIV): No - INTEGUMENTARY Hx Dermatological Problems: No - MUSCULOSKELETAL/RHEUMATOLOGICAL Hx Falls: No - GASTROINTESTINAL Hx Gastrointestinal Disorders: No - GENITOURINARY/GYNECOLOGICAL Hx Genitourinary Disorders: No - PSYCHIATRIC Hx Substance Use: No - SURGICAL HISTORY Other/Comment: Eye surgery as a toddler - ANESTHESIA Hx Anesthesia: Yes Hx Anesthesia Reactions: No Hx Malignant Hyperthermia: No Meds Allergies/Adverse Reactions: Allergies Allergy/AdvReac Type Severity Reaction Status Date / Time No Known Allergies Allergy Verified 05/12/17 20:15 - Medications Medications: Current Medications Acetaminophen (Tylenol 325mg Tab) 325 mg PO Q6 PRN PRN Reason: Fever >100.4 F Amlodipine Besylate (Norvasc) 10 mg PO DAILY [facility] Last Admin: 05/18/17 08:34 Dose: 10 mg Atorvastatin Calcium (Lipitor) 20 mg PO HS [facility] Last Admin: 05/17/17 21:17 Dose: 20 mg Dexamethasone (Decadron) 2 mg PO Q12 [facility] Last Admin: 05/18/17 08:33 Dose: 2 mg Divalproex Sodium (Depakote Dr(*Bid*)) 500 mg PO Q12 [facility] Last Admin: 05/18/17 08:33 Dose: 500 mg Enoxaparin Sodium (Lovenox) 80 mg SC Q12 [facility] PRN Reason: Protocol Last Admin: 05/18/17 08:34 Dose: 80 mg Insulin Human Lispro (Humalog) 0 units SC ACHS [facility] PRN Reason: Protocol Last Admin: 05/18/17 06:44 Dose: Not Given Labetalol HCl (Trandate) 100 mg PO Q8 PRN PRN Reason: SBP above 160 mmhg Pantoprazole Sodium (Protonix Ec Tab) 40 mg PO DAILY [facility] Last Admin: 05/18/17 08:33 Dose: 40 mg Physical Exam - Head Exam Head Exam: ATRAUMATIC, NORMAL INSPECTION, NORMOCEPHALIC - Eye Exam Eye Exam: EOMI, Normal appearance, PERRL - ENT Exam ENT Exam: Mucous Membranes Moist, Normal Exam - Neck Exam Neck exam: Positive for: Normal Inspection - Respiratory Exam Respiratory Exam: Clear to Auscultation Bilateral, NORMAL BREATHING PATTERN - Cardiovascular Exam Cardiovascular Exam: REGULAR RHYTHM - GI/Abdominal Exam GI & Abdominal Exam: Normal Bowel Sounds, Soft. absent: Tenderness - Rectal Exam Rectal Exam: NORMAL INSPECTION - Exam Exam: Circumcision, NORMAL INSPECTION - Extremities Exam Extremities exam: Positive for: normal inspection - Back Exam Back exam: NORMAL INSPECTION - Neurological Exam Neurological exam: Abnormal Gait, CN II-XII Intact Additional comments: right sided weakness - Psychiatric Exam Psychiatric exam: Normal Affect - Skin Skin Exam: Dry, Normal Color, Warm Results - Vital Signs Recent Vital Signs: Last Vital Signs Temp 96.4 F L 05/18/17 08:16 Pulse 56 L 05/18/17 08:16 Resp 19 05/18/17 08:16 BP 132/83 05/18/17 08:34 Pulse Ox 97 05/18/17 08:16 - Labs Labs: Laboratory Results - last 24 hr 05/17/17 05/17/17 05/17/17 11:53 14:31 16:04 PT 13.2 H INR 1.2 POC Glucose (mg/dL) 89 111 H 05/17/17 21:22 PT INR POC Glucose (mg/dL) 94 Assessment & Plan (1) Apraxia Status: Acute (2) DM2 (diabetes mellitus, type 2) Status: Acute (3) DVT prophylaxis Status: Acute (4) Deep vein blood clot of right lower extremity Status: Acute Priority: High (5) New onset seizure Status: Acute (6) Pulmonary embolism Status: Acute Priority: High (7) HTN (hypertension) Status: Chronic (8) Hemiparesis Assessment and Plan: physical, occupational, rec and speech therapy covering for Dr jimenes to write overall plan of care Status: Chronic
--- NOTE | 2017-05-18 09:54 | PCM.OPOC ---
Physiatry Overall Plan of Care - Overall Plan of Care Estimated Length of Stay in Weeks: 3 Rehab Impairment: Mobility, Gait, Balance, Coordination Etiologic Diagnosis: Cerebrovascular Accident Rehab/Medical Prognosis: Fair - Therapy Goals Bed Mobility: Independent Ambulation: Independent Functional Positional Changes:: Independent - Functional Outcomes Functional Outcomes: fair - Discharge Plan Identification of Barriers to Discharge: Cognition Discharge Destination: Home
--- NOTE | 2017-05-18 18:19 | PN ---
DATE: SUBJECTIVE: The patient ambulated today with the help of the nurse. No chest pain. No dizziness. No headache. No shortness of breath. PHYSICAL EXAMINATION: VITAL SIGNS: Blood pressure 132/83, heart rate 56, temperature 96.4, and respirations 19. HEENT: Normocephalic. CHEST: Clear. HEART: S1 and S2 regular. EXTREMITIES: No edema. LABORATORY DATA: Today's blood sugar is 83. ASSESSMENT: 1. Recent left parietal lobe hemorrhage. 2. Bilateral pulmonary embolus. 3. Hypertension. 4. Seizure disorder. RECOMMENDATIONS: Continue current oral Decadron. Continue oral Depakote. Continue Lopressor. Continue therapeutic subcutaneous Lovenox and p.r.n. labetalol at 100 mg q.8 hours. Flakito Ruff MD
[2017-05-19 07:02] LABS: BLOOD UREA NITROGEN 23 mg/dl (9-20); CALCIUM 8.8 mg/dL (8.4-10.2); GFR AFRICAN-AMERICAN > 60; GFR NON-AFRICAN AMERICAN > 60
[2017-05-19 07:11] LABS: HEMOGLOBIN 14.7 g/dL (12.0-18.0); MEAN CELL VOLUME 89.6 fl (80.0-94.0); MEAN CORPUSCULAR HEMOGLOBIN 31.5 pg (27.0-31.0); MEAN CORPUSCULAR HGB CONC 35.1 g/dL (33.0-37.0); RBC 4.68 Mil/uL (4.40-5.90); RED CELL DISTRIBUTION WIDTH 13.5 % (11.5-14.5); WHITE BLOOD COUNT 10.3 K/uL (4.8-10.8)
[2017-05-19] MEDS: Insulin Lispro (humaLOG) 100 Units/ml Inj SC SCH ×4 (07:13→21:37)
[2017-05-19] MEDS: Pantoprazole 40 mg EC Tab PO SCH (08:43)
[2017-05-19] MEDS: Enoxaparin 80 mg Syringe SC SCH ×2 (08:43→21:37)
[2017-05-19] MEDS: Divalproex 500 mg DR(BID formulation) PO SCH ×2 (08:44→21:37)
--- NOTE | 2017-05-19 09:55 | CP.PCM.PN ---
Subjective - Date & Time of Evaluation Date of Evaluation: 05/19/17 Time of Evaluation: 09:53 - Subjective Subjective: CBC stable. No ecchymosis sen Pt walked a fair amount but had no shortness of breath or dizziness. His lower extremities are a little uncomfortable, but otherwise he feels fine Objective - Vital Signs/Intake and Output Vital Signs (last 24 hours): Temp Pulse Resp BP Pulse Ox 97.0 F L 56 L 20 150/76 98 05/18/17 19:56 05/18/17 19:56 05/18/17 19:56 05/19/17 08:44 05/18/17 19:56 - Medications Medications: Current Medications Acetaminophen (Tylenol 325mg Tab) 325 mg PO Q6 PRN PRN Reason: Fever >100.4 F Amlodipine Besylate (Norvasc) 10 mg PO DAILY [facility] Last Admin: 05/19/17 08:44 Dose: 10 mg Atorvastatin Calcium (Lipitor) 20 mg PO HS [facility] Last Admin: 05/18/17 21:29 Dose: 20 mg Dexamethasone (Decadron) 2 mg PO Q12 [facility] Last Admin: 05/19/17 08:43 Dose: 2 mg Divalproex Sodium (Depakote Dr(*Bid*)) 500 mg PO Q12 [facility] Last Admin: 05/19/17 08:44 Dose: 500 mg Enoxaparin Sodium (Lovenox) 80 mg SC Q12 [facility] PRN Reason: Protocol Last Admin: 05/19/17 08:43 Dose: 80 mg Insulin Human Lispro (Humalog) 0 units SC ACHS [facility] PRN Reason: Protocol Last Admin: 05/19/17 07:13 Dose: Not Given Labetalol HCl (Trandate) 100 mg PO Q8 PRN PRN Reason: SBP above 160 mmhg Pantoprazole Sodium (Protonix Ec Tab) 40 mg PO DAILY [facility] Last Admin: 05/19/17 08:43 Dose: 40 mg - Labs Labs: 05/19/17 05:30 05/19/17 05:30 PT 13.2 Seconds (9.8-13.1) H 05/17/17 14:31 INR 1.2 (0.9-1.2) 05/17/17 14:31
--- NOTE | 2017-05-19 09:56 | PN ---
DATE: 05/19/2017 SUBJECTIVE: The patient is seen and examined. Interim events noted. Consults noted and appreciated. Hematology and Cardiology followup and interventions noted and appreciated. The patient remains in Acute Rehab Unit. Denies any specific new complaints. No specific issue reported by nursing staff. PHYSICAL EXAMINATION: GENERAL: The patient is in no acute distress. VITAL SIGNS: Stable. HEART: S1 and S2, normal and regular. LUNGS: Good bilateral air exchange. ABDOMEN: Soft and nontender. EXTREMITIES: No edema. No calf swelling. No tenderness. No acute ischemia. CENTRAL NERVOUS SYSTEM: Exam is essentially unchanged and the patient remains with weakness on upper extremity on right side with more problems and weakness on fine motor movements. DIAGNOSTIC DATA: Available diagnostic data reviewed. IMPRESSION AND PLAN: Overall, the patient's general medical condition is essentially same. So far does not seem to have any acute complication from anticoagulation. Plan as ordered. Carrillo Guzman MD
--- NOTE | 2017-05-19 10:51 | CP.PCM.PN ---
Subjective - Date & Time of Evaluation Date of Evaluation: 05/19/17 Time of Evaluation: 10:48 - Subjective Subjective: Mr. Almaraz was seen and examined at the therapy room. He remains alert, oriented in all spheres. He denies any headache, dizziness, lightheadedness, shortness of breath, nausea, or vomiting. He is able to participate during his therapy session with right arm weakness. He is able to ambulate with minimal assistance. There was no untoward events overnight. Objective - Vital Signs/Intake and Output Vital Signs (last 24 hours): Temp Pulse Resp BP Pulse Ox 97.0 F L 56 L 20 150/76 98 05/18/17 19:56 05/18/17 19:56 05/18/17 19:56 05/19/17 08:44 05/18/17 19:56 - Medications Medications: Current Medications Acetaminophen (Tylenol 325mg Tab) 325 mg PO Q6 PRN PRN Reason: Fever >100.4 F Amlodipine Besylate (Norvasc) 10 mg PO DAILY [facility] Last Admin: 05/19/17 08:44 Dose: 10 mg Atorvastatin Calcium (Lipitor) 20 mg PO HS [facility] Last Admin: 05/18/17 21:29 Dose: 20 mg Dexamethasone (Decadron) 2 mg PO Q12 [facility] Last Admin: 05/19/17 08:43 Dose: 2 mg Divalproex Sodium (Depakote Dr(*Bid*)) 500 mg PO Q12 [facility] Last Admin: 05/19/17 08:44 Dose: 500 mg Enoxaparin Sodium (Lovenox) 80 mg SC Q12 [facility] PRN Reason: Protocol Last Admin: 05/19/17 08:43 Dose: 80 mg Insulin Human Lispro (Humalog) 0 units SC ACHS [facility] PRN Reason: Protocol Last Admin: 05/19/17 07:13 Dose: Not Given Labetalol HCl (Trandate) 100 mg PO Q8 PRN PRN Reason: SBP above 160 mmhg Pantoprazole Sodium (Protonix Ec Tab) 40 mg PO DAILY [facility] Last Admin: 05/19/17 08:43 Dose: 40 mg - Labs Labs: 05/19/17 05:30 05/19/17 05:30 PT 13.2 Seconds (9.8-13.1) H 05/17/17 14:31 INR 1.2 (0.9-1.2) 05/17/17 14:31 - Constitutional Appears: No Acute Distress - Head Exam Head Exam: NORMAL INSPECTION - Neurological Exam Neurological Exam: Alert, Awake, Oriented x3 Neuro motor strength exam: Left Upper Extremity: 5, Right Upper Extremity: 3, Left Lower Extremity: 5, Right Lower Extremity: 5 Additional comments: Neurological unchanged from previous examination. Assessment and Plan (1) New onset seizure Assessment & Plan: Case discussed with Dr. Lomeli, continue all current medical regimen including AED. Recommend monitoring valproic level. Status: Acute (2) Pulmonary embolism Assessment & Plan: Case discussed with Dr. Lomeli, continue current anticoagulant. Recommend hemalogy help is appreciated. Status: Acute (3) ICH (intracerebral hemorrhage) Assessment & Plan: Case discussed with Dr. Lomeli, continue current medical, physical, occupational, and speech therapies. Recommend to repeat MRI of the brain to evaluate ICH. Status: Chronic
--- NOTE | 2017-05-19 14:43 | PN ---
DATE: CARDIOLOGY FOLLOWUP SUBJECTIVE: The patient had physical therapy today. No reported dizziness, hypotension or tachycardia. The patient denies any shortness of breath. PHYSICAL EXAMINATION: VITAL SIGNS: Blood pressure of 150/76, heart rate of 65, temperature of 98.2, and respirations of 20. HEENT: Normocephalic. NECK: No JVD. CHEST: Clear. HEART: S1 and S2 regular. ABDOMEN: Soft. EXTREMITIES: No edema. LABORATORY DATA: Today's SMA-7 is within normal limits except for BUN of 23. Today's hemoglobin, hematocrit, white count and platelet count are within normal limits. ASSESSMENT: 1. Hemorrhagic left parietal lobe, cerebrovascular accident. 2. Bilateral pulmonary embolus. 3. Hypertension. RECOMMENDATIONS: Continue current Decadron 2 mg p.o. twice a day, Lipitor 20 mg once a day, therapeutic subcutaneous Lovenox 80 mg twice a day, and labetalol 100 mg p.o. q.8 hours p.r.n. Flaikto Ruff MD
[2017-05-20] MEDS: Insulin Lispro (humaLOG) 100 Units/ml Inj SC SCH ×4 (06:54→21:28)
--- NOTE | 2017-05-20 07:55 | PN ---
DATE: 05/20/2017 SUBJECTIVE: The patient is seen and examined. Interim events noted. Consults noted and appreciated. The patient remains in Acute Rehab Unit. Feels okay. No chest pain. No shortness of breath. No dizziness. Doing well with physical therapy. Fine motor movement improved. PHYSICAL EXAMINATION: GENERAL: The patient is in no acute distress. VITAL SIGNS: Stable. HEART: S1 and S2, normal and regular. LUNGS: Good bilateral air exchange. ABDOMEN: Soft and nontender. EXTREMITIES: No edema. No calf swelling. No tenderness. No acute ischemia. CENTRAL NERVOUS SYSTEM: Exam is essentially unchanged. improved. DIAGNOSTIC DATA: Available diagnostic data reviewed. ASSESSMENT AND PLAN: Overall, the patient's general medical condition is slowly improving. No sign of any complications so far. Plan as ordered. Carrillo Guzman MD
[2017-05-20] MEDS: Divalproex 500 mg DR(BID formulation) PO SCH ×2 (08:37→21:21)
[2017-05-20] MEDS: Enoxaparin 80 mg Syringe SC SCH ×2 (08:38→21:22)
[2017-05-20] MEDS: Pantoprazole 40 mg EC Tab PO SCH (08:38)
--- NOTE | 2017-05-20 11:03 | CP.PCM.PN ---
Subjective - Date & Time of Evaluation Date of Evaluation: 05/20/17 Time of Evaluation: 10:48 - Subjective Subjective: /seen on morning rounds. Interim events reviewed. He appears comfortable and offers no specific complaints. He appers to be progressing well with physical and occupational therapy.' He offers no complaints of chest discomfort or cough. No SOB or ARMSTRONG. Chest exam is normal on percussion and auscultation. Would not change therapy at this point. Follow up echocardiogram at a later date to check RV function and pressures. Objective - Vital Signs/Intake and Output Vital Signs (last 24 hours): Temp Pulse Resp BP Pulse Ox 96.4 F L 56 L 18 141/87 98 05/20/17 09:00 05/20/17 09:00 05/20/17 09:00 05/20/17 09:00 05/20/17 08:03 - Medications Medications: Current Medications Acetaminophen (Tylenol 325mg Tab) 325 mg PO Q6 PRN PRN Reason: Fever >100.4 F Amlodipine Besylate (Norvasc) 10 mg PO DAILY [facility] Last Admin: 05/20/17 08:37 Dose: 10 mg Atorvastatin Calcium (Lipitor) 20 mg PO HS [facility] Last Admin: 05/19/17 21:37 Dose: 20 mg Dexamethasone (Decadron) 2 mg PO Q12 [facility] Last Admin: 05/20/17 08:38 Dose: 2 mg Divalproex Sodium (Depakote Dr(*Bid*)) 500 mg PO Q12 [facility] Last Admin: 05/20/17 08:37 Dose: 500 mg Enoxaparin Sodium (Lovenox) 80 mg SC Q12 [facility] PRN Reason: Protocol Last Admin: 05/20/17 08:38 Dose: 80 mg Insulin Human Lispro (Humalog) 0 units SC ACHS [facility] PRN Reason: Protocol Last Admin: 05/20/17 06:54 Dose: Not Given Labetalol HCl (Trandate) 100 mg PO Q8 PRN PRN Reason: SBP above 160 mmhg Pantoprazole Sodium (Protonix Ec Tab) 40 mg PO DAILY [facility] Last Admin: 05/20/17 08:38 Dose: 40 mg - Labs Labs: 05/19/17 05:30 05/19/17 05:30 PT 13.2 Seconds (9.8-13.1) H 03/03/18 14:31 INR 1.2 (0.9-1.2) 05/17/17 14:31 Assessment and Plan (1) Deep vein blood clot of right lower extremity Status: Acute (2) Pulmonary embolism Status: Acute
--- NOTE | 2017-05-20 11:06 | CP.PCM.PN ---
Subjective - Date & Time of Evaluation Date of Evaluation: 05/20/17 Time of Evaluation: 11:03 - Subjective Subjective: Pt is doing well with the physical therapy. No shortness of breath, no lower extremity pain. No more seizures. Will continue the lovenox until I hear from Dr Us Objective - Vital Signs/Intake and Output Vital Signs (last 24 hours): Temp Pulse Resp BP Pulse Ox 96.4 F L 56 L 18 141/87 98 05/20/17 09:00 05/20/17 09:00 05/20/17 09:00 05/20/17 09:00 05/20/17 08:03 - Medications Medications: Current Medications Acetaminophen (Tylenol 325mg Tab) 325 mg PO Q6 PRN PRN Reason: Fever >100.4 F Amlodipine Besylate (Norvasc) 10 mg PO DAILY [facility] Last Admin: 05/20/17 08:37 Dose: 10 mg Atorvastatin Calcium (Lipitor) 20 mg PO HS [facility] Last Admin: 05/19/17 21:37 Dose: 20 mg Dexamethasone (Decadron) 2 mg PO Q12 [facility] Last Admin: 05/20/17 08:38 Dose: 2 mg Divalproex Sodium (Depakote Dr(*Bid*)) 500 mg PO Q12 [facility] Last Admin: 05/20/17 08:37 Dose: 500 mg Enoxaparin Sodium (Lovenox) 80 mg SC Q12 [facility] PRN Reason: Protocol Last Admin: 05/20/17 08:38 Dose: 80 mg Insulin Human Lispro (Humalog) 0 units SC ACHS [facility] PRN Reason: Protocol Last Admin: 05/20/17 06:54 Dose: Not Given Labetalol HCl (Trandate) 100 mg PO Q8 PRN PRN Reason: SBP above 160 mmhg Pantoprazole Sodium (Protonix Ec Tab) 40 mg PO DAILY [facility] Last Admin: 05/20/17 08:38 Dose: 40 mg - Labs Labs: 05/19/17 05:30 05/19/17 05:30 PT 13.2 Seconds (9.8-13.1) H 05/17/17 14:31 INR 1.2 (0.9-1.2) 05/17/17 14:31
--- NOTE | 2017-05-20 13:17 | PSY.TMCNF ---
Nursing - Vital Signs Vital Signs (Last 8 hours): Vital Signs 05/20/17 05/20/17 05/20/17 08:03 08:37 09:00 Temperature 96.4 F L 96.4 F L Pulse Rate 56 L 56 L Respiratory 18 18 Rate Blood Pressure 141/87 141/87 141/87 O2 Sat by Pulse 98 Oximetry Pain: 0 - Precautions: Precautions: Fall Prevention - Medications/Other Issues Comment: Pt at low nutritional risk. no goals. Follow-up due on 05/28/2017 - Consults Comment: Dr. Woods, Dr. Montenegro, Dr. Jama, Dr. Zapata - Toileting Toileting: Supervision - Bladder Management Bladder Pattern: Normal Voiding Method: Toilet Bladder Management: Supervision Frequency of Accidents: 0 - Bowel Management Bowel Pattern: Normal Bowel Management: Supervision Frequency of Accidents: 0 - Transfers Transfers: Contact Guard - ADL's ADL's: Supervision - Patient/Family Teaching Comments: CARE POST CVA , SEIZURE AND SAFETY PRECAUTIONS - Goals/Time Frame Comments: PER MULTIDISCIPLINARY CARE PLAN GOALS - Provider Provider: RENETTA BENNETTN RN CRRN Physical Therapy - Bed Mobility Bed Mobility: Supervision, Verbal Cues, Contact Guard - Transfers Wheelchair to Mat: Contact Guard Sit to Stand: Supervision, Verbal Cues, Contact Guard - Ambulation Level of Assistance: Contact Guard Distance (ft.): 150 Assistive Devices: N/A - Stair Negotiation Stairs: Level of Assistance: Contact Guard Number of Stairs: 12 Handrails: Left Stairs: Assistive Devices: Left Handrail - Standing Balance Static Stand: Supervision Dynamic Stand: Contact Guard Assist - Pain Pain (assessed during therapy session): 0 - Insight/Carryover Insight/Carryover: Fair - Patient/Family Education Comment: -adl, functional transfers/mobility training. -rehab/OT goals, plan of care. -hugo-techniques & pacing as related to upper/lower body self care. - w/c brake management for safe transfers/sit<->stand. -RUE management/ positioning, attention to RUE position. -activities to complete in room to improve bimanual intergration. Pt needs additional training to improve safety and overall carryover - Assessment/Plan Assessment: Pt is a 57 year old ambidexterous male with dx: L parietal hemorrhage. *Precautions: falls, cardiac, w/c alarms, R inattention/apraxia, impaired RUE sensation. Patient continues to make steady gains in functional transfers, mobility and self care. 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 Pt will continue to benefit from skilled Occpational Therapy to address standing balance, RUE apraxia/motor control, RUE gross/fine motor control, R inattention, sensory deficits to maximize function in sealf care, transfers/mobility, transfers and Iadl susing adaptive/compensatory strategies for safety for safe transition home with intermittent assist. Pt tends to bump into objects on R side during transfers, functional/w/c mobility and self care tasks. *Goal: Mod I for adls, transfers, mobility and light homemaking skills - Goals Timeframe: 8 days Goals: -FEEDING: Mod I. -GROOMING: Mod I. -UPPER BODY DRESSING: MOD I. - LOWER BODY DRESSING: Supervision and verbal cues. -TOILETING: Supervision and verbal cues. -W/C MANAGEMENT/PROPULSION: 150 feet+ with Mod I, manage B brakes with Mod I. -LIGHT HOMEMAKING TASKS: Supervision nad verbal cues. -GATHER/ RETRIEVE/TRANSPORT ITEMS <->closet, refrigerator, drawer, etc with Supervision/ DS. -INCREASE FUNCTIONAL FINE MOTOR TASKS as eveidenced by fastening laces, buttons, completing bimanula tasks with Distant Supervision and verbal cues. - BATHING: S/setup seated on shower bench/hand held shower - Provider Therapist: Rosa M Breen PT DPT License Number: [id number] Occupational Therapy - Arousal/Attention/Orientation Patient Orientation: Person, Place, Time, Appropriate to Age, Appropriate to Situation - ADL/IADL Self Feeding: Independent, Set-up Help Grooming: Supervision, Verbal Cues, Set-up Help Dressing-Upper Extremity: Supervision, Verbal Cues, Set-up Help Dressing-Lower Extremity: Verbal Cues, Set-up Help, Minimal Assistance Comment: Pt needs intermittent reminders to dress RUE and RLE first and to pace self to improve overall function - Sitting Balance Static Sitting: Independent without upper extremity support Dynamic Sitting: Reaches across midline, Reaches within base of support, Requires supervision Comment: unsupported - Transfers Wheelchair to Bed Transfers: Verbal Cues, Set-up Help, Contact Guard Toilet Transfers: Verbal Cues, Set-up Help, Contact Guard Comment: -shower: TBA. -ptwith occasional loss of balance when turning towards R side Or negotiating obstacles - Wheelchair Management Level of Assistance: Supervision, Verbal Cues, Set-up Help Distance (ft.): 150 - Upper Extremity Status Right Upper Extremity Comment: +incoordination, dysmetria. AROM is WFLS, strength 4/5 Left Upper Extremity Comment: AROM is WNLS, strength 5/5 - Pain Pain (assessed during therapy session): 0 - Insight/Carryover Insight/Carryover: Fair - Patient/Family Education Comment: -adl, functional transfers/mobility training. -rehab/OT goals, plan of care. -hugo-techniques & pacing as related to upper/lower body self care. - w/c brake management for safe transfers/sit<->stand. -RUE management/ positioning, attention to RUE position. -activities to complete in room to improve bimanual intergration. Pt needs additional training to improve safety and overall carryover - Assessment/Plan Assessment: Pt is a 57 year old ambidexterous male with dx: L parietal hemorrhage. *Precautions: falls, cardiac, w/c alarms, R inattention/apraxia, impaired RUE sensation. Patient continues to make steady gains in functional transfers, mobility and self care. 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 Pt will continue to benefit from skilled Occpational Therapy to address standing balance, RUE apraxia/motor control, RUE gross/fine motor control, R inattention, sensory deficits to maximize function in sealf care, transfers/mobility, transfers and Iadl susing adaptive/compensatory strategies for safety for safe transition home with intermittent assist. Pt tends to bump into objects on R side during transfers, functional/w/c mobility and self care tasks. *Goal: Mod I for adls, transfers, mobility and light homemaking skills - Goals Timeframe: 8 days Goals: -FEEDING: Mod I. -GROOMING: Mod I. -UPPER BODY DRESSING: MOD I. - LOWER BODY DRESSING: Supervision and verbal cues. -TOILETING: Supervision and verbal cues. -W/C MANAGEMENT/PROPULSION: 150 feet+ with Mod I, manage B brakes with Mod I. -LIGHT HOMEMAKING TASKS: Supervision nad verbal cues. -GATHER/ RETRIEVE/TRANSPORT ITEMS <->closet, refrigerator, drawer, etc with Supervision/ DS. -INCREASE FUNCTIONAL FINE MOTOR TASKS as eveidenced by fastening laces, buttons, completing bimanula tasks with Distant Supervision and verbal cues. - BATHING: S/setup seated on shower bench/hand held shower - Provider Therapist: Raina Baeza, OTR/L License Number: [id number] Speech Therapy - Plan Assessment: Pt is a 57 year old ambidexterous male with dx: L parietal hemorrhage. *Precautions: falls, cardiac, w/c alarms, R inattention/apraxia, impaired RUE sensation. Patient continues to make steady gains in functional transfers, mobility and self care. 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 Pt will continue to benefit from skilled Occpational Therapy to address standing balance, RUE apraxia/motor control, RUE gross/fine motor control, R inattention, sensory deficits to maximize function in sealf care, transfers/mobility, transfers and Iadl susing adaptive/compensatory strategies for safety for safe transition home with intermittent assist. Pt tends to bump into objects on R side during transfers, functional/w/c mobility and self care tasks. *Goal: Mod I for adls, transfers, mobility and light homemaking skills Recreational Therapy - Participation Participation: Participates in Individual and/or Group Sessions - Attendance Attendance: 3-5 times per week - Activities Leisure Activities: Cards and Games - Socialization Level of Socialization: Initiates/interacts freely with care givers and peer - Diversional Time Diversional Time: watching television - Assessment Assessment/Plan: Pt is a 57 year old ambidexterous male with dx: L parietal hemorrhage. *Precautions: falls, cardiac, w/c alarms, R inattention/apraxia, impaired RUE sensation. Patient continues to make steady gains in functional transfers, mobility and self care. 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 Pt will continue to benefit from skilled Occpational Therapy to address standing balance, RUE apraxia/motor control, RUE gross/fine motor control, R inattention, sensory deficits to maximize function in sealf care, transfers/mobility, transfers and Iadl susing adaptive/compensatory strategies for safety for safe transition home with intermittent assist. Pt tends to bump into objects on R side during transfers, functional/w/c mobility and self care tasks. *Goal: Mod I for adls, transfers, mobility and light homemaking skills - Provider Therapist: Kira Figueroa, [employer] #[id number] Nutrition - Current Diet Current Diet/ Supplement/ Feedings: Moderate consistent CHO heart healthy - Appetite Percent Meal Consumed: 75-100% - Comments Comments: CARE POST CVA , SEIZURE AND SAFETY PRECAUTIONS - Assessment/Goals/Time Frame Assessment/Goals/Time Frame: Pt at low nutritional risk. no goals. Follow-up due on 05/28/2017 - Provider Provider: Alanna Leigh RD Case Management - Discharge Plan Discharge Plan: Home alone Rehabilitation Plan - Treatment Plan Treatment Plan: Physical Therapy, Occupational Therapy, Dietary, Patient/Family Education - Discharge Plan Estimated Date of Discharge: 05/25/17 Discharge to: Home
--- NOTE | 2017-05-20 14:07 | CP.PCM.PN ---
Subjective - Date & Time of Evaluation Date of Evaluation: 05/20/17 Time of Evaluation: 14:05 - Subjective Subjective: Patient seen in therapy doing well now discussed safety and discharge planning at length. He is happy with 05/25/17 as d/c date will continue with therapies to that point made aware that the right hand awareness is an issue Objective - Vital Signs/Intake and Output Vital Signs (last 24 hours): Temp Pulse Resp BP Pulse Ox 96.4 F L 56 L 18 141/87 98 05/20/17 09:00 05/20/17 09:00 05/20/17 09:00 05/20/17 09:00 05/20/17 08:03 - Medications Medications: Current Medications Acetaminophen (Tylenol 325mg Tab) 325 mg PO Q6 PRN PRN Reason: Fever >100.4 F Amlodipine Besylate (Norvasc) 10 mg PO DAILY [facility] Last Admin: 05/20/17 08:37 Dose: 10 mg Atorvastatin Calcium (Lipitor) 20 mg PO HS [facility] Last Admin: 05/19/17 21:37 Dose: 20 mg Dexamethasone (Decadron) 2 mg PO Q12 [facility] Last Admin: 05/20/17 08:38 Dose: 2 mg Divalproex Sodium (Depakote Dr(*Bid*)) 500 mg PO Q12 [facility] Last Admin: 05/20/17 08:37 Dose: 500 mg Enoxaparin Sodium (Lovenox) 80 mg SC Q12 [facility] PRN Reason: Protocol Last Admin: 05/20/17 08:38 Dose: 80 mg Insulin Human Lispro (Humalog) 0 units SC ACHS [facility] PRN Reason: Protocol Last Admin: 05/20/17 12:30 Dose: Not Given Labetalol HCl (Trandate) 100 mg PO Q8 PRN PRN Reason: SBP above 160 mmhg Pantoprazole Sodium (Protonix Ec Tab) 40 mg PO DAILY [facility] Last Admin: 05/20/17 08:38 Dose: 40 mg - Labs Labs: 05/19/17 05:30 05/19/17 05:30 PT 13.2 Seconds (9.8-13.1) H 05/17/17 14:31 INR 1.2 (0.9-1.2) 05/17/17 14:31
--- NOTE | 2017-05-20 20:49 | PN ---
DATE: SUBJECTIVE: The patient denies chest pain. He exercise today without any shortness of breath or palpitation. PHYSICAL EXAMINATION: VITAL SIGNS: Blood pressure 141/87, heart rate 56, temperature 96.4, and respirations 18. HEENT: Normocephalic. CHEST: Clear. HEART: S1 and S2 regular. EXTREMITIES: No edema. ASSESSMENT: 1. Hemorrhagic left parietal lobe cerebrovascular accident. 2. Bilateral pulmonary embolism. 3. Status post inferior vena cava filter placement. RECOMMENDATIONS: Continue Decadron 2 mg p.o. twice a day, Lipitor 20 mg once a day, therapeutic subcutaneous Lovenox mg twice a day, and Trandate 100 mg p.o. q.8 hours for systolic blood pressure above 160. Consider initiating an oral anticoagulant agent if cleared from neurological point of view. Flakito Ruff MD
[2017-05-21] MEDS: Insulin Lispro (humaLOG) 100 Units/ml Inj SC SCH ×4 (06:43→21:35)
--- NOTE | 2017-05-21 08:05 | PN ---
DATE: 05/21/2017 SUBJECTIVE: The patient is seen and examined. Interim events noted. Consults noted and appreciated. The patient remains in Acute Rehab Unit. Pulmonary, Hematology, Oncology, and Psychiatry interventions noted and appreciated. The patient feels okay. No new complaints. No chest pain or shortness of breath. PHYSICAL EXAMINATION: GENERAL: The patient is in no acute distress. VITAL SIGNS: Stable. HEART: S1 and S2, normal and regular. LUNGS: Good bilateral air exchange. ABDOMEN: Soft and nontender. EXTREMITIES: No edema. No calf swelling. No tenderness. No acute ischemia. CABLE MECHANIC: Essentially unchanged. DIAGNOSTIC DATA: Available diagnostic data reviewed. PLAN: Overall, the patient's general medical condition is stable. Plan as ordered. Carrillo Guzman MD
[2017-05-21] MEDS: Enoxaparin 80 mg Syringe SC SCH ×2 (08:25→21:34)
[2017-05-21] MEDS: Divalproex 500 mg DR(BID formulation) PO SCH ×2 (08:25→21:34)
[2017-05-21] MEDS: Pantoprazole 40 mg EC Tab PO SCH (08:26)
--- NOTE | 2017-05-21 16:28 | CT ---
PROCEDURE: CT HEAD WITHOUT CONTRAST. HISTORY: ICH COMPARISON: 05/13/2017 TECHNIQUE: Axial computed tomography images were obtained through the head/brain without intravenous contrast. Radiation dose: Total exam DLP = 936.2 mGy-cm. This CT exam was performed using one or more of the following dose reduction techniques: Automated exposure control, adjustment of the mA and/or kV according to patient size, and/or use of iterative reconstruction technique. FINDINGS: HEMORRHAGE: Previously noted left high frontal parenchymal hemorrhage has decreased slightly in density compared to the prior examination although the overall size is essentially unchanged. There is no new intracranial hemorrhage seen elsewhere. The left high frontal parenchymal hemorrhage is surrounded by vasogenic edema, unchanged in extent from prior examination. BRAIN: No mass effect or edema. No significant atrophy or white matter ischemic change. No evidence of acute infarct. VENTRICLES: No hydrocephalus. There is nominal improvement in the midline shift towards the right from approximately 5 mm to 4 mm. No evidence of downward herniation. Basilar cisterns are preserved. Juan CALVARIUM: Unremarkable. PARANASAL SINUSES: Unremarkable as visualized. No significant inflammatory changes. MASTOID AIR CELLS: Unremarkable as visualized. No inflammatory changes. OTHER FINDINGS: None. IMPRESSION: Minimal improvement in extent of high left frontal parenchymal hemorrhage compared to prior examination. Persistent extensive surrounding vasogenic edema and nominal improvement in midline shift towards the right from 5-4 mm. No evidence downward herniation. No hydrocephalus. No other significant abnormality.
--- NOTE | 2017-05-21 16:42 | CP.PCM.PN ---
Subjective - Date & Time of Evaluation Date of Evaluation: 05/21/17 Time of Evaluation: 16:41 - Subjective Subjective: Patient seen being transported back from a GFF insertion well tolerated doing well in therapies set for d/c 05/25 Objective - Vital Signs/Intake and Output Vital Signs (last 24 hours): Temp Pulse Resp BP Pulse Ox 97.5 F L 73 18 136/71 98 05/21/17 07:55 05/21/17 09:44 05/21/17 07:55 05/21/17 08:26 05/21/17 09:44 - Medications Medications: Current Medications Acetaminophen (Tylenol 325mg Tab) 325 mg PO Q6 PRN PRN Reason: Fever >100.4 F Amlodipine Besylate (Norvasc) 10 mg PO DAILY [facility] Last Admin: 05/21/17 08:26 Dose: 10 mg Atorvastatin Calcium (Lipitor) 20 mg PO HS [facility] Last Admin: 05/20/17 21:21 Dose: 20 mg Dexamethasone (Decadron) 2 mg PO Q12 [facility] Last Admin: 05/21/17 08:26 Dose: 2 mg Divalproex Sodium (Depakote Dr(*Bid*)) 500 mg PO Q12 [facility] Last Admin: 05/21/17 08:25 Dose: 500 mg Enoxaparin Sodium (Lovenox) 80 mg SC Q12 [facility] PRN Reason: Protocol Last Admin: 05/21/17 08:25 Dose: 80 mg Insulin Human Lispro (Humalog) 0 units SC ACHS [facility] PRN Reason: Protocol Last Admin: 05/21/17 12:30 Dose: Not Given Labetalol HCl (Trandate) 100 mg PO Q8 PRN PRN Reason: SBP above 160 mmhg Pantoprazole Sodium (Protonix Ec Tab) 40 mg PO DAILY [facility] Last Admin: 05/21/17 08:26 Dose: 40 mg - Labs Labs: 05/19/17 05:30 05/19/17 05:30 PT 13.2 Seconds (9.8-13.1) H 05/17/17 14:31 INR 1.2 (0.9-1.2) 05/17/17 14:31
[2017-05-22 05:59] LABS: HEMOGLOBIN 15.1 g/dL (12.0-18.0); MEAN CELL VOLUME 90.6 fl (80.0-94.0); MEAN CORPUSCULAR HEMOGLOBIN 31.1 pg (27.0-31.0); MEAN CORPUSCULAR HGB CONC 34.3 g/dL (33.0-37.0); RBC 4.86 Mil/uL (4.40-5.90); RED CELL DISTRIBUTION WIDTH 13.3 % (11.5-14.5); WHITE BLOOD COUNT 8.4 K/uL (4.8-10.8)
[2017-05-22 06:08] LABS: BLOOD UREA NITROGEN 19 mg/dl (9-20); GFR AFRICAN-AMERICAN > 60; GFR NON-AFRICAN AMERICAN > 60
[2017-05-22] MEDS: Insulin Lispro (humaLOG) 100 Units/ml Inj SC SCH ×4 (06:39→22:11)
--- NOTE | 2017-05-22 08:29 | PN ---
DATE: 05/22/2017 SUBJECTIVE: The patient is seen and examined. Interim events noted. Consults noted and appreciated. CAT scan report reviewed. The patient remains in Acute Rehab Unit. Feels better. No new complaint. Getting stronger with physical therapy. PHYSICAL EXAMINATION: GENERAL: The patient is in no acute distress. VITAL SIGNS: Stable. HEART: S1 and S2, normal and regular. LUNGS: Good bilateral air exchange. ABDOMEN: Soft and nontender. No organomegaly. No fluids. Bowel sounds are present and normal. EXTREMITIES: No edema. No calf swelling. No tenderness. No acute ischemia. CENTRAL NERVOUS SYSTEM: Exam is essentially unchanged. DIAGNOSTIC DATA: Available diagnostic data reviewed. CAT scan does not show any new bleeding . PLAN: As ordered. Case and plan discussed with the patient. Carrillo Guzman MD
[2017-05-22] MEDS: Enoxaparin 80 mg Syringe SC SCH ×2 (08:49→22:11)
[2017-05-22] MEDS: Pantoprazole 40 mg EC Tab PO SCH (08:49)
[2017-05-22] MEDS: Divalproex 500 mg DR(BID formulation) PO SCH ×2 (08:49→22:11)
--- NOTE | 2017-05-22 13:01 | CP.PCM.PN ---
Subjective - Date & Time of Evaluation Date of Evaluation: 05/22/17 Time of Evaluation: 13:00 - Subjective Subjective: Mr. Almaraz was seen and examined at the therapy room. He remains alert, oriented in all spheres. He denies any headache, dizziness, lightheadedness, shortness of breath, nausea, or vomiting. He is able to participate during his therapy session with right arm weakness. He is able to ambulate with minimal assistance. Latest valproic level 65.1There was no untoward events overnight. Objective - Vital Signs/Intake and Output Vital Signs (last 24 hours): Temp Pulse Resp BP Pulse Ox 97.7 F 53 L 18 127/67 98 05/22/17 07:35 05/22/17 08:49 05/22/17 07:35 05/22/17 08:49 05/22/17 07:35 - Medications Medications: Current Medications Acetaminophen (Tylenol 325mg Tab) 325 mg PO Q6 PRN PRN Reason: Fever >100.4 F Amlodipine Besylate (Norvasc) 10 mg PO DAILY [facility] Last Admin: 05/22/17 08:49 Dose: 10 mg Atorvastatin Calcium (Lipitor) 20 mg PO HS [facility] Last Admin: 05/21/17 21:34 Dose: 20 mg Dexamethasone (Decadron) 2 mg PO Q12 [facility] Last Admin: 05/22/17 08:49 Dose: 2 mg Divalproex Sodium (Depakote Dr(*Bid*)) 500 mg PO Q12 [facility] Last Admin: 05/22/17 08:49 Dose: 500 mg Enoxaparin Sodium (Lovenox) 80 mg SC Q12 [facility] PRN Reason: Protocol Last Admin: 05/22/17 08:49 Dose: 80 mg Insulin Human Lispro (Humalog) 0 units SC ACHS [facility] PRN Reason: Protocol Last Admin: 05/22/17 12:04 Dose: Not Given Labetalol HCl (Trandate) 100 mg PO Q8 PRN PRN Reason: SBP above 160 mmhg Pantoprazole Sodium (Protonix Ec Tab) 40 mg PO DAILY [facility] Last Admin: 05/22/17 08:49 Dose: 40 mg - Labs Labs: 05/22/17 05:40 05/22/17 05:40 PT 13.2 Seconds (9.8-13.1) H 05/17/17 14:31 INR 1.2 (0.9-1.2) 05/17/17 14:31 - Constitutional Appears: No Acute Distress - Head Exam Head Exam: NORMAL INSPECTION - Neurological Exam Neurological Exam: Alert, Awake, Oriented x3 Neuro motor strength exam: Left Upper Extremity: 5, Right Upper Extremity: 3, Left Lower Extremity: 5, Right Lower Extremity: 4 Additional comments: Neurological unchanged from previous examination. Assessment and Plan (1) New onset seizure Assessment & Plan: Case discussed with Dr. Lomeli, continue all current medical regimen including AED. Recommend monitoring valproic level. Recommend to follow up with Dr. Montenegro 1 week post discharge Status: Acute (2) Pulmonary embolism Assessment & Plan: Case discussed with Dr. Lomeli, continue current anticoagulant. Recommend hemalogy help is appreciated. Status: Acute (3) ICH (intracerebral hemorrhage) Assessment & Plan: Case discussed with Dr. Lomeli, continue current medical, physical, occupational, and speech therapies. Recommend to repeat MRI of the brain to evaluate ICH in 6- 8 weeks after IVC filter placement. Recommend to follow up with Dr. Montenegro 1 week after discharge. Status: Chronic
--- NOTE | 2017-05-22 19:04 | PN ---
DATE: SUBJECTIVE: The patient is undergoing physical therapy. No dizziness or imbalance. No headache. PHYSICAL EXAMINATION: VITAL SIGNS: Blood pressure 127/67, heart rate 53, temperature 97.7, and respirations 18. HEENT: Normocephalic. CHEST: Clear. HEART: S1 and S2 regular. EXTREMITIES: No edema. LABORATORY DATA: Today's hemoglobin and hematocrit 15.1 and 44.0. White count and platelet count are within normal limits. Today's SMA-7 is entirely within normal limits. ASSESSMENT: 1. 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 2. Bilateral pulmonary embolism. 3. Status post inferior vena cava filter placement. RECOMMENDATIONS: Continue therapeutic subcutaneous Lovenox 80 mg twice a day, labetalol 100 mg p.o. q.8 hours p.r.n., Norvasc 10 mg once a day, and Lipitor 20 mg once a day. Long-term oral anticoagulation was discussed with the [employer]; however, the patient is awaiting an MRI, which is recommended to be done in six weeks IVC filter placement. Flakito Ruff MD
[2017-05-22 20:42] VITALS: RESP 20
[2017-05-23] MEDS: Insulin Lispro (humaLOG) 100 Units/ml Inj SC SCH ×4 (07:01→21:31)
[2017-05-23] MEDS: Enoxaparin 80 mg Syringe SC SCH (08:43)
[2017-05-23] MEDS: Divalproex 500 mg DR(BID formulation) PO SCH ×2 (08:44→21:29)
[2017-05-23] MEDS: Pantoprazole 40 mg EC Tab PO SCH (08:44)
--- NOTE | 2017-05-23 09:59 | CP.PCM.PN ---
Subjective - Date & Time of Evaluation Date of Evaluation: 05/23/17 Time of Evaluation: 09:56 - Subjective Subjective: Pt is doing well with his physical therapy, no c/o lower extremity or chest pain.Will be discharged on friday , and continue PT as outpatient. He will have a repeat brain MRI in 6-8 weeks Objective - Vital Signs/Intake and Output Vital Signs (last 24 hours): Temp Pulse Resp BP Pulse Ox 98.0 F 60 20 124/77 96 05/23/17 08:34 05/23/17 08:44 05/23/17 08:34 05/23/17 08:44 05/23/17 08:34 - Medications Medications: Current Medications Acetaminophen (Tylenol 325mg Tab) 325 mg PO Q6 PRN PRN Reason: Fever >100.4 F Amlodipine Besylate (Norvasc) 10 mg PO DAILY [facility] Last Admin: 05/23/17 08:44 Dose: 10 mg Atorvastatin Calcium (Lipitor) 20 mg PO HS [facility] Last Admin: 05/22/17 22:10 Dose: 20 mg Dexamethasone (Decadron) 2 mg PO Q12 [facility] Last Admin: 05/23/17 08:44 Dose: 2 mg Divalproex Sodium (Depakote Dr(*Bid*)) 500 mg PO Q12 [facility] Last Admin: 05/23/17 08:44 Dose: 500 mg Enoxaparin Sodium (Lovenox) 80 mg SC Q12 [facility] PRN Reason: Protocol Last Admin: 05/23/17 08:43 Dose: 80 mg Insulin Human Lispro (Humalog) 0 units SC ACHS [facility] PRN Reason: Protocol Last Admin: 05/23/17 07:01 Dose: Not Given Labetalol HCl (Trandate) 100 mg PO Q8 PRN PRN Reason: SBP above 160 mmhg Pantoprazole Sodium (Protonix Ec Tab) 40 mg PO DAILY [facility] Last Admin: 05/23/17 08:44 Dose: 40 mg - Labs Labs: 05/22/17 05:40 05/22/17 05:40 PT 13.2 Seconds (9.8-13.1) H 05/17/17 14:31 INR 1.2 (0.9-1.2) 05/17/17 14:31
--- NOTE | 2017-05-23 10:21 | PN ---
DATE: 05/23/2017 SUBJECTIVE: The patient is seen and examined. Interim events noted. Consults noted and appreciated. Cardiology and Neurology followup interventions noted and appreciated. Case discussed with Neurologist. The patient feels better. No chest pain. No shortness of breath. PHYSICAL EXAMINATION: GENERAL: The patient is in no acute distress. VITAL SIGNS: Stable. HEART: S1 and S2, normal and regular. LUNGS: Good bilateral air exchange. ABDOMEN: Soft and nontender. EXTREMITIES: No edema. No calf swelling. No tenderness. No acute ischemia. CENTRAL NERVOUS SYSTEM: Exam is essentially unchanged. DIAGNOSTIC DATA: Available diagnostic data reviewed. IMPRESSION AND PLAN: Overall, the patient's general medical condition is stable. Plan as ordered. Carrillo Guzman MD
--- NOTE | 2017-05-23 10:27 | CP.PCM.PN ---
Subjective - Date & Time of Evaluation Date of Evaluation: 05/23/17 Time of Evaluation: 10:25 - Subjective Subjective: Presently seated in the hallway dissipating and physical therapy. Vital signs have remained stable. Physical therapy progressing as planned. Patient denies any chest discomfort or shortness of breath. Areas of ecchymosis on the right lower extremity are gradually fading. Neck is supple and trachea is midline. No neck vein distention. Breath sounds are well heard bilaterally. No rales or wheezes. No areas of bronchial breathing or egophony. No rhonchi. No rubs. Heart sounds are distant and the rhythm is regular. He is ambulating in the hole with his physical therapist and appears relatively stable in a controlled setting. Progressing as planned and discharged to home is imminent. Currently remains on enoxaparin, and the method of anticoagulation as an outpatient remains open. He will follow-up with me after discharge and will require a repeat echocardiogram to assess right ventricular pressures prior to removal of the IVC filter. Removal of the IVC filter is tentatively planned at a three-month interval from its implant. Objective - Vital Signs/Intake and Output Vital Signs (last 24 hours): Temp Pulse Resp BP Pulse Ox 98.0 F 60 20 124/77 96 05/23/17 08:34 05/23/17 08:44 05/23/17 08:34 05/23/17 08:44 05/23/17 08:34 - Medications Medications: Current Medications Acetaminophen (Tylenol 325mg Tab) 325 mg PO Q6 PRN PRN Reason: Fever >100.4 F Amlodipine Besylate (Norvasc) 10 mg PO DAILY [facility] Last Admin: 05/23/17 08:44 Dose: 10 mg Atorvastatin Calcium (Lipitor) 20 mg PO HS [facility] Last Admin: 05/22/17 22:10 Dose: 20 mg Dexamethasone (Decadron) 2 mg PO Q12 [facility] Last Admin: 05/23/17 08:44 Dose: 2 mg Divalproex Sodium (Depakote Dr(*Bid*)) 500 mg PO Q12 [facility] Last Admin: 05/23/17 08:44 Dose: 500 mg Enoxaparin Sodium (Lovenox) 80 mg SC Q12 [facility] PRN Reason: Protocol Last Admin: 05/23/17 08:43 Dose: 80 mg Insulin Human Lispro (Humalog) 0 units SC ACHS [facility] PRN Reason: Protocol Last Admin: 05/23/17 07:01 Dose: Not Given Labetalol HCl (Trandate) 100 mg PO Q8 PRN PRN Reason: SBP above 160 mmhg Pantoprazole Sodium (Protonix Ec Tab) 40 mg PO DAILY [facility] Last Admin: 05/23/17 08:44 Dose: 40 mg - Labs Labs: 05/22/17 05:40 05/22/17 05:40 PT 13.2 Seconds (9.8-13.1) H 05/17/17 14:31 INR 1.2 (0.9-1.2) 05/17/17 14:31 Assessment and Plan (1) Deep vein blood clot of right lower extremity Status: Acute (2) Pulmonary embolism Status: Acute
--- NOTE | 2017-05-23 12:07 | CP.PCM.PN ---
Subjective - Date & Time of Evaluation Date of Evaluation: 05/23/17 Time of Evaluation: 12:06 - Subjective Subjective: Mr. Almaraz was seen and examined at the therapy room. He remains alert, oriented in all spheres. He denies any headache, dizziness, lightheadedness, shortness of breath, nausea, or vomiting. He is able to participate during his therapy session with right arm weakness. He is able to ambulate with minimal assistance. Latest valproic level 65.1.There was no untoward events overnight. Objective - Vital Signs/Intake and Output Vital Signs (last 24 hours): Temp Pulse Resp BP Pulse Ox 98.0 F 60 20 124/77 96 05/23/17 08:34 05/23/17 08:44 05/23/17 08:34 05/23/17 08:44 05/23/17 08:34 - Medications Medications: Current Medications Acetaminophen (Tylenol 325mg Tab) 325 mg PO Q6 PRN PRN Reason: Fever >100.4 F Amlodipine Besylate (Norvasc) 10 mg PO DAILY [facility] Last Admin: 05/23/17 08:44 Dose: 10 mg Apixaban (Eliquis) 2.5 mg PO BID [facility] PRN Reason: Protocol Atorvastatin Calcium (Lipitor) 20 mg PO HS [facility] Last Admin: 05/22/17 22:10 Dose: 20 mg Dexamethasone (Decadron) 2 mg PO Q12 [facility] Last Admin: 05/23/17 08:44 Dose: 2 mg Divalproex Sodium (Depakote Dr(*Bid*)) 500 mg PO Q12 [facility] Last Admin: 05/23/17 08:44 Dose: 500 mg Insulin Human Lispro (Humalog) 0 units SC ACHS [facility] PRN Reason: Protocol Last Admin: 05/23/17 07:01 Dose: Not Given Labetalol HCl (Trandate) 100 mg PO Q8 PRN PRN Reason: SBP above 160 mmhg Pantoprazole Sodium (Protonix Ec Tab) 40 mg PO DAILY [facility] Last Admin: 05/23/17 08:44 Dose: 40 mg - Labs Labs: 05/22/17 05:40 05/22/17 05:40 PT 13.2 Seconds (9.8-13.1) H 05/17/17 14:31 INR 1.2 (0.9-1.2) 05/17/17 14:31 - Constitutional Appears: No Acute Distress - Head Exam Head Exam: NORMAL INSPECTION - Neurological Exam Neurological Exam: Alert, Awake Neuro motor strength exam: Left Upper Extremity: 5, Right Upper Extremity: 4, Left Lower Extremity: 5, Right Lower Extremity: 5 Additional comments: Neurological unchanged from previous examination. Assessment and Plan (1) New onset seizure Assessment & Plan: Case discussed with Dr. Lomeli, continue all current medical regimen including AED. Recommend monitoring valproic level. Recommend to follow up with Dr. Montenegro 1 week post discharge Status: Acute (2) Pulmonary embolism Assessment & Plan: Case discussed with Dr. Lomeli, continue current anticoagulant. Since repeat CT scan of the head showed no ne hemorrhage, will change lovenox to Eliquis 2.5 mg PO BID. Status: Acute (3) ICH (intracerebral hemorrhage) Assessment & Plan: Case discussed with Dr. Lomeli, continue current medical, physical, occupational, and speech therapies. Recommend to repeat MRI of the brain to evaluate ICH in 6- 8 weeks after IVC filter placement. Recommend to follow up with Dr. Montenegro 1 week after discharge. Status: Chronic
--- NOTE | 2017-05-23 17:43 | CP.PCM.PN ---
Subjective - Date & Time of Evaluation Date of Evaluation: 05/23/17 Time of Evaluation: 17:42 - Subjective Subjective: Patient seen in the room doing well no dizziness no chest pain was able to tie his own shoes for the first time and is very happy with recovery to this point Objective - Vital Signs/Intake and Output Vital Signs (last 24 hours): Temp Pulse Resp BP Pulse Ox 98.0 F 60 20 124/77 96 05/23/17 08:34 05/23/17 09:00 05/23/17 08:34 05/23/17 09:00 05/23/17 08:34 - Medications Medications: Current Medications Acetaminophen (Tylenol 325mg Tab) 325 mg PO Q6 PRN PRN Reason: Fever >100.4 F Amlodipine Besylate (Norvasc) 10 mg PO DAILY [facility] Last Admin: 05/23/17 08:44 Dose: 10 mg Apixaban (Eliquis) 2.5 mg PO BID [facility] PRN Reason: Protocol Last Admin: 05/23/17 17:16 Dose: 2.5 mg Atorvastatin Calcium (Lipitor) 20 mg PO HS [facility] Last Admin: 05/22/17 22:10 Dose: 20 mg Dexamethasone (Decadron) 2 mg PO Q12 [facility] Last Admin: 05/23/17 08:44 Dose: 2 mg Divalproex Sodium (Depakote Dr(*Bid*)) 500 mg PO Q12 [facility] Last Admin: 05/23/17 08:44 Dose: 500 mg Insulin Human Lispro (Humalog) 0 units SC ACHS [facility] PRN Reason: Protocol Last Admin: 05/23/17 17:16 Dose: Not Given Labetalol HCl (Trandate) 100 mg PO Q8 PRN PRN Reason: SBP above 160 mmhg Pantoprazole Sodium (Protonix Ec Tab) 40 mg PO DAILY [facility] Last Admin: 05/23/17 08:44 Dose: 40 mg - Labs Labs: 05/22/17 05:40 05/22/17 05:40 PT 13.2 Seconds (9.8-13.1) H 05/17/17 14:31 INR 1.2 (0.9-1.2) 05/17/17 14:31
--- NOTE | 2017-05-23 18:51 | PN ---
DATE: SUBJECTIVE: The patient underwent rehab today. No chest pain or shortness of breath. No headache or dizziness. PHYSICAL EXAMINATION: VITAL SIGNS: Blood pressure 124/77, heart rate 60, temperature 98, and respirations 20. HEENT: Normocephalic. CHEST: Clear. HEART: S1 and S2 regular. EXTREMITIES: No edema. ASSESSMENT: 1. Left parietal lobe hemorrhagic cerebrovascular accident.. 2. Bilateral pulmonary embolism. 3. Status post inferior vena cava filter placement. 4. Seizure disorder. RECOMMENDATIONS: Continue Decadron 2 mg p.o. twice a day, continue Eliquis 2.5 mg twice a day, which was started today, continue Lipitor 20 mg once a day, Norvasc 10 mg once a day, and labetalol 100 mg q.8 hours p.r.n. Flakito Ruff MD
[2017-05-24] MEDS: Insulin Lispro (humaLOG) 100 Units/ml Inj SC SCH ×4 (06:32→21:07)
[2017-05-24] MEDS: Pantoprazole 40 mg EC Tab PO SCH (08:33)
[2017-05-24] MEDS: Divalproex 500 mg DR(BID formulation) PO SCH ×2 (08:34→21:07)
--- NOTE | 2017-05-24 08:56 | PN ---
DATE: 05/24/2017 SUBJECTIVE: The patient is seen and examined. Interim events noted. Consults noted and appreciated. Hematology, Pulmonology, and Neurology consult and interventions noted and appreciated. The patient remains in Acute Rehab Unit. The patient feels okay, physical therapy movement is improving, without issues. No chest pain. No shortness of breath. No new complaints. PHYSICAL EXAMINATION: GENERAL: The patient is in no acute distress. VITAL SIGNS: Stable. HEART: S1 and S2, normal and regular. LUNGS: Good bilateral air exchange. ABDOMEN: Soft and nontender. EXTREMITIES: No edema. No calf swelling. No tenderness. No acute ischemia. 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 DIAGNOSTIC DATA: Available diagnostic data reviewed. PLAN: Overall, the patient's general medical condition is stable. Plan as ordered. Carrillo Guzman MD
--- NOTE | 2017-05-24 19:14 | PN ---
DATE: SUBJECTIVE: The patient underwent rehab today. He denies any chest pain. No headache, dizziness, or blurred vision or speech difficulty. PHYSICAL EXAMINATION: VITAL SIGNS: Blood pressure 121/62, heart rate 62, temperature 97.2, and respirations 20. HEENT: Normocephalic. CHEST: Clear. HEART: S1 and S2 regular. EXTREMITIES: No edema. ASSESSMENT: 1. Left parietal lobe hemorrhagic cerebrovascular accident. 2. Bilateral pulmonary embolism, status post inferior vena cava filter placement. RECOMMENDATIONS: Continue Eliquis 2.5 mg twice a day, Decadron 2 mg p.o. q.12 hours, Lipitor 20 mg once a day, Norvasc 10 mg once a day, and Trandate 100 mg p.o. q.8 hours. The plan is to discharge the patient tomorrow and obtain brain MRI in a month's period from now. Flakito Ruff MD
[2017-05-25] MEDS: Insulin Lispro (humaLOG) 100 Units/ml Inj SC SCH ×3 (06:34→17:49)
[2017-05-25 08:30] VITALS: BP 118/73; PULSE 64; TEMP 98.3; O2SAT 100
[2017-05-25] MEDS: Divalproex 500 mg DR(BID formulation) PO SCH (08:39)
[2017-05-25] MEDS: Pantoprazole 40 mg EC Tab PO SCH (08:39)
--- NOTE | 2017-05-25 21:30 | PN ---
DATE: SUBJECTIVE: The patient denies any palpitation, dizziness, shortness of breath or headache. PHYSICAL EXAMINATION VITAL SIGNS: Blood pressure 180/73, heart rate 64, temperature 98.3 and respirations 20. HEENT: Normocephalic. CHEST: Clear. HEART: S1 and S2 regular. EXTREMITIES: No edema. LABORATORY DATA: Trace blood sugars of 96 and 73 respectively. ASSESSMENT: 1. Hemorrhagic left parietal lobe cerebrovascular accident rule out underlying tumor. 2. Bilateral pulmonary embolus. 3. Hypertension. RECOMMENDATIONS: Continue Decadron 2 mg p.o. q. 12 hours, Eliquis 2.5 mg twice a day, Lipitor 20 mg once a day, Norvasc 10 mg once a day, Trandate 100 mg q. 8 hours. The plan is to discharge the patient today. Follow up with Dr. Guzman and Dr. Jama as well as a Neurologist with an MRI scheduled in 4 weeks period. The duration of the Eliquis, anticoagulation will be decided by Dr. Jama and the range is between 3 to 6 months. Flakito Ruff MD
== END 2017-05-25 19:03 | disposition home or self-care (01) | DRG 56 ==
PROVIDERS: ADMIT Internal Medicine; ATTEND Internal Medicine
PROC: F07Z9FZ Gait Training/Functional Ambulation Treatment using Assistive, Adaptive, Supportive or Protective Equipment (ICD-10-PCS; principal; 2017-05-16)
PROC: F08Z4FZ Home Management Treatment using Assistive, Adaptive, Supportive or Protective Equipment (ICD-10-PCS; 2017-05-16)
PROC: F06Z6MZ Communicative/Cognitive Integration Skills Treatment using Augmentative / Alternative Communication Equipment (ICD-10-PCS; 2017-05-17)
PROC: F07L6FZ Therapeutic Exercise Treatment of Musculoskeletal System - Lower Back / Lower Extremity using Assistive, Adaptive, Supportive or Protective Equipment (ICD-10-PCS; 2017-05-17)
DX: I69.151 Hemiplegia and hemiparesis following nontraumatic intracerebral hemorrhage affecting right dominant side (principal); G93.6 Cerebral edema; I69.190 Apraxia following nontraumatic intracerebral hemorrhage; R26.89 Other abnormalities of gait and mobility; G40.909 Epilepsy, unspecified, not intractable, without status epilepticus; I27.20 Pulmonary hypertension, unspecified; I10 Essential (primary) hypertension; E11.9 Type 2 diabetes mellitus without complications; E78.00 Pure hypercholesterolemia, unspecified; R00.0 Tachycardia, unspecified; Z86.711 Personal history of pulmonary embolism; Z86.718 Personal history of other venous thrombosis and embolism

== ENCOUNTER 2017-10-01 09:48 | Day surgery (SDC) | payer OTHER ==
[2017-09-30 16:54] VITALS: BMI 30.9
[2017-10-01 12:08] LABS: EOS % 0.5 % (0.0-4.0); HEMOGLOBIN 14.6 g/dL (12.0-18.0); LYMPH # 1.5 K/uL (1.0-4.3); LYMPH % 19.2 % (20.0-40.0); MEAN CELL VOLUME 93.2 fl (80.0-94.0); MEAN CORPUSCULAR HGB CONC 34.4 g/dL (33.0-37.0); MONO # 0.7 K/uL (0.0-0.8); MONO % 9.4 % (0.0-10.0); NEUT # 5.5 K/uL (1.8-7.0); NEUT % 70.9 % (50.0-75.0); RBC 4.55 Mil/uL (4.40-5.90); RED CELL DISTRIBUTION WIDTH 12.8 % (11.5-14.5); WHITE BLOOD COUNT 7.8 K/uL (4.8-10.8)
[2017-10-01 12:19] LABS: BLOOD UREA NITROGEN 17 mg/dl (9-20); GFR AFRICAN-AMERICAN > 60; GFR NON-AFRICAN AMERICAN > 60
[2017-10-01 12:37] LABS: INR 1.1 (0.9-1.2); PROTHROMBIN TIME 12.2 Seconds (9.8-13.1)
[2017-10-01 12:38] LABS: PARTIAL THROMBOPLASTIN TIME 31.7 Seconds (25.6-37.1)
[2017-10-01] MEDS ORDERED: Midazolam 2 MG/2 ML VIAL ONE (12:58)
[2017-10-01] MEDS ORDERED: LIDOCAINE 2% 10ML 20 MG/ML VIAL IJ ONE (13:31)
[2017-10-01] MEDS ORDERED: Iodixanol 320 MG/ML 100 ML BOTTLE IV ONE (13:44)
[2017-10-01 13:45] VITALS: RESP 18
--- NOTE | 2017-10-01 15:05 | CP.SDSHP ---
Same Day Surgery H & P - History Proposed Procedure: IVC filter retrieval Pre-Op Diagnosis: DVT - Allergies Allergies: Allergies No Known Allergies Allergy (Verified 05/12/17 20:15) - Physical Exam Vital Signs: Vital Signs 10/01/17 10/01/17 10/01/17 10:45 11:33 13:30 Temperature 97.4 F L 97.4 F L Pulse Rate 71 71 80 Respiratory 20 18 Rate Blood Pressure 145/77 132/78 O2 Sat by Pulse 95 100 Oximetry Mental Status: Alert & Oriented x3 Neuro: WNL Heart: WNL GI: WNL - Impression Impression: Pt with h/o DVT s/p IVC filter placement 05/14/2017. Pt presents for IVC filter retrievable. Informed consent obtained. Pt. Evaluated Today:Candidate for Anesthesia & Procedure: Yes (asa 2 malampati 2) - Date & Time Date: 10/01/17 Time: 13:30 Short Stay Discharge - Short Stay Discharge Admitting Diagnosis/Reason for Visit: I82.409 Disposition: HOME/ ROUTINE Referrals: Carrillo Guzman MD [Primary Care Provider] -
--- NOTE | 2017-10-01 15:07 | PCM.SURG1 ---
Surgeon's Initial Post Op Note - Surgeon's Notes Surgeon: Ramirez Flannery MD Title One Reading Teacher: NONE Type of Anesthesia: IV Sedation Pre-Operative Diagnosis: DVT Operative Findings: IVC filter in place. IVC has no thrombus. No thrombus in filter. Hook of filter is imbedded in wall of IVC. Post-Operative Diagnosis: DVT Operation Performed: IVC venogram. Unsuccessful IVC retrieval attempt. Specimen/Specimens Removed: None Estimated Blood Loss: EBL {In ML}: 2 Blood Products Given: N/A Drains Used: No Drains Post-Op Condition: Good Date of Surgery/Procedure: 10/01/17 Time of Surgery/Procedure: 15:00
[2017-10-01] MEDS ORDERED: Lactated Ringer's 1,000 ML IV PRN (15:17)
[2017-10-01 16:02] VITALS: BP 140/81; PULSE 68; TEMP 98.3; O2SAT 99
--- NOTE | 2017-10-02 15:12 | CARD ---
APPROVED REPORT Date of service: 10/01/2017 EKG Measurement Heart [id number] <Conclusion> Normal sinus rhythm Normal ECG
--- NOTE | 2017-10-03 12:29 | VASCULAR ---
PROCEDURE: Date of procedure: 10/01/2017 Procedure: Inferior vena cava filter insertion, CPT 56216 Medications: 7cc 1% lidocaine, patient was sedated by anesthesiologist MAC anesthesia along with physiologic monitoring. HISTORY: DVT, IVC filter placement in April 2017. TECHNIQUE: Following informed consent and procedure time-out, the patient is placed supine on the interventional table. Patient's right neck and chest prepped and draped in the usual sterile fashion. Ultrasound showed a compressible and patent right internal jugular vein. After skin was anesthetized with 1% lidocaine, the internal jugular vein was accessed with micropuncture technique. 6 Irish vascular sheath was advanced over wire and position within the vein. A flush catheter was advanced into the infrarenal IVC and inferior vena cavagram was performed. Inferior vena cavagram showed no thrombus within the IVC filter. The conical filter is tilted with the hook of the filter near the vein wall. A 12 Fr introducer sheath was advanced into the IVC. An ensnare catheter was advanced into the IVC at multiple attempts cyst near the IVC filter was not successful. An Omni Flush catheter was advanced through the vascular sheath and position within the infrarenal IVC. A venogram was repeated. A guidewire was advanced to the left of Omni flush catheter and directed in upwards. Again multiple densest in the guidewire any ventricles narrowing of the filter were not successful. The procedure was terminated. A final inferior vena cavagram showed no change in the IVC. The sheath was removed and pressure was applied to Pt's right neck until hemostasis was achieved. A dressing was applied. IMPRESSION: Unsuccessful retrieval of infrarenal IVC filter. Inferior vena cavagram showed no thrombus within the IVC or IVC filter.
== END 2017-10-01 16:25 | disposition home or self-care (01) ==
LOC: H.OPSURG 09:48
PROVIDERS: ATTEND Internal Medicine Pulmonary Disease
DX: I82.409 Acute embolism and thrombosis of unspecified deep veins of unspecified lower extremity (principal); Z86.73 Personal history of transient ischemic attack (TIA), and cerebral infarction without residual deficits; E11.9 Type 2 diabetes mellitus without complications; I10 Essential (primary) hypertension; E78.5 Hyperlipidemia, unspecified; Z45.2 Encounter for adjustment and management of vascular access device
CPT/HCPCS: 36415; 37193; 80048; 82948; 85025; 85610; 85730; 93005; A4310; C1769; C1894; J2250; J3010; J7120; Q9967